=== PATIENT | male | born 1970 | race Caucasian/White ===

== ENCOUNTER 2016-09-17 10:13 | Observation (INO) | payer OTHER ==
[~2016-09-17] VITALS: Ht 177.8 cm; Wt 86.0 kg
[~2016-09-17 10:13] MED LIST: ADV250INH INH; ADVAIR; ALBU17IN INH; AMLO5TAB2 PO; CIPR500T19; FLAG500T; FOLI1TAB2 PO; HYDR-4274 PO; METO10TA2; NALT50TA4 PO; OMEP20CA3 PO; OXAZ10CA PO; PERCOCET PO; PRAV10TA PO; PREV30TA; PROV90AE; SERT25TA85 PO; TUMS500C PO; Thiamine Hcl PO; VICO5TAB; VITMTA PO
[2016-09-17] MEDS ORDERED: OXAZEPAM 15 MG CAP As Ordered ONE (12:43)
[2016-09-17] MEDS ORDERED: ASPIRIN 81 MG CHEW TABLET As Ordered ONE (12:43)
--- NOTE | 2016-09-17 13:00 | REP ---
PA and lateral chest: Comparison is 01/24/2015. The lung diego are clear. The cardiac size is normal The danilo, mediastinum, and bony thorax are unremarkable. Impression: Negative PA and lateral chest. There is no interval change. Signed by Tavon Machuca MD 09/17/2016 12:52 P
--- NOTE | 2016-09-17 13:05 | REP ---
CT of the brain without IV contrast: Comparison is 09/03/2015. There is no hemorrhage. There is no edema, mass effect or midline shift. The cortical stripe is unremarkable. The ventricles are normal size and midline. The study is otherwise unremarkable. Impression: Negative CT study of the brain. There is no hemorrhage, acute infarct or mass. No change from the comparison study. Signed by Tavon Machuca MD 09/17/2016 12:57 P
[2016-09-17 13:25] LABS: BASO # 0.1 K/mm3 (0.0-0.2); BASO % 0.7 % (0.0-1.0); EOS # 0.2 K/mm3 (0.0-0.50); EOS % 1.4 % (0.0-3.0); LARGE UNSTAINED CELL # 0.2 K/mm3 (0.0-0.4); LARGE UNSTAINED CELL % 1.5 % (0.0-4.0); LYMPH % 8.6 % (24.0-44.0); MEAN CORPUSCULAR HEMOGLOBIN 32.2 pg (27.0-33.0); MEAN CORPUSCULAR VOLUME 94.6 fl (80.0-96.0); MONO # 0.5 K/mm3 (0.0-0.8); MONO % 4.5 % (0.0-5.0); NEUTROPHILS # 10.1 K/mm3 (1.8-7.7); NEUTROPHILS % 83.4 % (36.0-66.0); PLATELET COUNT, AUTOMATED 407 k/mm3 (150-450); RED CELL DISTRIBUTION WIDTH 12.7 % (11.5-14.5); WHITE BLOOD COUNT 12.1 K/mm3 (4.0-10.0)
[2016-09-17 13:34] LABS: ANION GAP 9 MEQ/L (8-16); BLOOD UREA NITROGEN 6 MG/DL (7-18); CALCIUM LEVEL 9.8 MG/DL (8.5-10.1); CARBON DIOXIDE LEVEL 28 MEQ/L (21-32); CHLORIDE LEVEL 102 MEQ/L (98-107); CREATININE FOR GFR 0.67 MG/DL (0.70-1.30); GLOMERULAR FILTRATION RATE > 60.0 (>60); GLUCOSE, FASTING 118 MG/DL (70-105); MAGNESIUM LEVEL 1.7 MG/DL (1.8-2.4); PHOSPHORUS LEVEL 2.5 MG/DL (2.5-4.9); POTASSIUM SERUM 3.8 MEQ/L (3.5-5.1); SODIUM LEVEL 139 MEQ/L (136-145)
[2016-09-17] MEDS ORDERED: LORazepam 2 MG/ML VIAL (J2060) As Ordered ONE (13:36)
[2016-09-17] MEDS ORDERED: amLODIPine 5 MG TAB As Ordered ONE ×2 (14:26→21:16)
[2016-09-17] MEDS ORDERED: MAGNESIUM OXIDE 400 MG TAB (MAG-OX) As Ordered ONE (15:38)
[2016-09-17] MEDS ORDERED: ALBU17IN INH (15:53)
[2016-09-17] MEDS ORDERED: VITMTA PO (15:53)
[2016-09-17] MEDS ORDERED: AMLO5TAB2 PO (15:53)
[2016-09-17] MEDS ORDERED: SERT-138 PO (15:53)
[2016-09-17] MEDS ORDERED: BUSP1TAB PO (15:53)
[2016-09-17] MEDS: cloNIDine 0.1 MG TAB PO SCH ×2 (16:00→21:27)
[2016-09-17] MEDS ORDERED: ACETAMINOPHEN TAB 650MG DOSE (2X325MG) PO PRN (16:15)
[2016-09-17] MEDS ORDERED: ALBUTEROL 90 MCG/ACT 8GM HFA INHALER INH PRN (16:15)
--- NOTE | 2016-09-17 16:26 | HPEPDOC ---
General Date of Admission 09/17/2016 425PM Chief Complaint The patient is a 46-year-old male Presented to the ER with complaints of chest pain since this morning. History of Present Illness Patient is a 46 year old male with a PMHx of Asthma, HTN, GERD, Anxiety / Depression, Seizure History, DLP, Alcoholism who presented to the ER with complaints of chest pain for 1 day duration. He notes that he woke up this morning around 445AM with complaints of chest pain. He notes the pain occurred sub-sternal, 5-8/10, aching like, continuous for 4 hours, non-radiating, no alleviating or aggravating factors. He did not associated shortness of breath, nausea and vomiting (1 episode, bilious), some dizziness, but no loss of consciousness. He notes some sweatiness. He notes that he has ran out of oxazepam (Serax) for the last 2 weeks because he has not followed up with his primary care provider. He has been drinking alcohol since that point. This has happened in the past and he was admitted for the same reason. He notes his last drink of alcohol was yesterday, when he had consumed 10 beers. He notes tingling in his toes bilaterally. He denies muscle weakness or sensory loss. He denies abdominal pain, constipation, diarrhea or urinary symptoms. Home Medications Scheduled Amlodipine Besylate (Amlodipine Besylate) 5 Mg Tab 5 MG PO BID (Reported) Buspirone HCl (Buspirone HCl) 7.5 Mg Tab 7.5 MG PO DAILY (Reported) Multivitamins *[facility] STOCKED* (Thera M Plus *[facility] STOCK[facility]*) 1 Tab Tab 1 TAB PO DAILY (Reported) Omeprazole (Omeprazole) 20 Mg Cap 20 MG PO DAILY (Reported) Salmeterol/Fluticasone (Advair Diskus 250-50 Mcg/Dose) 14 Puff/Inhaler Aerp 1 PUFF INH BID (Reported) Sertraline HCl (Sertraline HCl) 100 Mg Tab 100 MG PO DAILY (Reported) Scheduled PRN Albuterol Sulfate (Ventolin Hfa) 200 Puff/8 Gm Aers 2 PUFF INH QID PRN PRN SHORTNESS OF BREATH (Reported) Allergies Coded Allergies: No Known Drug Allergy (Verified Allergy, Unknown, 11/17/12) Past Medical History Medical History Asthma, HTN, GERD, Anxiety / Depression, Seizure History, DLP, Alcoholism Surgical History Appendectomy Tonsillectomy Both knee repair Right ankle surgery Umbilical hernia repair Family History Family History - Mother with history of breast cancer - Father with history of [place] at age 60 Social History Social History - Smokes cigars occasionally, Drinks alcohol excessively, Smoke marijuana occasionally - Denies recent travel or sick contacts - Lives with daughter - 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; 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 Review of Symptoms Other systems Constitutional: Denies weight loss, change in appetite, or recent trauma Eyes: No visual changes or eye pain Ears, Nose, Throat: Denies nose bleeds, or difficulty swallowing Cardiovascular: Positive chest pain, sweating, No orthopnea Respiratory: No cough, or wheezing, Positive shortness of breath GI: Positive nausea and vomiting, No abdominal pain, diarrhea or constipation : Denies pain with urination or frequency Musculoskeletal: Denies joint pain or swelling, Tingling in his toes bilaterally Neuro / Psych: Denies muscle weakness or sensory loss Skin: No skin rashes noted All other review of systems negative; otherwise stated in history of present illness Vital Signs - Vitals: BP 149/101, HR 108, RR 16, Sat 97%RA, Temp 97.7F - General: Lying in bed, No acute distress, Speaking in full sentences, AAOx3 - HEENT: NC, AT, PERRLA, EOMI - CVS: Regular rhythm, Tachycardic, +S1S2, - Lungs: Fair air entry bilaterally, Clear to auscultation, No wheezing / rales / rhonchi - Abdomen: Soft, Non-distended, Non-tender, + Bowel sounds x 4 - Extremities: + PPx4, No lower extremity edema, No calf tenderness - Neuro: No focal motor or sensory deficit - Skin: No visible rashes Laboratory Data Labs 24H Laboratory Tests 2 09/17/16 13:02: Anion Gap 9, White Blood Count 12.1H, Red Blood Count 4.59, Hemoglobin 14.8, Hematocrit 43.4, Mean Corpuscular Volume 94.6, Mean Corpuscular Hemoglobin 32.2 , Mean Corpuscular Hemoglobin Concent 34.0, Red Cell Distribution Width 12.7, Platelet Count 407, Neutrophils (%) (Auto) 83.4H, Lymphocytes (%) (Auto) 8.6L, Monocytes (%) (Auto) 4.5, Eosinophils (%) (Auto) 1.4, Basophils (%) (Auto) 0.7, Neutrophils # (Auto) 10.1H, Lymphocytes # (Auto) 1.0L, Monocytes # (Auto) 0.5, Eosinophils # (Auto) 0.2, Basophils # (Auto) 0.1, Blood Urea Nitrogen 6L, Creatinine 0.67L, Sodium Level 139, Potassium Level 3.8, Chloride Level 102, Carbon Dioxide Level 28, Calcium Level 9.8, Phosphorus Level 2.5, Total Creatine Kinase 107, Creatine Kinase MB 1.6, Creatine Kinase MB Relative Index 1.49, Glomerular Filtration Rate > 60.0, Large Unclassified Cells # 0.2, Large Unclassified Cells % 1.5, Magnesium Level 1.7L, Troponin I < 0.02 CBC/BMP Laboratory Tests 09/17/16 13:02 Calcium Level 9.8, Phosphorus Level 2.5, Total Creatine Kinase 107, Red Blood Count 4.59, Mean Corpuscular Volume 94.6, Mean Corpuscular Hemoglobin 32.2, Mean Corpuscular Hemoglobin Concent 34.0, Red Cell Distribution Width 12.7, Neutrophils (%) (Auto) 83.4 H, Lymphocytes (%) (Auto) 8.6 L, Monocytes (%) (Auto ) 4.5, Eosinophils (%) (Auto) 1.4, Basophils (%) (Auto) 0.7, Neutrophils # (Auto ) 10.1 H, Lymphocytes # (Auto) 1.0 L, Monocytes # (Auto) 0.5, Eosinophils # ( Auto) 0.2, Basophils # (Auto) 0.1 Plan / VTE VTE Prophylaxis Ordered?: Yes Plan Plan Chest pain possibly cardiac etiology - Atypical presentation of chest pain - EKG reviewed no ischemic changes noted; similar to EKG from 12/2015 - Troponin first set negative - Will trend troponins for now - Will keep on telemetry - Will ultimately require outpatient follow up with Cardiology for stress test Atrial flutter likely 2/2 alcohol withdrawal - on telemetry strip in the ER patient was found to be in flutter for 10-15 seconds - EKG reveals sinus tachycardia - Will keep on telemetry for monitoring - Will check thyroid function - Will treat alcohol withdrawal Alcohol withdrawal 2/2 lack of oxazepam (serax) as outpatient and restarting alcohol use - Patient presented with hypertension, tachycardia, some tremulousness - Physical reveals tachycardia - Received Ativan in the ER - Will start serax and clonidine - Will start IV fluid hydration - Will start Multivitamins, thiamine and folate Accelerated hypertension likely 2/2 alcohol withdrawal - BP is elevated in the ER - Will c/w Amlodipine with holding parameters - Will start clonidine and control withdrawal symptoms Asthma - no evidence of exacerbation at this time - c/w advair and albuterol Anxiety / Depression - c/w serax for now - c/w sertraline and buspirone Seizure History - single episode 1 year ago - not on medications DLP - currently not on medications GERD - c/w omeprazole DVT prophylaxis - Will start Lovenox MAGNO ROSAS MD Sep 17, 2016 16:26
[2016-09-17 17:23] LABS: FREE T4 0.75 NG/DL (0.76-1.46)
[2016-09-17] MEDS ORDERED: OXAZEPAM 15 MG CAP PO SCH (18:00)
[2016-09-17] MEDS: ADVAIR DISKUS 250/50 INH PWD INH SCH (20:41)
[2016-09-17] MEDS ORDERED: NS 1,000 ML IV SCH (20:45)
[2016-09-17] MEDS ORDERED: cloNIDine 0.2 MG TAB As Ordered ONE (21:16)
[2016-09-17] MEDS ORDERED: busPIRone 5 MG TAB As Ordered ONE (21:24)
[2016-09-17] MEDS: amLODIPine 5 MG TAB PO SCH (21:27)
[2016-09-17] MEDS: busPIRone 5 MG TAB PO SCH (21:27)
[2016-09-18] MEDS: FOLIC ACID 1 MG TAB PO SCH ×2 (00:06→09:32)
[2016-09-18] MEDS: OMEPRAZOLE 20 MG CAP PO SCH ×2 (00:06→09:32)
[2016-09-18] MEDS: THIAMINE 100 MG TAB PO SCH ×2 (00:06→09:32)
[2016-09-18 00:15] VITALS: BP 140/93
[2016-09-18] MEDS ORDERED: OXAZEPAM 15 MG CAP As Ordered ONE ×3 (00:41→12:24)
[2016-09-18] MEDS: OXAZEPAM 15 MG CAP PO SCH ×3 (00:44→12:26)
[2016-09-18 04:00] VITALS: BP 139/94
[2016-09-18 06:48] LABS: BASO # 0.1 K/mm3 (0.0-0.2); EOS # 0.3 K/mm3 (0.0-0.50); LARGE UNSTAINED CELL # 0.1 K/mm3 (0.0-0.4); LARGE UNSTAINED CELL % 1.7 % (0.0-4.0); LYMPH # 1.3 K/mm3 (1.5-4.5); LYMPH % 18.6 % (24.0-44.0); MEAN CORPUSCULAR HEMOGLOBIN 32.6 pg (27.0-33.0); MEAN CORPUSCULAR HGB CONC 33.5 g/dl (32.0-36.5); MEAN CORPUSCULAR VOLUME 97.1 fl (80.0-96.0); MONO # 0.3 K/mm3 (0.0-0.8); MONO % 4.1 % (0.0-5.0); NEUTROPHILS # 5.1 K/mm3 (1.8-7.7); NEUTROPHILS % 70.6 % (36.0-66.0); PLATELET COUNT, AUTOMATED 308 k/mm3 (150-450); RED CELL DISTRIBUTION WIDTH 12.6 % (11.5-14.5); WHITE BLOOD COUNT 7.2 K/mm3 (4.0-10.0)
[2016-09-18] MEDS: ADVAIR DISKUS 250/50 INH PWD INH SCH (07:08)
[2016-09-18 08:00] VITALS: BP 156/100
[2016-09-18 08:26] VITALS: BP 150/93
[2016-09-18 08:53] LABS: ALBUMIN 3.6 GM/DL (3.2-5.2); ALBUMIN/GLOBULIN RATIO 1.09 (1.00-1.93); ALKALINE PHOSPHATASE 166 U/L (45-117); ALT/SGPT 80 U/L (12-78); ANION GAP 11 MEQ/L (8-16); AST/SGOT 68 U/L (15-37); BILIRUBIN,TOTAL 0.7 MG/DL (0.2-1.0); BLOOD UREA NITROGEN 7 MG/DL (7-18); CALCIUM LEVEL 9.2 MG/DL (8.5-10.1); CARBON DIOXIDE LEVEL 24 MEQ/L (21-32); CHLORIDE LEVEL 107 MEQ/L (98-107); CREATININE FOR GFR 0.74 MG/DL (0.70-1.30); GLOMERULAR FILTRATION RATE > 60.0 (>60); GLUCOSE, FASTING 106 MG/DL (70-105); MAGNESIUM LEVEL 2.1 MG/DL (1.8-2.4); POTASSIUM SERUM 3.8 MEQ/L (3.5-5.1); SODIUM LEVEL 142 MEQ/L (136-145); TOTAL PROTEIN 6.9 GM/DL (6.4-8.2)
[2016-09-18] MEDS ORDERED: SERTRALINE 100 MG TAB PO SCH (09:00)
[2016-09-18] MEDS ORDERED: ENOXAPARIN 40 MG/0.4 ML SYRINGE (J1650) SC SCH (09:00)
[2016-09-18] MEDS ORDERED: MULTIVITAMINS/MINERALS THERAP 1 TAB PO SCH (09:00)
[2016-09-18] MEDS ORDERED: busPIRone 5 MG TAB As Ordered ONE (09:27)
[2016-09-18] MEDS ORDERED: OMEPRAZOLE 20 MG CAP As Ordered ONE (09:29)
[2016-09-18] MEDS ORDERED: FOLIC ACID 1 MG TAB As Ordered ONE (09:29)
[2016-09-18] MEDS ORDERED: ENOXAPARIN 40 MG/0.4 ML SYRINGE (J1650) As Ordered ONE (09:29)
[2016-09-18] MEDS ORDERED: THIAMINE 100 MG TAB As Ordered ONE (09:29)
[2016-09-18] MEDS ORDERED: MULTIVITAMINS/MINERALS THERAP 1 TAB As Ordered ONE (09:29)
[2016-09-18] MEDS ORDERED: cloNIDine 0.1 MG TAB As Ordered ONE (09:29)
[2016-09-18] MEDS ORDERED: SERTRALINE 100 MG TAB As Ordered ONE (09:30)
[2016-09-18] MEDS ORDERED: amLODIPine 5 MG TAB As Ordered ONE (09:30)
[2016-09-18 09:32] VITALS: BP 150/93
[2016-09-18] MEDS: amLODIPine 5 MG TAB PO SCH (09:32)
[2016-09-18] MEDS: cloNIDine 0.1 MG TAB PO SCH (09:32)
[2016-09-18] MEDS: busPIRone 5 MG TAB PO SCH (09:33)
[2016-09-18] MEDS ORDERED: THIA100TA PO (11:24)
[2016-09-18] MEDS ORDERED: CLONI1TA PO (11:24)
[2016-09-18] MEDS ORDERED: FOLI1TAB2 PO (11:24)
[2016-09-18] MEDS ORDERED: BUSP1TAB PO (11:49)
[2016-09-18] MEDS ORDERED: ADV250INH INH (11:49)
[2016-09-18] MEDS ORDERED: AMLO5TAB2 PO (11:49)
[2016-09-18] MEDS ORDERED: SERT-138 PO (11:49)
[2016-09-18] MEDS ORDERED: OMEP20CA3 PO (11:49)
[2016-09-18] MEDS ORDERED: ALBU17IN INH (11:49)
[2016-09-18] MEDS ORDERED: OXAZ15CA PO (11:49)
[2016-09-18] MEDS ORDERED: VITMTA PO (11:49)
[2016-09-18 12:00] VITALS: BP 141/89
--- NOTE | 2016-09-18 12:41 | EDDOCDS ---
Nurse's Notes [facility] Name: Alejandro Pacheco Age: 46 yrs Sex: Male : 1970 Arrival Date: 09/17/2016 Time: 10:13 Bed Admit Hold Private MD: Diagnosis: Alcohol dependence with withdrawal, unspecified;Chest pain, unspecified Presentation: 09/17 10:18 Presenting complaint: Patient states: Nausea, diarrhea, "numbness in my toes', ck1 palpitations for a week Patient states "I drink a lot to mask it". Last drink yesterday, reports 10 beers. Adult Sepsis Screening: The patient does not have new or worsening altered mentation. Patient's respiratory rate is less than 22. Systolic blood pressure is greater than 100. Patient has a qSOFA score of 0- Negative Sepsis Screen. Suicide/Homicide risk assessment- the patient denies having any suicidal and/or homicidal ideations and does not present with any other emotional, behavioral or mental health complaints. Status: Patient is not a travel services professional or dependent. Transition of care: patient was not received from another setting of care. 10:18 Acuity: ADAN Level 3 ck1 10:18 Method Of Arrival: Walkin/Carried/Asstd ck1 10:25 Red Flag criteria, patient assessed and taken directly to a bed. ck1 Triage Assessment: 10:23 General: Appears distressed, Behavior is anxious. Pain: Location: back and chest Pain ck1 currently is 5 out of 10 on a pain scale. HIV screening NA for this visit Offered previously. Neurological: Level of Consciousness is awake, alert, Oriented to person, place, time. Respiratory: Respiratory effort is unlabored, Respiratory pattern is regular, symmetrical. Derm: Skin is flushed. Musculoskeletal: Circulation, motion, and sensation intact Range of motion intact in all extremities. Historical: - Allergies: NKDA; - Home Meds: 1. Advair Diskus 250-50 mcg/dose Inhl dsdv 1 puff 2 times per day (Last dose: 09/12/2016) 2. amlodipine 5 mg oral tab 1 tab once daily (Last dose: 09/17/2016 07:00) 3. Sertraline 100 mg 1 tab daily (Last dose: 09/17/2016 07:00) 4. Serax 15 mg oral cap 1 cap 3 times per day reports being out of this medication (Last dose: Unknown) 5. omeprazole 20 mg Oral cpDR 1 cap once daily (Last dose: 09/16/2016 07:00) 6. buspirone 7.5 mg oral tab 1 tab daily (Last dose: 09/15/2016) 7. albuterol sulfate 90 mcg/actuation Inhl HFAA 1 puff every 4 hours as needed (Last dose: 08/2016) 8. multivitamin Oral tab 1 tablet daily (Last dose: 09/17/2016 07:00) - PMHx: Seizures; Hypertension; Hypercholesterolemia; GERD; Asthma; Alcoholism; Depression; - PSHx: right ankle surgery; Appendectomy; bilateral knee surgery; has plate in head; Tonsillectomy; Hernia repair; - Social history: Smoking status: Cigars No barriers to communication noted, The patient speaks fluent Swazi, Speaks appropriately for age. - : The pt / caregiver states he / she is not on anticoagulants. Home medication list is obtained from the patient, Note Medications verified by external med history and verified by patient. - Exposure Risk Screening:: None identified. Screenin:44 Screening information is obtained from the patient. Fall risk: No risks identified. ja5 Assistance ADL's: requires no assistance with activities of daily living. Abuse/DV Screen: The patient / caregiver reports he/she is: not in a situation that causes fear, pain or injury. Nutritional screening: On no prescribed diet. Advance Directives: Currently, there is no health care proxy. There is no active DNR order. There is no living will. There is no Power of Patent Leather Sorter. home support is adequate. Assessment: 10:38 General: Appears uncomfortable, Behavior is anxious, cooperative. Pain: Location: right ja5 supraclavicular area, right clavicle, anterior aspect of right upper chest and right breast Pain currently is 7 out of 10 on a pain scale. back, Quality of pain is described as sharp. Neurological: Level of Consciousness is awake, alert, Oriented to person, place, time. Cardiovascular: Capillary refill < 3 seconds Heart tones S1 S2 present Rhythm is sinus tachycardia No ectopy. Chest pain is described as Pain is 7 out of 10 on a pain scale. radiates back began 4 hours prior to arrival. Respiratory: Airway is patent Respiratory effort is even, unlabored, Respiratory pattern is regular, symmetrical, Breath sounds are clear bilaterally. Derm: Skin is pink. 11:01 General: Patient states his last drink was yesterday at 6pm.. ja5 11:34 General: Appears in no apparent distress, Behavior is anxious, cooperative. Pain: mb9 Denies pain. Neurological: Level of Consciousness is awake, alert, Oriented to person, place, time, Pt noted to have tremors of the right arm and left arm pt reports a history of binge drinking. pt reports last drink was yesterday. pt reports the tremors are typical of when he stops drinking. . Respiratory: Airway is patent Respiratory effort is even, unlabored, Respiratory pattern is regular, symmetrical, Breath sounds are clear bilaterally. Derm: pt has multiple healing scratch herrera to bilateral lower extremities. 13:07 Reassessment: Patient states symptoms have not improved. General: Appears in no mb9 apparent distress, Behavior is anxious, cooperative. Cardiovascular: Rhythm is sinus tachycardia No ectopy. Respiratory: Airway is patent Respiratory effort is even, unlabored, Breath sounds are clear bilaterally. 14:37 Reassessment: Patient appears in no apparent distress at this time. Patient states mb9 symptoms have improved. Adult Sepsis Screening: The patient does not have new or worsening altered mentation. Patient's respiratory rate is less than 22. Systolic blood pressure is greater than 100. Patient has a qSOFA score of 0- Negative Sepsis Screen. Respiratory: Airway is patent Respiratory effort is even, unlabored. 15:32 Reassessment: Patient appears in no apparent distress at this time. Patient states mb9 symptoms have improved. General: Appears in no apparent distress, Behavior is appropriate for age, cooperative. Respiratory: Airway is patent Respiratory effort is even, unlabored. 16:56 Reassessment: Patient appears in no apparent distress at this time. Patient states mb9 symptoms have improved. Adult Sepsis Screening: The patient does not have new or worsening altered mentation. Patient's respiratory rate is less than 22. Systolic blood pressure is greater than 100. Patient has a qSOFA score of 0- Negative Sepsis Screen. General: Appears in no apparent distress, Behavior is appropriate for age, cooperative. Respiratory: Airway is patent Respiratory effort is even, unlabored. 18:19 Reassessment: Patient appears in no apparent distress at this time. Adult Sepsis mb9 Screening: The patient does not have new or worsening altered mentation. Patient's respiratory rate is less than 22. Systolic blood pressure is greater than 100. Patient has a qSOFA score of 0- Negative Sepsis Screen. General: Appears to be sleeping. Behavior is appropriate for age, cooperative. Respiratory: Airway is patent Respiratory effort is even, unlabored. 19:16 General: Verbal report given by Ronan Lora RN. Assumed care of patient at this time.. kas2 19:31 General: Appears in no apparent distress, comfortable, well nourished, well groomed, kas2 Behavior is appropriate for age, cooperative. Pain: Denies pain. Neurological: Level of Consciousness is awake, alert, Oriented to person, place, time. Cardiovascular: Capillary refill < 3 seconds Heart tones S1 S2 present Rhythm is sinus tachycardia No ectopy. Chest pain is denied. Respiratory: Airway is patent Respiratory effort is even, unlabored, Respiratory pattern is regular, symmetrical, Breath sounds are clear bilaterally. Derm: Skin is intact, Skin is dry, Skin is pink, warm & dry. Skin temperature is warm. Injury Description: No known injury. 20:00 General: Patient fed supper.. kas2 21:09 General: Patient laying in bed watching TV. Appears comfortable. No apparent distress. kas2 Call rodríguez within reach. Will continue to monitor.. 21:28 General: Floor meds given as per OCT.. kas2 22:22 General: Appears in no apparent distress, comfortable, Behavior is appropriate for age, kas2 cooperative. Pain: Denies pain. Neurological: Level of Consciousness is awake, alert, Oriented to person, place, time. Cardiovascular: Rhythm is sinus tachycardia No ectopy. Respiratory: Airway is patent Respiratory effort is even, unlabored, Respiratory pattern is regular, symmetrical. Derm: Skin is intact, Skin is dry, Skin is pink, warm & dry. Skin temperature is warm. 23:22 General: Patient laying in bed watching TV. No apparent distress noted. Appears kas2 comfortable. VSS. Airway patent and respiratory effort even and unlabored. Call rodríguez within reach. Will continue to monitor.. 09/18 00:07 General: Verbal report given to Augustina Alva RN. . kas2 Vital Signs: 09/17 10:17 BP 197 / 114 Sitting; Pulse 109; Resp 16; Temp 97.7(O); Pulse Ox 97% on R/A; Weight jrd 86.18 kg (R); Height 5 ft. 10 in. (177.80 cm); Pain 0/10; 10:34 BP 158 / 105 (auto/); jc4 10:36 BP 160 / 105 (auto/); jc4 10:36 Pulse 106 MON; Pulse Ox 98% ; jc4 10:37 Pulse 108 MON; Pulse Ox 98% ; jc4 10:51 BP 168 / 97 (auto/); mb9 10:52 Pulse 102 MON; Pulse Ox 97% ; mb9 11:06 BP 148 / 100 (auto/); mb9 11:07 Pulse 102 MON; Pulse Ox 97% ; mb9 11:21 BP 154 / 107 (auto/); mb9 11:22 Pulse 104 MON; Pulse Ox 97% ; mb9 11:36 BP 158 / 104 (auto/); mb9 11:37 Pulse 102 MON; Pulse Ox 97% ; mb9 11:51 BP 158 / 103 (auto/); mb9 11:52 Pulse 104 MON; Pulse Ox 97% ; mb9 12:06 BP 164 / 94 (auto/); mb9 12:07 Pulse 108 MON; Pulse Ox 98% ; mb9 12:21 BP 169 / 104 (auto/); mb9 12:22 Pulse 106 MON; Pulse Ox 97% ; mb9 12:36 BP 163 / 102 (auto/); mb9 12:37 Pulse 108 MON; Pulse Ox 97% ; mb9 13:02 BP 157 / 106 (auto/); mb9 13:02 Pulse 108 MON; Pulse Ox 97% ; mb9 13:06 BP 160 / 110 (auto/); mb9 13:07 Pulse 108 MON; Pulse Ox 97% ; mb9 13:21 BP 155 / 103 (auto/); mb9 13:22 Pulse 108 MON; Pulse Ox 97% ; mb9 13:36 BP 160 / 108 (auto/); mb9 13:37 Pulse 110 MON; Pulse Ox 97% ; mb9 13:51 BP 152 / 100 (auto/); mb9 13:52 Pulse 104 MON; Pulse Ox 94% ; mb9 14:08 BP 157 / 104 (auto/); mb9 14:10 Pulse 104 MON; Pulse Ox 97% ; mb9 15:25 BP 149 / 101 (auto/); mb9 15:26 Pulse 102 MON; Resp 17; Temp 98.3(O); Pulse Ox 98% ; mb9 15:49 BP 155 / 109 (auto/); mb9 15:50 Pulse 102 MON; Pulse Ox 99% ; mb9 15:55 BP 179 / 107 (auto/); mb9 15:56 Pulse 108 MON; Pulse Ox 100% ; mb9 16:25 BP 155 / 103 (auto/); mb9 16:26 Pulse 102 MON; Pulse Ox 100% ; mb9 16:55 BP 150 / 96 (auto/); mb9 16:56 Pulse 94 MON; Pulse Ox 96% ; mb9 18:11 BP 146 / 103 (auto/); mb9 18:12 Pulse 100 MON; Pulse Ox 97% ; mb9 18:13 BP 150 / 105 (auto/); mb9 18:14 Pulse 88 MON; Pulse Ox 97% ; mb9 18:33 BP 158 / 97 (auto/); mb9 18:34 Pulse 98 MON; Pulse Ox 97% ; mb9 18:58 BP 156 / 98 (auto/); kas2 18:58 Pulse 94 MON; Pulse Ox 97% ; kas2 18:58 Resp 18; Temp 98.0(O); kas2 20:41 BP 172 / 94 (auto/); kas2 20:41 Pulse 90 MON; Pulse Ox 97% ; kas2 20:46 BP 173 / 94 (auto/); kas2 20:46 Pulse 102 MON; Pulse Ox 98% ; kas2 21:18 BP 171 / 94 (auto/); kas2 21:18 Pulse 94 MON; kas2 23:35 BP 149 / 99 (auto/); kas2 23:35 Pulse 88 MON; Pulse Ox 95% ; kas2 10:17 Body Mass Index 27.26 (86.18 kg, 177.80 cm) jrd Vitals: 10:17 Log In Time: September 17, 2016 at 10:15. RN notified that patient meets Red Flag jrd criteria. 10:17 RN notified that patient meets Red Flag criteria. jrd ED Course: 10:16 Patient visited by Kris Zamudio PCA. jrd 10:16 Patient moved to Waiting jrd 10:19 Triage Initiated ck1 10:24 Mima Galicia,RN is Primary Nurse. ck1 10:24 Kesha Melendez, RN is Primary Nurse. ck1 10:24 Afia Roque,RN is Primary Nurse. ck1 10:24 Patient moved to 10 ck1 10:34 EKG done. (by ED staff). Reviewed by Uche Hernandez MD. rn1 11:05 Primary Nurse role handed off by Kesha Melendez, VIVEK jc4 11:34 Patient visited by Alex Negro RN. mb9 12:09 Reid Ken MD is Attending Physician. br1 12:22 Patient visited by Reid Ken MD. br1 12:30 COUNTS INCLUDE 234 BEDS AT THE [facility] Payment Agreement was scanned into [employer] and attached to record. mm15 12:36 Primary Nurse role handed off by Afia Roque RN mcp 12:36 Primary Nurse role handed off by Mima Galicia RN mcp 13:05 PHOSPHOROUS LEVEL Sent. mb9 13:05 MAGNESIUM LEVEL Sent. mb9 13:06 Basic Metabolic Profile Sent. mb9 13:06 CBC with Diff Sent. mb9 13:06 Cardiac Injury Profile Sent. mb9 13:06 Troponin Sent. mb9 13:07 Inserted saline lock: 18 gauge in right forearm and blood collected. The patient mb9 tolerated the procedure well. 13:08 Patient visited by Alex Negro RN. mb9 13:21 Chest, 2 View (pa\\E\\lat) Returned. EDMS 13:21 CT Head Without Contrast Returned. EDMS 14:11 Patient visited by Reid Ken MD. br1 14:29 Patient visited by Ranjana Pantoja. cmb 15:33 Patient visited by Alex Negro RN. mb9 15:38 Lulu Kevin is Hospitalizing Provider. br1 18:19 Patient visited by Alex Negro RN. mb9 18:58 Augustina Root RN is Primary Nurse. kas2 19:16 Patient visited by Augustina Root RN. kas2 19:34 Patient visited by Augustina Root RN. kas2 20:21 Patient visited by Augustina Root RN. kas2 20:22 Patient moved to Admit Hold sls1 21:11 Patient visited by Augustina Root RN. kas2 21:28 Patient visited by Augustina Root RN. kas2 22:23 Patient visited by Augustina Root RN. kas2 23:24 Patient visited by Augustina Root RN. kas2 23:36 Patient visited by Augustina Root RN. kas2 23:56 Patient moved to 18 [facility] 23:56 Patient moved to Admit Hold [facility]1 09/18 00:06 No procedures done that require assistance. kas2 00:09 Patient visited by Augustina Root RN. kas2 00:12 Patient visited by Augustina Root RN. [facility] 08:24 Primary Nurse role handed off by Augustina Root RN kr3 Administered Medications: 09/17 13:05 Drug: Oxazepam 30 mg [oxazepam 15 mg capsule (2 caps)] Route: PO; mb9 13:05 Drug: Aspirin 324 mg [aspirin 81 mg chewable tablet (4 tabs)] Route: PO; mb9 13:06 Drug: NS 0.9% 1000 ml [sodium chloride 0.9 % intravenous solution] Route: IV; Rate: 150 mb9 mL/hr; Site: right forearm; 13:42 Drug: LORazepam 1 mg [lorazepam 2 mg/mL injection solution (0.5 mL)] Route: IVP; Site: mb9 right forearm; 14:37 Drug: amLODIPine 5 mg [amlodipine 5 mg tablet (1 tabs)] Route: PO; mb9 15:55 Drug: Magnesium Oxide 400 mg [magnesium oxide 400 mg tablet (1 tabs)] Route: PO; mb9 Output: 18:38 Urine: 450.00ml (Gibbs); Total: 450.00ml. mb9 09/18 00:06 Urine: 1000.00ml (Voided); Total: 1450.00ml. kas2 Order Results: Lab Order: Basic Metabolic Profile; SPEC'M 09/17/16 13:02 Test: GLUCOSE, FASTING; Value: 118; Range: 70-105; Abnormal: Above high normal; Units: MG/DL; Status: F Test: BLOOD UREA NITROGEN; Value: 6; Range: 7-18; Abnormal: Below low normal; Units: MG/DL; Status: F Test: CREATININE FOR GFR; Value: 0.67; Range: 0.70-1.30; Abnormal: Below low normal; Units: MG/DL; Status: F Test: GLOMERULAR FILTRATION RATE; Value: > 60.0; Range: >60; Status: F Test: SODIUM LEVEL; Value: 139; Range: 136-145; Units: MEQ/L; Status: F Test: POTASSIUM SERUM; Value: 3.8; Range: 3.5-5.1; Units: MEQ/L; Status: F Test: CHLORIDE LEVEL; Value: 102; Range: 98-107; Units: MEQ/L; Status: F Test: CARBON DIOXIDE LEVEL; Value: 28; Range: 21-32; Units: MEQ/L; Status: F Test: ANION GAP; Value: 9; Range: 8-16; Units: MEQ/L; Status: F Test: CALCIUM LEVEL; Value: 9.8; Range: 8.5-10.1; Units: MG/DL; Status: F Test Note: ; Units are mL/min/1.73 m2 Chronic Kidney Disease Staging per NKF: Stage I & II GFR >=60 Normal to Mildly Decreased Stage III GFR 30-59 Moderately Decreased Stage IV GFR 15-29 Severely Decreased Stage V GFR <15 Very Little GFR Left ESRD GFR <15 on DISTRIBUTION OPERATIONS MANAGER Lab Order: CBC with Diff; SPEC'M 09/17/16 13:02 Test: WHITE BLOOD COUNT; Value: 12.1; Range: 4.0-10.0; Abnormal: Above high normal; Units: K/mm3; Status: F Test: RED BLOOD COUNT; Value: 4.59; Range: 4.30-6.10; Units: M/mm3; Status: F Test: HEMOGLOBIN; Value: 14.8; Range: 14.0-18.0; Units: g/dl; Status: F Test: HEMATOCRIT; Value: 43.4; Range: 42.0-52.0; Units: %; Status: F Test: MEAN CORPUSCULAR VOLUME; Value: 94.6; Range: 80.0-96.0; Units: fl; Status: F Test: MEAN CORPUSCULAR HEMOGLOBIN; Value: 32.2; Range: 27.0-33.0; Units: pg; Status: F Test: MEAN CORPUSCULAR HGB CONC; Value: 34.0; Range: 32.0-36.5; Units: g/dl; Status: F Test: RED CELL DISTRIBUTION WIDTH; Value: 12.7; Range: 11.5-14.5; Units: %; Status: F Test: PLATELET COUNT, AUTOMATED; Value: 407; Range: 150-450; Units: k/mm3; Status: F Test: NEUTROPHILS %; Value: 83.4; Range: 36.0-66.0; Abnormal: Above high normal; Units: %; Status: F Test: LYMPH %; Value: 8.6; Range: 24.0-44.0; Abnormal: Below low normal; Units: %; Status: F Test: MONO %; Value: 4.5; Range: 0.0-5.0; Units: %; Status: F Test: EOS %; Value: 1.4; Range: 0.0-3.0; Units: %; Status: F Test: BASO %; Value: 0.7; Range: 0.0-1.0; Units: %; Status: F Test: LARGE UNSTAINED CELL %; Value: 1.5; Range: 0.0-4.0; Units: %; Status: F Test: NEUTROPHILS #; Value: 10.1; Range: 1.8-7.7; Abnormal: Above high normal; Units: K/mm3; Status: F Test: LYMPH #; Value: 1.0; Range: 1.5-4.5; Abnormal: Below low normal; Units: K/mm3; Status: F Test: MONO #; Value: 0.5; Range: 0.0-0.8; Units: K/mm3; Status: F Test: EOS #; Value: 0.2; Range: 0.0-0.50; Units: K/mm3; Status: F Test: BASO #; Value: 0.1; Range: 0.0-0.2; Units: K/mm3; Status: F Test: LARGE UNSTAINED CELL #; Value: 0.2; Range: 0.0-0.4; Units: K/mm3; Status: F Lab Order: Cardiac Injury Profile; SPEC'M 09/17/16 13:02 Test: CPK CREATINE PHOSPHOKINASE; Value: 107; Range: 39-308; Units: U/L; Status: F Test: CK-MB VALUE MASS; Value: 1.6; Range: 0.0-3.6; Units: NG/ML; Status: F Test: MB/CK RELATIVE INDEX; Value: 1.49; Range: < OR =4; Status: F Test Note: ; DIAGNOSIS CRITERIA MMB ng/ml Relative Index (RI) NON-AMI < or = 5 N/A HICKS ZONE > 5 < or = 4 AMI > 5 > 4 Lab Order: Troponin; [facility] 09/17/16 13:02 Test: TROPONIN I; Value: < 0.02; Range: < 0.10; Units: NG/ML; Status: F Test Note: ; Troponin I Reference Interval for [employer]: 99th Percentile= 0.00-0.045 ng/ml Risk Stratification: <= 0.10 ng/ml Decreased Risk for Adverse Clinical Events. 0.10-1.50 ng/ml Increased Risk for Adverse Clinical Events. Evaluation of additional criterion and/or repeat testing in 2-6 hours is suggested to rule out myocardial damage. >= 1.50 ng/ml Indicative of Myocardial Injury. Lab Order: MAGNESIUM LEVEL; [facility]09/17/16 13:02 Test: MAGNESIUM LEVEL; Value: 1.7; Range: 1.8-2.4; Abnormal: Below low normal; Units: MG/DL; Status: F Lab Order: PHOSPHOROUS LEVEL; [facility] 09/17/16 13:02 Test: PHOSPHORUS LEVEL; Value: 2.5; Range: 2.5-4.9; Units: MG/DL; Status: F Lab Order: CARDIAC INJURY PROFILE; [facility] 09/17/16 16:19 Test: CPK CREATINE PHOSPHOKINASE; Value: 87; Range: 39-308; Units: U/L; Status: F Test: CK-MB VALUE MASS; Value: 1.0; Range: 0.0-3.6; Units: NG/ML; Status: F Test: MB/CK RELATIVE INDEX; Value: 1.14; Range: < OR =4; Status: F Test Note: ; DIAGNOSIS CRITERIA MMB ng/ml Relative Index (RI) NON-AMI < or = 5 N/A HICKS ZONE > 5 < or = 4 AMI > 5 > 4 Lab Order: TROPONIN; [facility] 09/17/16 16:19 Test: TROPONIN I; Value: < 0.02; Range: < 0.10; Units: NG/ML; Status: F Test Note: ; Troponin I Reference Interval for [employer]: 99th Percentile= 0.00-0.045 ng/ml Risk Stratification: <= 0.10 ng/ml Decreased Risk for Adverse Clinical Events. 0.10-1.50 ng/ml Increased Risk for Adverse Clinical Events. Evaluation of additional criterion and/or repeat testing in 2-6 hours is suggested to rule out myocardial damage. >= 1.50 ng/ml Indicative of Myocardial Injury. Lab Order: THYROID STIMULATING HORMONE; [facility] 09/17/16 16:19 Test: THYROID STIMULATING HORMONE; Value: 1.110; Range: 0.358-3.740; Units: uIU/ML; Status: F Lab Order: FREE T4; [facility] 09/17/16 16:19 Test: FREE T4; Value: 0.75; Range: 0.76-1.46; Abnormal: Below low normal; Units: NG/DL; Status: F Lab Order: TOTAL T3; [facility] 09/17/16 16:19 Test: TOTAL T3; Value: 102.9; Range: 60.0-181.0; Units: NG/DL; Status: F Lab Order: ETHYL ALCOHOL (ETHANOL); [facility] 09/17/16 16:19 Test: ETHYL ALCOHOL (ETHANOL); Value: < 0.003; Range: 0.000-0.010; Units: %; Status: F Lab Order: CARDIAC INJURY PROFILE; [facility] 09/18/16 00:36 Test: CPK CREATINE PHOSPHOKINASE; Value: 70; Range: 39-308; Units: U/L; Status: F Test: CK-MB VALUE MASS; Value: 1.0; Range: 0.0-3.6; Units: NG/ML; Status: F Test: MB/CK RELATIVE INDEX; Value: 1.42; Range: < OR =4; Status: F Test Note: ; DIAGNOSIS CRITERIA MMB ng/ml Relative Index (RI) NON-AMI < or = 5 N/A HICKS ZONE > 5 < or = 4 AMI > 5 > 4 Lab Order: CARDIAC INJURY PROFILE; [facility] 09/18/16 08:17 Test: CPK CREATINE PHOSPHOKINASE; Value: 66; Range: 39-308; Units: U/L; Status: F Test: CK-MB VALUE MASS; Value: 1.0; Range: 0.0-3.6; Units: NG/ML; Status: F Test: MB/CK RELATIVE INDEX; Value: 1.51; Range: < OR =4; Status: F Test Note: ; DIAGNOSIS CRITERIA MMB ng/ml Relative Index (RI) NON-AMI < or = 5 N/A HICKS ZONE > 5 < or = 4 AMI > 5 > 4 Lab Order: TROPONIN; [facility] 09/18/16 00:36 Test: TROPONIN I; Value: < 0.02; Range: < 0.10; Units: NG/ML; Status: F Test Note: ; Troponin I Reference Interval for [employer]: 99th Percentile= 0.00-0.045 ng/ml Risk Stratification: <= 0.10 ng/ml Decreased Risk for Adverse Clinical Events. 0.10-1.50 ng/ml Increased Risk for Adverse Clinical Events. Evaluation of additional criterion and/or repeat testing in 2-6 hours is suggested to rule out myocardial damage. >= 1.50 ng/ml Indicative of Myocardial Injury. Lab Order: TROPONIN; [facility] 09/18/16 08:17 Test: TROPONIN I; Value: < 0.02; Range: < 0.10; Units: NG/ML; Status: F Test Note: ; Troponin I Reference Interval for [employer]: 99th Percentile= 0.00-0.045 ng/ml Risk Stratification: <= 0.10 ng/ml Decreased Risk for Adverse Clinical Events. 0.10-1.50 ng/ml Increased Risk for Adverse Clinical Events. Evaluation of additional criterion and/or repeat testing in 2-6 hours is suggested to rule out myocardial damage. >= 1.50 ng/ml Indicative of Myocardial Injury. Lab Order: CBC WITH DIFFERENTIAL; [facility]09/18/16 06:37 Test: WHITE BLOOD COUNT; Value: 7.2; Range: 4.0-10.0; Units: K/mm3; Status: F Test: RED BLOOD COUNT; Value: 4.32; Range: 4.30-6.10; Units: M/mm3; Status: F Test: HEMOGLOBIN; Value: 14.1; Range: 14.0-18.0; Units: g/dl; Status: F Test: HEMATOCRIT; Value: 42.0; Range: 42.0-52.0; Units: %; Status: F Test: MEAN CORPUSCULAR VOLUME; Value: 97.1; Range: 80.0-96.0; Abnormal: Above high normal; Units: fl; Status: F Test: MEAN CORPUSCULAR HEMOGLOBIN; Value: 32.6; Range: 27.0-33.0; Units: pg; Status: F Test: MEAN CORPUSCULAR HGB CONC; Value: 33.5; Range: 32.0-36.5; Units: g/dl; Status: F Test: RED CELL DISTRIBUTION WIDTH; Value: 12.6; Range: 11.5-14.5; Units: %; Status: F Test: PLATELET COUNT, AUTOMATED; Value: 308; Range: 150-450; Units: k/mm3; Status: F Test: NEUTROPHILS %; Value: 70.6; Range: 36.0-66.0; Abnormal: Above high normal; Units: %; Status: F Test: LYMPH %; Value: 18.6; Range: 24.0-44.0; Abnormal: Below low normal; Units: %; Status: F Test: MONO %; Value: 4.1; Range: 0.0-5.0; Units: %; Status: F Test: EOS %; Value: 4.0; Range: 0.0-3.0; Abnormal: Above high normal; Units: %; Status: F Test: BASO %; Value: 1.0; Range: 0.0-1.0; Units: %; Status: F Test: LARGE UNSTAINED CELL %; Value: 1.7; Range: 0.0-4.0; Units: %; Status: F Test: NEUTROPHILS #; Value: 5.1; Range: 1.8-7.7; Units: K/mm3; Status: F Test: LYMPH #; Value: 1.3; Range: 1.5-4.5; Abnormal: Below low normal; Units: K/mm3; Status: F Test: MONO #; Value: 0.3; Range: 0.0-0.8; Units: K/mm3; Status: F Test: EOS #; Value: 0.3; Range: 0.0-0.50; Units: K/mm3; Status: F Test: BASO #; Value: 0.1; Range: 0.0-0.2; Units: K/mm3; Status: F Test: LARGE UNSTAINED CELL #; Value: 0.1; Range: 0.0-0.4; Units: K/mm3; Status: F Lab Order: COMPLETE COMPHRENSIVE METABOLI; SPEC'M 09/18/16 06:37 Test: GLUCOSE, FASTING; Value: 106; Range: 70-105; Abnormal: Above high normal; Units: MG/DL; Status: F Test: BLOOD UREA NITROGEN; Value: 7; Range: 7-18; Units: MG/DL; Status: F Test: CREATININE FOR GFR; Value: 0.74; Range: 0.70-1.30; Units: MG/DL; Status: F Test: GLOMERULAR FILTRATION RATE; Value: > 60.0; Range: >60; Status: F Test: SODIUM LEVEL; Value: 142; Range: 136-145; Units: MEQ/L; Status: F Test: POTASSIUM SERUM; Value: 3.8; Range: 3.5-5.1; Units: MEQ/L; Status: F Test: CHLORIDE LEVEL; Value: 107; Range: 98-107; Units: MEQ/L; Status: F Test: CARBON DIOXIDE LEVEL; Value: 24; Range: 21-32; Units: MEQ/L; Status: F Test: ANION GAP; Value: 11; Range: 8-16; Units: MEQ/L; Status: F Test: CALCIUM LEVEL; Value: 9.2; Range: 8.5-10.1; Units: MG/DL; Status: F Test: AST/SGOT; Value: 68; Range: 15-37; Abnormal: Above high normal; Units: U/L; Status: F Test: ALT/SGPT; Value: 80; Range: 12-78; Abnormal: Above high normal; Units: U/L; Status: F Test: ALKALINE PHOSPHATASE; Value: 166; Range: 45-117; Abnormal: Above high normal; Units: U/L; Status: F Test: BILIRUBIN,TOTAL; Value: 0.7; Range: 0.2-1.0; Units: MG/DL; Status: F Test: TOTAL PROTEIN; Value: 6.9; Range: 6.4-8.2; Units: GM/DL; Status: F Test: ALBUMIN; Value: 3.6; Range: 3.2-5.2; Units: GM/DL; Status: F Test: ALBUMIN/GLOBULIN RATIO; Value: 1.09; Range: 1.00-1.93; Status: F Test Note: ; Units are mL/min/1.73 m2 Chronic Kidney Disease Staging per NKF: Stage I & II GFR >=60 Normal to Mildly Decreased Stage III GFR 30-59 Moderately Decreased Stage IV GFR 15-29 Severely Decreased Stage V GFR <15 Very Little GFR Left ESRD GFR <15 on DISTRIBUTION OPERATIONS MANAGER Lab Order: MAGNESIUM LEVEL; RAY'Scout 09/18/16 06:37 Test: MAGNESIUM LEVEL; Value: 2.1; Range: 1.8-2.4; Units: MG/DL; Status: F Radiology Order: Chest, 2 View (pa\\E\\lat) Test: Chest, 2 View (pa\\E\\lat) REASON FOR EXAMINATION: Chest Pain; PA and lateral chest:; ; Comparison is 01/24/2015.; ; The lung diego are clear. The cardiac size is normal; ; The danilo, mediastinum, and bony thorax are unremarkable.; ; Impression:; ; Negative PA and lateral chest. There is no interval change.; ; ; Signed by; Tavon Machuca MD 09/17/2016 12:52 P; Radiology Order: CT Head Without Contrast Test: CT Head Without Contrast REASON FOR EXAMINATION: CVA >4.5hrs; CT of the brain without IV contrast:; ; Comparison is 09/03/2015.; ; There is no hemorrhage. There is no edema, mass effect or midline shift. The; cortical stripe is unremarkable. The ventricles are normal size and midline. The; study is otherwise unremarkable.; ; Impression:; ; Negative CT study of the brain. There is no hemorrhage, acute infarct or mass.; No change from the comparison study.; ; ; Signed by; Tavon Machuca MD 09/17/2016 12:57 P; Outcome: 09/17 15:38 Decision to Hospitalize by Provider. br1 09/18 12:40 Patient left the ED. deg Signatures: Dispatcher [employer] EDMS Bernadette Flores, Architectural Drafting Instructor Unit deg Elvira Osorio RN Jaz Pringle mcp, RN RN ck1 Jonelle MartinezRN RN kr3 Reid Ken MD MD br1 eKsha Melendez RN RN jc4 Lizet Zelaya RN RN sls1 Ranjana Pantoja cmb Elgin Sullivan mm15 Kris Zamudio, PARTS IDENTIFICATION TECHNICIAN PARTS IDENTIFICATION TECHNICIAN jrd Alex Negro,RN RN mb9 Juan R Campuzano rn1 Augustina Root,VIVEK RN carolyn2 Afia Roque RN RN ja5 Corrections: (The following items were deleted from the chart) 09/17 10:46 10:23 Home Meds: Advair Diskus 250-50 mcg/dose Inhl dsdv 1 puff 2 times per day; [facility] 10:23 Home Meds: amlodipine Oral twice a day; [facility] 10:23 Home Meds: Sertraline daily; [facility] 10:23 Home Meds: Serax Oral; reports being out of this medication; [facility] 10:23 Home Meds: omeprazole 20 mg Oral cpDR 1 cap once daily; [facility] 10:23 Home Meds: Buspirone Oral daily; [place] [id number] 18:20 17:00 General: This RN spoke with Dr Kevin in regards to pt's blood pressure and that mb9 pt has Imdur ordered. New order received to hold imdur and give pt 500 ml bolus of NS x1 now. . mb9 MTDD
--- NOTE | 2016-09-18 12:41 | EDDOCDS ---
Physician Documentation [facility] Name: Alejandro Pacheco Age: 46 yrs Sex: Male : 1970 Arrival Date: 09/17/2016 Time: 10:13 Bed Admit Hold Private MD: Disposition: 09/17/16 15:38 Hospitalization ordered by Lulu Kevin for Inpatient Admission. Preliminary diagnosis are Alcohol dependence with withdrawal, unspecified, Chest pain, unspecified. - Bed requested for Admit. - Status is Inpatient Admission. deg - Condition is Stable. - Problem is new. - Symptoms are unchanged. Historical: - Allergies: NKDA; - Home Meds: 1. Advair Diskus 250-50 mcg/dose Inhl dsdv 1 puff 2 times per day (Last dose: 09/12/2016) 2. amlodipine 5 mg oral tab 1 tab once daily (Last dose: 09/17/2016 07:00) 3. Sertraline 100 mg 1 tab daily (Last dose: 09/17/2016 07:00) 4. Serax 15 mg oral cap 1 cap 3 times per day reports being out of this medication (Last dose: Unknown) 5. omeprazole 20 mg Oral cpDR 1 cap once daily (Last dose: 09/16/2016 07:00) 6. buspirone 7.5 mg oral tab 1 tab daily (Last dose: 09/15/2016) 7. albuterol sulfate 90 mcg/actuation Inhl HFAA 1 puff every 4 hours as needed (Last dose: 08/2016) 8. multivitamin Oral tab 1 tablet daily (Last dose: 09/17/2016 07:00) - PMHx: Seizures; Hypertension; Hypercholesterolemia; GERD; Asthma; Alcoholism; Depression; - PSHx: right ankle surgery; Appendectomy; bilateral knee surgery; has plate in head; Tonsillectomy; Hernia repair; - Social history: Smoking status: Cigars No barriers to communication noted, The patient speaks fluent German, Speaks appropriately for age. - : The pt / caregiver states he / she is not on anticoagulants. Home medication list is obtained from the patient, Note Medications verified by external med history and verified by patient. - Exposure Risk Screening:: None identified. Vital Signs: 09/17 10:17 BP 197 / 114 Sitting; Pulse 109; Resp 16; Temp 97.7(O); Pulse Ox 97% on R/A; Weight jrd 86.18 kg / 189.99 lbs (R); Height 5 ft. 10 in. (177.80 cm); Pain 0/10; 10:34 BP 158 / 105 (auto/); jc4 10:36 BP 160 / 105 (auto/); jc4 10:36 Pulse 106 MON; Pulse Ox 98% ; jc4 10:37 Pulse 108 MON; Pulse Ox 98% ; jc4 10:51 BP 168 / 97 (auto/); mb9 10:52 Pulse 102 MON; Pulse Ox 97% ; mb9 11:06 BP 148 / 100 (auto/); mb9 11:07 Pulse 102 MON; Pulse Ox 97% ; mb9 11:21 BP 154 / 107 (auto/); mb9 11:22 Pulse 104 MON; Pulse Ox 97% ; mb9 11:36 BP 158 / 104 (auto/); mb9 11:37 Pulse 102 MON; Pulse Ox 97% ; mb9 11:51 BP 158 / 103 (auto/); mb9 11:52 Pulse 104 MON; Pulse Ox 97% ; mb9 12:06 BP 164 / 94 (auto/); mb9 12:07 Pulse 108 MON; Pulse Ox 98% ; mb9 12:21 BP 169 / 104 (auto/); mb9 12:22 Pulse 106 MON; Pulse Ox 97% ; mb9 12:36 BP 163 / 102 (auto/); mb9 12:37 Pulse 108 MON; Pulse Ox 97% ; mb9 13:02 BP 157 / 106 (auto/); mb9 13:02 Pulse 108 MON; Pulse Ox 97% ; mb9 13:06 BP 160 / 110 (auto/); mb9 13:07 Pulse 108 MON; Pulse Ox 97% ; mb9 13:21 BP 155 / 103 (auto/); mb9 13:22 Pulse 108 MON; Pulse Ox 97% ; mb9 13:36 BP 160 / 108 (auto/); mb9 13:37 Pulse 110 MON; Pulse Ox 97% ; mb9 13:51 BP 152 / 100 (auto/); mb9 13:52 Pulse 104 MON; Pulse Ox 94% ; mb9 14:08 BP 157 / 104 (auto/); mb9 14:10 Pulse 104 MON; Pulse Ox 97% ; mb9 15:25 BP 149 / 101 (auto/); mb9 15:26 Pulse 102 MON; Resp 17; Temp 98.3(O); Pulse Ox 98% ; mb9 15:49 BP 155 / 109 (auto/); mb9 15:50 Pulse 102 MON; Pulse Ox 99% ; mb9 15:55 BP 179 / 107 (auto/); mb9 15:56 Pulse 108 MON; Pulse Ox 100% ; mb9 16:25 BP 155 / 103 (auto/); mb9 16:26 Pulse 102 MON; Pulse Ox 100% ; mb9 16:55 BP 150 / 96 (auto/); mb9 16:56 Pulse 94 MON; Pulse Ox 96% ; mb9 18:11 BP 146 / 103 (auto/); mb9 18:12 Pulse 100 MON; Pulse Ox 97% ; mb9 18:13 BP 150 / 105 (auto/); mb9 18:14 Pulse 88 MON; Pulse Ox 97% ; mb9 18:33 BP 158 / 97 (auto/); mb9 18:34 Pulse 98 MON; Pulse Ox 97% ; mb9 18:58 BP 156 / 98 (auto/); kas2 18:58 Pulse 94 MON; Pulse Ox 97% ; kas2 18:58 Resp 18; Temp 98.0(O); kas2 20:41 BP 172 / 94 (auto/); kas2 20:41 Pulse 90 MON; Pulse Ox 97% ; kas2 20:46 BP 173 / 94 (auto/); kas2 20:46 Pulse 102 MON; Pulse Ox 98% ; kas2 21:18 BP 171 / 94 (auto/); kas2 21:18 Pulse 94 MON; kas2 23:35 BP 149 / 99 (auto/); kas2 23:35 Pulse 88 MON; Pulse Ox 95% ; kas2 10:17 Body Mass Index 27.26 (86.18 kg, 177.80 cm) jrd MDM: 10:26 ECG WITH READING ER PHYS+CARDIAG ordered. EDMS 12:22 Community Mental Health Social Worker/Pulse Ox/q 30 min VS ordered. br1 12:22 IV Saline Lock ordered. br1 12:22 Rhythm Strip to chart ordered. br1 12:22 Undress patient appropriately for examination ordered. br1 12:22 Recheck B/P ordered. br1 12:23 NS 0.9% 1000 ml IV at 150 mL/hr continuous ordered. br1 12:23 Oxazepam 30 mg PO once ordered. br1 12:23 Basic Metabolic Profile Ordered. EDMS 12:23 CBC with Diff Ordered. EDMS 12:23 Cardiac Injury Profile Ordered. EDMS 12:23 Troponin Ordered. EDMS 12:23 CT Head Without Contrast Ordered. EDMS 12:25 Chest, 2 View (pa\E\lat) Ordered. EDMS 12:25 Aspirin 324 mg PO once ordered. br1 12:28 MAGNESIUM LEVEL Ordered. EDMS 12:29 PHOSPHOROUS LEVEL Ordered. EDMS 12:30 Financial registration complete. mm15 12:30 [facility] Payment Agreement was scanned into [employer] and attached to record. mm15 13:24 Chest, 2 View (pa\E\lat) Reviewed. br1 13:24 CT Head Without Contrast Reviewed. br1 13:26 LORazepam 1 mg IVP once ordered. br1 14:07 Basic Metabolic Profile Reviewed. br1 14:07 CBC with Diff Reviewed. br1 14:07 MAGNESIUM LEVEL Reviewed. br1 14:07 Cardiac Injury Profile Reviewed. br1 14:07 Troponin Reviewed. br1 14:07 PHOSPHOROUS LEVEL Reviewed. br1 14:10 amLODIPine 5 mg PO once ordered. br1 15:28 Magnesium Oxide 400 mg PO once ordered. br1 15:30 BED REQUEST+ADM ordered. EDMS 16:10 Admission / Observation Status ordered. EDMS 16:10 2 GRAM SODIUM DIET ordered. EDMS 16:11 CARDIAC INJURY PROFILE Ordered. EDMS 16:11 TROPONIN Ordered. EDMS 16:11 THYROID STIMULATING HORMONE Ordered. EDMS 16:11 FREE T4 Ordered. EDMS 16:11 TOTAL T3 Ordered. EDMS 16:14 DRUG EVAL TOXICOLOGY ED ONLY Ordered. EDMS 16:28 ETHYL ALCOHOL (ETHANOL) Ordered. EDMS 19:33 CARDIAC INJURY PROFILE Ordered. EDMS 19:33 CARDIAC INJURY PROFILE Ordered. EDMS 19:33 TROPONIN Ordered. EDMS 19:33 TROPONIN Ordered. EDMS 19:33 CBC WITH DIFFERENTIAL Ordered. EDMS 19:33 COMPLETE COMPHRENSIVE METABOLI Ordered. EDMS 19:33 MAGNESIUM LEVEL Ordered. EDMS Administered Medications: 13:05 Drug: Oxazepam 30 mg [oxazepam 15 mg capsule (2 caps)] Route: PO; mb9 13:05 Drug: Aspirin 324 mg [aspirin 81 mg chewable tablet (4 tabs)] Route: PO; mb9 13:06 Drug: NS 0.9% 1000 ml [sodium chloride 0.9 % intravenous solution] Route: IV; Rate: 150 mb9 mL/hr; Site: right forearm; 13:42 Drug: LORazepam 1 mg [lorazepam 2 mg/mL injection solution (0.5 mL)] Route: IVP; Site: mb9 right forearm; 14:37 Drug: amLODIPine 5 mg [amlodipine 5 mg tablet (1 tabs)] Route: PO; mb9 15:55 Drug: Magnesium Oxide 400 mg [magnesium oxide 400 mg tablet (1 tabs)] Route: PO; mb9 Signatures: Dispatcher [employer] EDBernadette Robison, Retail Shift Supervisor Unit deg Jaz Weber RN RN ck1 Reid Ken MD MD br1 Kesha Melendez RN RN jc4 Elgin Sullivan mm15 Alex Negro RN mb9 The chart was reviewed and I authenticate all verbal orders and agree with the evaluation and treatment provided.Corrections: (The following items were deleted from the chart) 10:46 10:23 Home Meds: Advair Diskus 250-50 mcg/dose Inhl dsdv 1 puff 2 times per day; [place] [id number] 10:46 10:23 Home Meds: amlodipine Oral twice a day; [place] [id number] 10:46 10:23 Home Meds: Sertraline daily; [place] [id number] 10:46 10:23 Home Meds: Serax Oral; reports being out of this medication; [place] [id number] 10:46 10:23 Home Meds: omeprazole 20 mg Oral cpDR 1 cap once daily; [place] [id number] 10:46 10:23 Home Meds: Buspirone Oral daily; [place] [id number] 12:28 12:24 MAGNESIUM LEVEL+LAB ordered. EDMS EDMS 12:28 12:24 PHOSPHOROUS LEVEL+LAB ordered. EDMS EDMS 16:28 16:15 ETHYL ALCOHOL (ETHANOL) ordered. EDMS EDMS Attachments: 12:30 [facility] Payment Agreement mm15 MTDD
--- NOTE | 2016-09-18 21:38 | DSES ---
DATE OF ADMISSION: 09/17/2016 DATE OF DISCHARGE: 09/18/2016 PRIMARY CARE PROVIDER: Vicente Galdamez PA-C CONSULTANTS: None. PROCEDURES: None. COMPLICATIONS: None. ADMISSION/DISCHARGE DIAGNOSES: 1. Alcohol withdrawal. 2. History of chronic alcohol abuse. 3. Atrial flutter secondary to alcohol withdrawal. 4. Hypertension. 5. Asthma. 6. Anxiety/depression. 7. History of seizure. 8. Dyslipidemia. 9. Gastroesophageal reflux disease. HOSPITALIZATION COURSE: Patient is a 46-year-old male with a past medical history significant for alcohol abuse. Patient has been off alcohol and has switched to Serax for the past year, and patient is being followed with the primary care provider. Recently, due to the loss of transportation, patient ran out of his Serax, and in order to prevent the withdrawal symptoms, patient started binge drinking. Prior to admission, patient started feeling heart palpitations and dull chest discomfort, and there were some nonspecific symptoms, such as finger and digit numbness; therefore, patient came to [facility] on 09/17/2016 for evaluation. During the examination, patient was found to have a very brief episode of atrial flutter, which resolved spontaneously. EKG and troponin both obtained, which showed no significant abnormalities, and patient started back on Serax. Patient was observed for 24 hours. There was no recurrence of the symptoms. After a lengthy discussion with the patient, patient's appointment with the primary was secured, which will occur on 09/25/2016. A short course of Serax is prescribed to the patient, and transportation to the pharmacy and the visit to the primary care provider are also arranged through the help of a social sciences chair. On 09/18/2016, the patient is ready. During the whole time of hospitalization, patient's symptoms completely resolved without any recurrence while patient was on Serax. OBJECTIVE: Temperature is 98, pulse is 96, respirations 18, blood pressure is 156/100, pulse oximetry 98% on room air. LABORATORY DATA: WBC is 7.2, hemoglobin 14.1, hematocrit is 42, platelet count is 308. Sodium 142, potassium 3.8, chloride is 107, carbon dioxide 94, BUN 7, creatinine 0.74, GFR greater than 60, fasting glucose 106, calcium is 9.2, magnesium 2.1. Total bilirubin 0.7, AST 68, ALT is 80, alkaline phosphatase is 166. Total CK is 66. Troponin I is less than 0.02 times four sets. Total protein is 6.9, albumin 3.6. TSH is 1.11, free T4 is 0.75. Urine toxicology showed alcohol level was normal. CT of the head without contrast showed negative CT study. No hemorrhages, acute infarct, or mass. Chest x-ray showed negative PA and lateral chest x-ray. DISCHARGE MEDICATIONS: - clonidine 0.1 mg by mouth three times a day - folic acid 1 mg by mouth daily - Serax 50 mg by mouth twice a day - thiamine 100 mg by mouth daily - Ventolin two puffs inhalation four times a day as needed for shortness of breath - amlodipine 5 mg by mouth twice a day - buspirone 7.5 mg by mouth daily - multivitamin one tablet by mouth daily - omeprazole 20 mg by mouth daily - Advair Diskus one puff inhalation twice a day - sertraline 100 mg by mouth daily DISCHARGE INSTRUCTIONS: Discontinue line. Discharge home. Activity as tolerated. Diet as tolerated. Patient is instructed to abstain from any type of alcohol use. Serax is only given for the next 7 days. That will cover his use before his primary care provider visit, which is on 09/25/2016. Previously, due to lack of transportation, patient ran out of all his home medication. All the medications were reviewed and refilled and patient instructed to obtain the medication right after the discharge. Patient shall followup with Vicente Galdamez on 09/25/2016. DISCHARGE CONDITION: Stable. DISCHARGE TIME: Greater than 30 minutes.
--- NOTE | 2016-09-19 08:54 | ECGEPIP ---
Stationary ECG Study [facility] - ED Test Date: 2016-09-17 Pat Name: TERESA NUNEZ Department: Room: - Gender: M Supervisor Wood Room: rn : 1970 Requested By: Uche Holley Order Number: [id number] Reading MD: Michelle Hugo Measurements Intervals [place] Rate: 107 P: 70 TX: 123 QRS: 59 QRSD: 85 T: 45 QT: 333 QTc: 445 Interpretive Statements SINUS TACHYCARDIA ABNORMAL RHYTHM ECG SIMILAR 01/13/16 Electronically Signed On 09-19-2016 8:54:32 EST by Michelle Hugo
--- NOTE | 2016-09-20 13:41 | EDDOCDS ---
Nurse's Notes [facility] Name: Alejandro Pacheco Age: 46 yrs Sex: Male : 1970 Arrival Date: 09/17/2016 Time: 10:13 Bed Admit Hold Private MD: Diagnosis: Alcohol dependence with withdrawal, unspecified;Chest pain, unspecified Presentation: 09/17 10:18 Presenting complaint: Patient states: Nausea, diarrhea, "numbness in my toes', ck1 palpitations for a week Patient states "I drink a lot to mask it". Last drink yesterday, reports 10 beers. Adult Sepsis Screening: The patient does not have new or worsening altered mentation. Patient's respiratory rate is less than 22. Systolic blood pressure is greater than 100. Patient has a qSOFA score of 0- Negative Sepsis Screen. Suicide/Homicide risk assessment- the patient denies having any suicidal and/or homicidal ideations and does not present with any other emotional, behavioral or mental health complaints. Status: Patient is not a creative services director or dependent. Transition of care: patient was not received from another setting of care. 10:18 Acuity: ADAN Level 3 ck1 10:18 Method Of Arrival: Walkin/Carried/Asstd ck1 10:25 Red Flag criteria, patient assessed and taken directly to a bed. ck1 Triage Assessment: 10:23 General: Appears distressed, Behavior is anxious. Pain: Location: back and chest Pain ck1 currently is 5 out of 10 on a pain scale. HIV screening NA for this visit Offered previously. Neurological: Level of Consciousness is awake, alert, Oriented to person, place, time. Respiratory: Respiratory effort is unlabored, Respiratory pattern is regular, symmetrical. Derm: Skin is flushed. Musculoskeletal: Circulation, motion, and sensation intact Range of motion intact in all extremities. Historical: - Allergies: NKDA; - Home Meds: 1. Advair Diskus 250-50 mcg/dose Inhl dsdv 1 puff 2 times per day (Last dose: 09/12/2016) 2. amlodipine 5 mg oral tab 1 tab once daily (Last dose: 09/17/2016 07:00) 3. Sertraline 100 mg 1 tab daily (Last dose: 09/17/2016 07:00) 4. Serax 15 mg oral cap 1 cap 3 times per day reports being out of this medication (Last dose: Unknown) 5. omeprazole 20 mg Oral cpDR 1 cap once daily (Last dose: 09/16/2016 07:00) 6. buspirone 7.5 mg oral tab 1 tab daily (Last dose: 09/15/2016) 7. albuterol sulfate 90 mcg/actuation Inhl HFAA 1 puff every 4 hours as needed (Last dose: 08/2016) 8. multivitamin Oral tab 1 tablet daily (Last dose: 09/17/2016 07:00) - PMHx: Seizures; Hypertension; Hypercholesterolemia; GERD; Asthma; Alcoholism; Depression; - PSHx: right ankle surgery; Appendectomy; bilateral knee surgery; has plate in head; Tonsillectomy; Hernia repair; - Social history: Smoking status: Cigars No barriers to communication noted, The patient speaks fluent [place], Speaks appropriately for age. - : The pt / caregiver states he / she is not on anticoagulants. Home medication list is obtained from the patient, Note Medications verified by external med history and verified by patient. - Exposure Risk Screening:: None identified. Screenin:44 Screening information is obtained from the patient. Fall risk: No risks identified. ja5 Assistance ADL's: requires no assistance with activities of daily living. Abuse/DV Screen: The patient / caregiver reports he/she is: not in a situation that causes fear, pain or injury. Nutritional screening: On no prescribed diet. Advance Directives: Currently, there is no health care proxy. There is no active DNR order. There is no living will. There is no Power of Parquetry Layer. home support is adequate. Assessment: 10:38 General: Appears uncomfortable, Behavior is anxious, cooperative. Pain: Location: right ja5 supraclavicular area, right clavicle, anterior aspect of right upper chest and right breast Pain currently is 7 out of 10 on a pain scale. back, Quality of pain is described as sharp. Neurological: Level of Consciousness is awake, alert, Oriented to person, place, time. Cardiovascular: Capillary refill < 3 seconds Heart tones S1 S2 present Rhythm is sinus tachycardia No ectopy. Chest pain is described as Pain is 7 out of 10 on a pain scale. radiates back began 4 hours prior to arrival. Respiratory: Airway is patent Respiratory effort is even, unlabored, Respiratory pattern is regular, symmetrical, Breath sounds are clear bilaterally. Derm: Skin is pink. 11:01 General: Patient states his last drink was yesterday at 6pm.. ja5 11:34 General: Appears in no apparent distress, Behavior is anxious, cooperative. Pain: mb9 Denies pain. Neurological: Level of Consciousness is awake, alert, Oriented to person, place, time, Pt noted to have tremors of the right arm and left arm pt reports a history of binge drinking. pt reports last drink was yesterday. pt reports the tremors are typical of when he stops drinking. . Respiratory: Airway is patent Respiratory effort is even, unlabored, Respiratory pattern is regular, symmetrical, Breath sounds are clear bilaterally. Derm: pt has multiple healing scratch herrera to bilateral lower extremities. 13:07 Reassessment: Patient states symptoms have not improved. General: Appears in no mb9 apparent distress, Behavior is anxious, cooperative. Cardiovascular: Rhythm is sinus tachycardia No ectopy. Respiratory: Airway is patent Respiratory effort is even, unlabored, Breath sounds are clear bilaterally. 14:37 Reassessment: Patient appears in no apparent distress at this time. Patient states mb9 symptoms have improved. Adult Sepsis Screening: The patient does not have new or worsening altered mentation. Patient's respiratory rate is less than 22. Systolic blood pressure is greater than 100. Patient has a qSOFA score of 0- Negative Sepsis Screen. Respiratory: Airway is patent Respiratory effort is even, unlabored. 15:32 Reassessment: Patient appears in no apparent distress at this time. Patient states mb9 symptoms have improved. General: Appears in no apparent distress, Behavior is appropriate for age, cooperative. Respiratory: Airway is patent Respiratory effort is even, unlabored. 16:56 Reassessment: Patient appears in no apparent distress at this time. Patient states mb9 symptoms have improved. Adult Sepsis Screening: The patient does not have new or worsening altered mentation. Patient's respiratory rate is less than 22. Systolic blood pressure is greater than 100. Patient has a qSOFA score of 0- Negative Sepsis Screen. General: Appears in no apparent distress, Behavior is appropriate for age, cooperative. Respiratory: Airway is patent Respiratory effort is even, unlabored. 18:19 Reassessment: Patient appears in no apparent distress at this time. Adult Sepsis mb9 Screening: The patient does not have new or worsening altered mentation. Patient's respiratory rate is less than 22. Systolic blood pressure is greater than 100. Patient has a qSOFA score of 0- Negative Sepsis Screen. General: Appears to be sleeping. Behavior is appropriate for age, cooperative. Respiratory: Airway is patent Respiratory effort is even, unlabored. 19:16 General: Verbal report given by Ronan Lora RN. Assumed care of patient at this time.. kas2 19:31 General: Appears in no apparent distress, comfortable, well nourished, well groomed, kas2 Behavior is appropriate for age, cooperative. Pain: Denies pain. Neurological: Level of Consciousness is awake, alert, Oriented to person, place, time. Cardiovascular: Capillary refill < 3 seconds Heart tones S1 S2 present Rhythm is sinus tachycardia No ectopy. Chest pain is denied. Respiratory: Airway is patent Respiratory effort is even, unlabored, Respiratory pattern is regular, symmetrical, Breath sounds are clear bilaterally. Derm: Skin is intact, Skin is dry, Skin is pink, warm & dry. Skin temperature is warm. Injury Description: No known injury. 20:00 General: Patient fed supper.. kas2 21:09 General: Patient laying in bed watching TV. Appears comfortable. No apparent distress. kas2 Call rodríguez within reach. Will continue to monitor.. 21:28 General: Floor meds given as per OCT.. kas2 22:22 General: Appears in no apparent distress, comfortable, Behavior is appropriate for age, kas2 cooperative. Pain: Denies pain. Neurological: Level of Consciousness is awake, alert, Oriented to person, place, time. Cardiovascular: Rhythm is sinus tachycardia No ectopy. Respiratory: Airway is patent Respiratory effort is even, unlabored, Respiratory pattern is regular, symmetrical. Derm: Skin is intact, Skin is dry, Skin is pink, warm & dry. Skin temperature is warm. 23:22 General: Patient laying in bed watching TV. No apparent distress noted. Appears kas2 comfortable. VSS. Airway patent and respiratory effort even and unlabored. Call rodríguez within reach. Will continue to monitor.. 09/18 00:07 General: Verbal report given to Augustina Alva RN. . kas2 Vital Signs: 09/17 10:17 BP 197 / 114 Sitting; Pulse 109; Resp 16; Temp 97.7(O); Pulse Ox 97% on R/A; Weight jrd 86.18 kg (R); Height 5 ft. 10 in. (177.80 cm); Pain 0/10; 10:34 BP 158 / 105 (auto/); jc4 10:36 BP 160 / 105 (auto/); jc4 10:36 Pulse 106 MON; Pulse Ox 98% ; jc4 10:37 Pulse 108 MON; Pulse Ox 98% ; jc4 10:51 BP 168 / 97 (auto/); mb9 10:52 Pulse 102 MON; Pulse Ox 97% ; mb9 11:06 BP 148 / 100 (auto/); mb9 11:07 Pulse 102 MON; Pulse Ox 97% ; mb9 11:21 BP 154 / 107 (auto/); mb9 11:22 Pulse 104 MON; Pulse Ox 97% ; mb9 11:36 BP 158 / 104 (auto/); mb9 11:37 Pulse 102 MON; Pulse Ox 97% ; mb9 11:51 BP 158 / 103 (auto/); mb9 11:52 Pulse 104 MON; Pulse Ox 97% ; mb9 12:06 BP 164 / 94 (auto/); mb9 12:07 Pulse 108 MON; Pulse Ox 98% ; mb9 12:21 BP 169 / 104 (auto/); mb9 12:22 Pulse 106 MON; Pulse Ox 97% ; mb9 12:36 BP 163 / 102 (auto/); mb9 12:37 Pulse 108 MON; Pulse Ox 97% ; mb9 13:02 BP 157 / 106 (auto/); mb9 13:02 Pulse 108 MON; Pulse Ox 97% ; mb9 13:06 BP 160 / 110 (auto/); mb9 13:07 Pulse 108 MON; Pulse Ox 97% ; mb9 13:21 BP 155 / 103 (auto/); mb9 13:22 Pulse 108 MON; Pulse Ox 97% ; mb9 13:36 BP 160 / 108 (auto/); mb9 13:37 Pulse 110 MON; Pulse Ox 97% ; mb9 13:51 BP 152 / 100 (auto/); mb9 13:52 Pulse 104 MON; Pulse Ox 94% ; mb9 14:08 BP 157 / 104 (auto/); mb9 14:10 Pulse 104 MON; Pulse Ox 97% ; mb9 15:25 BP 149 / 101 (auto/); mb9 15:26 Pulse 102 MON; Resp 17; Temp 98.3(O); Pulse Ox 98% ; mb9 15:49 BP 155 / 109 (auto/); mb9 15:50 Pulse 102 MON; Pulse Ox 99% ; mb9 15:55 BP 179 / 107 (auto/); mb9 15:56 Pulse 108 MON; Pulse Ox 100% ; mb9 16:25 BP 155 / 103 (auto/); mb9 16:26 Pulse 102 MON; Pulse Ox 100% ; mb9 16:55 BP 150 / 96 (auto/); mb9 16:56 Pulse 94 MON; Pulse Ox 96% ; mb9 18:11 BP 146 / 103 (auto/); mb9 18:12 Pulse 100 MON; Pulse Ox 97% ; mb9 18:13 BP 150 / 105 (auto/); mb9 18:14 Pulse 88 MON; Pulse Ox 97% ; mb9 18:33 BP 158 / 97 (auto/); mb9 18:34 Pulse 98 MON; Pulse Ox 97% ; mb9 18:58 BP 156 / 98 (auto/); kas2 18:58 Pulse 94 MON; Pulse Ox 97% ; kas2 18:58 Resp 18; Temp 98.0(O); kas2 20:41 BP 172 / 94 (auto/); kas2 20:41 Pulse 90 MON; Pulse Ox 97% ; kas2 20:46 BP 173 / 94 (auto/); kas2 20:46 Pulse 102 MON; Pulse Ox 98% ; kas2 21:18 BP 171 / 94 (auto/); kas2 21:18 Pulse 94 MON; kas2 23:35 BP 149 / 99 (auto/); kas2 23:35 Pulse 88 MON; Pulse Ox 95% ; kas2 10:17 Body Mass Index 27.26 (86.18 kg, 177.80 cm) jrd Vitals: 10:17 Log In Time: September 17, 2016 at 10:15. RN notified that patient meets Red Flag jrd criteria. 10:17 RN notified that patient meets Red Flag criteria. jrd ED Course: 10:16 Patient visited by Kris Zamudio PCA. jrd 10:16 Patient moved to Waiting jrd 10:19 Triage Initiated ck1 10:24 Mima Galicia,RN is Primary Nurse. ck1 10:24 Kesha Melendez, RN is Primary Nurse. ck1 10:24 Afia Roque,RN is Primary Nurse. ck1 10:24 Patient moved to 10 ck1 10:34 EKG done. (by ED staff). Reviewed by Uche Hernandez MD. rn1 11:05 Primary Nurse role handed off by Kesha Melendez, VIVEK jc4 11:34 Patient visited by Alex Negro RN. mb9 12:09 Reid Ken MD is Attending Physician. br1 12:22 Patient visited by Reid Ken MD. br1 12:30 [facility] Payment Agreement was scanned into [facility] and attached to record. mm15 12:36 Primary Nurse role handed off by Afia Roque RN mcp 12:36 Primary Nurse role handed off by Mima Galicia RN mcp 13:05 PHOSPHOROUS LEVEL Sent. mb9 13:05 MAGNESIUM LEVEL Sent. mb9 13:06 Basic Metabolic Profile Sent. mb9 13:06 CBC with Diff Sent. mb9 13:06 Cardiac Injury Profile Sent. mb9 13:06 Troponin Sent. mb9 13:07 Inserted saline lock: 18 gauge in right forearm and blood collected. The patient mb9 tolerated the procedure well. 13:08 Patient visited by Alex Negro RN. mb9 13:21 Chest, 2 View (pa\\E\\lat) Returned. EDMS 13:21 CT Head Without Contrast Returned. EDMS 14:11 Patient visited by Reid Ken MD. br1 14:29 Patient visited by Ranjana Pantoja. cmb 15:33 Patient visited by Alex Negro RN. mb9 15:38 Lulu Kevin is Hospitalizing Provider. br1 18:19 Patient visited by Alex Negro RN. mb9 18:58 Augustina Root RN is Primary Nurse. kas2 19:16 Patient visited by Augustina Root RN. kas2 19:34 Patient visited by Augustina Root RN. kas2 20:21 Patient visited by Augustina Root RN. kas2 20:22 Patient moved to Admit Hold sls1 21:11 Patient visited by Augustina Root RN. kas2 21:28 Patient visited by Augustina Root RN. kas2 22:23 Patient visited by Augustina Root RN. kas2 23:24 Patient visited by Augustina Root RN. kas2 23:36 Patient visited by Augustina Root RN. kas2 23:56 Patient moved to 18 sls1 23:56 Patient moved to Admit Hold [facility]1 09/18 00:06 No procedures done that require assistance. kas2 00:09 Patient visited by Augustina Root RN. kas2 00:12 Patient visited by Augustina Root RN. [facility]2 08:24 Primary Nurse role handed off by Augustina Root RN kr3 02 09:16 EKG-ADULT Returned. EDMS 14:17 T-Sheet-- Draft Copy was scanned into [facility] and attached to record. gb 14:17 ECG/EKG was scanned into [facility] and attached to record. gb 14:18 Trend VS was scanned into [employer] and attached to record. gb Administered Medications: 09/17 13:05 Drug: Oxazepam 30 mg [oxazepam 15 mg capsule (2 caps)] Route: PO; mb9 13:05 Drug: Aspirin 324 mg [aspirin 81 mg chewable tablet (4 tabs)] Route: PO; mb9 13:06 Drug: NS 0.9% 1000 ml [sodium chloride 0.9 % intravenous solution] Route: IV; Rate: 150 mb9 mL/hr; Site: right forearm; 13:42 Drug: LORazepam 1 mg [lorazepam 2 mg/mL injection solution (0.5 mL)] Route: IVP; Site: mb9 right forearm; 14:37 Drug: amLODIPine 5 mg [amlodipine 5 mg tablet (1 tabs)] Route: PO; mb9 15:55 Drug: Magnesium Oxide 400 mg [magnesium oxide 400 mg tablet (1 tabs)] Route: PO; mb9 Attachments: 14:18 Trend VS gb Output: 09/17 18:38 Urine: 450.00ml (Gibbs); Total: 450.00ml. mb9 09/18 00:06 Urine: 1000.00ml (Voided); Total: 1450.00ml. kas2 Order Results: Lab Order: Basic Metabolic Profile; SPEC'M 09/17/16 13:02 Test: GLUCOSE, FASTING; Value: 118; Range: 70-105; Abnormal: Above high normal; Units: MG/DL; Status: F Test: BLOOD UREA NITROGEN; Value: 6; Range: 7-18; Abnormal: Below low normal; Units: MG/DL; Status: F Test: CREATININE FOR GFR; Value: 0.67; Range: 0.70-1.30; Abnormal: Below low normal; Units: MG/DL; Status: F Test: GLOMERULAR FILTRATION RATE; Value: > 60.0; Range: >60; Status: F Test: SODIUM LEVEL; Value: 139; Range: 136-145; Units: MEQ/L; Status: F Test: POTASSIUM SERUM; Value: 3.8; Range: 3.5-5.1; Units: MEQ/L; Status: F Test: CHLORIDE LEVEL; Value: 102; Range: 98-107; Units: MEQ/L; Status: F Test: CARBON DIOXIDE LEVEL; Value: 28; Range: 21-32; Units: MEQ/L; Status: F Test: ANION GAP; Value: 9; Range: 8-16; Units: MEQ/L; Status: F Test: CALCIUM LEVEL; Value: 9.8; Range: 8.5-10.1; Units: MG/DL; Status: F Test Note: ; Units are mL/min/1.73 m2 Chronic Kidney Disease Staging per NKF: Stage I & II GFR >=60 Normal to Mildly Decreased Stage III GFR 30-59 Moderately Decreased Stage IV GFR 15-29 Severely Decreased Stage V GFR <15 Very Little GFR Left ESRD GFR <[address] STENOGRAPHER Lab Order: CBC with Diff; SPEC'M 09/17/16 13:02 Test: WHITE BLOOD COUNT; Value: 12.1; Range: 4.0-10.0; Abnormal: Above high normal; Units: K/mm3; Status: F Test: RED BLOOD COUNT; Value: 4.59; Range: 4.30-6.10; Units: M/mm3; Status: F Test: HEMOGLOBIN; Value: 14.8; Range: 14.0-18.0; Units: g/dl; Status: F Test: HEMATOCRIT; Value: 43.4; Range: 42.0-52.0; Units: %; Status: F Test: MEAN CORPUSCULAR VOLUME; Value: 94.6; Range: 80.0-96.0; Units: fl; Status: F Test: MEAN CORPUSCULAR HEMOGLOBIN; Value: 32.2; Range: 27.0-33.0; Units: pg; Status: F Test: MEAN CORPUSCULAR HGB CONC; Value: 34.0; Range: 32.0-36.5; Units: g/dl; Status: F Test: RED CELL DISTRIBUTION WIDTH; Value: 12.7; Range: 11.5-14.5; Units: %; Status: F Test: PLATELET COUNT, AUTOMATED; Value: 407; Range: 150-450; Units: k/mm3; Status: F Test: NEUTROPHILS %; Value: 83.4; Range: 36.0-66.0; Abnormal: Above high normal; Units: %; Status: F Test: LYMPH %; Value: 8.6; Range: 24.0-44.0; Abnormal: Below low normal; Units: %; Status: F Test: MONO %; Value: 4.5; Range: 0.0-5.0; Units: %; Status: F Test: EOS %; Value: 1.4; Range: 0.0-3.0; Units: %; Status: F Test: BASO %; Value: 0.7; Range: 0.0-1.0; Units: %; Status: F Test: LARGE UNSTAINED CELL %; Value: 1.5; Range: 0.0-4.0; Units: %; Status: F Test: NEUTROPHILS #; Value: 10.1; Range: 1.8-7.7; Abnormal: Above high normal; Units: K/mm3; Status: F Test: LYMPH #; Value: 1.0; Range: 1.5-4.5; Abnormal: Below low normal; Units: K/mm3; Status: F Test: MONO #; Value: 0.5; Range: 0.0-0.8; Units: K/mm3; Status: F Test: EOS #; Value: 0.2; Range: 0.0-0.50; Units: K/mm3; Status: F Test: BASO #; Value: 0.1; Range: 0.0-0.2; Units: K/mm3; Status: F Test: LARGE UNSTAINED CELL #; Value: 0.2; Range: 0.0-0.4; Units: K/mm3; Status: F Lab Order: Cardiac Injury Profile; SPEC'M 09/17/16 13:02 Test: CPK CREATINE PHOSPHOKINASE; Value: 107; Range: 39-308; Units: U/L; Status: F Test: CK-MB VALUE MASS; Value: 1.6; Range: 0.0-3.6; Units: NG/ML; Status: F Test: MB/CK RELATIVE INDEX; Value: 1.49; Range: < OR =4; Status: F Test Note: ; DIAGNOSIS CRITERIA MMB ng/ml Relative Index (RI) NON-AMI < or = 5 N/A HICKS ZONE > 5 < or = 4 AMI > 5 > 4 Lab Order: Troponin; [facility] 09/17/16 13:02 Test: TROPONIN I; Value: < 0.02; Range: < 0.10; Units: NG/ML; Status: F Test Note: ; Troponin I Reference Interval for [employer]ise LOCI: 99th Percentile= 0.00-0.045 ng/ml Risk Stratification: <= 0.10 ng/ml Decreased Risk for Adverse Clinical Events. 0.10-1.50 ng/ml Increased Risk for Adverse Clinical Events. Evaluation of additional criterion and/or repeat testing in 2-6 hours is suggested to rule out myocardial damage. >= 1.50 ng/ml Indicative of Myocardial Injury. Lab Order: MAGNESIUM LEVEL; [facility] 09/17/16 13:02 Test: MAGNESIUM LEVEL; Value: 1.7; Range: 1.8-2.4; Abnormal: Below low normal; Units: MG/DL; Status: F Lab Order: PHOSPHOROUS LEVEL; [facility] 09/17/16 13:02 Test: PHOSPHORUS LEVEL; Value: 2.5; Range: 2.5-4.9; Units: MG/DL; Status: F Lab Order: CARDIAC INJURY PROFILE; [facility] 09/17/16 16:19 Test: CPK CREATINE PHOSPHOKINASE; Value: 87; Range: 39-308; Units: U/L; Status: F Test: CK-MB VALUE MASS; Value: 1.0; Range: 0.0-3.6; Units: NG/ML; Status: F Test: MB/CK RELATIVE INDEX; Value: 1.14; Range: < OR =4; Status: F Test Note: ; DIAGNOSIS CRITERIA MMB ng/ml Relative Index (RI) NON-AMI < or = 5 N/A HICKS ZONE > 5 < or = 4 AMI > 5 > 4 Lab Order: TROPONIN; [facility] 09/17/16 16:19 Test: TROPONIN I; Value: < 0.02; Range: < 0.10; Units: NG/ML; Status: F Test Note: ; Troponin I Reference Interval for [facility] LOCI: 99th Percentile= 0.00-0.045 ng/ml Risk Stratification: <= 0.10 ng/ml Decreased Risk for Adverse Clinical Events. 0.10-1.50 ng/ml Increased Risk for Adverse Clinical Events. Evaluation of additional criterion and/or repeat testing in 2-6 hours is suggested to rule out myocardial damage. >= 1.50 ng/ml Indicative of Myocardial Injury. Lab Order: THYROID STIMULATING HORMONE; [facility] 09/17/16 16:19 Test: THYROID STIMULATING HORMONE; Value: 1.110; Range: 0.358-3.740; Units: uIU/ML; Status: F Lab Order: FREE T4; [facility] 09/17/16 16:19 Test: FREE T4; Value: 0.75; Range: 0.76-1.46; Abnormal: Below low normal; Units: NG/DL; Status: F Lab Order: TOTAL T3; [facility] 09/17/16 16:19 Test: TOTAL T3; Value: 102.9; Range: 60.0-181.0; Units: NG/DL; Status: F Lab Order: ETHYL ALCOHOL (ETHANOL); [facility] 09/17/16 16:19 Test: ETHYL ALCOHOL (ETHANOL); Value: < 0.003; Range: 0.000-0.010; Units: %; Status: F Lab Order: CARDIAC INJURY PROFILE; [facility] 09/18/16 00:36 Test: CPK CREATINE PHOSPHOKINASE; Value: 70; Range: 39-308; Units: U/L; Status: F Test: CK-MB VALUE MASS; Value: 1.0; Range: 0.0-3.6; Units: NG/ML; Status: F Test: MB/CK RELATIVE INDEX; Value: 1.42; Range: < OR =4; Status: F Test Note: ; DIAGNOSIS CRITERIA MMB ng/ml Relative Index (RI) NON-AMI < or = 5 N/A HICKS ZONE > 5 < or = 4 AMI > 5 > 4 Lab Order: CARDIAC INJURY PROFILE; 09/18/16 08:17 Test: CPK CREATINE PHOSPHOKINASE; Value: 66; Range: 39-308; Units: U/L; Status: F Test: CK-MB VALUE MASS; Value: 1.0; Range: 0.0-3.6; Units: NG/ML; Status: F Test: MB/CK RELATIVE INDEX; Value: 1.51; Range: < OR =4; Status: F Test Note: ; DIAGNOSIS CRITERIA MMB ng/ml Relative Index (RI) NON-AMI < or = 5 N/A HICKS ZONE > 5 < or = 4 AMI > 5 > 4 Lab Order: TROPONIN; 09/18/16 00:36 Test: TROPONIN I; Value: < 0.02; Range: < 0.10; Units: NG/ML; Status: F Test Note: ; Troponin I Reference Interval for [employer]: 99th Percentile= 0.00-0.045 ng/ml Risk Stratification: <= 0.10 ng/ml Decreased Risk for Adverse Clinical Events. 0.10-1.50 ng/ml Increased Risk for Adverse Clinical Events. Evaluation of additional criterion and/or repeat testing in 2-6 hours is suggested to rule out myocardial damage. >= 1.50 ng/ml Indicative of Myocardial Injury. Lab Order: TROPONIN; 09/18/16 08:17 Test: TROPONIN I; Value: < 0.02; Range: < 0.10; Units: NG/ML; Status: F Test Note: ; Troponin I Reference Interval for [employer]: 99th Percentile= 0.00-0.045 ng/ml Risk Stratification: <= 0.10 ng/ml Decreased Risk for Adverse Clinical Events. 0.10-1.50 ng/ml Increased Risk for Adverse Clinical Events. Evaluation of additional criterion and/or repeat testing in 2-6 hours is suggested to rule out myocardial damage. >= 1.50 ng/ml Indicative of Myocardial Injury. Lab Order: CBC WITH DIFFERENTIAL; 09/18/16 06:37 Test: WHITE BLOOD COUNT; Value: 7.2; Range: 4.0-10.0; Units: K/mm3; Status: F Test: RED BLOOD COUNT; Value: 4.32; Range: 4.30-6.10; Units: M/mm3; Status: F Test: HEMOGLOBIN; Value: 14.1; Range: 14.0-18.0; Units: g/dl; Status: F Test: HEMATOCRIT; Value: 42.0; Range: 42.0-52.0; Units: %; Status: F Test: MEAN CORPUSCULAR VOLUME; Value: 97.1; Range: 80.0-96.0; Abnormal: Above high normal; Units: fl; Status: F Test: MEAN CORPUSCULAR HEMOGLOBIN; Value: 32.6; Range: 27.0-33.0; Units: pg; Status: F Test: MEAN CORPUSCULAR HGB CONC; Value: 33.5; Range: 32.0-36.5; Units: g/dl; Status: F Test: RED CELL DISTRIBUTION WIDTH; Value: 12.6; Range: 11.5-14.5; Units: %; Status: F Test: PLATELET COUNT, AUTOMATED; Value: 308; Range: 150-450; Units: k/mm3; Status: F Test: NEUTROPHILS %; Value: 70.6; Range: 36.0-66.0; Abnormal: Above high normal; Units: %; Status: F Test: LYMPH %; Value: 18.6; Range: 24.0-44.0; Abnormal: Below low normal; Units: %; Status: F Test: MONO %; Value: 4.1; Range: 0.0-5.0; Units: %; Status: F Test: EOS %; Value: 4.0; Range: 0.0-3.0; Abnormal: Above high normal; Units: %; Status: F Test: BASO %; Value: 1.0; Range: 0.0-1.0; Units: %; Status: F Test: LARGE UNSTAINED CELL %; Value: 1.7; Range: 0.0-4.0; Units: %; Status: F Test: NEUTROPHILS #; Value: 5.1; Range: 1.8-7.7; Units: K/mm3; Status: F Test: LYMPH #; Value: 1.3; Range: 1.5-4.5; Abnormal: Below low normal; Units: K/mm3; Status: F Test: MONO #; Value: 0.3; Range: 0.0-0.8; Units: K/mm3; Status: F Test: EOS #; Value: 0.3; Range: 0.0-0.50; Units: K/mm3; Status: F Test: BASO #; Value: 0.1; Range: 0.0-0.2; Units: K/mm3; Status: F Test: LARGE UNSTAINED CELL #; Value: 0.1; Range: 0.0-0.4; Units: K/mm3; Status: F Lab Order: COMPLETE COMPHRENSIVE METABOLI; SPEC'M 09/18/16 06:37 Test: GLUCOSE, FASTING; Value: 106; Range: 70-105; Abnormal: Above high normal; Units: MG/DL; Status: F Test: BLOOD UREA NITROGEN; Value: 7; Range: 7-18; Units: MG/DL; Status: F Test: CREATININE FOR GFR; Value: 0.74; Range: 0.70-1.30; Units: MG/DL; Status: F Test: GLOMERULAR FILTRATION RATE; Value: > 60.0; Range: >60; Status: F Test: SODIUM LEVEL; Value: 142; Range: 136-145; Units: MEQ/L; Status: F Test: POTASSIUM SERUM; Value: 3.8; Range: 3.5-5.1; Units: MEQ/L; Status: F Test: CHLORIDE LEVEL; Value: 107; Range: 98-107; Units: MEQ/L; Status: F Test: CARBON DIOXIDE LEVEL; Value: 24; Range: 21-32; Units: MEQ/L; Status: F Test: ANION GAP; Value: 11; Range: 8-16; Units: MEQ/L; Status: F Test: CALCIUM LEVEL; Value: 9.2; Range: 8.5-10.1; Units: MG/DL; Status: F Test: AST/SGOT; Value: 68; Range: 15-37; Abnormal: Above high normal; Units: U/L; Status: F Test: ALT/SGPT; Value: 80; Range: 12-78; Abnormal: Above high normal; Units: U/L; Status: F Test: ALKALINE PHOSPHATASE; Value: 166; Range: 45-117; Abnormal: Above high normal; Units: U/L; Status: F Test: BILIRUBIN,TOTAL; Value: 0.7; Range: 0.2-1.0; Units: MG/DL; Status: F Test: TOTAL PROTEIN; Value: 6.9; Range: 6.4-8.2; Units: GM/DL; Status: F Test: ALBUMIN; Value: 3.6; Range: 3.2-5.2; Units: GM/DL; Status: F Test: ALBUMIN/GLOBULIN RATIO; Value: 1.09; Range: 1.00-1.93; Status: F Test Note: ; Units are mL/min/1.73 m2 Chronic Kidney Disease Staging per NKF: Stage I & II GFR >=60 Normal to Mildly Decreased Stage III GFR 30-59 Moderately Decreased Stage IV GFR 15-29 Severely Decreased Stage V GFR <15 Very Little GFR Left ESRD GFR <[address] STENOGRAPHER Lab Order: MAGNESIUM LEVEL; SPEC'M 09/18/16 06:37 Test: MAGNESIUM LEVEL; Value: 2.1; Range: 1.8-2.4; Units: MG/DL; Status: F Radiology Order: EKG-ADULT Test: EKG-ADULT REASON FOR EXAMINATION: dizziness; Stationary ECG Study; [facility] - ED; ; Test Date: 2016-09-17; Pat Name: ALEJANDRO PACHECO Department:; Room: -; Gender: 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 The cardiac size is normal; ; The danilo, mediastinum, and bony thorax are unremarkable.; ; Impression:; ; Negative PA and lateral chest. There is no interval change.; ; ; Signed by; Tavon Machuca MD 09/17/2016 12:52 P; Radiology Order: CT Head Without Contrast Test: CT Head Without Contrast REASON FOR EXAMINATION: CVA >4.5hrs; CT of the brain without IV contrast:; ; Comparison is 09/03/2015.; ; There is no hemorrhage. There is no edema, mass effect or midline shift. The; cortical stripe is unremarkable. The ventricles are normal size and midline. The; study is otherwise unremarkable.; ; Impression:; ; Negative CT study of the brain. There is no hemorrhage, acute infarct or mass.; No change from the comparison study.; ; ; Signed by; Tavon Machuca MD 09/17/2016 12:57 P; Outcome: 09/17 15:38 Decision to Hospitalize by Provider. br1 09/18 12:40 Patient left the ED. deg Signatures: Dispatcher [employer] EDMS Bernadette Flores, Acute Specialist Unit deg Elvira Osorio RN RN mcp Barnhardt, Gloria, Reg Reg Jza WeberRN RN ck1 Jonelle MartinezRN RN kr3 Reid Ken MD MD br1 Kesha Melendez RN RN jc4 Lizet Zelaya RN RN sls1 Ranjana Pantoja cmElgin Ellington mm15 Kris Zamudio, MODE RADIO BOARD OPERATOR Alex Kellogg,RN RN mb9 Juan R Campuzano rn1 Augustina Root,RN RN carolyn2 Afia Roque,RN RN ja5 Corrections: (The following items were deleted from the chart) 09/17 10:46 10:23 Home Meds: Advair Diskus 250-50 mcg/dose Inhl dsdv 1 puff 2 times per day; 10:46 10:23 Home Meds: amlodipine Oral twice a day; 10:46 10:23 Home Meds: Sertraline daily; 10:46 10:23 Home Meds: Serax Oral; reports being out of this medication; 10:46 10:23 Home Meds: omeprazole 20 mg Oral cpDR 1 cap once daily; 10:46 10:23 Home Meds: Buspirone Oral daily; 18:20 17:00 General: This RN spoke with Dr Kevin in regards to pt's blood pressure and that mb9 pt has Imdur ordered. New order received to hold imdur and give pt 500 ml bolus of NS x1 now. . mb9 Chart Complete MTDD
--- NOTE | 2016-09-20 13:41 | EDDOCDS ---
Physician Documentation [facility] Name: Alejandro Pacheco Age: 46 yrs Sex: Male : 1970 Arrival Date: 09/17/2016 Time: 10:13 Bed Admit Hold Private MD: Disposition: 09/17/16 15:38 Hospitalization ordered by Lulu Kevin for Inpatient Admission. Preliminary diagnosis are Alcohol dependence with withdrawal, unspecified, Chest pain, unspecified. - Bed requested for Admit. - Status is Inpatient Admission. deg - Condition is Stable. - Problem is new. - Symptoms are unchanged. Historical: - Allergies: NKDA; - Home Meds: 1. Advair Diskus 250-50 mcg/dose Inhl dsdv 1 puff 2 times per day (Last dose: 09/12/2016) 2. amlodipine 5 mg oral tab 1 tab once daily (Last dose: 09/17/2016 07:00) 3. Sertraline 100 mg 1 tab daily (Last dose: 09/17/2016 07:00) 4. Serax 15 mg oral cap 1 cap 3 times per day reports being out of this medication (Last dose: Unknown) 5. omeprazole 20 mg Oral cpDR 1 cap once daily (Last dose: 09/16/2016 07:00) 6. buspirone 7.5 mg oral tab 1 tab daily (Last dose: 09/15/2016) 7. albuterol sulfate 90 mcg/actuation Inhl HFAA 1 puff every 4 hours as needed (Last dose: 08/2016) 8. multivitamin Oral tab 1 tablet daily (Last dose: 09/17/2016 07:00) - PMHx: Seizures; Hypertension; Hypercholesterolemia; GERD; Asthma; Alcoholism; Depression; - PSHx: right ankle surgery; Appendectomy; bilateral knee surgery; has plate in head; Tonsillectomy; Hernia repair; - Social history: Smoking status: Cigars No barriers to communication noted, The patient speaks fluent Ukrainian, Speaks appropriately for age. - : The pt / caregiver states he / she is not on anticoagulants. Home medication list is obtained from the patient, Note Medications verified by external med history and verified by patient. - Exposure Risk Screening:: None identified. Vital Signs: 09/17 10:17 BP 197 / 114 Sitting; Pulse 109; Resp 16; Temp 97.7(O); Pulse Ox 97% on R/A; Weight jrd 86.18 kg / 189.99 lbs (R); Height 5 ft. 10 in. (177.80 cm); Pain 0/10; 10:34 BP 158 / 105 (auto/); jc4 10:36 BP 160 / 105 (auto/); jc4 10:36 Pulse 106 MON; Pulse Ox 98% ; jc4 10:37 Pulse 108 MON; Pulse Ox 98% ; jc4 10:51 BP 168 / 97 (auto/); mb9 10:52 Pulse 102 MON; Pulse Ox 97% ; mb9 11:06 BP 148 / 100 (auto/); mb9 11:07 Pulse 102 MON; Pulse Ox 97% ; mb9 11:21 BP 154 / 107 (auto/); mb9 11:22 Pulse 104 MON; Pulse Ox 97% ; mb9 11:36 BP 158 / 104 (auto/); mb9 11:37 Pulse 102 MON; Pulse Ox 97% ; mb9 11:51 BP 158 / 103 (auto/); mb9 11:52 Pulse 104 MON; Pulse Ox 97% ; mb9 12:06 BP 164 / 94 (auto/); mb9 12:07 Pulse 108 MON; Pulse Ox 98% ; mb9 12:21 BP 169 / 104 (auto/); mb9 12:22 Pulse 106 MON; Pulse Ox 97% ; mb9 12:36 BP 163 / 102 (auto/); mb9 12:37 Pulse 108 MON; Pulse Ox 97% ; mb9 13:02 BP 157 / 106 (auto/); mb9 13:02 Pulse 108 MON; Pulse Ox 97% ; mb9 13:06 BP 160 / 110 (auto/); mb9 13:07 Pulse 108 MON; Pulse Ox 97% ; mb9 13:21 BP 155 / 103 (auto/); mb9 13:22 Pulse 108 MON; Pulse Ox 97% ; mb9 13:36 BP 160 / 108 (auto/); mb9 13:37 Pulse 110 MON; Pulse Ox 97% ; mb9 13:51 BP 152 / 100 (auto/); mb9 13:52 Pulse 104 MON; Pulse Ox 94% ; mb9 14:08 BP 157 / 104 (auto/); mb9 14:10 Pulse 104 MON; Pulse Ox 97% ; mb9 15:25 BP 149 / 101 (auto/); mb9 15:26 Pulse 102 MON; Resp 17; Temp 98.3(O); Pulse Ox 98% ; mb9 15:49 BP 155 / 109 (auto/); mb9 15:50 Pulse 102 MON; Pulse Ox 99% ; mb9 15:55 BP 179 / 107 (auto/); mb9 15:56 Pulse 108 MON; Pulse Ox 100% ; mb9 16:25 BP 155 / 103 (auto/); mb9 16:26 Pulse 102 MON; Pulse Ox 100% ; mb9 16:55 BP 150 / 96 (auto/); mb9 16:56 Pulse 94 MON; Pulse Ox 96% ; mb9 18:11 BP 146 / 103 (auto/); mb9 18:12 Pulse 100 MON; Pulse Ox 97% ; mb9 18:13 BP 150 / 105 (auto/); mb9 18:14 Pulse 88 MON; Pulse Ox 97% ; mb9 18:33 BP 158 / 97 (auto/); mb9 18:34 Pulse 98 MON; Pulse Ox 97% ; mb9 18:58 BP 156 / 98 (auto/); kas2 18:58 Pulse 94 MON; Pulse Ox 97% ; kas2 18:58 Resp 18; Temp 98.0(O); kas2 20:41 BP 172 / 94 (auto/); kas2 20:41 Pulse 90 MON; Pulse Ox 97% ; kas2 20:46 BP 173 / 94 (auto/); kas2 20:46 Pulse 102 MON; Pulse Ox 98% ; kas2 21:18 BP 171 / 94 (auto/); kas2 21:18 Pulse 94 MON; kas2 23:35 BP 149 / 99 (auto/); kas2 23:35 Pulse 88 MON; Pulse Ox 95% ; kas2 10:17 Body Mass Index 27.26 (86.18 kg, 177.80 cm) jrd MDM: 10:26 ECG WITH READING ER PHYS+CARDIAG ordered. EDMS 12:22 Maintenance Custodian/Pulse Ox/q 30 min VS ordered. br1 12:22 IV Saline Lock ordered. br1 12:22 Rhythm Strip to chart ordered. br1 12:22 Undress patient appropriately for examination ordered. br1 12:22 Recheck B/P ordered. br1 12:23 NS 0.9% 1000 ml IV at 150 mL/hr continuous ordered. br1 12:23 Oxazepam 30 mg PO once ordered. br1 12:23 Basic Metabolic Profile Ordered. EDMS 12:23 CBC with Diff Ordered. EDMS 12:23 Cardiac Injury Profile Ordered. EDMS 12:23 Troponin Ordered. EDMS 12:23 CT Head Without Contrast Ordered. EDMS 12:25 Chest, 2 View (pa\E\lat) Ordered. EDMS 12:25 Aspirin 324 mg PO once ordered. br1 12:28 MAGNESIUM LEVEL Ordered. EDMS 12:29 PHOSPHOROUS LEVEL Ordered. EDMS 12:30 Financial registration complete. mm15 12:30 [facility] Payment Agreement was scanned into iPour[employer] and attached to record. mm15 13:24 Chest, 2 View (pa\E\lat) Reviewed. br1 13:24 CT Head Without Contrast Reviewed. br1 13:26 LORazepam 1 mg IVP once ordered. br1 14:07 Basic Metabolic Profile Reviewed. br1 14:07 CBC with Diff Reviewed. br1 14:07 MAGNESIUM LEVEL Reviewed. br1 14:07 Cardiac Injury Profile Reviewed. br1 14:07 Troponin Reviewed. br1 14:07 PHOSPHOROUS LEVEL Reviewed. br1 14:10 amLODIPine 5 mg PO once ordered. br1 15:28 Magnesium Oxide 400 mg PO once ordered. br1 15:30 BED REQUEST+ADM ordered. EDMS 16:10 Admission / Observation Status ordered. EDMS 16:10 2 GRAM SODIUM DIET ordered. EDMS 16:11 CARDIAC INJURY PROFILE Ordered. EDMS 16:11 TROPONIN Ordered. EDMS 16:11 THYROID STIMULATING HORMONE Ordered. EDMS 16:11 FREE T4 Ordered. EDMS 16:11 TOTAL T3 Ordered. EDMS 16:14 DRUG EVAL TOXICOLOGY ED ONLY Ordered. EDMS 16:28 ETHYL ALCOHOL (ETHANOL) Ordered. EDMS 19:33 CARDIAC INJURY PROFILE Ordered. EDMS 19:33 CARDIAC INJURY PROFILE Ordered. EDMS 19:33 TROPONIN Ordered. EDMS 19:33 TROPONIN Ordered. EDMS 19:33 CBC WITH DIFFERENTIAL Ordered. EDMS 19:33 COMPLETE COMPHRENSIVE METABOLI Ordered. EDMS 19:33 MAGNESIUM LEVEL Ordered. EDMS 09/18 19:31 CBC WITH DIFFERENTIAL Ordered. EDMS 19:31 COMPLETE COMPHRENSIVE METABOLI Ordered. EDMS 19:31 MAGNESIUM LEVEL Ordered. EDMS 09/19 14:17 T-Sheet-- Draft Copy was scanned into [employer]Pour[employer] and attached to record. gb 14:17 ECG/EKG was scanned into [employer] and attached to record. gb 14:18 Trend VS was scanned into [employer] and attached to record. gb Administered Medications: 09/17 13:05 Drug: Oxazepam 30 mg [oxazepam 15 mg capsule (2 caps)] Route: PO; mb9 13:05 Drug: Aspirin 324 mg [aspirin 81 mg chewable tablet (4 tabs)] Route: PO; mb9 13:06 Drug: NS 0.9% 1000 ml [sodium chloride 0.9 % intravenous solution] Route: IV; Rate: 150 mb9 mL/hr; Site: right forearm; 13:42 Drug: LORazepam 1 mg [lorazepam 2 mg/mL injection solution (0.5 mL)] Route: IVP; Site: mb9 right forearm; 14:37 Drug: amLODIPine 5 mg [amlodipine 5 mg tablet (1 tabs)] Route: PO; mb9 15:55 Drug: Magnesium Oxide 400 mg [magnesium oxide 400 mg tablet (1 tabs)] Route: PO; mb9 Signatures: Dispatcher [employer] EDMS Bernadette Flores, Vendor Management Associate Unit deg Elisa Elaine, Reg Reg gb Jaz WeberRN RN ck1 Reid Ken MD MD br1 Kesha Melendez RN RN jc4 Elgin Sullivan mm15 Alex Negro RN mb9 The chart was reviewed and I authenticate all verbal orders and agree with the evaluation and treatment provided.Corrections: (The following items were deleted from the chart) 10:46 10:23 Home Meds: Advair Diskus 250-50 mcg/dose Inhl dsdv 1 puff 2 times per day; 10:46 10:23 Home Meds: amlodipine Oral twice a day; 10:46 10:23 Home Meds: Sertraline daily; 10:46 10:23 Home Meds: Serax Oral; reports being out of this medication; 10:46 10:23 Home Meds: omeprazole 20 mg Oral cpDR 1 cap once daily; 10:46 10:23 Home Meds: Buspirone Oral daily; jc 12:28 12:24 MAGNESIUM LEVEL+LAB ordered. EDMS EDMS 12: 12:24 PHOSPHOROUS LEVEL+LAB ordered. EDMS EDMS 16: 16:15 ETHYL ALCOHOL (ETHANOL) ordered. EDMS EDMS Attachments: 12:30 [facility] Payment Agreement mm15 09/19 14:17 T-Sheet-- Draft Copy gb 14:17 ECG/EKG gb Chart Complete MTDD
== END 2016-09-18 12:40 | disposition home or self-care (01) ==
LOC: M ED 10:13 → M ED INP 16:03
PROVIDERS: ADMIT Internal Medicine; ATTEND Internal Medicine
DX: F10.230 Alcohol dependence with withdrawal, uncomplicated (principal); I48.92 Unspecified atrial flutter; R07.9 Chest pain, unspecified; I10 Essential (primary) hypertension; J45.909 Unspecified asthma, uncomplicated; F32.9 Major depressive disorder, single episode, unspecified; F41.9 Anxiety disorder, unspecified; E78.5 Hyperlipidemia, unspecified; K21.9 Gastro-esophageal reflux disease without esophagitis; Z79.899 Other long term (current) drug therapy; Z72.0 Tobacco use

== ENCOUNTER 2016-10-15 11:33 | Inpatient (IN) | payer OTHER ==
[~2016-10-15] VITALS: Ht 177.8 cm; Wt 84.8 kg
[~2016-10-15 11:33] MED LIST changes: +BUSP1TAB PO; +CLONI1TA PO; +OXAZ15CA PO; +SERT-138 PO; +SERT25TA PO; -SERT25TA85 PO; +THIA100TA PO
[2016-10-15 12:29] LABS: BASO % 0.6 % (0.0-1.0); EOS # 0.2 K/mm3 (0.0-0.50); EOS % 3.3 % (0.0-3.0); LARGE UNSTAINED CELL # 0.1 K/mm3 (0.0-0.4); LYMPH # 0.8 K/mm3 (1.5-4.5); LYMPH % 16.9 % (24.0-44.0); MEAN CORPUSCULAR HEMOGLOBIN 32.2 pg (27.0-33.0); MEAN CORPUSCULAR HGB CONC 33.3 g/dl (32.0-36.5); MEAN CORPUSCULAR VOLUME 96.9 fl (80.0-96.0); MONO # 0.3 K/mm3 (0.0-0.8); MONO % 6.4 % (0.0-5.0); NEUTROPHILS # 3.2 K/mm3 (1.8-7.7); NEUTROPHILS % 71.7 % (36.0-66.0); PLATELET COUNT, AUTOMATED 136 k/mm3 (150-450); RED CELL DISTRIBUTION WIDTH 13.5 % (11.5-14.5); WHITE BLOOD COUNT 4.5 K/mm3 (4.0-10.0)
--- NOTE | 2016-10-15 12:40 | REP ---
CT Head without contrast HISTORY: Altered mental status COMPARISON: 09/17/2016 There is no intraparenchymal hemorrhage, acute infarct, mass or midline shift. The ventricular system and cortical sulci as well as subarachnoid space in the posterior fossa are dilated consistent with minimal volume loss. There is no extra cerebral collection. There is no fracture. The visualized sinuses are clear. IMPRESSION: Minimal volume loss. Signed by Dario Comer MD 10/15/2016 12:31 P
[2016-10-15] MEDS ORDERED: NS 1,000 ML IV ONE (12:45)
[2016-10-15] MEDS ORDERED: OXAZEPAM 15 MG CAP PO ONE (12:45)
[2016-10-15 12:56] LABS: ALBUMIN 3.7 GM/DL (3.2-5.2); ALBUMIN/GLOBULIN RATIO 1.19 (1.00-1.93); ALKALINE PHOSPHATASE 244 U/L (45-117); ALT/SGPT 130 U/L (12-78); ANION GAP 21 MEQ/L (8-16); AST/SGOT 264 U/L (15-37); BILIRUBIN,DIRECT 0.6 MG/DL (0.0-0.2); BILIRUBIN,TOTAL 1.2 MG/DL (0.2-1.0); BLOOD UREA NITROGEN 5 MG/DL (7-18); CARBON DIOXIDE LEVEL 15 MEQ/L (21-32); CHLORIDE LEVEL 101 MEQ/L (98-107); CREATININE FOR GFR 1.01 MG/DL (0.70-1.30); GLOMERULAR FILTRATION RATE > 60.0 (>60); GLUCOSE, FASTING 164 MG/DL (70-105); POTASSIUM SERUM 3.6 MEQ/L (3.5-5.1); SODIUM LEVEL 137 MEQ/L (136-145); TOTAL PROTEIN 6.8 GM/DL (6.4-8.2)
[2016-10-15 14:38] LABS: VENOUS BASE EXCESS 0.1 (-2.0-2.0); VENOUS PARTIAL PRESSURE CO2 36.6 mmHg (38.0-50.0); VENOUS PARTIAL PRESSURE O2 36.5 mmHg (30.0-50.0); VENOUS TOTAL CO2 25.1 MEQ/L (24.0-28.0)
[2016-10-15 14:50] LABS: CONTROL LINE INT CTR LINE PRESENT; METHADONE URINE NEGATIVE (NEGATIVE); TRICYCLIC ANTIDEPRESS URINE NEGATIVE (NEGATIVE)
--- NOTE | 2016-10-15 16:46 | REP ---
RIGHT UPPER QUADRANT ULTRASOUND: Real-time sonographic evaluation of the right upper quadrant is performed. The gallbladder demonstrates no evidence of intraluminal sludge or calculi, wall thickening or pericholecystic fluid. There is no intrahepatic or extrahepatic biliary dilatation. The common bile duct measuring 5 mm in diameter. The liver demonstrates diffuse increased echotexture with enlargement compatible with diffuse fibrofatty infiltration and hepatomegaly. Length of the liver is 22 cm. Pancreas could not be visualized due to overlying bowel gas. Right kidney demonstrates no hydronephrosis or nephrolithiasis with normal size at 11.8 cm in length. A tiny amount of perihepatic fluid is seen. IMPRESSION: No gallstones or biliary dilatation. Hepatomegaly with diffuse fibrofatty infiltration of the liver. Tiny amount of perihepatic fluid. Signed by Tavon Lombardi MD 10/15/2016 05:25 P
[2016-10-15] MEDS ORDERED: LORazepam 2 MG/ML VIAL (J2060) IV STA (17:09)
--- NOTE | 2016-10-15 18:07 | ECGEPIP ---
Stationary ECG Study 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
[2016-10-15] MEDS ORDERED: ONDANSETRON 4MG/2ML VIAL (J2405) IV PRN (19:15)
[2016-10-15] MEDS ORDERED: ALBU17IN INH (19:20)
[2016-10-15] MEDS ORDERED: FOLI1TAB2 PO (19:20)
[2016-10-15] MEDS ORDERED: OXAZ15CA PO (19:20)
[2016-10-15] MEDS ORDERED: AMLO5TAB2 PO (19:20)
[2016-10-15] MEDS ORDERED: VITMTA PO (19:20)
[2016-10-15] MEDS ORDERED: THIA100TA PO (19:20)
[2016-10-15] MEDS ORDERED: ADV250INH INH (19:20)
[2016-10-15] MEDS ORDERED: BUSP1TAB PO (19:20)
[2016-10-15] MEDS ORDERED: OMEP20CA3 PO (19:20)
[2016-10-15] MEDS: NS 1,000 ML IV SCH (19:26)
[2016-10-15] MEDS ORDERED: NS 1,000 ML in APPROPRIATE DILUENT 1 EA IV ONE (19:30)
[2016-10-15] MEDS ORDERED: cloNIDine 0.1 MG TAB PO PRN (19:30)
[2016-10-15] MEDS ORDERED: ALBUTEROL 90 MCG/ACT 8GM HFA INHALER INH PRN (19:30)
[2016-10-15] MEDS ORDERED: NICOTINE 7 MG/24 HR TRANSDERMAL TD PRN (19:45)
[2016-10-15] MEDS ORDERED: LACTULOSE 20 GM/30 ML SYRUP UD PO ONE (19:45)
[2016-10-15] MEDS: LORazepam 2 MG/ML VIAL (J2060) IV PRN (20:12)
--- NOTE | 2016-10-15 20:12 | HPE ---
DATE OF ADMISSION: 10/15/2016 This is a patient of Vicente Galdamez. CHIEF COMPLAINT: "I had a seizure." SUMMARY OF PRESENTATION: This is a 46-year-old with a history of alcohol withdrawal seizure who has not had anything to drink, apparently, in a couple days and was walking to [facility] and in the doorway went down and started seizing. An ambulance was called. He had generalized shaking that was noted as quite severe. He has had one previous episode of alcohol withdrawal seizure around a year ago. Since that time he has had no further seizure episodes until today. 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 Last year he was drinking around 10 beers a day and a good amount of vodka along with that. Took a break of Thursday and Thursday. Started to have symptoms of withdrawal. Began drinking again and then stopped again this time. He has had withdrawal symptoms many times. He usually becomes shaky. He has been in detoxification before. He has never been to rehabilitation. PAST MEDICAL HISTORY: Notable for: 1. Asthma. 2. Gastroesophageal reflux disease (GERD). 3. History of diverticulitis. 4. Erectile dysfunction. 5. Hypertension. 6. Hyperlipidemia. 7. Anxiety. 8. Alcohol abuse. SURGICAL HISTORY: Notable for: 1. Tonsillectomy. 2. Appendectomy. 3. Laser surgery to the eye on the right. 4. Arthroscopic surgery on left knee. 5. Umbilical hernia repair in 2011. FAMILY HISTORY: Notable for father who at age 60 with an myocardial infarction ([place]). Mother with macular degeneration and breast cancer. SOCIAL HISTORY: He smokes cigars when he has access to them. Does not use any cigarettes. Occasionally uses marijuana. Uses no intravenous (IV) drugs. MEDICATIONS AT HOME: Notable for having not been obtained in total, but apparently he has been taking Serax at home, even as recently as the last few days, and also uses albuterol for his asthma. ALLERGIES: No known drug allergies. REVIEW OF SYSTEMS: Somewhat limited. He has no complaints of pain anywhere in his body. No headache. No neck pain or stiffness. No visual changes. No runny nose. No sore throat. No cough. Has been in his normal state of health. No fever. No chills. No abdominal pain. No change in bowel or bladder habits. No focal weakness. Otherwise it is unremarkable. PHYSICAL EXAMINATION: Temperature upon arrival is 98.2. Most recent pulse is 144 with a blood pressure of 168/108, respiratory rate of 14 on arrival, pulse oximetry 96. He is awake and appropriately interactive, alert and oriented times three. Somewhat anxious, somewhat tremulous. Head is normocephalic. Sinuses are nontender. There is no tenderness over his scalp. No tenderness in his cervical spine. There is evidence of an ecchymosis on the left front portion of his tongue, where he apparently bit his tongue during the seizure. Mucous membranes are moist. Neck is supple. Breathing is symmetrical. Inspiratory to expiratory (I-to-E) ratio is 1:3. No wheezes, rales, or rhonchi. Heart is in a regular rate and rhythm, tachycardic. Normal S1, S2. Radial pulses are 2+ bilaterally. Capillary refill is less than 2 seconds. Abdomen soft, doughy, nontender. He is moving all four extremities. There is some excoriations on this right angel and some bruising of his right ankle, which is nontender to palpation. There are labs available for me to review, which include a white count of 4.5, hemoglobin 12, and platelets of 136. BUN 5, creatinine 1.01, calcium 8. Total bilirubin 1.2, direct bilirubin 0.6, AST 264, ALT 130, alkaline phosphatase 244. Ammonia level is 74. TSH is 2.43. Blood gas 7.43, pCO2 of 36, pO2 of 36, bicarbonate 24. Toxicology screen was notable for an alcohol level of 0.5 with positive benzodiazepine screen. EKG shows sinus tachycardia. ASSESSMENT: This is a 46-year-old with alcohol withdrawal seizure. Will require a 2-midnight hospital stay for further treatment. PLAN: 1. Neurologic. Patient had an alcohol withdrawal seizure. Will be started on Serax and Ativan as needed, thiamine, and folate. He did have a head CT, which showed minimal volume loss. It appears as though he has never had an MRI or MRA. There was an electroencephalogram (EEG) done in August 2015, which showed excessive beta activity with no seizure activity noted. Will defer to Dr. Espinoza as to what further workup may be clinically indicated at this point. I have elected not to order any further testing. 2. Patient has hypertension. This is most likely a side effect of withdrawal. May benefit from blood pressure management during his stay. 3. Patient will have a nicotine patch available to him at a low dose should he have cravings for a cigar. 4. Patient has history of asthma. Will make his Advair available to him. 5. Patient has a history of anxiety and may have been taking Zoloft. Await confirmation of that. 6. Deep vein thrombosis (DVT) prophylaxis has been ordered.
[2016-10-15 21:00] VITALS: BP 165/98
[2016-10-15] MEDS: ADVAIR DISKUS 250/50 INH PWD INH SCH (21:00)
[2016-10-15] MEDS: busPIRone 5 MG TAB PO SCH (22:16)
[2016-10-15] MEDS: OXAZEPAM 10 MG CAP PO SCH (22:17)
[2016-10-15] MEDS: amLODIPine 5 MG TAB PO SCH (22:17)
[2016-10-16] VITALS (9 sets, daily range): BP systolic 116–169; BP diastolic 66–110
[2016-10-16] MEDS: OXAZEPAM 10 MG CAP PO SCH ×3 (05:17→21:07)
[2016-10-16 05:30] LABS: BASO % 0.6 % (0.0-1.0); EOS # 0.1 K/mm3 (0.0-0.50); EOS % 1.9 % (0.0-3.0); LARGE UNSTAINED CELL # 0.1 K/mm3 (0.0-0.4); LARGE UNSTAINED CELL % 2.2 % (0.0-4.0); LYMPH # 0.9 K/mm3 (1.5-4.5); LYMPH % 19.9 % (24.0-44.0); MEAN CORPUSCULAR HEMOGLOBIN 31.6 pg (27.0-33.0); MEAN CORPUSCULAR VOLUME 95.7 fl (80.0-96.0); MONO # 0.4 K/mm3 (0.0-0.8); MONO % 7.6 % (0.0-5.0); NEUTROPHILS # 3.1 K/mm3 (1.8-7.7); NEUTROPHILS % 67.8 % (36.0-66.0); PLATELET COUNT, AUTOMATED 107 k/mm3 (150-450); WHITE BLOOD COUNT 4.6 K/mm3 (4.0-10.0)
[2016-10-16 05:46] LABS: ANION GAP 9 MEQ/L (8-16); BLOOD UREA NITROGEN 5 MG/DL (7-18); CALCIUM LEVEL 8.8 MG/DL (8.5-10.1); CARBON DIOXIDE LEVEL 29 MEQ/L (21-32); CHLORIDE LEVEL 102 MEQ/L (98-107); CREATININE FOR GFR 0.81 MG/DL (0.70-1.30); GLOMERULAR FILTRATION RATE > 60.0 (>60); GLUCOSE, FASTING 112 MG/DL (70-105); MAGNESIUM LEVEL 1.8 MG/DL (1.8-2.4); POTASSIUM SERUM 3.5 MEQ/L (3.5-5.1); SODIUM LEVEL 140 MEQ/L (136-145)
[2016-10-16] MEDS: ADVAIR DISKUS 250/50 INH PWD INH SCH ×2 (07:10→21:34)
[2016-10-16] MEDS: ENOXAPARIN 40 MG/0.4 ML SYRINGE (J1650) SC SCH (08:37)
[2016-10-16] MEDS: busPIRone 5 MG TAB PO SCH ×2 (08:37→21:07)
[2016-10-16] MEDS: MULTIVITAMINS/MINERALS THERAP 1 TAB PO SCH (08:38)
[2016-10-16] MEDS: OMEPRAZOLE 20 MG CAP PO SCH (08:38)
[2016-10-16] MEDS: amLODIPine 5 MG TAB PO SCH ×2 (08:38→21:07)
[2016-10-16] MEDS: FOLIC ACID 1 MG TAB PO SCH (08:38)
[2016-10-16] MEDS: THIAMINE 100 MG TAB PO SCH (08:38)
[2016-10-16] MEDS: OXAZEPAM 10 MG CAP PO PRN (08:46)
[2016-10-16] MEDS: NS 1,000 ML IV SCH (10:39)
[2016-10-16] MEDS: LORazepam 2 MG/ML VIAL (J2060) IV PRN ×2 (11:36→19:36)
--- NOTE | 2016-10-16 14:36 | IPNPDOC ---
Text Note Date of Service The patient was seen on 10/16/16. NOTE Subjective: Patient is a 46-year-old male with history of alcohol abuse admitted for seizures. Patient states that he had 2 seizures yesterday. Patient admits to a history of drinking. Patient admits to me that he began to taper his alcohol last Thursday, did not drink any alcohol last Thursday, and had 2 drinks on Thursday. Patient reports today that he is feeling a little bit better. He is not so anxious with medications. He is admitting to some tremors. He is also having some sweats, diarrhea after lactulose yesterday. Objective: Vital signs: Temperature 96.6, pulse 105, respiratory rate 18, blood pressure 140/76, pulse ox 97% on room air Gen.: Patient awake, alert and oriented, verbal and able to answer questions appropriately. Patient does not appear to be in any acute distress Heart: Tachycardic with regular rhythm, normal S1-S2. No murmurs, rubs, clicks or gallops Lungs: Clear to auscultation bilaterally. No wheezes, rales or rhonchi Abdomen: Active bowel sounds, soft, nontender, no masses to palpation Extremities: No swelling in either lower extremity Neurological: Bilateral upper extremity tremor without asterixis Laboratory data: CBC: White blood cells 4.6, hemoglobin and hematocrit 0.8/38.8, platelets 107 Chemistry: Sodium 140, potassium 3.5, chloride 102, carbon oxide 29, BUN 5, creatinine 0.81, glucose 112, calcium 8.8, magnesium 1.8 Assessment: Patient is a 46-year-old male admitted for seizure secondary to alcohol withdrawal. Patient free from seizure activity since admission. Plan: #1: Alcohol withdrawal: Continue folic acid 1 mg by mouth daily, thiamine 100 mg by mouth daily, multivitamin 1 tablet by mouth daily lorazepam 1 mg IV every 4 hours when necessary for severe tremor or agitation, Serax 20 mg by mouth every 8 hours, Serax 10 mg by mouth every 4 hours when necessary for tremor or anxiety. Patient's story slightly inconsistent in regards to when patient stopped drinking, how much patient has been drinking. Patient will require close observation. #2: Hypertension: Likely secondary to alcohol withdrawal: Continue amlodipine 5 mg by mouth twice a day, clonidine 0.1 mg by mouth every 6 hours when necessary for systolic blood pressure greater than 140 #3: Asthma: Continue albuterol sulfate puffer 2 puffs 4 times a day when necessary for shortness of breath, Advair 250/50 one puff twice a day #4: GERD: Continue omeprazole 20 mg by mouth daily #5: Intermittent tobacco use: Continue nicotine patch 7 mg transdermal daily as needed #6: Anxiety: Continue BuSpar 7.5 mg by mouth twice a day #7: DVT prophylaxis: Continue Lovenox 40 mg subcutaneously daily she'll be switched to mechanical prophylaxis if platelets drop below 100 My preceptor for this patient encounter was physically present in the building during the encounter and was fully available. As needed, all aspects of the patient interview, examination, medical decision making process, and medical care plan development were reviewed and approved by the preceptor. Preceptor is aware and concurs with the plan as stated in the body of this note and will attest to such by his/her cosignature VALERIE,Harriet, I+O VS, Harriet, I+O Laboratory Tests 10/16/16 05:03 Calcium Level 8.8, Red Blood Count 4.05 L, Mean Corpuscular Volume 95.7, Mean Corpuscular Hemoglobin 31.6, Mean Corpuscular Hemoglobin Concent 33.0, Red Cell Distribution Width 13.0, Neutrophils (%) (Auto) 67.8 H, Lymphocytes (%) (Auto) 19.9 L, Monocytes (%) (Auto) 7.6 H, Eosinophils (%) (Auto) 1.9, Basophils (%) ( Auto) 0.6, Neutrophils # (Auto) 3.1, Lymphocytes # (Auto) 0.9 L, Monocytes # ( Auto) 0.4, Eosinophils # (Auto) 0.1, Basophils # (Auto) 0.0 Vital Signs Date Time Temp Pulse Resp B/P Pulse Ox O2 Delivery O2 Flow Rate FiO2 10/16/16 12:00 96.6 105 18 140/76 97 Room Air I&O- Last 24 Hours up to 6 AM 10/16/16 06:00 Intake Total 1840 ml Output Total 200 ml Balance 1640 ml CHENTE CUH DO Oct 16, 2016 14:36
[2016-10-17] VITALS (11 sets, daily range): BP systolic 134–181; BP diastolic 82–98
[2016-10-17] MEDS: LORazepam 2 MG/ML VIAL (J2060) IV PRN ×3 (01:04→19:40)
[2016-10-17] MEDS: OXAZEPAM 10 MG CAP PO SCH ×3 (05:25→21:29)
[2016-10-17 05:36] LABS: BASO % 0.8 % (0.0-1.0); EOS # 0.2 K/mm3 (0.0-0.50); LARGE UNSTAINED CELL # 0.1 K/mm3 (0.0-0.4); LARGE UNSTAINED CELL % 2.9 % (0.0-4.0); LYMPH # 0.9 K/mm3 (1.5-4.5); LYMPH % 19.2 % (24.0-44.0); MEAN CORPUSCULAR HEMOGLOBIN 32.3 pg (27.0-33.0); MEAN CORPUSCULAR HGB CONC 33.5 g/dl (32.0-36.5); MEAN CORPUSCULAR VOLUME 96.3 fl (80.0-96.0); MONO # 0.3 K/mm3 (0.0-0.8); MONO % 6.4 % (0.0-5.0); NEUTROPHILS % 66.8 % (36.0-66.0); PLATELET COUNT, AUTOMATED 107 k/mm3 (150-450); RED CELL DISTRIBUTION WIDTH 13.2 % (11.5-14.5); WHITE BLOOD COUNT 4.5 K/mm3 (4.0-10.0)
[2016-10-17 05:45] LABS: ANION GAP 8 MEQ/L (8-16); BLOOD UREA NITROGEN 3 MG/DL (7-18); CALCIUM LEVEL 9.5 MG/DL (8.5-10.1); CARBON DIOXIDE LEVEL 26 MEQ/L (21-32); CHLORIDE LEVEL 103 MEQ/L (98-107); CREATININE FOR GFR 0.75 MG/DL (0.70-1.30); GLOMERULAR FILTRATION RATE > 60.0 (>60); GLUCOSE, FASTING 133 MG/DL (70-105); MAGNESIUM LEVEL 1.5 MG/DL (1.8-2.4); POTASSIUM SERUM 3.5 MEQ/L (3.5-5.1); SODIUM LEVEL 137 MEQ/L (136-145)
[2016-10-17] MEDS: ADVAIR DISKUS 250/50 INH PWD INH SCH ×2 (07:36→20:13)
[2016-10-17] MEDS: FOLIC ACID 1 MG TAB PO SCH (09:12)
[2016-10-17] MEDS: METOPROLOL TART 12.5 MG PER 1/2 TAB PO SCH ×2 (09:13→20:20)
[2016-10-17] MEDS: MULTIVITAMINS/MINERALS THERAP 1 TAB PO SCH (09:13)
[2016-10-17] MEDS: busPIRone 5 MG TAB PO SCH ×2 (09:13→20:21)
[2016-10-17] MEDS: THIAMINE 100 MG TAB PO SCH (09:13)
[2016-10-17] MEDS: OMEPRAZOLE 20 MG CAP PO SCH (09:13)
[2016-10-17] MEDS: ENOXAPARIN 40 MG/0.4 ML SYRINGE (J1650) SC SCH (09:14)
[2016-10-17] MEDS: amLODIPine 5 MG TAB PO SCH ×2 (09:14→20:21)
[2016-10-17] MEDS: OXAZEPAM 10 MG CAP PO PRN (09:22)
[2016-10-17] MEDS ORDERED: MAG SULF 1GM/100ML (MAG RUN) 1 GM in APPROPRIATE DILUENT 1 EA IV ONE (17:00)
[2016-10-17] MEDS: LACTULOSE 20 GM/30 ML SYRUP UD PO SCH ×2 (17:14→20:20)
--- NOTE | 2016-10-17 18:27 | IPN ---
DATE: 10/17/2016 SUBJECTIVE: Patient seen and examined in the room today. Patient stated his last drink was last Thursday, which is 10/11/2016. Patient had two beers that day; however, on 10/09/2016 patient finished half bottle of vodka along with 10 beers. No recurrence of seizures since admission. Patient stated he would like to change his medical provider to someone in [place], because he recently lost access to a car and is unable to visit the primary care provider in [facility]; however, after assistance with medical staff, patient does have Medicaid coverage, which he can request a ride for his doctor appointments. Due to missing multiple primary care physician (PCP) appointments, patient admitted he has not been taking bupropion for more than a month, which may have contributed to his drinking habit. OBJECTIVE: VITAL SIGNS: Temperature is 97.3, pulse is 114, respirations 18, blood pressure is 142/86, pulse oximetry 99% in room air. GENERAL: No sign of acute distress, alert and oriented times three. HEENT: Normocephalic, atraumatic. Extraocular motor grossly intact. CARDIOVASCULAR: Positive S1, S2, regular rate. LUNGS: Clear to auscultation bilaterally. ABDOMEN: Soft, nontender, nondistended. Bowel sounds present. No rebound. No guarding. EXTREMITIES: No edema. No cyanosis. LABORATORY DATA: WBC is 4.5, hemoglobin 14, hematocrit is 41.7, platelet count is 107. Sodium 137, potassium 3.5, chloride 103, carbon dioxide 26, BUN 3, creatinine 0.75, GFR is greater than 60, fasting glucose 133, calcium is 9.5, magnesium is 1.5. Ammonia level is 97. ASSESSMENT AND PLAN: 1. Alcohol withdrawal seizures. Patient will continue on cardiac telemetry. Today is day 3 of admission. 2. Elevated ammonia level. Patient will continue to receive lactulose. 3. Hypomagnesemia. Patient will have a potassium run. 4. Hypertension. Most likely still related to alcohol withdrawal. Patient will start on metoprolol because of concurrent tachycardia. 5. History of asthma. No wheezes at this moment. 6. History of anxiety. Patient is on bupropion. 7. Deep vein thrombosis (DVT). Lovenox.
[2016-10-18] MEDS: OXAZEPAM 10 MG CAP PO PRN (03:08)
[2016-10-18] MEDS: OXAZEPAM 10 MG CAP PO SCH ×3 (04:07→20:41)
[2016-10-18 05:20] VITALS: BP 133/70
[2016-10-18 06:21] LABS: BASO % 0.8 % (0.0-1.0); EOS # 0.2 K/mm3 (0.0-0.50); EOS % 3.9 % (0.0-3.0); LARGE UNSTAINED CELL # 0.2 K/mm3 (0.0-0.4); LARGE UNSTAINED CELL % 2.4 % (0.0-4.0); LYMPH # 0.8 K/mm3 (1.5-4.5); LYMPH % 13.4 % (24.0-44.0); MEAN CORPUSCULAR HEMOGLOBIN 32.8 pg (27.0-33.0); MEAN CORPUSCULAR HGB CONC 33.6 g/dl (32.0-36.5); MEAN CORPUSCULAR VOLUME 97.6 fl (80.0-96.0); MONO # 0.3 K/mm3 (0.0-0.8); MONO % 5.1 % (0.0-5.0); NEUTROPHILS # 4.6 K/mm3 (1.8-7.7); NEUTROPHILS % 74.5 % (36.0-66.0); PLATELET COUNT, AUTOMATED 150 k/mm3 (150-450); RED CELL DISTRIBUTION WIDTH 13.4 % (11.5-14.5); WHITE BLOOD COUNT 6.2 K/mm3 (4.0-10.0)
[2016-10-18 06:48] LABS: ANION GAP 10 MEQ/L (8-16); BLOOD UREA NITROGEN 7 MG/DL (7-18); CALCIUM LEVEL 9.4 MG/DL (8.5-10.1); CARBON DIOXIDE LEVEL 28 MEQ/L (21-32); CHLORIDE LEVEL 103 MEQ/L (98-107); CREATININE FOR GFR 0.77 MG/DL (0.70-1.30); GLOMERULAR FILTRATION RATE > 60.0 (>60); GLUCOSE, FASTING 131 MG/DL (70-105); MAGNESIUM LEVEL 1.8 MG/DL (1.8-2.4); POTASSIUM SERUM 3.2 MEQ/L (3.5-5.1); SODIUM LEVEL 141 MEQ/L (136-145)
[2016-10-18] MEDS: ADVAIR DISKUS 250/50 INH PWD INH SCH ×2 (07:58→20:16)
[2016-10-18 07:59] LABS: ALBUMIN 3.9 GM/DL (3.2-5.2); ALBUMIN/GLOBULIN RATIO 1.15 (1.00-1.93); ALKALINE PHOSPHATASE 253 U/L (45-117); ALT/SGPT 166 U/L (12-78); AST/SGOT 196 U/L (15-37); BILIRUBIN,DIRECT 0.9 MG/DL (0.0-0.2); BILIRUBIN,TOTAL 1.6 MG/DL (0.2-1.0); TOTAL PROTEIN 7.3 GM/DL (6.4-8.2)
[2016-10-18] MEDS: OMEPRAZOLE 20 MG CAP PO SCH (08:34)
[2016-10-18] MEDS: busPIRone 5 MG TAB PO SCH (08:34)
[2016-10-18] MEDS: METOPROLOL TART 12.5 MG PER 1/2 TAB PO SCH (08:34)
[2016-10-18] MEDS: ENOXAPARIN 40 MG/0.4 ML SYRINGE (J1650) SC SCH (08:34)
[2016-10-18] MEDS: FOLIC ACID 1 MG TAB PO SCH (08:34)
[2016-10-18] MEDS: amLODIPine 5 MG TAB PO SCH ×2 (08:35→20:40)
[2016-10-18] MEDS: THIAMINE 100 MG TAB PO SCH (08:35)
[2016-10-18] MEDS: MULTIVITAMINS/MINERALS THERAP 1 TAB PO SCH (08:35)
[2016-10-18] MEDS: LORazepam 2 MG/ML VIAL (J2060) IV PRN ×2 (08:40→18:14)
[2016-10-18 08:50] LABS: INR 1.02
[2016-10-18 09:00] VITALS: BP 133/70
[2016-10-18] MEDS ORDERED: POTASSIUM CHLORIDE 10 MEQ SR TABLET PO ONE (09:00)
[2016-10-18] MEDS ORDERED: METOPROLOL TART 12.5 MG PER 1/2 TAB PO ONE (10:30)
[2016-10-18] MEDS: LACTULOSE 20 GM/30 ML SYRUP UD PO SCH ×3 (11:09→23:57)
--- NOTE | 2016-10-18 12:05 | IPNPDOC ---
Text Note Date of Service The patient was seen on 10/18/16. NOTE Subjective: Patient is a 46-year-old male admitted for seizures likely secondary to alcohol withdrawal. Patient says that he is feeling great, doing well with Serax. He says that he wishes to stay on Serax as an out-patient, he says he has used it to abstain from drinking alcohol. He is having some diarrhea secondary to lactulose, having tremors when his Serax wears off. He denies any fevers, chills , sweats, chest pain/pressure, shortness of breath, difficulty breathing, abdominal pain, nausea, vomiting. Objective: Vital signs: Temperature 97.9, pulse 116, respiratory rate 17, blood pressure 133/70, pulse ox 96% on room air Gen.: Patient awake, alert and oriented, verbal and able to answer questions appropriately. Patient does not appear to be in any acute distress Heart: Tachycardic, regular rhythm. No murmurs, rubs, clicks or gallops Lungs: Clear to auscultation bilaterally. No wheezes, rales or rhonchi Abdomen: Active bowel sounds, soft, nontender, no masses to palpation Extremities: No swelling in either lower extremity Neurological: Negative for tremor Laboratory data: CBC: White blood cells 6.2, hemoglobin and hematocrit 13.9/41.3, platelets 150 Chemistry: Sodium 141, potassium 3.2, chloride 103, current DEXA 28, BUN 7, creatinine 0.77, glucose 131, calcium 9.4, magnesium 1.8 Liver profile: AST 196, a LT 166, alkaline phosphatase 253, total protein 7.3, albumin 3.9, total bilirubin 1.6 Ammonia 90 PT 13.5, INR 1.02 Assessment: Patient is a 46-year-old male admitted for seizures secondary to alcohol withdrawal. Patient has been seizure-free since admission Plan: #1: Alcohol withdrawal: Patient will continue on scheduled Serax 20 mg by mouth every 8 hours, order for when necessary Serax has been discontinued as patient has been seizure-free. Continue folic acid 1 mg by mouth daily, multivitamin 1 tablet by mouth daily, thiamine 100 mg by mouth daily #2: Elevated ammonia: Order for lactulose increased to 30 mg by mouth to 6 hours #3: Hypokalemia: Order placed for one-time 40 meqs KCl. Continue to monitor daily electrolytes #4: Hypertension: Likely secondary to alcohol withdrawal: Lopressor increased to 25 mg by mouth twice a day. Continue clonidine 0.1 mg by mouth every 6 hours when necessary, amlodipine 5 mg by mouth twice a day #5: Asthma: Stable, continue albuterol sulfate inhaler 2 puffs 4 times a day when necessary, Advair 250/50 one puff twice a day #6: GERD: Stable, continue omeprazole 20 mg by mouth daily #7: Intermittent tobacco use: Stable, continue nicotine patch 7 mg 1 patch transdermal daily when necessary #8: Anxiety: Continue Ativan 1 mg IV every 4 hours when necessary #9: DVT prophylaxis: Continue Lovenox 40 mg subcutaneously daily My preceptor for this patient encounter was physically present in the building during the encounter and was fully available. As needed, all aspects of the patient interview, examination, medical decision making process, and medical care plan development were reviewed and approved by the preceptor. Preceptor is aware and concurs with the plan as stated in the body of this note and will attest to such by his/her cosignature Harriet PADILLA, I+O VSHarriet, I+O Laboratory Tests 10/18/16 06:07 Red Blood Count 4.23 L, Mean Corpuscular Volume 97.6 H, Mean Corpuscular Hemoglobin 32.8, Mean Corpuscular Hemoglobin Concent 33.6, Red Cell Distribution Width 13.4, Neutrophils (%) (Auto) 74.5 H, Lymphocytes (%) (Auto) 13.4 L, Monocytes (%) (Auto) 5.1 H, Eosinophils (%) (Auto) 3.9 H, Basophils (%) (Auto) 0.8, Neutrophils # (Auto) 4.6, Lymphocytes # (Auto) 0.8 L, Monocytes # ( Auto) 0.3, Eosinophils # (Auto) 0.2, Basophils # (Auto) 0.0 Vital Signs Date Time Temp Pulse Resp B/P Pulse Ox O2 Delivery O2 Flow Rate FiO2 10/18/16 11:09 116 133/70 10/18/16 09:00 Room Air 10/18/16 05:20 97.9 17 96 I&O- Last 24 Hours up to 6 AM 10/18/16 06:00 Intake Total 1900 ml Output Total 1650 ml Balance 250 ml CHENTE CHU DO Oct 18, 2016 12:05
[2016-10-18 14:00] VITALS: BP 128/82
[2016-10-18 20:30] VITALS: BP 156/52
[2016-10-18] MEDS: METOPROLOL TART 25 MG TABLET PO SCH (20:40)
[2016-10-18 21:10] VITALS: BP 156/52
[2016-10-19] MEDS: LORazepam 2 MG/ML VIAL (J2060) IV PRN ×4 (02:30→20:26)
[2016-10-19 05:30] VITALS: BP 133/78
[2016-10-19] MEDS: OXAZEPAM 10 MG CAP PO SCH ×3 (05:44→21:24)
[2016-10-19] MEDS: LACTULOSE 20 GM/30 ML SYRUP UD PO SCH ×4 (05:45→23:07)
[2016-10-19 06:01] LABS: BASO % 0.7 % (0.0-1.0); EOS # 0.4 K/mm3 (0.0-0.50); EOS % 6.6 % (0.0-3.0); LARGE UNSTAINED CELL # 0.3 K/mm3 (0.0-0.4); LARGE UNSTAINED CELL % 4.5 % (0.0-4.0); LYMPH # 1.1 K/mm3 (1.5-4.5); LYMPH % 16.7 % (24.0-44.0); MEAN CORPUSCULAR HEMOGLOBIN 32.5 pg (27.0-33.0); MEAN CORPUSCULAR VOLUME 98.5 fl (80.0-96.0); MONO # 0.4 K/mm3 (0.0-0.8); MONO % 6.8 % (0.0-5.0); NEUTROPHILS # 4.2 K/mm3 (1.8-7.7); NEUTROPHILS % 64.8 % (36.0-66.0); PLATELET COUNT, AUTOMATED 184 k/mm3 (150-450); RED CELL DISTRIBUTION WIDTH 13.4 % (11.5-14.5); WHITE BLOOD COUNT 6.4 K/mm3 (4.0-10.0)
[2016-10-19 06:24] LABS: ANION GAP 10 MEQ/L (8-16); BLOOD UREA NITROGEN 6 MG/DL (7-18); CALCIUM LEVEL 9.5 MG/DL (8.5-10.1); CARBON DIOXIDE LEVEL 28 MEQ/L (21-32); CHLORIDE LEVEL 102 MEQ/L (98-107); CREATININE FOR GFR 0.68 MG/DL (0.70-1.30); GLOMERULAR FILTRATION RATE > 60.0 (>60); GLUCOSE, FASTING 131 MG/DL (70-105); MAGNESIUM LEVEL 1.6 MG/DL (1.8-2.4); POTASSIUM SERUM 3.3 MEQ/L (3.5-5.1); SODIUM LEVEL 140 MEQ/L (136-145)
[2016-10-19] MEDS: ADVAIR DISKUS 250/50 INH PWD INH SCH ×2 (08:06→19:26)
[2016-10-19 09:00] VITALS: BP 133/78
[2016-10-19] MEDS: ENOXAPARIN 40 MG/0.4 ML SYRINGE (J1650) SC SCH (09:21)
[2016-10-19] MEDS: OMEPRAZOLE 20 MG CAP PO SCH (09:22)
[2016-10-19] MEDS: MULTIVITAMINS/MINERALS THERAP 1 TAB PO SCH (09:22)
[2016-10-19] MEDS: THIAMINE 100 MG TAB PO SCH (09:22)
[2016-10-19] MEDS: FOLIC ACID 1 MG TAB PO SCH (09:22)
[2016-10-19] MEDS: amLODIPine 5 MG TAB PO SCH ×2 (09:22→20:27)
[2016-10-19] MEDS: METOPROLOL TART 25 MG TABLET PO SCH ×2 (09:22→20:27)
[2016-10-19] MEDS ORDERED: POTASSIUM CHLORIDE 10 MEQ SR TABLET PO ONE (10:45)
[2016-10-19 14:00] VITALS: BP 140/74
--- NOTE | 2016-10-19 14:37 | IPN ---
DATE: 10/19/2016 SUBJECTIVE: Patient is seen and examined in the room today. Patient still has increased anxiety. Patient only had a few hours sleep yesterday due to the screaming from next door, however he feels he has an elevated mood. Denies any significant tremors. Denies any recurrent of seizures. Patient is concerned about his liver, however his family members including his , daughter, family members and friends, keep requesting him to come back and take care of family issues, that is also creating significant stress for him. Otherwise, no overnight events reported. OBJECTIVE: VITAL SIGNS: Temperature 97.3, pulse 96, respiration rate 17, blood pressure 133/78, pulse oximetry 98% in room air. GENERAL: Anxious, no sign of acute distress, alert and oriented times three. HEENT: Normocephalic, atraumatic. Extraocular motors grossly intact. CARDIOVASCULAR: Tachycardic, positive S1 S2, regular rate. LUNGS: Clear to auscultation bilaterally. ABDOMEN: Soft, nontender, nondistended. Bowel sounds present. No rebound, no guarding. EXTREMITIES: No swelling, no edema. LABORATORY DATA: WBC 6.4, hemoglobin 13.6, hematocrit 41.1, platelet count 184. Sodium 140, potassium 3.3, chloride 102, carbon dioxide 28, BUN 6, creatinine 0.68, GFR greater than 60, fasting glucose 131, calcium 9.5, magnesium 1.6, ammonia level is 56. ASSESSMENT AND PLAN: 1. Alcohol withdrawal seizures. Patient is started on Serax 20 mg by mouth every 8 hours. Patient also has Ativan intravenous (IV) as needed. No recurrence of seizures since admission. Patient is continued on folic acid, multivitamin, and thiamine. However, patient has continued to use as needed Ativan as a scheduled medication. 2. Elevated ammonia level secondary to liver impairment. Patient has continued to take lactulose 30 mg every 6 hours and now patient's ammonia level dropped down from 90 to 56. 3. Hypertension, secondary to alcohol withdrawal and baseline hypertension. Patient's Lopressor is increased to 25 mg by mouth twice a day. Continue clonidine 0.1 mg by mouth every 6 hours as needed and patient is on amlodipine 5 mg by mouth twice a day. 4. Asthma, stable. Continue breathing treatment as needed, on Advair. 5. Gastroesophageal reflux disease (GERD), on omeprazole. 6. Intermittent tobacco abuse, on nicotine patch. 7. Anxiety. Patient's bupropion is on hold due to current liver insufficiency. Patient is on Serax and Ativan. Patient is also taking metoprolol. 8. Deep venous thrombosis (DVT) prophylaxis, on Lovenox.
[2016-10-19 20:30] VITALS: BP 152/88
[2016-10-19 22:00] VITALS: BP 152/88
[2016-10-20] MEDS: LACTULOSE 20 GM/30 ML SYRUP UD PO SCH ×2 (05:11→11:43)
[2016-10-20] MEDS: OXAZEPAM 10 MG CAP PO SCH (05:12)
[2016-10-20 06:00] VITALS: BP 147/91
[2016-10-20 06:01] LABS: BASO % 0.8 % (0.0-1.0); EOS # 0.4 K/mm3 (0.0-0.50); EOS % 5.5 % (0.0-3.0); LARGE UNSTAINED CELL # 0.3 K/mm3 (0.0-0.4); LARGE UNSTAINED CELL % 4.1 % (0.0-4.0); LYMPH # 1.3 K/mm3 (1.5-4.5); LYMPH % 19.7 % (24.0-44.0); MEAN CORPUSCULAR HEMOGLOBIN 32.6 pg (27.0-33.0); MEAN CORPUSCULAR HGB CONC 32.9 g/dl (32.0-36.5); MEAN CORPUSCULAR VOLUME 99.2 fl (80.0-96.0); MONO # 0.6 K/mm3 (0.0-0.8); MONO % 8.7 % (0.0-5.0); NEUTROPHILS # 3.9 K/mm3 (1.8-7.7); NEUTROPHILS % 61.2 % (36.0-66.0); PLATELET COUNT, AUTOMATED 203 k/mm3 (150-450); RED CELL DISTRIBUTION WIDTH 13.2 % (11.5-14.5); WHITE BLOOD COUNT 6.4 K/mm3 (4.0-10.0)
[2016-10-20 06:20] LABS: ANION GAP 9 MEQ/L (8-16); BLOOD UREA NITROGEN 8 MG/DL (7-18); CALCIUM LEVEL 8.9 MG/DL (8.5-10.1); CARBON DIOXIDE LEVEL 27 MEQ/L (21-32); CHLORIDE LEVEL 104 MEQ/L (98-107); CREATININE FOR GFR 0.71 MG/DL (0.70-1.30); GLOMERULAR FILTRATION RATE > 60.0 (>60); GLUCOSE, FASTING 129 MG/DL (70-105); MAGNESIUM LEVEL 1.7 MG/DL (1.8-2.4); POTASSIUM SERUM 3.8 MEQ/L (3.5-5.1); SODIUM LEVEL 140 MEQ/L (136-145)
[2016-10-20] MEDS: LORazepam 2 MG/ML VIAL (J2060) IV PRN ×2 (06:27→11:38)
[2016-10-20 07:46] LABS: ALBUMIN 3.6 GM/DL (3.2-5.2); ALKALINE PHOSPHATASE 216 U/L (45-117); ALT/SGPT 161 U/L (12-78); AST/SGOT 159 U/L (15-37); BILIRUBIN,DIRECT 0.4 MG/DL (0.0-0.2); BILIRUBIN,TOTAL 0.8 MG/DL (0.2-1.0); TOTAL PROTEIN 7.6 GM/DL (6.4-8.2)
[2016-10-20 08:00] VITALS: BP 132/98
[2016-10-20] MEDS: MULTIVITAMINS/MINERALS THERAP 1 TAB PO SCH (08:16)
[2016-10-20] MEDS: FOLIC ACID 1 MG TAB PO SCH (08:16)
[2016-10-20] MEDS: THIAMINE 100 MG TAB PO SCH (08:16)
[2016-10-20] MEDS: OMEPRAZOLE 20 MG CAP PO SCH (08:16)
[2016-10-20 08:17] VITALS: BP 132/98
[2016-10-20] MEDS: METOPROLOL TART 25 MG TABLET PO SCH (08:17)
[2016-10-20] MEDS: amLODIPine 5 MG TAB PO SCH (08:17)
[2016-10-20] MEDS: ENOXAPARIN 40 MG/0.4 ML SYRINGE (J1650) SC SCH ×2 (08:17→08:20)
[2016-10-20] MEDS: ADVAIR DISKUS 250/50 INH PWD INH SCH (08:25)
[2016-10-20] MEDS ORDERED: OXAZ10CA PO (11:15)
[2016-10-20] MEDS ORDERED: LACT20EL PO (11:15)
[2016-10-20] MEDS ORDERED: METO25TAB PO (16:40)
--- NOTE | 2016-10-20 17:06 | DSES ---
DATE OF ADMISSION: 10/15/2016 DATE OF DISCHARGE: 10/20/2016 PRIMARY CARE PROVIDER: Originally was BRITTANY Landin in [facility] and patient was assigned to new primary care provider, Elinor La NP. CONSULTANTS: None. PROCEDURES: None. COMPLICATIONS: None. ADMISSION/DISCHARGE DIAGNOSES: 1. Delirium tremens seizure from alcohol withdrawal. 2. Chronic alcohol abuse. 3. Liver impairment. 4. Elevated ammonia level. 5. Hypertension. 6. Asthma. 7. Gastroesophageal reflux disease. 8. Alcohol abuse. 9. Anxiety. HOSPITAL COURSE: The patient is a 46-year-old male who has a significant history of chronic alcohol abuse. He drank half a bottle of vodka with 10 beers on 10/10/2016, and on 10/12/2016, patient also had multiple beer consumption. Later on 10/15/2016, patient started having uncontrollable seizure while patient was walking to the gas station. Patient presented to [facility] for further evaluation. While patient was in the ambulance and in the emergency room, patient had a total of five seizures. Patient initially was admitted to the progressive care unit (PCU) for cardiac monitoring. Patient was started on Serax oral and IV Ativan as needed. Patient regained consciousness within 24 hours and patient was able to advance the diet slowly. Shortly after admission, patient also was found to have an elevated ammonia level and patient was started on lactulose. After a few days of cardiac monitoring, patient did not have any acute events and patient was transferred to the medical/surgical floor. Patient continued to have an elevated ammonia level and the frequency of the lactulose had to be adjusted. Patient also experienced tachycardia with increased anxiety with hypertension and metoprolol was started. Due to patient's difficulty following routinely with his original primary care provider, neonatal social worker have been assisting with transferring the patient's care among the providers. On 10/20/2016, patient is determined medically stable for discharge and it has been one week after patient's last drink. Patient's liver impairment from alcohol abuse and the severe possible hazardous results from the alcohol use has been explained to the patient and patient understands that he should not use any type of alcoholic beverages when patient is discharged. Patient is discharged home with appointment with a new primary care provider on 10/21/2016. OBJECTIVE: VITAL SIGNS: Temperature is 97.2, pulse is 103, respiratory rate 18, blood pressure is 147/91, pulse oximetry is 99% on room air. LABORATORY DATA: WBC is 6.4, hemoglobin 13.5, hematocrit 41.2, platelet count is 203. Sodium is 140, potassium 3.8, chloride is 104, carbon dioxide 27, BUN 8, creatinine 0.71, GFR greater than 60, fasting glucose 129, calcium is 8.9, magnesium is 1.7, total bilirubin is 0.8, direct bilirubin is 0.4, AST is 159, ALT is 161, alkaline phosphatase 216, ammonia level is 64, total CK is 115, total protein is 7.6, albumin level 3.6. Microbiology: None. IMAGING STUDIES: CT of the head without contrast shows minimal volume lass. Gallbladder ultrasound shows no gallstone or biliary dilatation. Hepatomegaly with diffuse fibrofatty infiltrate of the liver. There is a tiny amount of perihepatic fluid. DISCHARGE MEDICATIONS: - lactulose 30 mL by mouth every eight hours for three days and adjusted by the primary care provider - Serax 20 mg by mouth every eight hours for a three-day supply - Ventolin two puff inhalation four times a day as needed for shortness of breath - amlodipine 5 mg by mouth twice a day - folic acid 1 mg by mouth daily - metoprolol tartrate 25 mg by mouth twice a day - multivitamin one tablet by mouth daily - omeprazole 20 mg by mouth daily - Advair Diskus one puff inhalation twice a day as needed - thiamine 100 mg by mouth daily DISCHARGE INSTRUCTIONS: Discharge home. Activity as tolerated. The patient should not consume any type of alcoholic beverages. The patient should continue taking lactulose 30 mL by mouth three times a day and have ammonia level rechecked before the primary care provider (PCP) visit. The patient's Serax dose should be adjusted by the PCP. DISCHARGE TIME: Greater than 30 minutes. DISCHARGE CONDITION: Stable.
== END 2016-10-20 12:16 | disposition home or self-care (01) | DRG 775 ==
LOC: EDBD 11:33 → M ED 12:24 → M ED INP 19:09 → M PCU 21:01 → M MSPAV 10-17 21:09
PROVIDERS: ADMIT Internal Medicine; ATTEND Internal Medicine
DX: F10.231 Alcohol dependence with withdrawal delirium (principal); R56.9 Unspecified convulsions; E72.20 Disorder of urea cycle metabolism, unspecified; E83.42 Hypomagnesemia; J45.909 Unspecified asthma, uncomplicated; K21.9 Gastro-esophageal reflux disease without esophagitis; I10 Essential (primary) hypertension; E78.5 Hyperlipidemia, unspecified; F41.9 Anxiety disorder, unspecified; N52.9 Male erectile dysfunction, unspecified; Z72.0 Tobacco use

== ENCOUNTER → 2016-11-17 | Outpatient (CLI) | payer OTHER ==
[~2016-11-17] MED LIST changes: +LACT20EL PO; +METO25TAB PO
== END ==
LOC: M OUTALCOH 09:14
PROVIDERS: ATTEND Psychiatry & Neurology Psychiatry
DX: F10.20 Alcohol dependence, uncomplicated (principal)

== ENCOUNTER 2017-01-22 11:14 | Inpatient (IN) | payer OTHER ==
[~2017-01-22] VITALS: Ht 177.8 cm; Wt 90.9 kg
[2017-01-22] MEDS ORDERED: OXAZEPAM 10 MG CAP PO ONE (12:45)
[2017-01-22] MEDS ORDERED: MULTIVITAMIN -ADULT INJECTION 10 ML, THIAMINE INJection 100 MG, FOLIC ACID 1 MG in NS 1... IV ONE (12:45)
[2017-01-22] MEDS ORDERED: LORazepam 2 MG/ML VIAL (J2060) IV STA ×2 (13:18→15:31)
[2017-01-22 13:32] LABS: BASO # 0.1 K/mm3 (0.0-0.2); EOS # 0.1 K/mm3 (0.0-0.50); EOS % 1.3 % (0.0-3.0); LARGE UNSTAINED CELL # 0.1 K/mm3 (0.0-0.4); LARGE UNSTAINED CELL % 1.8 % (0.0-4.0); LYMPH # 2.1 K/mm3 (1.5-4.5); MEAN CORPUSCULAR HEMOGLOBIN 30.2 pg (27.0-33.0); MEAN CORPUSCULAR HGB CONC 34.1 g/dl (32.0-36.5); MEAN CORPUSCULAR VOLUME 88.6 fl (80.0-96.0); MONO # 0.4 K/mm3 (0.0-0.8); MONO % 5.4 % (0.0-5.0); NEUTROPHILS # 4.9 K/mm3 (1.8-7.7); NEUTROPHILS % 64.4 % (36.0-66.0); PLATELET COUNT, AUTOMATED 303 k/mm3 (150-450); RED CELL DISTRIBUTION WIDTH 14.1 % (11.5-14.5); WHITE BLOOD COUNT 7.6 K/mm3 (4.0-10.0)
[2017-01-22 13:58] LABS: ALKALINE PHOSPHATASE 111 U/L (45-117); ALT/SGPT 48 U/L (12-78); ANION GAP 10 MEQ/L (8-16); AST/SGOT 55 U/L (15-37); BILIRUBIN,TOTAL 0.6 MG/DL (0.2-1.0); BLOOD UREA NITROGEN 10 MG/DL (7-18); CALCIUM LEVEL 8.7 MG/DL (8.5-10.1); CARBON DIOXIDE LEVEL 26 MEQ/L (21-32); CHLORIDE LEVEL 102 MEQ/L (98-107); CREATININE FOR GFR 0.89 MG/DL (0.70-1.30); GLOMERULAR FILTRATION RATE > 60.0 (>60); GLUCOSE, FASTING 105 MG/DL (70-105); POTASSIUM SERUM 4.2 MEQ/L (3.5-5.1); SODIUM LEVEL 138 MEQ/L (136-145)
[2017-01-22 13:59] LABS: ALBUMIN 3.9 GM/DL (3.2-5.2); ALBUMIN/GLOBULIN RATIO 0.95 (1.00-1.93); BILIRUBIN,DIRECT 0.2 MG/DL (0.0-0.2)
[2017-01-22 14:39] LABS: METHADONE URINE NEGATIVE (NEGATIVE)
[2017-01-22] MEDS ORDERED: PATIENT COMMENT (16:10)
[2017-01-22] MEDS ORDERED: ADVAIR DISKUS 250/50 INH PWD INH PRN (16:15)
[2017-01-22] MEDS ORDERED: ALBUTEROL 90 MCG/ACT 8GM HFA INHALER INH PRN (16:15)
[2017-01-22] MEDS: THIAMINE 100 MG TAB PO SCH (18:16)
[2017-01-22] MEDS: OXAZEPAM 10 MG CAP PO PRN (18:16)
[2017-01-22] MEDS: FOLIC ACID 1 MG TAB PO SCH (18:16)
--- NOTE | 2017-01-22 18:22 | HPEPDOC ---
General Date of Admission Jan 22, 2017 at 16:15 Primary Care Physician: Cammie Lyon R.N., A.N.P. Attending Physician: CARI MAYR MD Chief Complaint The patient is a 46-year-old male admitted with a reason for visit of Etoh Dependence. History of Present Illness Patient is a 46-year-old male with past medical history of anxiety, alcohol abuse, hypertension, asthma, GERD presents to the ER with symptoms of alcohol withdrawal. Patient is a chronic alcoholic and recently has been admitted several times for withdrawal and delirium tremens. Last admission patient had a delirium tremens seizure. Patient reports after her last discharge on 2016 he had quit drinking for a few weeks. The patient got in an argument with his mother and he started drinking. Patient was also recently started seeing the alcohol withdrawal program at [facility]. Patient reports last having been drank at 4 AM today. When asked how much he drank last night patient admitted to drinking half a bottle rum, 6 beers and a pint of vodka. Today patient states he feels very anxious and does not want to be here. He said he showed up today because he knows he will don't withdrawal again. Last couple times he is withdrawn he's had been admitted. Patient said he usually waits the second day after quit drinking but today he came before that happened. Patient admits to not feeling quite right. Denies headache, chest pain, shortness of breath. Patient does feel a little shaky on exam exam. Says he usually gets worse as I said before previously had seizures. Has not had a seizure today. Patient does have a history of alcohol abuse. Previously had been taking lactulose to his hyperammonemia. However this was stopped because patient could not handle the diarrhea. Patient was prescribed Xifaxan to lower ammonia but patient did not start taking medication due to its high cost. Patient also admitted to having marijuana frequently. Last time was a week ago. Patient says he smokes "a lot". Patient is a former smoker and quit smoking when he was approximately 7 years old. Patient smoked from [age] years old and smoked 1-2 packs a day. Does admit to smoking cigars every once in a while. Approximately once a month. Patient also admits to using LSD and mushrooms back in college. Has not used for some time. Patient denies using any illicit drugs. Home Medications Scheduled Amlodipine Besylate (Amlodipine Besylate) 5 Mg Tab, 5 MG PO BID, (Reported) Omeprazole (Omeprazole) 20 Mg Cap, 20 MG PO DAILY, (Reported) Scheduled PRN Albuterol Sulfate (Ventolin Hfa) 200 Puff/8 Gm Aers, 2 PUFF INH QID PRN for SHORTNESS OF BREATH, (Reported) Salmeterol/Fluticasone (Advair Diskus 250-50 Mcg/Dose) 14 Puff/Inhaler Aerp, 1 PUFF INH BID PRN for SHORTNESS OF BREATH, (Reported) PATIENT STATES HE ONLY USES PRN Miscellaneous Medications [Patient Comment] , (Reported) PATIENT STATES HE WAS ON OTHER MEDS... FOLIC ACID, MULTIVITAMIN, AND THIAMINE HE STATES HE HASN'T TAKEN IN ABOUT A MONTH OR 2 (OUT OF REFILLS BECAUSE HE MISSED HIS APPOINTMENT), CHOLESTEROL MED THAT HE HASN'T TAKEN IN MONTHS, AND SERTRALINE THAT HE TOOK HIMSELF OFF ABOUT 3 MONTHS AGO. Allergies Coded Allergies: No Known Drug Allergy (Verified Allergy, Unknown, 10/15/16) Past Medical History Medical History 1. Alcohol abuse 2. History of Delirium Tremens Seizures 3. Asthma 4. GERD 5. Hypertension 6. Anxiety 7. History of diverticulitis 8. Hyperlipidemia 9. Erectile Dysfunction Surgical History 1. Tonsillectomy 2. Appendectomy 3. Laser surgery to the eye on the right 4. Arthroscopic surgery on the left knee 5. Umbilical hernia repair 2011 Family History Father: age 60 yo [place] Mother: Macular degeneration, Breast Cancer Paternal Grandfather: [place] (70s) 2 brothers; healthy 2 daughters: healthy Social History * Smoker: former Smoker, quit greater than 1 year (27 yo, smoked 14-25, 1-2 ppd ) Alcohol: heavy Drugs: denies Recent Travel/Sick Contacts: Denies: Recent travel, Recent sick contacts Psychosocial History: Anxiety Review of Symptoms Constitutional: Denies: Chills, Fever Eyes: Reports: Other (Admits to feeling off when asked about vision. Denies double vision, blurry vision. ), Denies: Pain, Conjunctivae inflammation ENT: Denies: Head Aches, Ear Pain Skin: Denies: Rash, Lesions Pulmonary: Reports: Cough (productive, white phlegm), Denies: Dyspnea Cardiovascular: Denies: Chest Pain, Palpitations Gastrointestinal: Reports: Diarrhea (Chronic, years. liquid. Worsened with lactulose.), Denies: Nausea, Vomiting, Abdominal Pain Genitourinary: Denies: Dysuria, Frequency, Incontinence Hematologic: Denies: Bruising, Bleeding Excessively Musculoskeletal: Denies: Neck Pain, Back Pain Neurological: Reports: Numbness (admits to chronic numb toes. ), Denies: Weakness Psych: Reports: Anxiety (Patient feels anxious. Does not want to be in the hospital. ) Physical Examination General Exam: Positive: Alert, Cooperative, No Acute Distress Eye Exam: Positive: PERRLA, Conjunctiva & lids normal, EOMI, Negative: Sclera icteric ENT Exam: Positive: Atraumatic, Mucous membr. moist/pink, Pharynx Normal, Tongue Midline, Nares Patent Neck Exam: Positive: Supple, Negative: JVD, thyromegaly Chest Exam: Positive: Clear to auscultation, Normal air movement, Negative: Rales, Rhonchi, Wheezing Heart Exam: Positive: Tachycardic, Normal S1, Normal S2, Negative: Gallops, Murmurs, Rubs Abdomen Exam: Positive: Normal bowel sounds, Soft, Negative: Tenderness, Hepatospenomegaly Extremity Exam: Positive: Normal pulses, Other (tremulousness and mild tremors upper extremities bilaterally. No asterixis. ), Negative: Clubbing, Cyanosis, Edema Skin Exam: Positive: Nl turgor and temperature, Negative: Rash, Breakdown Neuro Exam: Positive: Normal Speech, Strength at 5/5 X4 ext, Cranial Nerves 3- 12 NL Psych Exam: Positive: Mental status NL, Anxiety, Oriented x 3 Vital Signs Vital Signs Date Time Temp Pulse Resp B/P (MAP) Pulse Ox O2 Delivery O2 Flow Rate FiO2 01/22/17 15:08 01/22/17 13:43 122 18 97 Room Air 01/22/17 11:15 97.4 Height (in): 70 Weight (kg): 91.172 BMI (kg): 28.8 Laboratory Data Labs 24H Laboratory Tests 2 01/22/17 12:35: White Blood Count 7.6, Red Blood Count 5.12, Hemoglobin 15.5, Hematocrit 45.3, Mean Corpuscular Volume 88.6, Mean Corpuscular Hemoglobin 30.2, Mean Corpuscular Hemoglobin Concent 34.1, Red Cell Distribution Width 14.1, Platelet Count 303, Neutrophils (%) (Auto) 64.4, Lymphocytes (%) (Auto) 26.0, Monocytes ( %) (Auto) 5.4H, Eosinophils (%) (Auto) 1.3, Basophils (%) (Auto) 1.0, Neutrophils # (Auto) 4.9, Lymphocytes # (Auto) 2.1, Monocytes # (Auto) 0.4, Eosinophils # (Auto) 0.1, Basophils # (Auto) 0.1, Large Unclassified Cells % 1.8 , Large Unclassified Cells # 0.1, Anion Gap 10, Glomerular Filtration Rate > 60.0, Calcium Level 8.7, Aspartate Amino Transf (AST/SGOT) 55H, Alanine Aminotransferase (ALT/SGPT) 48, Alkaline Phosphatase 111, Total Bilirubin 0.6, Direct Bilirubin 0.2, Total Creatine Kinase 130, Total Protein 8.0, Albumin 3.9 , Albumin/Globulin Ratio 0.95L, Thyroid Stimulating Hormone (TSH) 0.839, Salicylates Level 3.0L, Acetaminophen Level < 2.0L, Ethyl Alcohol Level 0.459H 01/22/17 13:27: Urine Amphetamines Screen NEGATIVE, Urine Benzodiazepines Screen POSITIVEH, Urine Opiates Screen NEGATIVE, Urine Methadone Screen NEGATIVE, Urine Barbiturates Screen NEGATIVE, Urine Phencyclidine Screen NEGATIVE, Urine Cocaine Metabolite Screen NEGATIVE, Urine Cannabinoids Screen NEGATIVE CBC/BMP Laboratory Tests 01/22/17 12:35 Red Blood Count 5.12, Mean Corpuscular Volume 88.6, Mean Corpuscular Hemoglobin 30.2, Mean Corpuscular Hemoglobin Concent 34.1, Red Cell Distribution Width 14.1 , Neutrophils (%) (Auto) 64.4, Lymphocytes (%) (Auto) 26.0, Monocytes (%) (Auto ) 5.4 H, Eosinophils (%) (Auto) 1.3, Basophils (%) (Auto) 1.0, Neutrophils # ( Auto) 4.9, Lymphocytes # (Auto) 2.1, Monocytes # (Auto) 0.4, Eosinophils # (Auto ) 0.1, Basophils # (Auto) 0.1 Problems (1) EtOH dependence Status: Acute Problem Text: Patient has tremulousness and mild tremors secondary to alcohol withdraw. He is also tachycardic on exam, HR in 120s. Patient has not had a drink since 4 AM 01/22/17. He reports daily consumption, 20 beers/ day. Last night admits to drinking 1/2 bottle rum, 6 beers and 1 pint of vodka. Last withdraw patient was admitted for Delirium Tremens seizures. Starting patient on Serax scheduled 20 mg q8h and 10 mg q4hp. Also starting patient on Ativan 1 mg q4hp for breakthrough anxiety. Also starting patient on 1 mg folic acid and 100 mg thiamine PO daily. Patient used to take lactulose but this has been discontinued. Was prescribed Xifaxan but not taking due to cost. Patient's LFTs and bilirubin were within normal limits. Checking patient's ammonia and PT/INR. Patient's ammonia is 48. Recheck in the morning. May consider lactulose at that time. (2) Asthma Problem Text: Patient is not on oxygen at home. Continuing patient on home medications albuterol inhaler and Advair. Monitor as needed. (3) HTN (hypertension) Problem Text: Continue home medications of Amlodipine 5 mg PO BID. Monitor patient's blood pressure. Patient may have been on metorpolol 25 mg BID with food, unclear at moment if taking it. Holding for now. Reassess as needed. (4) GERD (gastroesophageal reflux disease) Problem Text: Continue home dose Prilosec 20 mg PO daily. Monitor as needed. Plan / VTE VTE Prophylaxis Ordered?: Yes (compression stockings and sequentials. May start Lovenox pending INR and PT. ) GME ATTESTATION GME ATTESTATION My preceptor for this patient encounter was Dr. Mary and he was physically present in the building during the encounter and was fully available. As needed , all aspects of the patient interview, examination, medical decision making process, and medical care plan development were reviewed and approved by the preceptor. Preceptor is aware and concurs with the plan as stated in the body of this note and will attest to such by his/her co-signature. FRANCK BULLARD DO Jan 22, 2017 18:08
[2017-01-22 18:54] LABS: INR 1.09
[2017-01-22] MEDS: LORazepam 1 MG TAB PO PRN (20:11)
[2017-01-22 20:19] VITALS: BP 128/74
[2017-01-22] MEDS: OXAZEPAM 10 MG CAP PO SCH (21:01)
[2017-01-22] MEDS: amLODIPine 5 MG TAB PO SCH (21:02)
[2017-01-23] VITALS (7 sets, daily range): BP systolic 133–169; BP diastolic 76–108
[2017-01-23] MEDS: LORazepam 1 MG TAB PO PRN ×4 (00:16→18:40)
[2017-01-23] MEDS: OXAZEPAM 10 MG CAP PO PRN ×4 (01:10→17:11)
[2017-01-23] MEDS: OXAZEPAM 10 MG CAP PO SCH ×3 (05:16→21:48)
[2017-01-23 07:38] LABS: BASO % 0.5 % (0.0-1.0); EOS # 0.1 K/mm3 (0.0-0.50); EOS % 1.5 % (0.0-3.0); LARGE UNSTAINED CELL # 0.1 K/mm3 (0.0-0.4); LARGE UNSTAINED CELL % 1.6 % (0.0-4.0); LYMPH # 1.9 K/mm3 (1.5-4.5); LYMPH % 23.2 % (24.0-44.0); MEAN CORPUSCULAR HEMOGLOBIN 29.9 pg (27.0-33.0); MEAN CORPUSCULAR HGB CONC 33.5 g/dl (32.0-36.5); MEAN CORPUSCULAR VOLUME 89.2 fl (80.0-96.0); MONO # 0.5 K/mm3 (0.0-0.8); MONO % 6.6 % (0.0-5.0); NEUTROPHILS # 5.4 K/mm3 (1.8-7.7); NEUTROPHILS % 66.7 % (36.0-66.0); PLATELET COUNT, AUTOMATED 221 k/mm3 (150-450); RED CELL DISTRIBUTION WIDTH 13.7 % (11.5-14.5); WHITE BLOOD COUNT 8.1 K/mm3 (4.0-10.0)
[2017-01-23 07:53] LABS: ANION GAP 8 MEQ/L (8-16); BLOOD UREA NITROGEN 9 MG/DL (7-18); CALCIUM LEVEL 8.9 MG/DL (8.5-10.1); CARBON DIOXIDE LEVEL 28 MEQ/L (21-32); CHLORIDE LEVEL 100 MEQ/L (98-107); CREATININE FOR GFR 0.78 MG/DL (0.70-1.30); GLOMERULAR FILTRATION RATE > 60.0 (>60); GLUCOSE, FASTING 98 MG/DL (70-105); MAGNESIUM LEVEL 1.8 MG/DL (1.8-2.4); POTASSIUM SERUM 4.3 MEQ/L (3.5-5.1); SODIUM LEVEL 136 MEQ/L (136-145)
[2017-01-23] MEDS: THIAMINE 100 MG TAB PO SCH (07:54)
[2017-01-23] MEDS: FOLIC ACID 1 MG TAB PO SCH (07:54)
[2017-01-23] MEDS: amLODIPine 5 MG TAB PO SCH ×2 (07:55→20:27)
[2017-01-23] MEDS: OMEPRAZOLE 20 MG CAP PO SCH (07:56)
[2017-01-23] MEDS: ADVAIR DISKUS 250/50 INH PWD INH SCH ×2 (10:48→20:53)
--- NOTE | 2017-01-23 11:53 | ECGEPIP ---
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
--- NOTE | 2017-01-23 14:46 | IPNPDOC ---
Subjective Date Seen The patient was seen on 01/23/17. Subjective Chief Complaint/HPI The patient is a 46-year-old male admitted with a reason for visit of Etoh Dependence. Events since last encounter Feeling a little better, some tremor, would like inpt treatment at [facility]- has been there before, no pain Constitutional: Denies: Chills, Fever Pulmonary: Denies: Dyspnea, Cough Cardiovascular: Denies: Chest Pain, Palpitations Gastrointestinal: Denies: Nausea, Vomiting, Abdominal Pain Objective Physical Examination General Exam: Positive: Alert, Cooperative, No Acute Distress Eye Exam: Negative: Sclera icteric ENT Exam: Positive: Mucous membr. moist/pink Chest Exam: Positive: Clear to auscultation, Negative: Rales, Rhonchi, Wheezing Heart Exam: Positive: Tachycardic, Normal S1, Normal S2 Abdomen Exam: Positive: Normal bowel sounds, Soft, Negative: Tenderness Extremity Exam: Positive: Normal pulses, Negative: Edema Neuro Exam: Positive: Other (fine tremor) Psych Exam: Positive: Mental status NL, Anxiety, Oriented x 3 Assessment /Plan Problems (1) EtOH dependence Status: Acute Problem Text: He reports daily consumption, 20 beers/ day. Last night admits to drinking 1/2 bottle rum, 6 beers and 1 pint of vodka. Last withdraw patient was admitted for Delirium Tremens seizures. Symptoms seem appropriately managed. I discussed with case management/dc planning about arranging therapy at [facility] (2) Asthma Problem Text: Patient is not on oxygen at home. Continuing patient on home medications albuterol inhaler and Advair. (3) HTN (hypertension) Problem Text: Continue home medications of Amlodipine 5 mg PO BID. Monitor patient's blood pressure. Patient may have been on metoprolol 25 mg BID with food, unclear at moment if taking it. Holding for now. (4) GERD (gastroesophageal reflux disease) Problem Text: Continue home dose Prilosec 20 mg PO daily. Monitor as needed. Plan/VTE VTE Prophylaxis Ordered?: Yes (compression stockings and sequentials. May start Lovenox pending INR and PT. ) VS, I&O, 24H, Fishbone Vital Signs/I&O Vital Signs Date Time Temp Pulse Resp B/P (MAP) Pulse Ox O2 Delivery O2 Flow Rate FiO2 01/23/17 12:00 99.1 90 18 135/89 (104) 97 Room Air I&O- Last 24 Hours up to 6 AM 01/23/17 06:00 Intake Total 960 ml Output Total 425 ml Balance 535 ml Laboratory Data 24H LABS Laboratory Tests 2 01/22/17 17:35: Magnesium Level 2.0, Ammonia 48H 01/22/17 18:29: Prothrombin Time 14.2, Prothromb Time International Ratio 1.09, Activated Partial Thromboplast Time 31.5 01/23/17 06:59: Magnesium Level 1.8, Ammonia 47H, White Blood Count 8.1, Red Blood Count 4.75, Hemoglobin 14.2, Hematocrit 42.3, Mean Corpuscular Volume 89.2, Mean Corpuscular Hemoglobin 29.9, Mean Corpuscular Hemoglobin Concent 33.5, Red Cell Distribution Width 13.7, Platelet Count 221, Neutrophils (%) (Auto) 66.7H, Lymphocytes (%) (Auto) 23.2L, Monocytes (%) (Auto) 6.6H, Eosinophils (%) (Auto) 1.5, Basophils (%) (Auto) 0.5, Neutrophils # (Auto) 5.4, Lymphocytes # (Auto) 1.9, Monocytes # (Auto) 0.5, Eosinophils # (Auto) 0.1, Basophils # (Auto) 0.0, Large Unclassified Cells % 1.6, Large Unclassified Cells # 0.1, Anion Gap 8, Glomerular Filtration Rate > 60.0, Blood Urea Nitrogen 9, Creatinine 0.78, Sodium Level 136, Potassium Level 4.3, Chloride Level 100, Carbon Dioxide Level 28, Calcium Level 8.9 CBC/BMP Laboratory Tests 01/23/17 06:59 Red Blood Count 4.75, Mean Corpuscular Volume 89.2, Mean Corpuscular Hemoglobin 29.9, Mean Corpuscular Hemoglobin Concent 33.5, Red Cell Distribution Width 13.7 , Neutrophils (%) (Auto) 66.7 H, Lymphocytes (%) (Auto) 23.2 L, Monocytes (%) ( Auto) 6.6 H, Eosinophils (%) (Auto) 1.5, Basophils (%) (Auto) 0.5, Neutrophils # (Auto) 5.4, Lymphocytes # (Auto) 1.9, Monocytes # (Auto) 0.5, Eosinophils # ( Auto) 0.1, Basophils # (Auto) 0.0, Calcium Level 8.9 JULITA MONTANEZ MD Jan 23, 2017 14:46
[2017-01-23] MEDS ORDERED: SLF 3 ML SYR IV PRN (16:30)
[2017-01-23] MEDS: SLF 3 ML SYR IV SCH (21:48)
[2017-01-23] MEDS ORDERED: IBUPROFEN 600 MG TAB PO PRN (22:30)
[2017-01-24] MEDS: LORazepam 1 MG TAB PO PRN ×3 (00:29→17:43)
[2017-01-24 05:00] VITALS: BP 158/95
[2017-01-24] MEDS: OXAZEPAM 10 MG CAP PO SCH ×3 (05:15→21:53)
[2017-01-24] MEDS: SLF 3 ML SYR IV SCH ×3 (05:15→21:54)
[2017-01-24 06:37] LABS: BASO % 0.8 % (0.0-1.0); EOS # 0.3 K/mm3 (0.0-0.50); EOS % 4.8 % (0.0-3.0); LARGE UNSTAINED CELL # 0.1 K/mm3 (0.0-0.4); LARGE UNSTAINED CELL % 1.6 % (0.0-4.0); LYMPH # 1.5 K/mm3 (1.5-4.5); LYMPH % 24.2 % (24.0-44.0); MEAN CORPUSCULAR HEMOGLOBIN 29.6 pg (27.0-33.0); MEAN CORPUSCULAR HGB CONC 33.1 g/dl (32.0-36.5); MEAN CORPUSCULAR VOLUME 89.6 fl (80.0-96.0); MONO # 0.3 K/mm3 (0.0-0.8); MONO % 5.2 % (0.0-5.0); NEUTROPHILS # 3.6 K/mm3 (1.8-7.7); NEUTROPHILS % 63.3 % (36.0-66.0); PLATELET COUNT, AUTOMATED 167 k/mm3 (150-450); RED CELL DISTRIBUTION WIDTH 14.1 % (11.5-14.5); WHITE BLOOD COUNT 5.6 K/mm3 (4.0-10.0)
[2017-01-24 06:57] LABS: ANION GAP 8 MEQ/L (8-16); BLOOD UREA NITROGEN 8 MG/DL (7-18); CALCIUM LEVEL 9.4 MG/DL (8.5-10.1); CARBON DIOXIDE LEVEL 27 MEQ/L (21-32); CHLORIDE LEVEL 100 MEQ/L (98-107); CREATININE FOR GFR 0.86 MG/DL (0.70-1.30); GLOMERULAR FILTRATION RATE > 60.0 (>60); GLUCOSE, FASTING 116 MG/DL (70-105); MAGNESIUM LEVEL 1.8 MG/DL (1.8-2.4); POTASSIUM SERUM 3.9 MEQ/L (3.5-5.1); SODIUM LEVEL 135 MEQ/L (136-145)
[2017-01-24 07:40] VITALS: BP 168/98
[2017-01-24] MEDS: FOLIC ACID 1 MG TAB PO SCH (08:05)
[2017-01-24] MEDS: THIAMINE 100 MG TAB PO SCH (08:05)
[2017-01-24] MEDS: OMEPRAZOLE 20 MG CAP PO SCH (08:05)
[2017-01-24] MEDS: amLODIPine 5 MG TAB PO SCH ×2 (08:06→21:54)
[2017-01-24] MEDS: OXAZEPAM 10 MG CAP PO PRN ×2 (11:52→19:52)
--- NOTE | 2017-01-24 13:26 | IPNPDOC ---
Subjective Date Seen The patient was seen on 01/24/17. Subjective Chief Complaint/HPI The patient is a 46-year-old male admitted with a reason for visit of Etoh Dependence. 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 moist/pink Neck Exam: Positive: Supple, thyromegaly Chest Exam: Positive: Clear to auscultation, Normal air movement, Negative: Rales, Rhonchi, Wheezing Heart Exam: Positive: Rate Normal, Normal S1, Normal S2 Abdomen Exam: Positive: Normal bowel sounds, Soft, Negative: Tenderness, Hepatospenomegaly Extremity Exam: Positive: Cyanosis, Normal pulses, Other (minimal tremor) Psych Exam: Positive: Anxiety, Oriented x 3 Assessment /Plan Problems (1) EtOH dependence Status: Acute Problem Text: He reports daily consumption, 20 beers/ day. Last night admits to drinking 1/2 bottle rum, 6 beers and 1 pint of vodka. Last withdraw patient was admitted for Delirium Tremens seizures. Symptoms seem appropriately managed. I discussed with case management/dc planning about arranging therapy at [facility] Patient expressing wish to be dc'd home instead of to [facility] (2) Asthma Problem Text: Patient is not on oxygen at home. Continuing patient on home medications albuterol inhaler and Advair. (3) HTN (hypertension) Problem Text: Continue home medications of Amlodipine 5 mg PO BID. Monitor patient's blood pressure. Patient may have been on metoprolol 25 mg BID with food, restarting it today as bp elevated, he may also benefit from clonidine if it continues elevated (4) GERD (gastroesophageal reflux disease) Problem Text: Continue home dose Prilosec 20 mg PO daily. Monitor as needed. Plan/VTE VTE Prophylaxis Ordered?: Yes (compression stockings and sequentials. May start Lovenox pending INR and PT. ) VS, I&O, 24H, Fishbone Vital Signs/I&O Vital Signs Date Time Temp Pulse Resp B/P (MAP) Pulse Ox O2 Delivery O2 Flow Rate FiO2 01/24/17 08:06 95 168/98 01/24/17 07:40 97.7 18 99 Room Air I&O- Last 24 Hours up to 6 AM 01/24/17 06:00 Intake Total 1160 ml Output Total 1400 ml Balance -240 ml Laboratory Data 24H LABS Laboratory Tests 2 01/24/17 06:23: White Blood Count 5.6, Red Blood Count 4.90, Hemoglobin 14.5, Hematocrit 43.9, Mean Corpuscular Volume 89.6, Mean Corpuscular Hemoglobin 29.6, Mean Corpuscular Hemoglobin Concent 33.1, Red Cell Distribution Width 14.1, Platelet Count 167, Neutrophils (%) (Auto) 63.3, Lymphocytes (%) (Auto) 24.2, Monocytes ( %) (Auto) 5.2H, Eosinophils (%) (Auto) 4.8H, Basophils (%) (Auto) 0.8, Neutrophils # (Auto) 3.6, Lymphocytes # (Auto) 1.5, Monocytes # (Auto) 0.3, Eosinophils # (Auto) 0.3, Basophils # (Auto) 0.0, Large Unclassified Cells % 1.6 , Large Unclassified Cells # 0.1, Anion Gap 8, Glomerular Filtration Rate > 60.0 , Blood Urea Nitrogen 8, Creatinine 0.86, Sodium Level 135L, Potassium Level 3.9 , Chloride Level 100, Carbon Dioxide Level 27, Calcium Level 9.4, Magnesium Level 1.8 CBC/BMP Laboratory Tests 01/24/17 06:23 Red Blood Count 4.90, Mean Corpuscular Volume 89.6, Mean Corpuscular Hemoglobin 29.6, Mean Corpuscular Hemoglobin Concent 33.1, Red Cell Distribution Width 14.1 , Neutrophils (%) (Auto) 63.3, Lymphocytes (%) (Auto) 24.2, Monocytes (%) (Auto ) 5.2 H, Eosinophils (%) (Auto) 4.8 H, Basophils (%) (Auto) 0.8, Neutrophils # ( Auto) 3.6, Lymphocytes # (Auto) 1.5, Monocytes # (Auto) 0.3, Eosinophils # (Auto ) 0.3, Basophils # (Auto) 0.0, Calcium Level 9.4 JULITA MONTANEZ MD Jan 24, 2017 13:26
[2017-01-24] MEDS: ADVAIR DISKUS 250/50 INH PWD INH SCH ×2 (13:37→20:30)
[2017-01-24 14:00] VITALS: BP 164/98
[2017-01-24] MEDS: METOPROLOL TART 25 MG TABLET PO SCH ×2 (14:33→21:54)
[2017-01-24 21:54] VITALS: BP 147/98
[2017-01-24 22:00] VITALS: BP 147/98
[2017-01-25] MEDS: LORazepam 1 MG TAB PO PRN (00:09)
[2017-01-25] MEDS: SLF 3 ML SYR IV SCH (05:03)
[2017-01-25] MEDS: OXAZEPAM 10 MG CAP PO SCH (05:03)
[2017-01-25 06:00] VITALS: BP 159/95
[2017-01-25] MEDS: ADVAIR DISKUS 250/50 INH PWD INH SCH (06:05)
[2017-01-25 06:46] LABS: BASO % 0.5 % (0.0-1.0); EOS # 0.4 K/mm3 (0.0-0.50); EOS % 4.9 % (0.0-3.0); LARGE UNSTAINED CELL # 0.1 K/mm3 (0.0-0.4); LARGE UNSTAINED CELL % 1.6 % (0.0-4.0); LYMPH # 1.8 K/mm3 (1.5-4.5); LYMPH % 19.9 % (24.0-44.0); MEAN CORPUSCULAR HEMOGLOBIN 30.6 pg (27.0-33.0); MEAN CORPUSCULAR HGB CONC 34.2 g/dl (32.0-36.5); MEAN CORPUSCULAR VOLUME 89.3 fl (80.0-96.0); MONO # 0.4 K/mm3 (0.0-0.8); NEUTROPHILS # 5.8 K/mm3 (1.8-7.7); NEUTROPHILS % 68.2 % (36.0-66.0); PLATELET COUNT, AUTOMATED 182 k/mm3 (150-450); RED CELL DISTRIBUTION WIDTH 14.1 % (11.5-14.5); WHITE BLOOD COUNT 8.5 K/mm3 (4.0-10.0)
[2017-01-25 07:09] LABS: ANION GAP 11 MEQ/L (8-16); BLOOD UREA NITROGEN 10 MG/DL (7-18); CALCIUM LEVEL 9.5 MG/DL (8.5-10.1); CARBON DIOXIDE LEVEL 26 MEQ/L (21-32); CHLORIDE LEVEL 100 MEQ/L (98-107); CREATININE FOR GFR 0.82 MG/DL (0.70-1.30); GLOMERULAR FILTRATION RATE > 60.0 (>60); GLUCOSE, FASTING 110 MG/DL (70-105); MAGNESIUM LEVEL 1.6 MG/DL (1.8-2.4); POTASSIUM SERUM 3.8 MEQ/L (3.5-5.1); SODIUM LEVEL 137 MEQ/L (136-145)
[2017-01-25] MEDS ORDERED: OXAZ10CA PO (07:39)
--- NOTE | 2017-01-25 14:50 | DSES ---
DATE OF ADMISSION: 01/22/2017 DATE OF DISCHARGE: 01/25/2017 Left against medical advice 01/25/2017. SPECIALISTS INVOLVED IN CARE: None. COMPLICATIONS OF STAY: None. PROCEDURES PERFORMED DURING STAY: None. DISCHARGE DIAGNOSES: 1. Alcohol withdrawal. 2. Alcohol dependence. 3. Asthma. 4. Hypertension. 5. Gastroesophageal reflux disease. SUMMARY OF HOSPITALIZATION: This is a 46-year-old who presented with recent increase in his drinking. He wanted to quit drinking. He presented feeling anxious. He had previously had an alcoholic withdrawal seizure. He was admitted to the hospitalist group. He was started on Serax and Ativan. His symptoms improved markedly. He was seen by [facility] ([facility]). Unfortunately, he came in on a Thursday and plans for referral hopefully for inpatient services at [facility] were put off until Thursday. Over the course of the weekend, the patient became less committed to the inpatient rehabilitation plan and today has elected to leave against medical advice. I believe the patient's risk of relapse is reasonably high. I think that if he stays in the hospital we would be able to avoid seizures and will give him a chance at being transferred directly to inpatient rehabilitation. The patient has come up with a list of things that he wants to do at home and at this point hopes to pursue outpatient rehabilitation services. Information about community services are given to him and he plans to follow up with his primary care provider Cammie Lyon this week as is previously scheduled. On day of discharge, temperature is 97.5, pulse 94, respiratory rate 18, blood pressure 159/95, 100% on room air. He is awake, appropriately interactive, moving around his room, tolerating a diet. No complaints of pain, chest pain or shortness of breath. Breathing is symmetrical and rested. Heart is a regular rate and rhythm. He has very minimal tremor. White cell count 8.5, hemoglobin 13.8, and platelets 182. BUN 10, creatinine 0.82. Ammonia level 36. DISCHARGE INSTRUCTIONS: Follow up with Cammie Lyon, call her for followup instructions or see her this week as previously scheduled. Diet and activity as tolerated. He is to avoid alcohol. Information is given for rehabilitation services. Given a prescription for ten tablets of oxazepam with a rapid taper, albuterol two puffs inhaled four times daily, Norvasc 5 mg by mouth twice daily, omeprazole 20 mg by mouth daily, folic acid, multivitamin and thiamine, Advair 250/50 inhaled twice daily.
== END 2017-01-25 07:55 | disposition left against medical advice (07) | DRG 770 ==
LOC: M ED 12:16 → M ED INP 16:15 → M PCU 01-23 16:02 → M MS5PR 01-24 09:15
PROVIDERS: ADMIT Internal Medicine; ATTEND Internal Medicine
DX: F10.239 Alcohol dependence with withdrawal, unspecified (principal); I10 Essential (primary) hypertension; J45.909 Unspecified asthma, uncomplicated; K21.9 Gastro-esophageal reflux disease without esophagitis; F41.9 Anxiety disorder, unspecified; E78.5 Hyperlipidemia, unspecified; Z87.891 Personal history of nicotine dependence

== ENCOUNTER 2017-02-08 22:31 | Emergency (ER) | payer OTHER ==
[~2017-02-08] VITALS: Ht 177.8 cm; Wt 88.6 kg
[~2017-02-08 22:31] MED LIST changes: -FOLI1TAB2 PO; +FOLI1TAB4 PO; -HYDR-4274 PO; +HYDR50TA70 PO; +METO25TA4 PO; -METO25TAB PO; -OXAZ10CA PO; +OXAZ10CA3 PO; -OXAZ15CA PO; +OXAZ15CA4 PO; +PATIENT COMMENT; -PRAV10TA PO; +PRAV10TA4 PO
[2017-02-09] MEDS ORDERED: OXAZEPAM 15 MG CAP PO ONE ×2 (01:45→08:00)
[2017-02-09 11:25] VITALS: BP 132/75
== END 2017-02-09 11:37 | disposition home or self-care (01) ==
LOC: M ED 23:28
DX: F10.129 Alcohol abuse with intoxication, unspecified (principal); Z79.899 Other long term (current) drug therapy; Z87.891 Personal history of nicotine dependence

== ENCOUNTER 2017-02-14 12:36 | Emergency (ER) | payer OTHER ==
[~2017-02-14] VITALS: Ht 177.8 cm; Wt 8.9 kg
[2017-02-14] MEDS ORDERED: LORazepam 2 MG/ML VIAL (J2060) IV STA (13:10)
[2017-02-14] MEDS ORDERED: NS 1,000 ML IV SCH (13:10)
[2017-02-14 13:28] VITALS: BP 156/76
[2017-02-14 13:30] LABS: BASO # 0.1 K/mm3 (0.0-0.2); BASO % 0.9 % (0.0-1.0); EOS # 0.1 K/mm3 (0.0-0.50); LARGE UNSTAINED CELL # 0.1 K/mm3 (0.0-0.4); LARGE UNSTAINED CELL % 0.9 % (0.0-4.0); LYMPH # 0.8 K/mm3 (1.5-4.5); LYMPH % 11.9 % (24.0-44.0); MEAN CORPUSCULAR HEMOGLOBIN 29.6 pg (27.0-33.0); MEAN CORPUSCULAR HGB CONC 33.6 g/dl (32.0-36.5); MEAN CORPUSCULAR VOLUME 87.9 fl (80.0-96.0); MONO # 0.4 K/mm3 (0.0-0.8); MONO % 5.8 % (0.0-5.0); NEUTROPHILS % 79.5 % (36.0-66.0); PLATELET COUNT, AUTOMATED 127 k/mm3 (150-450); WHITE BLOOD COUNT 6.3 K/mm3 (4.0-10.0)
[2017-02-14 13:57] LABS: ALBUMIN 4.5 GM/DL (3.2-5.2); ALBUMIN/GLOBULIN RATIO 1.36 (1.00-1.93); ALKALINE PHOSPHATASE 176 U/L (45-117); ALT/SGPT 212 U/L (12-78); ANION GAP 18 MEQ/L (8-16); AST/SGOT 243 U/L (15-37); BILIRUBIN,TOTAL 2.1 MG/DL (0.2-1.0); BLOOD UREA NITROGEN 17 MG/DL (7-18); CALCIUM LEVEL 9.3 MG/DL (8.5-10.1); CARBON DIOXIDE LEVEL 22 MEQ/L (21-32); CHLORIDE LEVEL 91 MEQ/L (98-107); CREATININE FOR GFR 1.03 MG/DL (0.70-1.30); GLOMERULAR FILTRATION RATE > 60.0 (>60); GLUCOSE, FASTING 142 MG/DL (70-105); SODIUM LEVEL 131 MEQ/L (136-145); TOTAL PROTEIN 7.8 GM/DL (6.4-8.2)
[2017-02-14 14:27] LABS: VENOUS BASE EXCESS -2.9 (-2.0-2.0); VENOUS PARTIAL PRESSURE CO2 32.6 mmHg (38.0-50.0); VENOUS PARTIAL PRESSURE O2 64.9 mmHg (30.0-50.0); VENOUS STANDARD HCO3 21.9 MEQ/L; VENOUS TOTAL CO2 21.6 MEQ/L (24.0-28.0)
[2017-02-14] MEDS ORDERED: OXAZEPAM 15 MG CAP PO ONE ×2 (14:30→17:30)
[2017-02-14] MEDS ORDERED: NS 1,000 ML IV ONE (15:00)
[2017-02-14 15:09] LABS: METHADONE URINE NEGATIVE (NEGATIVE)
[2017-02-14] MEDS ORDERED: OXAZ30CA2 PO (16:44)
--- NOTE | 2017-02-14 18:13 | ECGEPIP ---
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
[2017-02-15] MEDS ORDERED: ADV250INH INH (07:15)
[2017-02-15] MEDS ORDERED: ZOFR4TAB3 PO (08:55)
[2017-02-15] MEDS ORDERED: OXAZ30CA2 PO ×2 (08:55→10:12)
== END 2017-02-14 17:41 | disposition home or self-care (01) ==
LOC: EDBD 12:36 → M ED 14:07
DX: F10.10 Alcohol abuse, uncomplicated (principal); I10 Essential (primary) hypertension; J45.909 Unspecified asthma, uncomplicated; K21.9 Gastro-esophageal reflux disease without esophagitis; Z79.899 Other long term (current) drug therapy; Z87.891 Personal history of nicotine dependence

== ENCOUNTER 2017-02-15 07:02 | Emergency (ER) | payer OTHER ==
[~2017-02-15 07:02] MED LIST changes: +OXAZ30CA2 PO
[2017-02-15 07:11] VITALS: BP 144/96
[2017-02-15] MEDS ORDERED: ADV250INH INH (07:15)
[2017-02-15 08:31] LABS: ANION GAP 11 MEQ/L (8-16); BLOOD UREA NITROGEN 11 MG/DL (7-18); CALCIUM LEVEL 9.8 MG/DL (8.5-10.1); CARBON DIOXIDE LEVEL 27 MEQ/L (21-32); CHLORIDE LEVEL 98 MEQ/L (98-107); GLOMERULAR FILTRATION RATE > 60.0 (>60); GLUCOSE, FASTING 139 MG/DL (70-105); POTASSIUM SERUM 3.9 MEQ/L (3.5-5.1); SODIUM LEVEL 136 MEQ/L (136-145)
[2017-02-15 08:32] LABS: BASO # 0.1 K/mm3 (0.0-0.2); BASO % 2.2 % (0.0-1.0); EOS % 1.2 % (0.0-3.0); LARGE UNSTAINED CELL # 0.1 K/mm3 (0.0-0.4); LARGE UNSTAINED CELL % 1.2 % (0.0-4.0); LYMPH # 0.9 K/mm3 (1.5-4.5); LYMPH % 21.2 % (24.0-44.0); MEAN CORPUSCULAR HEMOGLOBIN 30.4 pg (27.0-33.0); MEAN CORPUSCULAR HGB CONC 34.1 g/dl (32.0-36.5); MEAN CORPUSCULAR VOLUME 89.3 fl (80.0-96.0); MONO # 0.3 K/mm3 (0.0-0.8); MONO % 6.9 % (0.0-5.0); NEUTROPHILS # 2.7 K/mm3 (1.8-7.7); NEUTROPHILS % 67.3 % (36.0-66.0); RED CELL DISTRIBUTION WIDTH 14.7 % (11.5-14.5)
[2017-02-15 08:43] LABS: PLATELET COUNT, AUTOMATED 78 k/mm3 (150-450)
[2017-02-15] MEDS ORDERED: OXAZ30CA2 PO ×2 (08:55→10:12)
[2017-02-15] MEDS ORDERED: ZOFR4TAB3 PO (08:55)
== END 2017-02-15 09:07 | disposition home or self-care (01) ==
LOC: M ED 07:02
DX: F10.230 Alcohol dependence with withdrawal, uncomplicated (principal); D69.6 Thrombocytopenia, unspecified; J45.909 Unspecified asthma, uncomplicated; F33.9 Major depressive disorder, recurrent, unspecified; K76.9 Liver disease, unspecified; Z87.19 Personal history of other diseases of the digestive system; Z79.899 Other long term (current) drug therapy

== ENCOUNTER 2017-02-25 18:08 | Inpatient (IN) | payer OTHER ==
[~2017-02-25] VITALS: Ht 177.8 cm; Wt 85.6 kg
[~2017-02-25 18:08] MED LIST changes: +ZOFR4TAB3 PO
[2017-02-25] MEDS ORDERED: NS 1,000 ML IV ONE ×2 (20:15→23:45)
[2017-02-25] MEDS ORDERED: ONDANSETRON 4MG/2ML VIAL (J2405) IV ONE (20:15)
[2017-02-25 21:39] LABS: BASO # 0.1 K/mm3 (0.0-0.2); BASO % 1.3 % (0.0-1.0); EOS % 0.3 % (0.0-3.0); LARGE UNSTAINED CELL # 0.1 K/mm3 (0.0-0.4); LARGE UNSTAINED CELL % 2.3 % (0.0-4.0); LYMPH # 1.5 K/mm3 (1.5-4.5); MEAN CORPUSCULAR HGB CONC 33.1 g/dl (32.0-36.5); MEAN CORPUSCULAR VOLUME 90.5 fl (80.0-96.0); MONO # 0.4 K/mm3 (0.0-0.8); NEUTROPHILS # 4.1 K/mm3 (1.8-7.7); NEUTROPHILS % 65.1 % (36.0-66.0); PLATELET COUNT, AUTOMATED 337 k/mm3 (150-450); RED CELL DISTRIBUTION WIDTH 15.5 % (11.5-14.5); WHITE BLOOD COUNT 6.4 K/mm3 (4.0-10.0)
[2017-02-25 21:46] LABS: INR 1.04
[2017-02-25 21:48] LABS: ALKALINE PHOSPHATASE 209 U/L (45-117); ALT/SGPT 170 U/L (12-78); ANION GAP 11 MEQ/L (8-16); AST/SGOT 190 U/L (15-37); BILIRUBIN,DIRECT 0.3 MG/DL (0.0-0.2); BILIRUBIN,TOTAL 0.7 MG/DL (0.2-1.0); BLOOD UREA NITROGEN 10 MG/DL (7-18); CALCIUM LEVEL 8.7 MG/DL (8.5-10.1); CARBON DIOXIDE LEVEL 25 MEQ/L (21-32); CHLORIDE LEVEL 104 MEQ/L (98-107); CREATININE FOR GFR 0.84 MG/DL (0.70-1.30); GLOMERULAR FILTRATION RATE > 60.0 (>60); GLUCOSE, FASTING 94 MG/DL (70-105); POTASSIUM SERUM 3.8 MEQ/L (3.5-5.1); SODIUM LEVEL 140 MEQ/L (136-145)
[2017-02-25] MEDS ORDERED: ISOVUE-370 76% 100ML VIAL (Q9967) As Ordered ONE (22:04)
[2017-02-25] MEDS ORDERED: fentaNYL 100 MCG/2 ML INJECTION (J3010) IV ONE (22:45)
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
--- NOTE | 2017-02-25 23:10 | REPUSA ---
CT of the abdomen and pelvis with contrast Clinical statement: Trauma. Technique: Multiple axial CT images were obtained from the base of the lungs through the floor of the pelvis utilizing 5 mm axial slices after administration of nonionic intravenous contrast. Coronal an d sagittal reconstructions were also obtained. No comparison is available. Findings: Chest: There is a moderate sized left lower lobe infiltrate and pleural effusion. Abdomen: The spleen, pancreas, kidneys, gallbladder, and adrenal glands are unremarkable. Diffuse low attenuation of the liver is appreciated. The aorta is within normal limits. There is no evidence of abdominal lymphadenopathy or ascites. Pelvis: The bowel is unremarkable, with no obstructive or inflammatory changes. The urinary bladder i s within normal limits. The other pelvic structures appear grossly intact. There is no evidence of pe lvic lymphadenopathy or ascites. Bones: There are acute nondisplaced fractures of the posterior left 8th and 9th ribs, and lateral non displaced fracture of the left 7th rib. Impression: 1. No acute intra-abdominal abnormality. 2. Acute nondisplaced fractures of the left 7th, 8th, and 9th ribs. Associated moderate sized left lo wer lobe pleural effusion and atelectasis is noted as well.
--- NOTE | 2017-02-25 23:20 | REPUSA ---
CT angiogram of the chest Clinical statement: Trauma. Technique: Multiple axial CT images were obtained from the thoracic inlet through the upper abdomen a fter a bolus administration of nonionic intravenous contrast. Coronal and sagittal reconstructions we re also obtained. No comparison is available. Findings: The central pulmonary arteries are well-opacified with contrast, with no intraluminal filli ng defects to suggest embolism. The thoracic aorta is unremarkable. Thyroid gland is within normal li mits. There is no thoracic lymphadenopathy. There is a moderate left lower lobe pleural effusion, wit h adjacent compressive atelectasis. There is a calcified granuloma in the right middle lobe. Limited imaging of the upper abdomen is unremarkable. There is an anterior compression fracture of T7, with a pproximately 50% loss of vertebral body height. There are acute nondisplaced fractures of the lateral 7th rib, as well as the posterior aspect of the left 4th, 5th, 6th, 7th, 8th and 9th ribs. Impression: 1. Acute nondisplaced fractures of the left 4th, 5th, 6th, 7th, 8th and 9th ribs as described. 2. Anterior compression fracture of T7. This age of this fracture is indeterminate, but appears to be chronic. If there is further clinical concern, MRI could be considered. 3. Moderate left lower lobe pleural effusion and atelectasis, likely posttraumatic in nature.
[2017-02-25] MEDS ORDERED: THIAMINE HCL 200 MG/2 ML VIAL (J3411) IV ONE (23:45)
[2017-02-25] MEDS ORDERED: MORPHINE 4 MG/ML 1ML SYRINGE IV ONE (23:45)
[2017-02-26] VITALS (14 sets, daily range): BP systolic 131–160; BP diastolic 68–105; O2SAT 94–98
[2017-02-26] MEDS ORDERED: OXAZ30CA2 PO (00:03)
[2017-02-26] MEDS ORDERED: AMLO5TAB2 PO (00:04)
[2017-02-26] MEDS ORDERED: ACETAMINOPHEN TAB 650MG DOSE (2X325MG) PO PRN (00:45)
[2017-02-26] MEDS ORDERED: MULTIVITAMIN -ADULT INJECTION 10 ML, THIAMINE INJection 100 MG, FOLIC ACID 1 MG in NS 1... IV ONE (01:00)
[2017-02-26] MEDS: MORPHINE 2 MG/ML 1ML SYRINGE IV PRN ×7 (01:30→18:29)
[2017-02-26] MEDS: PANTOPRAZOLE 40MG INJ (PROTONIX) (C9113) IV SCH ×3 (02:13→21:29)
[2017-02-26] MEDS: PERCOCET 5MG/325MG TAB PO PRN ×5 (02:14→21:37)
[2017-02-26] MEDS: OXAZEPAM 15 MG CAP PO SCH ×5 (02:15→23:37)
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
[2017-02-26 06:41] LABS: INR 1.07
[2017-02-26 06:57] LABS: MEAN CORPUSCULAR HGB CONC 32.9 g/dl (32.0-36.5); MEAN CORPUSCULAR VOLUME 91.3 fl (80.0-96.0); RED CELL DISTRIBUTION WIDTH 15.5 % (11.5-14.5); WHITE BLOOD COUNT 4.8 K/mm3 (4.0-10.0)
[2017-02-26 07:00] LABS: ALT/SGPT 130 U/L (12-78); ANION GAP 7 MEQ/L (8-16); AST/SGOT 117 U/L (15-37); BLOOD UREA NITROGEN 7 MG/DL (7-18); CALCIUM LEVEL 7.5 MG/DL (8.5-10.1); CARBON DIOXIDE LEVEL 28 MEQ/L (21-32); CHLORIDE LEVEL 106 MEQ/L (98-107); CREATININE FOR GFR 0.63 MG/DL (0.70-1.30); GLOMERULAR FILTRATION RATE > 60.0 (>60); GLUCOSE, FASTING 88 MG/DL (70-105); POTASSIUM SERUM 3.8 MEQ/L (3.5-5.1); SODIUM LEVEL 141 MEQ/L (136-145)
[2017-02-26 07:01] LABS: ALBUMIN 3.2 GM/DL (3.2-5.2); ALBUMIN/GLOBULIN RATIO 0.86 (1.00-1.93); ALKALINE PHOSPHATASE 174 U/L (45-117); BILIRUBIN,DIRECT 0.2 MG/DL (0.0-0.2); BILIRUBIN,TOTAL 0.6 MG/DL (0.2-1.0); MAGNESIUM LEVEL 1.8 MG/DL (1.8-2.4); TOTAL PROTEIN 6.9 GM/DL (6.4-8.2)
[2017-02-26] MEDS: MULTIVITAMINS/MINERALS THERAP 1 TAB PO SCH (08:25)
[2017-02-26] MEDS: THIAMINE 100 MG TAB PO SCH (08:25)
[2017-02-26] MEDS: SUCRALFATE 1 GM TAB PO SCH ×3 (08:25→16:33)
[2017-02-26] MEDS: FOLIC ACID 1 MG TAB PO SCH (08:26)
[2017-02-26] MEDS: amLODIPine 5 MG TAB PO SCH ×2 (08:27→21:48)
[2017-02-26] MEDS: SENOKOT S TAB PO SCH ×2 (08:27→21:29)
[2017-02-26] MEDS ORDERED: OMEPRAZOLE 20 MG CAP PO SCH (09:00)
--- NOTE | 2017-02-26 09:32 | REP ---
Chest x-ray: Two views. History: Rib fracture. Comparison chest x-ray September 17, 2016. Findings: There is new blunting of the left pleural angles indicating left pleural effusion. Heart is not enlarged. There are fractures involving the left lateral rib cage. No pneumothorax is seen. Pulmonary vasculature is not increased. No definite infiltrate. Impression: Left sided rib fractures and left pleural effusion noted. Signed by Chinmay Jennings MD 02/26/2017 09:35 A
[2017-02-26] MEDS: OXAZEPAM 10 MG CAP PO PRN ×2 (10:06→14:50)
[2017-02-26] MEDS ORDERED: LEVALBUTEROL 1.25 MG/0.5 ML CONCENTRATE NEB NEB PRN (10:45)
[2017-02-26] MEDS ORDERED: BISACODYL 10 MG SUPP PR PRN (10:45)
[2017-02-26] MEDS ORDERED: SLF 3 ML SYR IV PRN (11:15)
[2017-02-26] MEDS: HEPARIN SOD (PORCINE) 5000 UNITS/ML VIAL SC SCH ×2 (11:16→21:30)
[2017-02-26] MEDS: DOCUSATE SODIUM 100 MG CAP PO SCH ×2 (11:16→21:29)
[2017-02-26] MEDS: KETOROLAC 30 MG/ML VIAL (J1885) IV SCH ×3 (11:17→23:36)
[2017-02-26] MEDS: MOM 30ML SUSPENSION UDC PO SCH (11:19)
[2017-02-26 11:54] LABS: ABG BASE EXCESS -0.4 (-2.0-2.0); ABG HCO3 24.3 MEQ/L (22.0-26.0); ABG PARTIAL PRESSURE CO2 39.8 mmHg (35.0-45.0); ABG PARTIAL PRESSURE O2 68.5 mmHg (75.0-100.0); ABG STANDARD HCO3 24.1 MEQ/L (22.0-26.0); ABG TOTAL CO2 25.5 MEQ/L (22.0-29.0); ABG pH (ARTERIAL) 7.403 UNITS (7.350-7.450)
[2017-02-26] MEDS: SLF 3 ML SYR IV SCH ×2 (12:52→21:54)
[2017-02-26] MEDS: LEVALBUTEROL 1.25 MG/0.5 ML CONCENTRATE NEB NEB SCH ×2 (14:30→20:38)
[2017-02-26] MEDS: ONDANSETRON 4MG/2ML VIAL (J2405) IV PRN ×2 (15:00→21:33)
[2017-02-26] MEDS ORDERED: LORazepam 2 MG/ML VIAL (J2060) IV ONE (15:30)
[2017-02-26] MEDS: LORazepam 2 MG/ML VIAL (J2060) IV PRN ×2 (17:44→21:38)
--- NOTE | 2017-02-26 19:33 | ECGEPIP ---
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
[2017-02-26] MEDS: LACTULOSE 20 GM/30 ML SYRUP UD PO SCH (21:53)
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
[2017-02-27] VITALS (14 sets, daily range): BP systolic 135–169; BP diastolic 88–100; O2SAT 97–99
[2017-02-27] MEDS: LORazepam 2 MG/ML VIAL (J2060) IV PRN ×3 (00:30→21:17)
[2017-02-27] MEDS: LEVALBUTEROL 1.25 MG/0.5 ML CONCENTRATE NEB NEB SCH ×4 (01:05→20:39)
[2017-02-27] MEDS: MORPHINE 2 MG/ML 1ML SYRINGE IV PRN (02:24)
[2017-02-27] MEDS: OXAZEPAM 15 MG CAP PO SCH ×4 (06:03→23:21)
[2017-02-27] MEDS: LACTULOSE 20 GM/30 ML SYRUP UD PO SCH ×3 (06:03→21:18)
[2017-02-27] MEDS: KETOROLAC 30 MG/ML VIAL (J1885) IV SCH ×4 (06:03→22:05)
[2017-02-27] MEDS: SLF 3 ML SYR IV SCH ×3 (06:43→21:19)
[2017-02-27] MEDS: ONDANSETRON 4MG/2ML VIAL (J2405) IV PRN (06:46)
[2017-02-27 07:44] LABS: EOS # 0.1 K/mm3 (0.0-0.50); EOS % 2.8 % (0.0-3.0); LARGE UNSTAINED CELL # 0.1 K/mm3 (0.0-0.4); LARGE UNSTAINED CELL % 1.5 % (0.0-4.0); LYMPH # 0.5 K/mm3 (1.5-4.5); LYMPH % 12.6 % (24.0-44.0); MEAN CORPUSCULAR HEMOGLOBIN 29.7 pg (27.0-33.0); MEAN CORPUSCULAR HGB CONC 32.9 g/dl (32.0-36.5); MEAN CORPUSCULAR VOLUME 90.3 fl (80.0-96.0); MONO # 0.2 K/mm3 (0.0-0.8); NEUTROPHILS # 2.6 K/mm3 (1.8-7.7); NEUTROPHILS % 76.1 % (36.0-66.0); PLATELET COUNT, AUTOMATED 183 k/mm3 (150-450); RED CELL DISTRIBUTION WIDTH 15.3 % (11.5-14.5); WHITE BLOOD COUNT 3.5 K/mm3 (4.0-10.0)
[2017-02-27 08:11] LABS: ALBUMIN 3.6 GM/DL (3.2-5.2); ALBUMIN/GLOBULIN RATIO 1.13 (1.00-1.93); ALKALINE PHOSPHATASE 204 U/L (45-117); ALT/SGPT 117 U/L (12-78); ANION GAP 9 MEQ/L (8-16); AST/SGOT 89 U/L (15-37); BILIRUBIN,DIRECT 0.5 MG/DL (0.0-0.2); BILIRUBIN,TOTAL 1.3 MG/DL (0.2-1.0); BLOOD UREA NITROGEN 6 MG/DL (7-18); CALCIUM LEVEL 8.7 MG/DL (8.5-10.1); CARBON DIOXIDE LEVEL 28 MEQ/L (21-32); CHLORIDE LEVEL 94 MEQ/L (98-107); CREATININE FOR GFR 0.61 MG/DL (0.70-1.30); GLOMERULAR FILTRATION RATE > 60.0 (>60); GLUCOSE, FASTING 123 MG/DL (70-105); MAGNESIUM LEVEL 1.9 MG/DL (1.8-2.4); POTASSIUM SERUM 3.3 MEQ/L (3.5-5.1); SODIUM LEVEL 131 MEQ/L (136-145); TOTAL PROTEIN 6.8 GM/DL (6.4-8.2)
[2017-02-27] MEDS: FOLIC ACID 1 MG TAB PO SCH (08:49)
[2017-02-27] MEDS: DOCUSATE SODIUM 100 MG CAP PO SCH ×2 (08:49→21:00)
[2017-02-27] MEDS: PERCOCET 5MG/325MG TAB PO PRN ×2 (08:49→19:35)
[2017-02-27] MEDS: SUCRALFATE 1 GM TAB PO SCH ×3 (08:49→17:19)
[2017-02-27] MEDS: MULTIVITAMINS/MINERALS THERAP 1 TAB PO SCH (08:49)
[2017-02-27] MEDS: THIAMINE 100 MG TAB PO SCH (08:50)
[2017-02-27] MEDS: PANTOPRAZOLE 40MG INJ (PROTONIX) (C9113) IV SCH (08:50)
[2017-02-27] MEDS: amLODIPine 5 MG TAB PO SCH ×2 (08:50→21:19)
[2017-02-27] MEDS: HEPARIN SOD (PORCINE) 5000 UNITS/ML VIAL SC SCH ×2 (08:50→21:17)
[2017-02-27] MEDS: SENOKOT S TAB PO SCH ×2 (08:50→21:00)
[2017-02-27] MEDS: MOM 30ML SUSPENSION UDC PO SCH ×2 (08:51→10:50)
[2017-02-27] MEDS: rifAXIMin 550 MG TAB (XIFAXAN) PO SCH ×2 (09:00→21:19)
[2017-02-27] MEDS ORDERED: MOM 30ML SUSPENSION UDC PO PRN (11:00)
[2017-02-27] MEDS ORDERED: POTASSIUM CHLORIDE 10 MEQ SR TABLET PO ONE (11:00)
--- NOTE | 2017-02-27 11:04 | REP ---
CHEST, TWO VIEWS: HISTORY: Hemothorax. COMPARISON: 02/26/2017. Increased density is present in the left lower lobe consistent with atelectasis or infiltrate. Small bilateral pleural effusions are present, larger on the left than on the right. The heart is normal in size. The pulmonary vasculature is normal in appearance. Degenerative change is present in the thoracis spine. There are fractures of several left ribs. IMPRESSION: 1. Left lower lobe atelectasis or infiltrate. 2. Small bilateral pleural effusions, unchanged on the left and new on the right. Signed by Dario Comer MD 02/27/2017 11:06 A
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
[2017-02-27] MEDS: NORCO, ANEXSIA 5/325MG TABLET (HYDROcodone/ACETAMINOPHEN) PO PRN ×2 (12:30→23:27)
[2017-02-27] MEDS ORDERED: LORazepam 2 MG TAB PO PRN (23:00)
[2017-02-28] VITALS (19 sets, daily range): BP systolic 140–165; BP diastolic 85–111; O2SAT 85–97
[2017-02-28] MEDS: PERCOCET 5MG/325MG TAB PO PRN ×3 (01:06→17:45)
[2017-02-28 03:41] LABS: OSMOLALITY URINE 92 MOSM/KG (500-800)
[2017-02-28 04:56] LABS: BASO % 0.9 % (0.0-1.0); EOS # 0.2 K/mm3 (0.0-0.50); EOS % 4.5 % (0.0-3.0); LARGE UNSTAINED CELL # 0.1 K/mm3 (0.0-0.4); LARGE UNSTAINED CELL % 1.6 % (0.0-4.0); LYMPH # 0.8 K/mm3 (1.5-4.5); MEAN CORPUSCULAR HEMOGLOBIN 30.4 pg (27.0-33.0); MEAN CORPUSCULAR HGB CONC 33.3 g/dl (32.0-36.5); MEAN CORPUSCULAR VOLUME 91.2 fl (80.0-96.0); MONO # 0.2 K/mm3 (0.0-0.8); MONO % 5.7 % (0.0-5.0); NEUTROPHILS # 2.4 K/mm3 (1.8-7.7); NEUTROPHILS % 67.3 % (36.0-66.0); PLATELET COUNT, AUTOMATED 188 k/mm3 (150-450); RED CELL DISTRIBUTION WIDTH 15.6 % (11.5-14.5); WHITE BLOOD COUNT 3.6 K/mm3 (4.0-10.0)
[2017-02-28] MEDS: KETOROLAC 30 MG/ML VIAL (J1885) IV SCH ×4 (05:06→22:20)
[2017-02-28] MEDS: LACTULOSE 20 GM/30 ML SYRUP UD PO SCH ×3 (05:06→22:20)
[2017-02-28] MEDS: OXAZEPAM 15 MG CAP PO SCH ×4 (05:07→23:46)
[2017-02-28] MEDS: SLF 3 ML SYR IV SCH ×3 (05:07→22:20)
[2017-02-28 05:08] LABS: ALBUMIN 3.4 GM/DL (3.2-5.2); ALBUMIN/GLOBULIN RATIO 0.92 (1.00-1.93); ALKALINE PHOSPHATASE 273 U/L (45-117); ALT/SGPT 191 U/L (12-78); ANION GAP 7 MEQ/L (8-16); AST/SGOT 288 U/L (15-37); BILIRUBIN,DIRECT 0.4 MG/DL (0.0-0.2); BILIRUBIN,TOTAL 1.1 MG/DL (0.2-1.0); BLOOD UREA NITROGEN 7 MG/DL (7-18); CALCIUM LEVEL 9.2 MG/DL (8.5-10.1); CARBON DIOXIDE LEVEL 29 MEQ/L (21-32); CHLORIDE LEVEL 98 MEQ/L (98-107); CREATININE FOR GFR 0.68 MG/DL (0.70-1.30); GLOMERULAR FILTRATION RATE > 60.0 (>60); GLUCOSE, FASTING 106 MG/DL (70-105); MAGNESIUM LEVEL 2.2 MG/DL (1.8-2.4); POTASSIUM SERUM 3.6 MEQ/L (3.5-5.1); SODIUM LEVEL 134 MEQ/L (136-145); TOTAL PROTEIN 7.1 GM/DL (6.4-8.2)
[2017-02-28] MEDS: MORPHINE 2 MG/ML 1ML SYRINGE IV PRN ×5 (05:51→23:50)
--- NOTE | 2017-02-28 07:00 | IPN ---
DATE: 02/27/2017 Mr. Pacheco is a lot less jittery today. He had been complaining of more rib pain. None the less it seems between the morphine, Toradol, and Percocet, it satisfactorily under control. I am loathe to place him on morphine LENS COATER secondary to his alcohol withdrawal. His vital signs show a maximum temperature of 98.7 with a heart rate that ranges between 99 and 83 in a sinus rhythm, respiratory rate of 18 to 16 without use of accessory muscles who is 97-95% saturated on room air. His blood pressure is ranging between 142/88 to 150/93. His intake and output the past 24-hours has been recorded as 4360 in and 3135 out for positivity of 1185 mL. He weighs 90.4 kg today compared to 88.8 kg yesterday. He has had clear liquids as by mouth intake PHYSICAL EXAMINATION: He has some decreased breath sounds in the left hemithorax. He is tender in the posterior lateral portion of the left hemithorax to palpation. Percussion sounds full to the diaphragm through his obesity. CARDIAC EXAMINATION: Without murmurs, clicks, gallops, or rubs. I cannot feel his point of maximum impulse (PMI). S1, S2 are normal. ABDOMEN: Soft, nontender expect the left upper quadrant which is referable to this rib fractures. He has left costovertebral angle (CVA) tenderness referable to the rib fractures. There is no hepatomegaly. Bowel sounds are positive. He is passing flatus and had one small diarrhea stool. EXTREMITIES: Show no pretibial edema. No calf tenderness. No differential swelling of the upper extremities. SKIN: Warm, dry and perfuse without cyanosis or mottling including that of the nail beds and knees. NECK: Supple. There is no jugular venous distention. No subcutaneous emphysema. Trachea is midline. MOUTH: Mucous membranes are pink and moist. Lips and commissures without lesions. There is no thrush. EYES: Pupils equal, round and reactive to light. Extraocular movements intact. Sclerae nonicteric. NEUROLOGIC: Cranial nerves II through XII intact. Gross motor and gross sensation intact. Gait, of course, is not tested. PSYCHIATRIC: Shows him to be awake, alert, and oriented times three and conversational. . Her white count today is 3.5 with a hemoglobin and hematocrit of 13.4 and 40.6. Platelet count is 183 and differential shows 76% neutrophils, 12% lymphocytes, 6% monocytes. There are no immature forms and no toxic granulations. Electrolytes today show a sodium of 131 with a potassium of 3.3 with a BUN and creatinine of 6 and 0.61. Total bilirubin is up to 1.3 however his AST and ALT are improving at 89 and 117 respectively. Albumin is 3.6 with calcium of 8.7. His ammonia level is 88 up from 54 yesterday. His chest x-rays today shows the lung fully expanded to the chest wall. The left diaphragm is obscured and it looks though as he has at least a compression and not consolidative process on the left lower hemithorax on the lateral film on the lateral view. I do not see a meniscus consistent with a pleural effusion or hemothorax. IMPRESSION: 1. Alcoholism. 2. Alcohol withdrawal with delirium tremens improving. 3. Multiple rib fractures. 4. Flail segment. 5. Hemothorax. 6. Lung compression. 7. Possible lung contusion. PLAN AND DISCUSSION: As noted above I think that his pain medication regimen is satisfactory and sufficient. We need to mobilize him and get him up out of bed. It was also noted yesterday his major problem is neither his rib fractures or his hemothorax or lung compression but rather his alcoholism. Prior to leaving the hospital he needs to be connected and set up with alcoholic counseling services. I do note that his ammonia level is increased at 88. While his CT scan did not show anatomic evidence of cirrhosis, this may be the tip of the iceberg with regards to him developing alcoholic cirrhosis. Cirrhosis is not so bad that he does not form clotting factors with a PT/INR of 14.1 and 1.07.
[2017-02-28] MEDS: LEVALBUTEROL 1.25 MG/0.5 ML CONCENTRATE NEB NEB SCH ×3 (07:18→20:00)
[2017-02-28] MEDS: MULTIVITAMINS/MINERALS THERAP 1 TAB PO SCH (08:15)
[2017-02-28] MEDS: SUCRALFATE 1 GM TAB PO SCH ×3 (08:15→17:39)
[2017-02-28] MEDS: THIAMINE 100 MG TAB PO SCH (08:15)
[2017-02-28] MEDS: FOLIC ACID 1 MG TAB PO SCH (08:15)
[2017-02-28] MEDS: rifAXIMin 550 MG TAB (XIFAXAN) PO SCH ×2 (08:15→20:26)
[2017-02-28] MEDS: amLODIPine 5 MG TAB PO SCH ×2 (08:16→20:26)
[2017-02-28] MEDS: HEPARIN SOD (PORCINE) 5000 UNITS/ML VIAL SC SCH ×2 (08:18→20:25)
[2017-02-28] MEDS: SENOKOT S TAB PO SCH ×2 (08:20→20:27)
[2017-02-28] MEDS: DOCUSATE SODIUM 100 MG CAP PO SCH ×2 (08:20→20:27)
--- NOTE | 2017-02-28 08:36 | REP ---
PA and lateral chest: Comparison 02/27/2017. There are bilateral pleural effusions, unchanged. There is no pneumothorax. Cardiac size is normal. The danilo, mediastinum, and bony thorax are unchanged. There is grade 1 compression deformity of a mid thoracic vertebral body, likely T6, unchanged from 09/17/2016. Impression: No significant interval change. Signed by Tavon Machuca MD 02/28/2017 08:27 A
--- NOTE | 2017-02-28 09:47 | REP ---
CT CHEST WITHOUT CONTRAST: HISTORY: Hemothorax. COMPARISON: 02/25/2017 Increased density is present in the left lower lobe consistent with atelectasis or infiltrate that is increased compared to the previous study. A 4 mm parenchymal nodule is present in the right middle lobe. A left pleural effusion or hemothorax is present that is slightly increased compared to the previous study. There is no mediastinal mass. There is an acute compression fracture of the T7 vertebral body with minimal height loss. There are fractures of the left 4th through 9th ribs. There is no pneumothorax. IMPRESSION: 1. Left lower lobe atelectasis or infiltrate, increased compared to the previous study. 2. Left pleural effusion or hemothorax, slightly increased in size compared to the previous study. 3. 4 mm right middle lobe parenchymal nodule. 4. Acute T7 compression fracture with minimal height loss. 5. Acute fractures of the left 4th through 9th ribs. Signed by Dario Comer MD 02/28/2017 09:57 A
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
--- NOTE | 2017-02-28 14:27 | IPN ---
DATE: 02/28/2017 Mr. Pacheco is not unexpectedly complaining of lateral posterior chest wall pain secondary to rib fractures. He seems less tremulous today, but is still going through alcoholic withdrawal. He is taking oral and having flatus and bowel movements. His vital signs show a maximum temperature (Tmax) of 98.4 with a heart rate that ranges between 76-91 in a sinus rhythm, respiratory rate of 18-20 without use of accessory muscles, and he is 93% saturated on room air and his blood pressure is ranging between 140/102 to 150/96. His intake and output for the past 24 hours has been recorded as 1080 in and 600 out for positivity of 480 mL. He weighs 92.6 kg today compared to 90.4 kg yesterday. On physical examination, his right lung shows normal vesicular sound and left lung shows some coarse rales in the left lower base. Percussion note is full to the diaphragm, however. Cardiac exam is without murmurs, clicks, gallops, or rubs. I cannot feel his point of maximum impulse (PMI). S1, S2 are normal. Abdomen is soft, nontender. Bowel sounds are positive. There is no hepatomegaly. No costovertebral angle (CVA) tenderness. He is tender in the left upper quadrant secondary to his rib fractures and has left CVA tenderness secondary to the rib fractures. Extremities sow no pretibial edema. No calf tenderness. No differential swelling of the upper extremities. His skin is warm, dry and perfuse without cyanosis or mottling including that of the nail beds and knees. Neck is supple. There is no jugular venous distention. No subcutaneous emphysema. Trachea is midline. Mouth shows the mucous membranes to be pink and moist. Lips and commissures without lesions. There is no thrush. Eyes show his pupils to be equal, round and reactive to light. Extraocular movements intact. Sclerae nonicteric. Neuro shows II-XII intact along with gross motor and gross sensation intact. Gait is not tested. Psychiatric shows him to be awake and alert, oriented times three with appropriate mood and affect and conversational. His white count today is 3.6 with hemoglobin and hematocrit of 12.9 and 38.6. Platelet count is 188, and differential shows 67% neutrophils, 20% lymphocytes, 5% monocytes. There are no immature forms. No toxic granulations. His chemistries today show a sodium of 134, improved from 131 yesterday. BUN and creatinine are 7 and 0.9. respectively. The remainder of his electrolytes normal. Calcium is 9.2 with a magnesium of 2.2 and albumin of 3.4. ALT are elevated today to 88 and 190, respectively. His ammonia level today is elevated to 91. His chest x-ray today shows the lung fully expanded to the chest wall. He looks t have more of a opacity in the left lower hemithorax. This opacity looks like a meniscus on the PA view. The lateral view also shows a meniscus. IMPRESSION: 1. Alcohol dependence. 2. Delirium tremens. 3. Multiple rib fractures. 4. Hemothorax possibly worse. 5. Flail chest with flail segment. 6. Lung compression. 7. Possible lung contusion. PLAN AND DISCUSSION: I will obtain a CT scan of his chest today. If the CT shows that his hemothorax is markedly increased I will have no choice but to place a chest tube. I think that his liver functions are going up and as his ammonia level, I do think that he has cirrhotic problems. ROXIE
[2017-02-28] MEDS: ONDANSETRON 4MG/2ML VIAL (J2405) IV PRN (17:45)
[2017-02-28] MEDS ORDERED: METOCLOPRAMIDE INJ 10MG/2ML VIAL (J2765) IV ONE (20:00)
[2017-03-01] VITALS (16 sets, daily range): BP systolic 143–180; BP diastolic 93–112; O2SAT 92–96
[2017-03-01] MEDS: PERCOCET 5MG/325MG TAB PO PRN ×4 (00:49→17:32)
[2017-03-01] MEDS: LEVALBUTEROL 1.25 MG/0.5 ML CONCENTRATE NEB NEB SCH ×4 (01:31→20:27)
[2017-03-01] MEDS: OXAZEPAM 10 MG CAP PO PRN ×2 (02:46→19:23)
[2017-03-01] MEDS: KETOROLAC 30 MG/ML VIAL (J1885) IV SCH ×4 (04:23→23:09)
[2017-03-01] MEDS: MORPHINE 2 MG/ML 1ML SYRINGE IV PRN ×4 (04:24→21:21)
[2017-03-01 05:34] LABS: BASO % 1.1 % (0.0-1.0); EOS # 0.2 K/mm3 (0.0-0.50); EOS % 5.6 % (0.0-3.0); LARGE UNSTAINED CELL # 0.1 K/mm3 (0.0-0.4); LARGE UNSTAINED CELL % 2.6 % (0.0-4.0); LYMPH # 0.8 K/mm3 (1.5-4.5); LYMPH % 18.6 % (24.0-44.0); MEAN CORPUSCULAR HEMOGLOBIN 30.5 pg (27.0-33.0); MEAN CORPUSCULAR VOLUME 92.5 fl (80.0-96.0); MONO # 0.2 K/mm3 (0.0-0.8); MONO % 4.6 % (0.0-5.0); NEUTROPHILS # 2.7 K/mm3 (1.8-7.7); NEUTROPHILS % 67.4 % (36.0-66.0); PLATELET COUNT, AUTOMATED 176 k/mm3 (150-450); RED CELL DISTRIBUTION WIDTH 15.9 % (11.5-14.5)
[2017-03-01] MEDS: OXAZEPAM 15 MG CAP PO SCH ×2 (05:42→21:22)
[2017-03-01] MEDS: LACTULOSE 20 GM/30 ML SYRUP UD PO SCH ×3 (05:42→21:21)
[2017-03-01] MEDS: SLF 3 ML SYR IV SCH ×3 (05:45→21:21)
[2017-03-01 05:51] LABS: ALBUMIN 3.7 GM/DL (3.2-5.2); ALBUMIN/GLOBULIN RATIO 1.03 (1.00-1.93); ALKALINE PHOSPHATASE 301 U/L (45-117); ALT/SGPT 304 U/L (12-78); ANION GAP 7 MEQ/L (8-16); AST/SGOT 328 U/L (15-37); BILIRUBIN,DIRECT 0.6 MG/DL (0.0-0.2); BILIRUBIN,TOTAL 1.4 MG/DL (0.2-1.0); BLOOD UREA NITROGEN 6 MG/DL (7-18); CARBON DIOXIDE LEVEL 27 MEQ/L (21-32); CHLORIDE LEVEL 99 MEQ/L (98-107); CREATININE FOR GFR 0.72 MG/DL (0.70-1.30); GLOMERULAR FILTRATION RATE > 60.0 (>60); GLUCOSE, FASTING 100 MG/DL (70-105); POTASSIUM SERUM 3.6 MEQ/L (3.5-5.1); SODIUM LEVEL 133 MEQ/L (136-145); TOTAL PROTEIN 7.3 GM/DL (6.4-8.2)
[2017-03-01] MEDS: THIAMINE 100 MG TAB PO SCH (07:34)
[2017-03-01] MEDS: FOLIC ACID 1 MG TAB PO SCH (07:34)
[2017-03-01] MEDS: SUCRALFATE 1 GM TAB PO SCH ×3 (07:34→17:19)
[2017-03-01] MEDS: MULTIVITAMINS/MINERALS THERAP 1 TAB PO SCH (07:34)
[2017-03-01] MEDS: rifAXIMin 550 MG TAB (XIFAXAN) PO SCH ×2 (07:34→20:04)
[2017-03-01] MEDS: SENOKOT S TAB PO SCH ×2 (07:35→20:03)
[2017-03-01] MEDS: NORCO, ANEXSIA 5/325MG TABLET (HYDROcodone/ACETAMINOPHEN) PO PRN ×2 (07:35→12:40)
[2017-03-01] MEDS: HEPARIN SOD (PORCINE) 5000 UNITS/ML VIAL SC SCH ×2 (07:35→20:04)
[2017-03-01] MEDS: DOCUSATE SODIUM 100 MG CAP PO SCH ×2 (07:36→20:03)
[2017-03-01] MEDS: amLODIPine 5 MG TAB PO SCH ×2 (07:38→20:03)
--- NOTE | 2017-03-01 09:37 | REP ---
CHEST, TWO VIEWS: HISTORY: Hemothorax. COMPARISON: 02/28/2017 Small bilateral pleural effusions are present. Increased density is present in the left lower lobe consistent with atelectasis or infiltrate. The heart is normal in size. The pulmonary vasculature is normal in appearance. There are several left rib fractures. There is a fracture of the T7 vertebral body with minimal height loss. IMPRESSION: 1. Left lower lobe atelectasis or infiltrate, unchanged compared to the previous study. 2. Small bilateral pleural effusions, unchanged compared to the previous study. Signed by Dario Comer MD 03/01/2017 09:38 A
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
[2017-03-01] MEDS: **hydrALAZINE HCL** 25 MG TAB PO SCH (23:10)
[2017-03-02] VITALS (19 sets, daily range): BP systolic 126–192; BP diastolic 60–104; O2SAT 92–97
[2017-03-02] MEDS: PERCOCET 5MG/325MG TAB PO PRN ×4 (00:59→22:00)
[2017-03-02] MEDS: LEVALBUTEROL 1.25 MG/0.5 ML CONCENTRATE NEB NEB SCH ×4 (01:57→20:41)
[2017-03-02] MEDS: MORPHINE 2 MG/ML 1ML SYRINGE IV PRN ×3 (04:16→19:56)
[2017-03-02] MEDS: OXAZEPAM 10 MG CAP PO PRN ×3 (04:34→16:34)
[2017-03-02] MEDS: LACTULOSE 20 GM/30 ML SYRUP UD PO SCH ×3 (05:05→21:59)
[2017-03-02] MEDS: KETOROLAC 30 MG/ML VIAL (J1885) IV SCH ×4 (05:05→23:32)
[2017-03-02] MEDS: **hydrALAZINE HCL** 25 MG TAB PO SCH ×4 (05:05→23:32)
[2017-03-02] MEDS: SLF 3 ML SYR IV SCH ×3 (05:10→22:02)
[2017-03-02 05:55] LABS: BASO # 0.1 K/mm3 (0.0-0.2); BASO % 1.3 % (0.0-1.0); EOS # 0.3 K/mm3 (0.0-0.50); EOS % 5.3 % (0.0-3.0); LARGE UNSTAINED CELL # 0.3 K/mm3 (0.0-0.4); LARGE UNSTAINED CELL % 4.3 % (0.0-4.0); LYMPH # 1.1 K/mm3 (1.5-4.5); LYMPH % 18.6 % (24.0-44.0); MEAN CORPUSCULAR HGB CONC 33.1 g/dl (32.0-36.5); MEAN CORPUSCULAR VOLUME 93.8 fl (80.0-96.0); MONO # 0.3 K/mm3 (0.0-0.8); MONO % 5.3 % (0.0-5.0); NEUTROPHILS % 65.3 % (36.0-66.0); PLATELET COUNT, AUTOMATED 200 k/mm3 (150-450); RED CELL DISTRIBUTION WIDTH 15.8 % (11.5-14.5); WHITE BLOOD COUNT 6.1 K/mm3 (4.0-10.0)
[2017-03-02 06:09] LABS: ALBUMIN 4.1 GM/DL (3.2-5.2); ALBUMIN/GLOBULIN RATIO 0.91 (1.00-1.93); ALKALINE PHOSPHATASE 319 U/L (45-117); ALT/SGPT 311 U/L (12-78); ANION GAP 11 MEQ/L (8-16); AST/SGOT 239 U/L (15-37); BILIRUBIN,DIRECT 0.5 MG/DL (0.0-0.2); BILIRUBIN,TOTAL 1.3 MG/DL (0.2-1.0); BLOOD UREA NITROGEN 9 MG/DL (7-18); CALCIUM LEVEL 9.9 MG/DL (8.5-10.1); CARBON DIOXIDE LEVEL 26 MEQ/L (21-32); CHLORIDE LEVEL 96 MEQ/L (98-107); CREATININE FOR GFR 0.85 MG/DL (0.70-1.30); GLOMERULAR FILTRATION RATE > 60.0 (>60); GLUCOSE, FASTING 95 MG/DL (70-105); MAGNESIUM LEVEL 2.1 MG/DL (1.8-2.4); POTASSIUM SERUM 4.2 MEQ/L (3.5-5.1); SODIUM LEVEL 133 MEQ/L (136-145); TOTAL PROTEIN 8.6 GM/DL (6.4-8.2)
[2017-03-02] MEDS: SUCRALFATE 1 GM TAB PO SCH ×3 (07:45→17:32)
--- NOTE | 2017-03-02 08:52 | REP ---
Chest x-ray: Two views. History: Hemothorax. Comparison chest x-ray March 01, 2017. Findings: There are left posterolateral rib fractures again noted. There is blunting of the left lateral pleural angle consistent with a small amount of hydrothorax or hemothorax. This is essentially unchanged from yesterday's chest x-ray. No pneumothorax is visible. The right lung remains clear. The heart is not enlarged. There is wedging of one of the mid-thoracic vertebrae unchanged on the lateral radiograph. Impression: Stable chest x-ray findings. Signed by Chinmay Jennings MD 03/02/2017 04:21 P
[2017-03-02] MEDS: FOLIC ACID 1 MG TAB PO SCH (09:14)
[2017-03-02] MEDS: rifAXIMin 550 MG TAB (XIFAXAN) PO SCH ×2 (09:14→22:01)
[2017-03-02] MEDS: HEPARIN SOD (PORCINE) 5000 UNITS/ML VIAL SC SCH ×2 (09:14→22:02)
[2017-03-02] MEDS: MULTIVITAMINS/MINERALS THERAP 1 TAB PO SCH (09:15)
[2017-03-02] MEDS: THIAMINE 100 MG TAB PO SCH (09:15)
[2017-03-02] MEDS: DOCUSATE SODIUM 100 MG CAP PO SCH ×2 (09:15→21:00)
[2017-03-02] MEDS: amLODIPine 5 MG TAB PO SCH ×2 (09:15→22:01)
[2017-03-02] MEDS: SENOKOT S TAB PO SCH ×2 (09:15→22:01)
[2017-03-02] MEDS: OXAZEPAM 15 MG CAP PO SCH ×2 (09:16→21:59)
[2017-03-02] MEDS: NORCO, ANEXSIA 5/325MG TABLET (HYDROcodone/ACETAMINOPHEN) PO PRN ×2 (11:23→19:06)
--- NOTE | 2017-03-02 12:43 | IPN ---
DATE: 03/02/2017 Mr. Pacheco says pain is slowly getting better each day. He has been up and around ambulating. He is not tremulous today. His vital signs show a T-max of 98.0 with a heart rate that ranges between 70 and 106 in a sinus rhythm, respiratory rate of 18-22 without the use of accessory muscles and he is 97% saturated on room air. Blood pressure is ranging between 140/92 to 171/101. His intake and output for the past 24 hours has been recorded as 1560 in and 0 out. Obviously that is incorrect. He is recorded as having two voids. Weight today is 86.8 kg compared to 97.1 kg yesterday. PHYSICAL EXAMINATION: His lungs show normal vesicular sounds on either side. Percussion note is dull at the left base. He is tender to percussion at the left base along with having CVA tenderness preferable to his rib fractures. Right lung shows normal vesicular sounds. Cardiac exam is without murmurs, clicks, gallops or rubs. I cannot feel his PMI. S1 and S2 are normal. Abdomen is soft, nontender, bowel sounds are positive. There is no hepatomegaly. No CVA tenderness. Extremities show no pretibial edema. No calf tenderness. No differential swelling of the upper extremities. Skin is warm, dry and perfused without cyanosis or mottling including that of the nail beds and knees. Neck is supple. There is no jugular venous distention. No subcutaneous emphysema. Trachea is midline. Mouth shows his mucous membranes to be pink and moist. Lips and commissures are without lesions. No thrush. Eyes show his pupils to be equal and reactive. Extraocular motor intact. Sclera anicteric. Neuro shows II through XII intact with gross motor and gross sensation intact. Gait is not tested. Psychiatric shows him to be awake and alert, oriented times three with appropriate mood and affect and conversational. His white count today is 6.1 with hemoglobin and hematocrit of 15.3 and 46.1 respectively. This is a marked change from yesterday. I cannot explain his input and output as his input and output are not accurately recorded. His platelet count is 200 and stable and differential shows 65% neutrophils, 18% lymphocytes, 5% monocytes. There are no immature forms. No toxic granulations. His electrolytes show a sodium of 133 with potassium 4.2. BUN and creatinine are 9 and 0.85 with a glucose of 95 and a calcium 9.9. Magnesium 2.1. Albumin is 4.1. All of this looks like hemoconcentration except for the sodium. His chest x-ray today shows the pleural effusion both in the lateral and PA films. Otherwise his lung is fully expanded to the chest wall. I see no other infiltrates. IMPRESSION: 1. Alcohol dependence. 2. Delirium tremens resolving. 3. Multiple rib fractures left side. 4. Hemothorax. 5. Flail chest with flail segment. 6. Lung compression. 7. Possible lung contusion. PLAN AND DISCUSSION: Today I will have him go down to x-ray for a pigtail catheter placement to drain the hemothorax. His left lower lobe is compressed as noted on his chest CT over the weekend. Hopefully we will be able to drain the hemothorax without doing a TPA pleurolysis.
[2017-03-02] MEDS ORDERED: LIDOCAINE 1% MDV 20ML VIAL As Ordered ONE (13:02)
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
[2017-03-02 14:44] LABS: LDH, BODY FLUID 297 U/L (NOT ESTABLISHED); TOTAL PROTEIN, BODY FLUID 5.7 G/DL (NOT ESTABLISHED)
--- NOTE | 2017-03-02 14:50 | REP ---
CHEST X-RAY: Two views. HISTORY: Status post ultrasound-guided tube thoracostomy for hemothorax. Comparison study is from earlier this date. FINDINGS: The percutaneous pigtail catheter is seen in the left posterior pleural space. The pleural angle is sharp. Catheter is in good position. There is no visible pneumothorax. Signed by Chinmay Jennings MD 03/02/2017 04:24 P
[2017-03-02 14:52] LABS: RBC PLEURAL FLUID 292 (<10mm3 cells/uL); TNC PLEURAL FLUID 5207 cells/uL (0-20)
[2017-03-02 14:53] LABS: BF DIFF IF INDICATED? YES (NO)
[2017-03-02 15:00] LABS: CC BF DIFF EXAM CYTOCENTRIFUGE
--- NOTE | 2017-03-02 16:01 | REP ---
ULTRASOUND GUIDED LEFT THORACENTESIS WITH CATHETER PLACEMENT: The procedure was performed under the direct supervision of Dr. Jennings. The risks and benefits of the procedure were explained to the patient and informed consent was obtained. The left pleural effusion was localized using ultrasound guidance. The skin was prepped and draped in a sterile fashion. 1% lidocaine was used as a local anesthetic. Using ultrasound guidance a 10-English skater APDL catheter was inserted using trocar technique. 100 mL of low viscosity red colored fluid was withdrawn. The catheter was affixed to the skin and a sterile dressing was applied. The catheter was connected to a Pleur-evac. The patient tolerated the procedure well and there were no immediate complications. Reviewed by DANIELA Dover 03/02/2017 04:40 PEdited and Signed by Chinmay Jennings MD 03/03/2017 04:00 P
[2017-03-03] VITALS (11 sets, daily range): BP systolic 130–163; BP diastolic 80–99; O2SAT 96–97
[2017-03-03] MEDS: MORPHINE 2 MG/ML 1ML SYRINGE IV PRN ×5 (01:58→21:40)
[2017-03-03] MEDS: LEVALBUTEROL 1.25 MG/0.5 ML CONCENTRATE NEB NEB SCH ×4 (02:00→20:20)
[2017-03-03] MEDS: PERCOCET 5MG/325MG TAB PO PRN ×4 (04:11→23:36)
[2017-03-03 05:19] LABS: BASO % 0.7 % (0.0-1.0); EOS # 0.4 K/mm3 (0.0-0.50); EOS % 4.8 % (0.0-3.0); LARGE UNSTAINED CELL # 0.2 K/mm3 (0.0-0.4); LARGE UNSTAINED CELL % 2.6 % (0.0-4.0); LYMPH # 1.4 K/mm3 (1.5-4.5); LYMPH % 15.1 % (24.0-44.0); MEAN CORPUSCULAR HEMOGLOBIN 30.7 pg (27.0-33.0); MEAN CORPUSCULAR HGB CONC 33.7 g/dl (32.0-36.5); MEAN CORPUSCULAR VOLUME 91.1 fl (80.0-96.0); MONO # 0.5 K/mm3 (0.0-0.8); MONO % 6.6 % (0.0-5.0); NEUTROPHILS # 5.7 K/mm3 (1.8-7.7); NEUTROPHILS % 70.3 % (36.0-66.0); PLATELET COUNT, AUTOMATED 191 k/mm3 (150-450); WHITE BLOOD COUNT 8.1 K/mm3 (4.0-10.0)
[2017-03-03] MEDS: LACTULOSE 20 GM/30 ML SYRUP UD PO SCH ×3 (05:27→21:38)
[2017-03-03] MEDS: KETOROLAC 30 MG/ML VIAL (J1885) IV SCH (05:27)
[2017-03-03] MEDS: **hydrALAZINE HCL** 25 MG TAB PO SCH ×4 (05:27→23:36)
[2017-03-03] MEDS: SLF 3 ML SYR IV SCH ×3 (05:28→21:40)
[2017-03-03 05:44] LABS: ALBUMIN/GLOBULIN RATIO 1.03 (1.00-1.93); ALKALINE PHOSPHATASE 269 U/L (45-117); ALT/SGPT 236 U/L (12-78); ANION GAP 10 MEQ/L (8-16); AST/SGOT 143 U/L (15-37); BILIRUBIN,DIRECT 0.4 MG/DL (0.0-0.2); BILIRUBIN,TOTAL 1.1 MG/DL (0.2-1.0); BLOOD UREA NITROGEN 16 MG/DL (7-18); CALCIUM LEVEL 9.7 MG/DL (8.5-10.1); CARBON DIOXIDE LEVEL 24 MEQ/L (21-32); CHLORIDE LEVEL 96 MEQ/L (98-107); CREATININE FOR GFR 0.82 MG/DL (0.70-1.30); GLOMERULAR FILTRATION RATE > 60.0 (>60); GLUCOSE, FASTING 105 MG/DL (70-105); MAGNESIUM LEVEL 1.8 MG/DL (1.8-2.4); POTASSIUM SERUM 3.7 MEQ/L (3.5-5.1); SODIUM LEVEL 130 MEQ/L (136-145); TOTAL PROTEIN 7.9 GM/DL (6.4-8.2)
[2017-03-03] MEDS: SUCRALFATE 1 GM TAB PO SCH ×3 (07:41→18:27)
--- NOTE | 2017-03-03 08:39 | REP ---
PA and lateral chest: Comparisons are 03/[address] of 02/28/2017. There is a pigtail pleural drainage catheter posteriorly on the left, unchanged from 03/02/2017. There is no pneumothorax. There is a small left pleural effusion effacing the left costophrenic angle, also unchanged. Remainder of the left lung is clear. Right lung is clear. Cardiac size is normal. The danilo, mediastinum, bony thorax unremarkable except for rib fractures on the left involving the 5th through 8th ribs. Signed by Tavon Machuca MD 03/03/2017 08:31 A
[2017-03-03] MEDS: amLODIPine 5 MG TAB PO SCH ×2 (09:24→20:36)
[2017-03-03] MEDS: SENOKOT S TAB PO SCH ×3 (09:24→20:28)
[2017-03-03] MEDS: DOCUSATE SODIUM 100 MG CAP PO SCH ×3 (09:24→20:28)
[2017-03-03] MEDS: THIAMINE 100 MG TAB PO SCH (09:24)
[2017-03-03] MEDS: OXAZEPAM 15 MG CAP PO SCH (09:24)
[2017-03-03] MEDS: rifAXIMin 550 MG TAB (XIFAXAN) PO SCH ×2 (09:24→20:36)
[2017-03-03] MEDS: MULTIVITAMINS/MINERALS THERAP 1 TAB PO SCH (09:24)
[2017-03-03] MEDS: FOLIC ACID 1 MG TAB PO SCH (09:25)
[2017-03-03] MEDS: HEPARIN SOD (PORCINE) 5000 UNITS/ML VIAL SC SCH ×2 (09:27→20:36)
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
--- NOTE | 2017-03-03 11:53 | IPN ---
DATE: 03/03/2017 Mr. Pacheco underwent a pigtail catheter placement yesterday. Initially 100 mL of fluid was withdrawn. It ws bloody fluid. Overnight, he has put out another 257 mL and in the last 12 hours has put out 10 mL. There is no air leak. His vital signs show a T-max of 97.7 with a heart rate that ranges between 93 and 87 in sinus rhythm. Respiratory rate of 18-22 without the use of accessory muscles, who is 99% saturated on room air and his blood pressure is ranging between 161/92 to 138/100. His intake and output over the past 24 hours is recorded as 1800 in 1207 out for positive of 593 mL. He put out 257 mL from the chest tube and his weight today is 87.5 kilograms compared to 86.8 kilograms yesterday. On physical examination, he has equal breath sounds on either side. Percussion note is full to the diaphragm. Cardiac exam is without murmurs, clicks, gallops or rubs. I cannot feel his point of maximum impulse (PMI). S1 and S2 are normal. Abdomen is soft and nontender. Bowel sounds are positive. There is no hepatomegaly. No CVA tenderness. He does have tenderness in the left upper quadrant to palpation referable to his rib fractures Extremities show no pretibial edema with no calf tenderness. No differential swelling of the upper extremities. Skin is warm, dry and perfused without cyanosis or mottling including that of the nail beds and knees. Neck is supple. There is no jugular venous distention. No subcutaneous emphysema. Trachea is midline. Mouth shows his mucous membranes to be pink and moist. Lips and commissures are without lesions. There is no thrush. Eyes show his pupils to be equal and reactive. Extraocular movements intact. Sclerae nonicteric. Neurologic shows II-XII intact along with gross motor and gross sensation intact. Gait is not tested. Psychiatric showed him to be awake, alert and oriented times three with appropriate and affect and conversational. His white count today is 8.1 with a hemoglobin and hematocrit of 13.8 and 40.9 down from 15.3 and 46.1 yesterday. This is probably secondary to hemodilution. Platelet count is 191 and stable and differential shows 70% neutrophils and 15% lymphocytes, 6% monocytes. There are no immature forms or toxic granulations. His electrolytes show a sodium of 130 with a potassium of 3.7 today. BUN and creatinine are 16 and 0.82 respectively. Total bilirubin is down to 1.1 and his AST and ALT are improving to 143 and 236 respectively. Ammonia level is still at 67. He remains on lactulose. Albumin is 4.0. His pleural fluid has been reported back with a pH of 7.4 with 5200 nucleated cells, 89% of which are lymphocytes, 10% neutrophils. Glucose is 121 with a total protein of 5.7 and LDH of 297 with a corresponding LDH of 283. This makes it hemorrhagic and exudative consistent with blood. IMPRESSION: 1. Alcohol dependence. 2. Delirium tremens resolving. 3. Multiple rib fractures, left side. 4. Hemothorax, resolved with a pigtail catheter. 5. Flail chest with flail segment. 6. Lung compression. 7. Possible lung contusion. PLAN AND DISCUSSION: It should be noted that his chest x-ray today shows his lung fully expanded to the chest wall and the pleural effusion that was evident on the lateral chest x-ray yesterday is now gone. I will keep his pigtail catheter in another 24 hours and then remove it. After removing the pigtail, I would have no objection to him being discharged in the morning. We will increase his Percocet to every 4 hours as needed pain.
[2017-03-03] MEDS: OMEPRAZOLE 20 MG CAP PO SCH (14:07)
[2017-03-03] MEDS: OXAZEPAM 10 MG CAP PO PRN (15:27)
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
[2017-03-03] MEDS: NORCO, ANEXSIA 5/325MG TABLET (HYDROcodone/ACETAMINOPHEN) PO PRN (19:43)
[2017-03-04] MEDS: LEVALBUTEROL 1.25 MG/0.5 ML CONCENTRATE NEB NEB SCH ×2 (02:00→08:29)
[2017-03-04] MEDS: MORPHINE 2 MG/ML 1ML SYRINGE IV PRN ×3 (02:49→12:40)
[2017-03-04] MEDS: OXAZEPAM 10 MG CAP PO PRN (02:49)
[2017-03-04] MEDS: LACTULOSE 20 GM/30 ML SYRUP UD PO SCH (05:21)
[2017-03-04] MEDS: **hydrALAZINE HCL** 25 MG TAB PO SCH ×2 (05:21→12:00)
[2017-03-04] MEDS: SLF 3 ML SYR IV SCH (05:21)
[2017-03-04] MEDS: PERCOCET 5MG/325MG TAB PO PRN ×3 (05:25→14:40)
[2017-03-04 05:41] VITALS: BP 138/87
[2017-03-04 05:52] LABS: EOS # 0.3 K/mm3 (0.0-0.50); EOS % 5.1 % (0.0-3.0); LARGE UNSTAINED CELL # 0.2 K/mm3 (0.0-0.4); LARGE UNSTAINED CELL % 3.1 % (0.0-4.0); LYMPH % 17.8 % (24.0-44.0); MEAN CORPUSCULAR HEMOGLOBIN 31.2 pg (27.0-33.0); MEAN CORPUSCULAR HGB CONC 33.6 g/dl (32.0-36.5); MEAN CORPUSCULAR VOLUME 92.8 fl (80.0-96.0); MONO # 0.5 K/mm3 (0.0-0.8); MONO % 8.9 % (0.0-5.0); NEUTROPHILS # 3.4 K/mm3 (1.8-7.7); NEUTROPHILS % 64.1 % (36.0-66.0); PLATELET COUNT, AUTOMATED 172 k/mm3 (150-450); RED CELL DISTRIBUTION WIDTH 15.8 % (11.5-14.5); WHITE BLOOD COUNT 5.3 K/mm3 (4.0-10.0)
[2017-03-04 05:59] LABS: ANION GAP 6 MEQ/L (8-16); BLOOD UREA NITROGEN 11 MG/DL (7-18); CALCIUM LEVEL 9.5 MG/DL (8.5-10.1); CARBON DIOXIDE LEVEL 22 MEQ/L (21-32); CHLORIDE LEVEL 106 MEQ/L (98-107); CREATININE FOR GFR 0.65 MG/DL (0.70-1.30); GLOMERULAR FILTRATION RATE > 60.0 (>60); GLUCOSE, FASTING 116 MG/DL (70-105); MAGNESIUM LEVEL 2.1 MG/DL (1.8-2.4); POTASSIUM SERUM 3.9 MEQ/L (3.5-5.1); SODIUM LEVEL 134 MEQ/L (136-145)
[2017-03-04 07:40] VITALS: BP 142/83
[2017-03-04] MEDS: HEPARIN SOD (PORCINE) 5000 UNITS/ML VIAL SC SCH (08:14)
[2017-03-04] MEDS: FOLIC ACID 1 MG TAB PO SCH (08:14)
[2017-03-04] MEDS: MULTIVITAMINS/MINERALS THERAP 1 TAB PO SCH (08:15)
[2017-03-04] MEDS: OMEPRAZOLE 20 MG CAP PO SCH (08:15)
[2017-03-04] MEDS: THIAMINE 100 MG TAB PO SCH (08:15)
[2017-03-04] MEDS: rifAXIMin 550 MG TAB (XIFAXAN) PO SCH (08:15)
[2017-03-04] MEDS: SUCRALFATE 1 GM TAB PO SCH ×2 (08:15→12:40)
--- NOTE | 2017-03-04 08:15 | REP ---
Chest x-ray: Two views. History: Hemothorax. Comparison chest x-ray March 03, 2017. Findings: Left pigtail pleural drainage catheter persists in position unchanged. There is slight blunting and pleural thickening at the left lateral pleural angle unchanged. There is no evidence of pneumothorax. Right lung remains clear. Cardiomediastinal silhouette is unremarkable. Multiple left rib fractures again seen. Impression: Pigtail catheter in the left pleural space posteriorly and inferiorly. Signed by Chinmay Jennings MD 03/04/2017 10:45 A
[2017-03-04] MEDS: amLODIPine 5 MG TAB PO SCH (08:16)
[2017-03-04] MEDS: DOCUSATE SODIUM 100 MG CAP PO SCH (08:16)
[2017-03-04] MEDS: SENOKOT S TAB PO SCH (08:16)
[2017-03-04] MEDS: NORCO, ANEXSIA 5/325MG TABLET (HYDROcodone/ACETAMINOPHEN) PO PRN (08:43)
[2017-03-04] MEDS ORDERED: OXAZEPAM 15 MG CAP PO SCH (09:00)
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
[2017-03-04] MEDS ORDERED: OXYC1TAB23 PO (11:53)
[2017-03-04] MEDS ORDERED: LACT10SO29 PO (11:55)
[2017-03-04] MEDS ORDERED: XIFA550T PO (11:55)
[2017-03-04 12:00] VITALS: BP 142/80
--- NOTE | 2017-03-04 12:25 | IPN ---
DATE: 03/04/2017 Mr. Pacheco has put out minimally from his chest catheter. His chest x-ray shows resolution of his hemothorax and pleural effusion. His pain is still present, but is getting less each day. His vital signs show a T-max of 98.8 with a heart rate that ranges between 73 and 102 in a sinus rhythm, a respiratory rate that is constant at 20, who is 99% to 98% saturated on room air and whose blood pressure is ranging between 142/83 to 163/90. His intake and output over the past 24 hours has been recorded as 400 in and 853 out for a negativity of 453 mL. He has put out 28 mL from the chest catheter and there is no air leak. Weight today is 85.6 kilograms compared to 87.5 kilograms yesterday. On physical examination, his lungs show normal vesicular sounds on either side. Percussion note is full to the diaphragm. He has tender left lateral chest wall pain. Cardiac exam is without murmurs, clicks, gallops or rubs. I cannot feel his point of maximum impulse (PMI). S1 and S2 are normal. Abdomen is soft and nontender. Bowel sounds are positive. There is no hepatomegaly. No costovertebral angle (CVA) tenderness. Extremities show no pretibial edema and no calf tenderness. No differential swelling of the upper extremities. Skin is warm, dry and perfused without cyanosis or mottling including that of the nail beds and knees. Neck is supple. There is no jugular venous distention. No subcutaneous emphysema. Trachea is midline. Mouth shows his mucous membranes to be pink and moist. Lips and commissures are without lesions. There is no thrush. Eyes show his pupils to be equal and reactive. Extraocular movements intact. Sclerae nonicteric. Neurologic shows II-XII intact along with gross motor and gross sensation intact. Gait is not tested. Psychiatric shows him to be awake, alert and oriented times three with appropriate mood and affect and conversational. His white count today is 5.3 with hemoglobin and hematocrit of 13.7 and 40.7 respectively and a platelet count of 172. Differential shows 64% neutrophils, 17% lymphocytes and 8% monocytes. There are no immature forms and no toxic granulations. Sodium today is 134 - improved from 130 yesterday. Remainder of his electrolytes are normal with a BUN and creatinine of 11 and 0.65, glucose 116, and calcium of 9.5 with a magnesium of 2.1. Ammonia level today is 55, which is now starting to decrease. Pathology cell block does not show any malignancy. IMPRESSION: 1. Alcohol dependence. 2. Delirium tremens, resolving. 3. Multiple rib fractures, left side. 4. Hemothorax, resolved with a pigtail catheter. 5. Flail chest with flail segment. 6. Lung compression. 7. Possible lung contusion. PLAN AND DISCUSSION: I will remove his chest tube catheter today. From my perspective from thoracic surgery, he can be discharged after I remove the catheter today. His ultimate discharge will be left up to his medical physicians. I have no objection to him being discharged on Percocet as needed for pain. I have indicated to the patient that he does have rib fractures and they are going to hurt and we cannot take the entire pain away. I suspect the pain is exaggerated by his alcohol dependency and withdrawal. I will have him come back to see me in post hospitalization followup in 3 weeks with a chest x-ray after I return from vacation.
== END 2017-03-04 14:45 | disposition home or self-care (01) | DRG 135 ==
LOC: M ED 18:08 → EDBD 18:08 → M ED INP 02-26 00:38 → M PCU 02-26 01:34
PROVIDERS: ADMIT Hospitalist; ATTEND Internal Medicine
PROC: 0W9B3ZZ Drainage of Left Pleural Cavity, Percutaneous Approach (ICD-10-PCS; principal; 2017-03-02)
DX: S27.1XXA Traumatic hemothorax, initial encounter (principal); S22.5XXA Flail chest, initial encounter for closed fracture; F10.221 Alcohol dependence with intoxication delirium; S22.068A Other fracture of T7-T8 thoracic vertebra, initial encounter for closed fracture; S22.42XA Multiple fractures of ribs, left side, initial encounter for closed fracture; E87.1 Hypo-osmolality and hyponatremia; J90 Pleural effusion, not elsewhere classified; K70.10 Alcoholic hepatitis without ascites; I10 Essential (primary) hypertension; F41.9 Anxiety disorder, unspecified; K21.9 Gastro-esophageal reflux disease without esophagitis; R91.1 Solitary pulmonary nodule; Z87.891 Personal history of nicotine dependence; J45.909 Unspecified asthma, uncomplicated; E78.5 Hyperlipidemia, unspecified; W18.30XA Fall on same level, unspecified, initial encounter; Y92.009 Unspecified place in unspecified non-institutional (private) residence as the place of occurrence of the external cause

== ENCOUNTER → 2017-03-24 | Outpatient (CLI) | payer OTHER ==
[~2017-03-24] MED LIST changes: +ACAM0.05 PO; +IBUPOTC PO; +LACT10SO29 PO; +LORA1TAB12 PO; +OXYC1TAB23 PO; +XIFA550T PO
[2017-03-24 09:37] LABS: MEAN CORPUSCULAR HEMOGLOBIN 30.8 pg (27.0-33.0); MEAN CORPUSCULAR HGB CONC 33.5 g/dl (32.0-36.5); RED CELL DISTRIBUTION WIDTH 15.5 % (11.5-14.5); WHITE BLOOD COUNT 7.8 K/mm3 (4.0-10.0)
--- NOTE | 2017-03-24 09:45 | REP ---
CHEST, TWO VIEWS: HISTORY: Fatigue. COMPARISON: 03/04/2017 The lungs are clear. There is blunting of the left costophrenic angle due to pleural thickening. The heart is normal in size. The pulmonary vasculature is normal in appearance. There is an old compression fracture of a midthoracic vertebral body. There are old left rib fractures. IMPRESSION: No acute disease. Signed by Dario Comer MD 03/24/2017 09:52 A
[2017-03-24 09:49] LABS: ALBUMIN 3.8 GM/DL (3.2-5.2); ALBUMIN/GLOBULIN RATIO 1.19 (1.00-1.93); ALKALINE PHOSPHATASE 138 U/L (45-117); ALT/SGPT 67 U/L (12-78); ANION GAP 12 MEQ/L (8-16); AST/SGOT 27 U/L (15-37); BILIRUBIN,TOTAL 0.4 MG/DL (0.2-1.0); BLOOD UREA NITROGEN 5 MG/DL (7-18); CALCIUM LEVEL 9.1 MG/DL (8.5-10.1); CARBON DIOXIDE LEVEL 24 MEQ/L (21-32); CHLORIDE LEVEL 104 MEQ/L (98-107); CHOLESTEROL LEVEL 268 MG/DL (<200); CREATININE FOR GFR 0.71 MG/DL (0.70-1.30); GLOMERULAR FILTRATION RATE > 60.0 (>60); GLUCOSE, FASTING 105 MG/DL (70-105); POTASSIUM SERUM 3.9 MEQ/L (3.5-5.1); SODIUM LEVEL 140 MEQ/L (136-145); TRIGLYCERIDES LEVEL 171 MG/DL (<150)
--- NOTE | 2017-03-25 22:21 | ECGEPIP ---
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
== END ==
LOC: M LAB 08:34
PROVIDERS: ATTEND Family Medicine
DX: J18.9 Pneumonia, unspecified organism (principal); R53.83 Other fatigue

== ENCOUNTER 2017-04-11 20:30 | Emergency (ER) | payer OTHER ==
[~2017-04-11] VITALS: Ht 177.8 cm; Wt 87.7 kg
[2017-04-11 20:30] VITALS: BP 131/91
[~2017-04-11 20:30] MED LIST changes: -ACAM0.05 PO; -IBUPOTC PO; -LORA1TAB12 PO
[2017-04-11] MEDS ORDERED: ADV250INH INH (20:38)
[2017-04-11] MEDS ORDERED: ACAM0.05 PO (20:38)
[2017-04-11] MEDS ORDERED: LORA1TAB12 PO (20:38)
== END 2017-04-12 01:08 | disposition left against medical advice (07) ==
LOC: M ED 20:30
DX: F10.220 Alcohol dependence with intoxication, uncomplicated (principal); K74.60 Unspecified cirrhosis of liver; K21.9 Gastro-esophageal reflux disease without esophagitis; Z79.899 Other long term (current) drug therapy

== ENCOUNTER 2017-04-21 09:50 | Inpatient (IN) | payer OTHER ==
[~2017-04-21] VITALS: Ht 177.8 cm; Wt 87.7 kg
[2017-04-21] MEDS: ADVAIR HFA 115/21MCG INHALER INH SCH ×2 (09:00→21:18)
[~2017-04-21 09:50] MED LIST changes: +ACAM0.05 PO; +LORA1TAB12 PO
[2017-04-21] MEDS ORDERED: NS 1,000 ML IV ONE ×2 (10:00→12:15)
[2017-04-21] MEDS ORDERED: LORazepam 2 MG/ML VIAL (J2060) IV STA ×2 (10:00→11:43)
[2017-04-21 10:52] LABS: BASO # 0.1 K/mm3 (0.0-0.2); BASO % 0.4 % (0.0-1.0); EOS # 0.1 K/mm3 (0.0-0.50); EOS % 0.8 % (0.0-3.0); LARGE UNSTAINED CELL # 0.1 K/mm3 (0.0-0.4); LARGE UNSTAINED CELL % 0.4 % (0.0-4.0); LYMPH # 0.4 K/mm3 (1.5-4.5); LYMPH % 2.5 % (24.0-44.0); MEAN CORPUSCULAR HEMOGLOBIN 30.2 pg (27.0-33.0); MEAN CORPUSCULAR HGB CONC 33.9 g/dl (32.0-36.5); MEAN CORPUSCULAR VOLUME 89.3 fl (80.0-96.0); MONO # 0.7 K/mm3 (0.0-0.8); MONO % 4.9 % (0.0-5.0); NEUTROPHILS # 13.8 K/mm3 (1.8-7.7); PLATELET COUNT, AUTOMATED 254 k/mm3 (150-450); RED CELL DISTRIBUTION WIDTH 15.1 % (11.5-14.5); WHITE BLOOD COUNT 15.2 K/mm3 (4.0-10.0)
--- NOTE | 2017-04-21 10:53 | REP ---
CT Head without contrast HISTORY: Altered mental status COMPARISON: 02/25/2017 There is no intraparenchymal hemorrhage, acute infarct, mass or midline shift. The ventricular system and cortical sulci as well as subarachnoid space in the posterior fossa are dilated consistent with mild volume loss. There is no extra cerebral collection. There is no fracture. The visualized sinuses are clear. IMPRESSION: Mild volume loss. Signed by Dario Comer MD 04/21/2017 10:44 A
[2017-04-21 10:59] LABS: METHADONE URINE NEGATIVE (NEGATIVE)
--- NOTE | 2017-04-21 11:00 | REP ---
Clinical: Altered mental status . Comparison: 03/24/2017 . Findings: The mediastinum and cardiac silhouette are stable and within normal limits for portable technique. The lung diego chronic changes at the left base without acute consolidation, effusion, or pneumothorax. Skeletal structures are intact. Impression: No acute cardiopulmonary process appreciated. Signed by Ho Stallings MD 04/21/2017 10:52 A
[2017-04-21 11:04] LABS: ALBUMIN/GLOBULIN RATIO 1.11 (1.00-1.93); ALKALINE PHOSPHATASE 181 U/L (45-117); ALT/SGPT 115 U/L (12-78); ANION GAP 18 MEQ/L (8-16); AST/SGOT 116 U/L (15-37); BILIRUBIN,DIRECT 0.3 MG/DL (0.0-0.2); BILIRUBIN,TOTAL 0.8 MG/DL (0.2-1.0); BLOOD UREA NITROGEN 6 MG/DL (7-18); CALCIUM LEVEL 9.3 MG/DL (8.5-10.1); CARBON DIOXIDE LEVEL 18 MEQ/L (21-32); CHLORIDE LEVEL 101 MEQ/L (98-107); CREATININE FOR GFR 1.47 MG/DL (0.70-1.30); GLOMERULAR FILTRATION RATE 55.4 (>60); GLUCOSE, FASTING 216 MG/DL (70-105); POTASSIUM SERUM 4.2 MEQ/L (3.5-5.1); SODIUM LEVEL 137 MEQ/L (136-145); TOTAL PROTEIN 7.6 GM/DL (6.4-8.2)
[2017-04-21] MEDS ORDERED: OXAZEPAM 15 MG CAP PO ONE (11:45)
[2017-04-21] MEDS: OXAZEPAM 10 MG CAP PO SCH ×2 (12:00→16:25)
[2017-04-21] MEDS ORDERED: LORazepam 2 MG/ML VIAL (J2060) IV PRN (13:00)
[2017-04-21] MEDS ORDERED: ONDANSETRON 4MG/2ML VIAL (J2405) IV PRN (13:00)
[2017-04-21] MEDS ORDERED: XIFA550T PO (13:06)
[2017-04-21] MEDS ORDERED: ALBU17IN INH (13:06)
[2017-04-21] MEDS ORDERED: IBUPOTC PO (13:06)
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
[2017-04-21 16:00] VITALS: BP 138/93
[2017-04-21] MEDS: LACTULOSE 20 GM/30 ML SYRUP UD PO SCH ×2 (16:25→20:31)
[2017-04-21] MEDS: THIAMINE 100 MG TAB PO SCH (16:25)
[2017-04-21] MEDS: NS 1,000 ML IV SCH (16:25)
[2017-04-21] MEDS: rifAXIMin 550 MG TAB (XIFAXAN) PO SCH ×2 (16:25→20:30)
[2017-04-21] MEDS: OMEPRAZOLE 20 MG CAP PO SCH ×2 (16:26→20:30)
[2017-04-21] MEDS: FOLIC ACID 1 MG TAB PO SCH (16:26)
[2017-04-21] MEDS: MULTIVITAMINS/MINERALS THERAP 1 TAB PO SCH (16:26)
[2017-04-21] MEDS ORDERED: ACETAMINOPHEN 325 MG TAB PO ONE (17:30)
[2017-04-21 20:10] VITALS: BP 148/82
[2017-04-21] MEDS ORDERED: LORazepam 2 MG TAB PO PRN (21:15)
--- NOTE | 2017-04-21 21:15 | ECGEPIP ---
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
[2017-04-22] VITALS (9 sets, daily range): BP systolic 121–154; BP diastolic 68–99
[2017-04-22] MEDS: OXAZEPAM 10 MG CAP PO SCH ×5 (00:23→23:49)
[2017-04-22] MEDS: NS 1,000 ML IV SCH (00:23)
[2017-04-22] MEDS: LACTULOSE 20 GM/30 ML SYRUP UD PO SCH ×3 (05:13→21:15)
[2017-04-22 05:46] LABS: MEAN CORPUSCULAR HEMOGLOBIN 30.7 pg (27.0-33.0); MEAN CORPUSCULAR HGB CONC 33.8 g/dl (32.0-36.5); MEAN CORPUSCULAR VOLUME 90.8 fl (80.0-96.0); RED CELL DISTRIBUTION WIDTH 15.2 % (11.5-14.5); WHITE BLOOD COUNT 6.2 K/mm3 (4.0-10.0)
[2017-04-22 05:56] LABS: MAGNESIUM LEVEL 2.4 MG/DL (1.8-2.4)
[2017-04-22 06:05] LABS: ALBUMIN 3.6 GM/DL (3.2-5.2); ALBUMIN/GLOBULIN RATIO 1.09 (1.00-1.93); ALKALINE PHOSPHATASE 166 U/L (45-117); ALT/SGPT 84 U/L (12-78); ANION GAP 7 MEQ/L (8-16); AST/SGOT 64 U/L (15-37); BILIRUBIN,TOTAL 0.8 MG/DL (0.2-1.0); BLOOD UREA NITROGEN 8 MG/DL (7-18); CALCIUM LEVEL 8.9 MG/DL (8.5-10.1); CARBON DIOXIDE LEVEL 28 MEQ/L (21-32); CHLORIDE LEVEL 104 MEQ/L (98-107); CREATININE FOR GFR 0.86 MG/DL (0.70-1.30); GLOMERULAR FILTRATION RATE > 60.0 (>60); GLUCOSE, FASTING 122 MG/DL (70-105); POTASSIUM SERUM 3.8 MEQ/L (3.5-5.1); SODIUM LEVEL 139 MEQ/L (136-145); T UPTAKE 34 % (33-40); THYROXINE (T4) 5.7 UG/DL (4.5-12.0); TOTAL PROTEIN 6.9 GM/DL (6.4-8.2)
[2017-04-22] MEDS: ADVAIR HFA 115/21MCG INHALER INH SCH ×2 (07:19→21:00)
[2017-04-22] MEDS: ENOXAPARIN 40 MG/0.4 ML SYRINGE (J1650) SC SCH (09:00)
[2017-04-22] MEDS: MULTIVITAMINS/MINERALS THERAP 1 TAB PO SCH (09:16)
[2017-04-22] MEDS: FOLIC ACID 1 MG TAB PO SCH (09:16)
[2017-04-22] MEDS: THIAMINE 100 MG TAB PO SCH (09:16)
[2017-04-22] MEDS: rifAXIMin 550 MG TAB (XIFAXAN) PO SCH (09:16)
[2017-04-22] MEDS: OMEPRAZOLE 20 MG CAP PO SCH ×2 (09:16→21:14)
[2017-04-22] MEDS ORDERED: SLF 3 ML SYR IV PRN (12:45)
--- NOTE | 2017-04-22 13:04 | IPNPDOC ---
Subjective Date Seen The patient was seen on 04/22/17. Subjective Chief Complaint/HPI The patient is a 46-year-old male admitted with a reason for visit of Alcohol Withdrawal Seizure. Events since last encounter feels better today , shaking much less than yesterday , complains of soreness of tongue and difficulty in eating as he had bit his tongue . no fever or chills , no chest pain or sob , no nausea or vomiting or diarrhea, no abdominal pain . Objective Physical Examination General Exam: Positive: Alert, Cooperative, No Acute Distress Eye Exam: Positive: EOMI ENT Exam: Positive: Mucous membr. moist/pink Neck Exam: Negative: JVD Chest Exam: Positive: Clear to auscultation, Normal air movement Heart Exam: Positive: Tachycardic, Normal S1, Normal S2 Telemetry: Positive: No significant arrhythmia Abdomen Exam: Positive: Normal bowel sounds, Soft, Negative: Tenderness Extremity Exam: Negative: Clubbing, Cyanosis, Edema, Normal pulses, Tenderness , Swelling, Other Skin Exam: Positive: Nl turgor and temperature, Negative: Rash, Breakdown Assessment /Plan Problems (1) Alcohol withdrawal seizure Status: Acute Problem Text: will continue with ativan prn . (2) Alcoholic hepatitis Status: Acute Problem Text: did not meet criteria for prednisone will continue to monitor lfts. (3) FLACO (acute kidney injury) Status: Acute Response to Treatment: Improving (4) Acute drug withdrawal syndrome Status: Acute Problem Text: will continue with serax and ativan. (5) HTN (hypertension) Status: Chronic (6) Asthma Status: Chronic Problem Text: continue home meds. (7) GERD (gastroesophageal reflux disease) Status: Chronic (8) Schatzki's ring Status: Chronic (9) Hyperammonemia Status: Acute Problem Text: due to alcohol abuse , no signs of hepatic encephalopathy will dc rifaximin Plan/VTE VTE Prophylaxis Ordered?: Yes VS, I&O, 24H, Fishbone Vital Signs/I&O Vital Signs Date Time Temp Pulse Resp B/P (MAP) Pulse Ox O2 Delivery O2 Flow Rate FiO2 04/22/17 12:00 98.9 97 18 149/99 (116) 97 Room Air I&O- Last 24 Hours up to 6 AM 04/22/17 05:59 Intake Total 3120 ml Output Total 1500 ml Balance 1620 ml Laboratory Data 24H LABS Laboratory Tests 2 04/21/17 13:08: Prothrombin Time 13.3, Prothromb Time International Ratio 1.00, Activated Partial Thromboplast Time 25.8L, Magnesium Level 3.0H, Total Creatine Kinase 284 04/22/17 05:12: Magnesium Level 2.4, Total Creatine Kinase 260, Anion Gap 7L, Glomerular Filtration Rate > 60.0, Blood Urea Nitrogen 8, Creatinine 0.86, Sodium Level 139 , Potassium Level 3.8, Chloride Level 104, Carbon Dioxide Level 28, Calcium Level 8.9, Aspartate Amino Transf (AST/SGOT) 64H, Alanine Aminotransferase (ALT/ SGPT) 84H, Alkaline Phosphatase 166H, Total Bilirubin 0.8, Total Protein 6.9, Albumin 3.6, Ammonia 44H, Albumin/Globulin Ratio 1.09, Thyroid Stimulating Hormone (TSH) 2.980, Free Thyroxine Index 1.9, Thyroxine (T4) 5.7, Triiodothyronine (T3) Uptake 34 CBC/BMP Laboratory Tests 04/22/17 05:12 Red Blood Count 4.17 L, Mean Corpuscular Volume 90.8, Mean Corpuscular Hemoglobin 30.7, Mean Corpuscular Hemoglobin Concent 33.8, Red Cell Distribution Width 15.2 H, Calcium Level 8.9, Aspartate Amino Transf (AST/SGOT) 64 H, Alanine Aminotransferase (ALT/SGPT) 84 H, Alkaline Phosphatase 166 H, Total Bilirubin 0.8, Total Protein 6.9, Albumin 3.6 KAMILAH EDEN MD Apr 22, 2017 13:04
[2017-04-22] MEDS: SLF 3 ML SYR IV SCH ×2 (13:28→21:15)
[2017-04-22] MEDS: NYSTATIN 500,000 U/5 ML SUSP UDC PO SCH (22:14)
[2017-04-23] MEDS: LACTULOSE 20 GM/30 ML SYRUP UD PO SCH (05:07)
[2017-04-23] MEDS: SLF 3 ML SYR IV SCH (05:07)
[2017-04-23] MEDS: OXAZEPAM 10 MG CAP PO SCH (05:07)
[2017-04-23 05:12] VITALS: BP 152/98
[2017-04-23 05:53] LABS: MEAN CORPUSCULAR HEMOGLOBIN 31.4 pg (27.0-33.0); MEAN CORPUSCULAR HGB CONC 33.6 g/dl (32.0-36.5); MEAN CORPUSCULAR VOLUME 93.5 fl (80.0-96.0); RED CELL DISTRIBUTION WIDTH 15.2 % (11.5-14.5); WHITE BLOOD COUNT 8.7 K/mm3 (4.0-10.0)
[2017-04-23 06:23] LABS: ALBUMIN 4.1 GM/DL (3.2-5.2); ALBUMIN/GLOBULIN RATIO 0.95 (1.00-1.93); ALKALINE PHOSPHATASE 187 U/L (45-117); ALT/SGPT 106 U/L (12-78); ANION GAP 10 MEQ/L (8-16); AST/SGOT 86 U/L (15-37); BILIRUBIN,TOTAL 0.8 MG/DL (0.2-1.0); BLOOD UREA NITROGEN 9 MG/DL (7-18); CALCIUM LEVEL 9.7 MG/DL (8.5-10.1); CARBON DIOXIDE LEVEL 28 MEQ/L (21-32); CHLORIDE LEVEL 102 MEQ/L (98-107); CREATININE FOR GFR 0.79 MG/DL (0.70-1.30); GLOMERULAR FILTRATION RATE > 60.0 (>60); GLUCOSE, FASTING 110 MG/DL (70-105); MAGNESIUM LEVEL 2.1 MG/DL (1.8-2.4); POTASSIUM SERUM 4.8 MEQ/L (3.5-5.1); SODIUM LEVEL 140 MEQ/L (136-145)
[2017-04-23 06:41] LABS: TOTAL PROTEIN 8.4 GM/DL (6.4-8.2)
[2017-04-23] MEDS: ADVAIR HFA 115/21MCG INHALER INH SCH (07:32)
[2017-04-23 08:00] VITALS: BP 149/98
[2017-04-23] MEDS: ENOXAPARIN 40 MG/0.4 ML SYRINGE (J1650) SC SCH (09:00)
[2017-04-23] MEDS ORDERED: OXAZ10CA3 PO (09:22)
[2017-04-23] MEDS ORDERED: FOLI1TAB4 PO (09:22)
[2017-04-23] MEDS ORDERED: THIA100TA PO (09:22)
[2017-04-23] MEDS: NYSTATIN 500,000 U/5 ML SUSP UDC PO SCH (09:42)
[2017-04-23] MEDS: THIAMINE 100 MG TAB PO SCH (09:42)
[2017-04-23] MEDS: MULTIVITAMINS/MINERALS THERAP 1 TAB PO SCH (09:42)
[2017-04-23] MEDS: OMEPRAZOLE 20 MG CAP PO SCH (09:42)
[2017-04-23] MEDS: FOLIC ACID 1 MG TAB PO SCH (09:42)
--- NOTE | 2017-04-23 14:23 | DSES ---
DATE OF ADMISSION: 04/21/2017 DATE OF DISCHARGE: 04/23/2017 PRIMARY CARE PROVIDER: Dr. Tangela Muñoz. Cammie Lyon NP DISCHARGE DIAGNOSES: Alcohol withdrawal seizure. Alcoholic hepatitis. Acute kidney injury. Hypertension. Asthma. Gastroesophageal reflux disease (GERD). Chronic Schatzki's ring. Hyperammonemia due to alcohol abuse. Alcohol withdrawal. Recent history of left-sided hemothorax due to left-sided rib fractures requiring pigtail catheter in February 2017. DISCHARGE MEDICATIONS: - Serax 20 mg as directed in tapering course. - thiamine 100 mg daily - folic acid 1 mg daily - acamprosate one tablet by mouth three times a day - albuterol two puffs inhalation four times a day as needed shortness of breath. - amlodipine 5 mg by mouth twice a day - ibuprofen 100 mg by mouth as needed pain - lorazepam 1 mg by mouth three times a day - omeprazole 20 mg by mouth twice a day as needed heartburn - rifaximine 50 mg by mouth twice a day - Advair discus 250/50 one puff inhalation twice a day HOSPITAL COURSE: This is a 46-year-old male who is an alcoholic who presented to the hospital as he sustained a seizure at home but he had bitten his tongue and he was having blood coming through his mouth and his nose. On the day prior to his seizure, he did not have much alcohol. Normally, he is a very heavy drinker. Then he went to sleep and he woke up feeling funny and the next thing he knows, he is on the floor with blood coming from his mouth. He crawled to his phone and called 911 and was brought to the emergency room where he was found that he had bitten his tongue. He has had previous seizures related to alcohol withdrawal and this was also thought to be due to alcohol withdrawal. The patient was having mild withdrawal symptoms. He was started on Serax with good control of symptoms. He was also noted to have elevated LFTs thought to be due to alcoholic hepatitis but he did not meet the criteria for prednisone. His ammonia was also noted to be elevated high but he did not have any signs of encephalopathy. He was monitored on telemetry for more than 24 hours. He did not have any further seizures and his withdrawal symptoms have started improving. At present, his vitals are stable. He does not have any complaints and is close to his baseline functional status. He is going to be discharged home. PHYSICAL EXAMINATION: VITAL SIGNS: Temperature 98.2, pulse 76, blood pressure 140/98, pulse ox 100% in room air. GENERAL: Patient awake, alert oriented times three laying down in bed in no acute distress. HEENT: Normocephalic, atraumatic. Moist mucous membranes, anicteric eyes. CHEST: Clear to auscultation. CARDIOVASCULAR: S1, S2, regular. Mildly tachycardic. No rub, murmur, or gallop. ABDOMEN: Obese, soft, nontender. Bowel sounds present. EXTREMITIES: No edema. LABORATORY DATA: WBC 8.7, hemoglobin 14.9, platelets 214. Sodium 140, potassium 4.8, chloride 102, bicarbonate 28, BUN 9, creatinine 0.79, glucose 110, calcium 9.7, magnesium 2.1, AST 86, VSI686, alkaline phosphatase 187, ammonia 50, total protein 8.4, albumin 4.1, INR 1. Alcohol level was 0.004. Hepatitis panel has been ordered. DISPOSITION: The patient is discharged to home in stable condition. DISCHARGE INSTRUCTIONS: The patient to followup with primary care provider in one week. Regular diet. Activities as tolerated. The patient is instructed to abstain from alcohol. edited: 04/24/2017 1419 cheryl FAUSTIN
== END 2017-04-23 11:04 | disposition home or self-care (01) | DRG 816 ==
LOC: M ED 09:50 → EDBD 09:50 → M ED INP 12:46 → M PCU 16:14
PROVIDERS: ADMIT Internal Medicine; ATTEND Internal Medicine Nephrology
DX: T51.0X2A Toxic effect of ethanol, intentional self-harm, initial encounter (principal); N17.9 Acute kidney failure, unspecified; E72.20 Disorder of urea cycle metabolism, unspecified; K70.10 Alcoholic hepatitis without ascites; K22.2 Esophageal obstruction; F10.239 Alcohol dependence with withdrawal, unspecified; I10 Essential (primary) hypertension; K21.9 Gastro-esophageal reflux disease without esophagitis; J45.909 Unspecified asthma, uncomplicated; Z79.899 Other long term (current) drug therapy; Z87.891 Personal history of nicotine dependence

== ENCOUNTER 2017-05-13 17:05 | Emergency (ER) | payer OTHER ==
[~2017-05-13] VITALS: Ht 177.8 cm; Wt 88.8 kg
[~2017-05-13 17:05] MED LIST changes: +IBUPOTC PO
[2017-05-13 17:06] VITALS: BP 158/101
[2017-05-13 17:55] VITALS: BP 158/101
[2017-05-13] MEDS ORDERED: cloNIDine 0.1 MG TAB PO ONE (18:00)
== END 2017-05-13 20:25 | disposition left against medical advice (07) ==
LOC: M ED 17:05
DX: F10.220 Alcohol dependence with intoxication, uncomplicated (principal); J45.909 Unspecified asthma, uncomplicated; F19.20 Other psychoactive substance dependence, uncomplicated; Z79.899 Other long term (current) drug therapy; F17.210 Nicotine dependence, cigarettes, uncomplicated

== ENCOUNTER 2017-07-27 21:30 | Emergency (ER) | payer OTHER ==
[~2017-07-27] VITALS: Ht 190.5 cm; Wt 79.5 kg
[2017-07-27] MEDS ORDERED: NS 1,000 ML IV ONE (22:15)
[2017-07-27] MEDS ORDERED: NS 1,000 ML IV SCH (22:45)
[2017-07-27 22:51] LABS: MEAN CORPUSCULAR HEMOGLOBIN 30.3 pg (27.0-33.0); MEAN CORPUSCULAR VOLUME 86.5 fl (80.0-96.0); PLATELET COUNT, AUTOMATED 148 10^3/uL (150-450); RED CELL DISTRIBUTION WIDTH 15.2 % (11.5-14.5)
[2017-07-27 23:09] LABS: ANION GAP 14 MEQ/L (8-16); BLOOD UREA NITROGEN 7 MG/DL (7-18); CALCIUM LEVEL 9.1 MG/DL (8.5-10.1); CARBON DIOXIDE LEVEL 23 MEQ/L (21-32); CHLORIDE LEVEL 105 MEQ/L (98-107); CREATININE FOR GFR 0.75 MG/DL (0.70-1.30); GLOMERULAR FILTRATION RATE > 60.0 (>60); GLUCOSE, FASTING 131 MG/DL (70-105); POTASSIUM SERUM 4.1 MEQ/L (3.5-5.1); SODIUM LEVEL 142 MEQ/L (136-145)
[2017-07-28] MEDS ORDERED: OXAZEPAM 15 MG CAP PO ONE (08:15)
[2017-07-28 10:02] VITALS: BP 117/66
== END 2017-07-28 10:04 | disposition home or self-care (01) ==
LOC: M ED 21:30 → EDBD 21:30 → M ED 07-28 10:04
DX: F10.120 Alcohol abuse with intoxication, uncomplicated (principal); Y90.2 Blood alcohol level of 40-59 mg/100 ml; I10 Essential (primary) hypertension; J45.909 Unspecified asthma, uncomplicated; K75.9 Inflammatory liver disease, unspecified; Z79.899 Other long term (current) drug therapy; Z91.018 Allergy to other foods; F17.210 Nicotine dependence, cigarettes, uncomplicated; F19.20 Other psychoactive substance dependence, uncomplicated

== ENCOUNTER 2017-07-29 15:34 | Inpatient (IN) | payer OTHER ==
[~2017-07-29] VITALS: Ht 177.8 cm; Wt 91.4 kg
[2017-07-29] MEDS ORDERED: OXAZEPAM 15 MG CAP PO ONE (18:00)
[2017-07-30] MEDS ORDERED: OXAZEPAM 15 MG CAP PO ONE ×2 (00:15→04:45)
[2017-07-30] MEDS ORDERED: LORazepam 2 MG/ML VIAL (J2060) IM STA (04:32)
[2017-07-30] MEDS ORDERED: LORazepam 2 MG/ML VIAL (J2060) IV STA ×4 (04:45→09:19)
[2017-07-30] MEDS ORDERED: NS 1,000 ML IV ONE (04:45)
[2017-07-30 05:09] LABS: BASO # 0.1 10^3/uL (0.0-0.2); BASO % 1.3 % (0.0-1.0); EOS # 0.1 10^3/uL (0.0-0.50); EOS % 1.3 % (0.0-3.0); IMMATURE GRANULOCYTE % 0.6 % (0-0); LYMPH # 2.8 10^3/uL (1.5-4.5); LYMPH % 52.2 % (24.0-44.0); MEAN CORPUSCULAR HEMOGLOBIN 30.7 pg (27.0-33.0); MEAN CORPUSCULAR VOLUME 90.4 fl (80.0-96.0); MONO # 0.6 10^3/uL (0.0-0.8); MONO % 10.6 % (0.0-5.0); NEUTROPHILS # 1.8 10^3/uL (1.8-7.7); PLATELET COUNT, AUTOMATED 141 10^3/uL (150-450); RED CELL DISTRIBUTION WIDTH 15.9 % (11.5-14.5); WHITE BLOOD COUNT 5.3 10^3/uL (4.0-10.0)
[2017-07-30 05:29] LABS: ALBUMIN 4.2 GM/DL (3.2-5.2); ALBUMIN/GLOBULIN RATIO 1.11 (1.00-1.93); ALKALINE PHOSPHATASE 171 U/L (45-117); ALT/SGPT 198 U/L (12-78); ANION GAP 10 MEQ/L (8-16); AST/SGOT 254 U/L (7-37); BILIRUBIN,DIRECT 0.4 MG/DL (0.0-0.2); BILIRUBIN,TOTAL 0.9 MG/DL (0.2-1.0); BLOOD UREA NITROGEN 5 MG/DL (7-18); CALCIUM LEVEL 8.5 MG/DL (8.5-10.1); CARBON DIOXIDE LEVEL 29 MEQ/L (21-32); CHLORIDE LEVEL 102 MEQ/L (98-107); CREATININE FOR GFR 0.86 MG/DL (0.70-1.30); GLOMERULAR FILTRATION RATE > 60.0 (>60); GLUCOSE, FASTING 104 MG/DL (70-105); POTASSIUM SERUM 3.9 MEQ/L (3.5-5.1); SODIUM LEVEL 141 MEQ/L (136-145)
[2017-07-30] MEDS ORDERED: OMEP20CA3 PO (06:27)
[2017-07-30] MEDS ORDERED: FLUO20CA8 PO (06:27)
[2017-07-30] MEDS ORDERED: LORA1TAB12 PO (06:27)
[2017-07-30] MEDS ORDERED: VIVI380I IM (06:27)
[2017-07-30] MEDS ORDERED: RISP2TAB32 PO (06:27)
[2017-07-30] MEDS ORDERED: MIRT15TA3 PO (06:27)
[2017-07-30] MEDS ORDERED: PATIENT COMMENT (06:29)
[2017-07-30] MEDS: LORazepam 2 MG/ML VIAL (J2060) IV PRN ×6 (07:41→23:01)
[2017-07-30] MEDS: NS 1,000 ML IV SCH ×2 (07:43→19:15)
[2017-07-30 07:58] LABS: INR 1.01
--- NOTE | 2017-07-30 08:14 | HPE ---
DATE OF ADMISSION: 07/29/2017 PRIMARY CARE PROVIDER: ADITYA Muñoz ATTENDING PHYSICIAN: Juan Jenkins MD CHIEF COMPLAINT: Alcohol abuse and withdrawal. HISTORY OF PRESENT ILLNESS: The patient is a 46-year-old white male with a history of ongoing alcohol abuse who presented to the emergency room (ER) for withdrawal symptoms. History is provided by himself, but he is a poor historian. Also on review of the chart, he has a history of multiple admissions in the past for similar problems. He continues to drink alcohol and the last drink was yesterday prior to coming to the hospital. After he came to the ER, he was given IV fluids as well as multiple benzodiazepines. The ER tried to discharge home, however since he is not medically, the medicine service was called for admission. REVIEW OF SYSTEMS: Denies fever. No chills. No headache. No chest pain. No coughing. No abdominal pain. He states he had multiple diarrhea after he came to the ER. No seizure activity. No tingling, numbness, or weakness in the arms or lower extremities, but general weakness. All other systems were reviewed but were negative. PAST MEDICAL HISTORY: 1. Alcohol abuse. 2. Alcohol withdrawal seizures. 3. Hypertension. 4. Acid reflux. 5. Alcoholic hepatitis. PAST SURGICAL HISTORY: 1. Tonsillectomy. 2. Appendectomy. 3. Hernia repair. 4. Left knee surgery. FAMILY HISTORY: His father from a heart attack. ALLERGIES: No known drug allergies. MEDICATIONS: - amlodipine 5 mg by mouth daily - Ativan as needed - omeprazole 20 mg by mouth daily - rifaximine 550 mg twice a day But not sure if he is taking is medication or now. SOCIAL HISTORY: He has remote tobacco use. Quit many years ago. Continues heavy alcohol abuse. Occasionally smokes marijuana but no heavy drug abuse and he lives by himself. He is a F[employer]. PHYSICAL EXAMINATION: VITAL SIGNS: Temperature 98.2, heart rate is 104, respiratory rate 16, blood pressure 180/90 and oxygen saturation 98% on room air. GENERAL: He is awake, alert, oriented times three. He is not in acute distress. HEENT: Atraumatic. Pupils equal, round, and reactive to light. No jaundice. Ocular muscles intact and ears, nose and throat normal. Mouth mucosa a little bit dry. NECK: No jugular venous distention (JVD). No bruits. LUNGS: Clear. No wheezing, no crackles. HEART: S1 and S2, regular but mild tachycardia. No murmur. ABDOMEN: Soft, bowel sounds positive, nontender. EXTREMITIES: No edema in the bilateral lower extremities. SKIN: No rash. PSYCHOLOGICAL: No acute psychosis. NEUROLOGIC: Nonfocal. DIAGNOSTIC LABORATORY STUDIES: CBC and differential, WBC 5.3, hemoglobin and hematocrit 14/41, platelets 141, sodium 141, potassium 3.9, chloride 102, bicarb 29, BUN 5, creatinine 0.8, glucose 104. Liver function tests showed a normal bilirubin, increase in AST at 254, ALT 198. IMPRESSION: 1. Alcohol abuse and withdrawal. 2. Hypertension. 3. History of acid reflux. 4. Alcoholic hepatitis. 5. History of alcoholic seizures. PLAN: Patient will be admitted for observation. Even with multiple benzos in the ER, he still has mild withdrawal symptoms. Will continue IV fluids and benzos as needed. Will get social work consult regarding alcohol abuse and will get a physical therapy evaluation to assess his safety for discharging home. Will put him on seizure precautions.
[2017-07-30] MEDS: OXAZEPAM 15 MG CAP PO SCH ×3 (08:15→20:45)
[2017-07-30] MEDS: PANTOPRAZOLE 40MG TAB (PROTONIX) PO SCH (08:20)
[2017-07-30] MEDS: THIAMINE 100 MG TAB PO SCH (08:21)
--- NOTE | 2017-07-30 09:28 | REP ---
Portable chest, 09:00 a.m., single frontal view, the patient upright: Comparison is 04/21/2017. The lung diego are clear. The cardiac size is normal. The danilo, mediastinum, and bony thorax are unremarkable. Impression: Negative portable chest. There is no interval change. Signed by Tavon Machuca MD 07/30/2017 09:19 A
[2017-07-30 10:24] LABS: MAGNESIUM LEVEL 1.3 MG/DL (1.8-2.4)
[2017-07-30] MEDS ORDERED: MULTIVITAMIN -ADULT INJECTION 10 ML, THIAMINE INJection 100 MG, FOLIC ACID 1 MG in NS 1... IV ONE (12:00)
[2017-07-30] MEDS ORDERED: MAGNESIUM SULFATE 1 GM/100 ML D5W BAG (10MG/ML) (J3475) As Ordered ONE (12:13)
[2017-07-30] MEDS: MAG SULF 1GM/100ML (MAG RUN) 1 GM in APPROPRIATE DILUENT 1 EA IV SCH ×2 (12:20→13:45)
[2017-07-30 13:00] VITALS: BP 149/93
[2017-07-30] MEDS: ONDANSETRON 4MG/2ML VIAL (J2405) IV PRN (15:31)
[2017-07-30 16:20] VITALS: BP 159/95
[2017-07-30 20:00] VITALS: BP 152/82
[2017-07-30 23:59] VITALS: BP 156/84
[2017-07-31] VITALS (7 sets, daily range): BP systolic 138–180; BP diastolic 68–113
[2017-07-31] MEDS: LORazepam 2 MG/ML VIAL (J2060) IV PRN ×6 (00:57→22:33)
[2017-07-31] MEDS ORDERED: IBUPROFEN 400 MG TAB PO ONE (03:15)
[2017-07-31] MEDS: NS 1,000 ML IV SCH ×2 (05:10→12:19)
[2017-07-31] MEDS: THIAMINE 100 MG TAB PO SCH (09:27)
[2017-07-31] MEDS: MULTIVITAMINS/MINERALS THERAP 1 TAB PO SCH (09:27)
[2017-07-31] MEDS: PANTOPRAZOLE 40MG TAB (PROTONIX) PO SCH (09:27)
[2017-07-31] MEDS: FOLIC ACID 1 MG TAB PO SCH (09:27)
[2017-07-31] MEDS: OXAZEPAM 15 MG CAP PO SCH ×3 (09:28→20:31)
[2017-07-31 10:43] LABS: MEAN CORPUSCULAR HEMOGLOBIN 30.6 pg (27.0-33.0); MEAN CORPUSCULAR HGB CONC 33.3 g/dl (32.0-36.5); MEAN CORPUSCULAR VOLUME 91.7 fl (80.0-96.0); RED CELL DISTRIBUTION WIDTH 15.5 % (11.5-14.5); WHITE BLOOD COUNT 3.2 10^3/uL (4.0-10.0)
[2017-07-31 10:45] LABS: PLATELET COUNT, AUTOMATED 98 10^3/uL (150-450)
[2017-07-31 10:47] LABS: PLATELET F 7.8
[2017-07-31 11:04] LABS: ALBUMIN 3.6 GM/DL (3.2-5.2); ALKALINE PHOSPHATASE 167 U/L (45-117); ALT/SGPT 177 U/L (12-78); ANION GAP 7 MEQ/L (8-16); AST/SGOT 229 U/L (7-37); BILIRUBIN,TOTAL 1.1 MG/DL (0.2-1.0); BLOOD UREA NITROGEN 3 MG/DL (7-18); CALCIUM LEVEL 8.8 MG/DL (8.5-10.1); CARBON DIOXIDE LEVEL 27 MEQ/L (21-32); CHLORIDE LEVEL 105 MEQ/L (98-107); CREATININE FOR GFR 0.75 MG/DL (0.70-1.30); GLOMERULAR FILTRATION RATE > 60.0 (>60); GLUCOSE, FASTING 108 MG/DL (70-105); POTASSIUM SERUM 3.9 MEQ/L (3.5-5.1); SODIUM LEVEL 139 MEQ/L (136-145); TOTAL PROTEIN 6.6 GM/DL (6.4-8.2)
--- NOTE | 2017-07-31 14:45 | IPNPDOC ---
Text Note Date of Service The patient was seen on 07/31/17. NOTE Subjective: Patient states he feels much improved since history. No chest pain, shortness of breath or palpitations. Objective: Vitals: (see below) General: No acute distress, laying comfortably in bed. HEENT: Moist mucous membranes. Neck: No JVD or lymphadenopathy Cardiac: RRR, No murmurs Pulm: Clear to auscultation b/l. No wheezing, rhonchi Abd: NT/ND + BS Ext: No edema or cyanosis. Alert and oriented 3. Tremulous. Labs (see below) Images: Assessment/Plan 1. Alcohol withdrawal- patient was initially tachycardic and tremulous. Currently feels much improved. We'll start tapering down benzodiazepines. His Ativan when necessary was discontinued as he was bradycardic after receiving that. His bradycardia is much improved. He was started on a banana bag as well. Now on multivitamin, folate, thiamine. Patient is scheduled to go to a rehabilitation center tomorrow. History of alcohol withdrawal seizures/DTs. 2. History of hypertension- controlled continue home meds. 3. History of GERD continue PPI 4. History of alcoholic hepatitis, Maddrey's discriminant factor 5.7 5. Elevated transaminitis likely secondary to alcohol intoxication DVT prophy: Enoxaparin Dispo: Plan to discharge in the next 24 hours to the rehabilitation facility for alcohol detox VS,Harriet, I+O VS, Harriet, I+O Laboratory Tests 07/31/17 10:15 Red Blood Count 3.86 L, Mean Corpuscular Volume 91.7, Mean Corpuscular Hemoglobin 30.6, Mean Corpuscular Hemoglobin Concent 33.3, Red Cell Distribution Width 15.5 H, Calcium Level 8.8, Aspartate Amino Transf (AST/SGOT) 229 H, Alanine Aminotransferase (ALT/SGPT) 177 H, Alkaline Phosphatase 167 H, Total Bilirubin 1.1 H, Total Protein 6.6, Albumin 3.6 Vital Signs Date Time Temp Pulse Resp B/P (MAP) Pulse Ox O2 Delivery O2 Flow Rate FiO2 07/31/17 12:00 98.6 88 20 165/113 (130) 96 Room Air I&O- Last 24 Hours up to 6 AM 08/01/17 06:00 Intake Total 840 ml Output Total 1600 ml Balance -760 ml PINKY DUNN MD Jul 31, 2017 14:45
[2017-07-31] MEDS ORDERED: SLF 3 ML SYR IV PRN (15:15)
[2017-07-31] MEDS ORDERED: TUBERCULIN PPD 5 UNITS/0.1 ML ID ONE (20:00)
[2017-07-31] MEDS: SLF 3 ML SYR IV SCH (20:32)
[2017-07-31] MEDS: amLODIPine 5 MG TAB PO SCH (22:32)
[2017-08-01 04:00] VITALS: BP 156/110
[2017-08-01 04:08] LABS: MEAN CORPUSCULAR HEMOGLOBIN 30.8 pg (27.0-33.0); MEAN CORPUSCULAR HGB CONC 33.6 g/dl (32.0-36.5); MEAN CORPUSCULAR VOLUME 91.7 fl (80.0-96.0); PLATELET COUNT, AUTOMATED 113 10^3/uL (150-450); RED CELL DISTRIBUTION WIDTH 15.6 % (11.5-14.5); WHITE BLOOD COUNT 5.7 10^3/uL (4.0-10.0)
[2017-08-01 04:28] LABS: ALBUMIN 3.8 GM/DL (3.2-5.2); ALBUMIN/GLOBULIN RATIO 0.88 (1.00-1.93); ALKALINE PHOSPHATASE 197 U/L (45-117); ALT/SGPT 207 U/L (12-78); ANION GAP 8 MEQ/L (8-16); AST/SGOT 210 U/L (7-37); BLOOD UREA NITROGEN 9 MG/DL (7-18); CARBON DIOXIDE LEVEL 27 MEQ/L (21-32); CHLORIDE LEVEL 102 MEQ/L (98-107); CREATININE FOR GFR 0.79 MG/DL (0.70-1.30); GLOMERULAR FILTRATION RATE > 60.0 (>60); GLUCOSE, FASTING 121 MG/DL (70-105); POTASSIUM SERUM 4.2 MEQ/L (3.5-5.1); SODIUM LEVEL 137 MEQ/L (136-145); TOTAL PROTEIN 8.1 GM/DL (6.4-8.2)
[2017-08-01] MEDS: LORazepam 2 MG/ML VIAL (J2060) IV PRN ×7 (05:46→22:57)
[2017-08-01] MEDS: SLF 3 ML SYR IV SCH ×3 (05:47→21:04)
[2017-08-01] MEDS: THIAMINE 100 MG TAB PO SCH (08:08)
[2017-08-01] MEDS: PANTOPRAZOLE 40MG TAB (PROTONIX) PO SCH (08:09)
[2017-08-01] MEDS: MULTIVITAMINS/MINERALS THERAP 1 TAB PO SCH (08:09)
[2017-08-01] MEDS: amLODIPine 5 MG TAB PO SCH ×2 (08:09→21:04)
[2017-08-01] MEDS: OXAZEPAM 15 MG CAP PO SCH ×3 (08:09→21:00)
[2017-08-01] MEDS: FOLIC ACID 1 MG TAB PO SCH (08:09)
[2017-08-01 08:29] VITALS: BP 150/106
[2017-08-01] MEDS ORDERED: amLODIPine 5 MG TAB PO SCH (09:00)
[2017-08-01] MEDS: ACETAMINOPHEN TAB 650MG DOSE (2X325MG) PO PRN (10:42)
--- NOTE | 2017-08-01 11:11 | IPNPDOC ---
Text Note Date of Service The patient was seen on 08/01/17. NOTE Subjective: Patient states he feels well. No chest pain,shortness of breath or palpitations. Objective: Vitals: (see below) General: No acute distress, laying comfortably in bed. HEENT: Moist mucous membranes. Neck: No JVD or lymphadenopathy Cardiac: RRR, No murmurs Pulm: Clear to auscultation b/l. No wheezing, rhonchi Abd: NT/ND + BS Ext: No edema or cyanosis. Alert and oriented 3. Labs (see below) Images: Assessment/Plan 1. Alcohol withdrawal- patient was initially tachycardic and tremulous. Currently feels much improved. We'll start tapering down benzodiazepines. His Ativan when necessary was discontinued as he was bradycardic after receiving that. His bradycardia is much improved. He was started on a banana bag as well. Now on multivitamin, folate, thiamine. History of alcohol withdrawal seizures/ DTs. Rehab facility requesting PPD/Psych consult. Spoke with Dr. Gannon yesterday , and will arrange for consultation. 2. History of hypertension- uncontrolled. on amlodipine. Lisinopril added 3. History of GERD continue PPI 4. History of alcoholic hepatitis, Maddrey's discriminant factor 5.7 5. Elevated transaminitis likely secondary to alcohol intoxication DVT prophy: Enoxaparin Dispo: Plan to discharge to the rehabilitation facility for alcohol detox when bed available. VS,Fishbone, I+O VS, Fishbone, I+O Laboratory Tests 08/01/17 03:55 Red Blood Count 4.22 L, Mean Corpuscular Volume 91.7, Mean Corpuscular Hemoglobin 30.8, Mean Corpuscular Hemoglobin Concent 33.6, Red Cell Distribution Width 15.6 H, Calcium Level 10.0, Aspartate Amino Transf (AST/SGOT ) 210 H, Alanine Aminotransferase (ALT/SGPT) 207 H, Alkaline Phosphatase 197 H, Total Bilirubin 1.0, Total Protein 8.1 #, Albumin 3.8 Vital Signs Date Time Temp Pulse Resp B/P (MAP) Pulse Ox O2 Delivery O2 Flow Rate FiO2 08/01/17 08:29 98.3 112 19 150/106 (121) 98 Room Air I&O- Last 24 Hours up to 6 AM 08/02/17 06:00 Intake Total 480 ml Output Total 0 ml Balance 480 ml PINKY DUNN MD Aug 01, 2017 11:11
[2017-08-01] MEDS ORDERED: LISINOPRIL 10 MG TAB PO ONE (11:15)
--- NOTE | 2017-08-01 11:34 | MHCRPDOC ---
[facility] Consultation Consultation DATE OF CONSULTATION: 08/01/17 CONSULTATION REQUESTED BY: Primary team REASON FOR CONSULTATION: depression RELEVANT HISTORY: 46 yo CM, PMH of HTN, alcoholic hepatitis, reflux, PPH of ETOH use disorder, several prior hospitalizations for ETOH detox and withdrawal , no prior SA, presented for ETOH withdrawal. Treated in PCU, psych was consulted to evaluate patient's mood in light of him being discharged to rehab. The patient endorses anxiety and poor sleep, 5 hours per night. States that he is only a little depressed. Denies SI intent and plan, hopelessness, did not endorse other specific depressive symptoms, denies AVH and manic symptoms. Describes how he has been abusing ETOH which gets him into the hospital. States that he will be discharged to a place that is farther than what he is used to, but he is OK with that. Patient looking forward to discharge. Patient has seen psychiatrists off and on in the past. Has taken xanax, ativan, trazodone (made him nauseas), and other psychiatric medications in the past that he forgot. PAST MEDICAL HISTORY: HTN, reflux, alcoholic hepatitis PAST SURGICAL HISTORY: Tonsillectomy, Appendectomy, Hernia repair, Left knee surgery. FAMILY HISTORY: did not assess PERSONAL AND SOCIAL HISTORY: The patient was born and raised in [place], single, SUBSTANCE ABUSE HISTORY: Heavy ETOH use, occasional MJ, denies other drugs MENTAL STATUS EXAMINATION: +mild tremor bilateral UE, sitting on bed Behavior: cooperative, related Speech: normal RRVT Thought processes including: mostly linear but at times tangential and circumstantial Thought content: appropriate to conversation Judgment: fair Insight: fair Mood: anxious Affect: anxious, reactive DIAGNOSIS: 1. ETOH use disorder 2. unspecified mood disorder Assessment: Patient treated for ETOH withdrawal. He is not significantly depressed to the point of needing acute intervention. Mostly can focus on alleviating anxiety and improving sleep. Patient is safe for discharge to rehab. PLAN: 1. ETOH withdrawal protocol (Ativan PRN) as per primary team. 2. Primary team can consider begining gabapentin 300 mg BID to help with anxiety and sleep (order not placed, just a suggestion). Can raise to 300 mg qam / 600 mg qhs tomorrow or at later date if patient tolerates well, at the discretion of the primary team. 3. Recommend for SSRI to be started outpatient, as effects take 4 weeks to manifest 4. Patient is safe from psych standpoint for discharge to rehab Feel free to call Psych if any further questions Vital Signs Vital Signs Date Time Temp Pulse Resp B/P (MAP) Pulse Ox O2 Delivery O2 Flow Rate FiO2 08/01/17 08:29 98.3 112 19 150/106 (121) 98 Room Air Laboratory Data 24H Labs Laboratory Tests 2 08/01/17 03:55: Nucleated Red Blood Cells % (auto) 0.0, Anion Gap 8, Glomerular Filtration Rate > 60.0, Blood Urea Nitrogen 9#, Creatinine 0.79, Sodium Level 137, Potassium Level 4.2, Chloride Level 102, Carbon Dioxide Level 27, Calcium Level 10.0, Aspartate Amino Transf (AST/SGOT) 210H, Alanine Aminotransferase (ALT/SGPT) 207H , Alkaline Phosphatase 197H, Total Bilirubin 1.0, Total Protein 8.1#, Albumin 3.8, Magnesium Level 2.0, Albumin/Globulin Ratio 0.88L Home Medications Current Medications Current Medications Acetaminophen (Tylenol Tab) 650 mg Q6HP PRN PO HEADACHE Last administered on 10:42; Start 08/01/17 at 10:00; Stop 08/31/17 at 09:59 Amlodipine Besylate (Norvasc) 5 mg BID PO Last administered on 08/01/17 08:09 ; Start 07/31/17 at 21:00; Stop 08/30/17 at 20:59 Amlodipine Besylate (Norvasc) 5 mg DAILY PO ; Start 08/01/17 at 09:00; Stop at 09:00; Status DC Folic Acid (Folic Acid) 1 mg DAILY PO Last administered on 08/01/17 08:09; Start 07/31/17 at 09:00; Stop 08/30/17 at 08:59 Home Med (Med Rec Complete!) ASDIRECTED XX ; Start 07/30/17 at 06:30; Stop at 06:32; Status DC Lorazepam (Ativan) 2 mg Q2H PRN IV AGITATION Last administered on 08/01/17 10 :43; Start 07/30/17 at 06:30; Stop 08/06/17 at 06:29 Lorazepam (Ativan) 2 mg STAT STAT IM ; Start 07/30/17 at 04:32; Stop at 04:49; Status DC Lorazepam (Ativan) 2 mg STAT STAT IV Last administered on 07/30/17 04:45; Start 07/30/17 at 04:45; Stop 07/30/17 at 04:47; Status DC Lorazepam (Ativan) 2 mg STAT STAT IV Last administered on 07/30/17 05:06; Start 07/30/17 at 05:06; Stop 07/30/17 at 05:07; Status DC Lorazepam (Ativan) 2 mg STAT STAT IV Last administered on 07/30/17 09:00; Start 07/30/17 at 08:58; Stop 07/30/17 at 08:59; Status DC Lorazepam (Ativan) 2 mg STAT STAT IV Last administered on 07/30/17 09:28; Start 07/30/17 at 09:19; Stop 07/30/17 at 09:22; Status DC Magnesium Sulfate/ Dextrose 1 gm/IV Miscellaneous Supplies 100 ml @ 100 mls/hr Q1H IV Last administered on 07/30/17 13:45; Start 07/30/17 at 13:00; Stop 07/30/17 at 14:59; Status DC Multivitamins (Theragram-M) 1 tab DAILY PO Last administered on 08/01/17 08: 09; Start 07/31/17 at 09:00; Stop 08/30/17 at 08:59 Non-Formulary Medication ( See Comment Field Below ) SEE COMMENTS SECTION ONCE XX ; Start 08/02/17 at 20:00; Stop 08/03/17 at 19:59 Ondansetron HCl (ZOFRAN INJection) 4 mg Q6HP PRN IV NAUSEA OR VOMITING Last administered on 07/30/17 15:31; Start 07/30/17 at 06:30; Stop 08/29/17 at 06: 29 Oxazepam (Serax) 30 mg TID PO Last administered on 08/01/17 08:09; Start at 09:00; Stop 08/06/17 at 08:59 Pantoprazole Sodium (Protonix) 40 mg DAILY PO Last administered on 08/01/17 08:09; Start 07/30/17 at 09:00; Stop 08/29/17 at 08:59 Sodium Chloride 1,000 ml @ 100 mls/hr Q10H IV Last administered on 07/31/17 05:10; Start 07/30/17 at 06:19; Stop 07/31/17 at 14:42; Status DC Sodium Chloride (Saline Lock Flush) 2 ml ASDIRECTED PRN IV SEE LABEL COMMENTS Last administered on 08/01/17 07:46; Start 07/31/17 at 15:15; Stop 08/30/17 at 15:14 Sodium Chloride (Saline Lock Flush) 2 ml SLF IV Last administered on 10:43; Start 07/31/17 at 22:00; Stop 08/30/17 at 21:59 Thiamine HCl (Thiamine HCl) 100 mg DAILY PO Last administered on 08/01/17 08: 08; Start 07/30/17 at 09:00; Stop 08/29/17 at 08:59 Scheduled Amlodipine Besylate (Amlodipine Besylate) 5 Mg Tab, 5 MG PO BID, (Reported) Fluoxetine Hcl (Fluoxetine) 20 Mg Cap, 20 MG PO DAILY, (Reported) Naltrexone (Vivitrol) 380 Mg Inj, 380 MG IM ASDIRECTED, (Reported) SUPPOSED TO USE IT EVERY MONTH, GOT INJECTION IN JUNE SOMETIME AFTER THE Omeprazole (Omeprazole) 20 Mg Cap, 20 MG PO BID, (Reported) Risperidone (Risperdal) 2 Mg Tab, 2 MG PO DAILY, (Reported) Scheduled PRN Albuterol Sulfate (Ventolin Hfa) 200 Puff/8 Gm Aers, 2 PUFF INH QID PRN for SHORTNESS OF BREATH, (Reported) Lorazepam (Lorazepam) 1 Mg Tab, 1 MG PO TID PRN for ANXIETY, (Reported) Mirtazapine (Mirtazapine) 15 Mg Tab, 15 MG PO QHS PRN for SLEEP, (Reported) Salmeterol/Fluticasone (Advair Diskus 250-50 Mcg/Dose) 14 Puff/Inhaler Aerp, 1 PUFF INH BID PRN for SHORTNESS OF BREATH, (Reported) Miscellaneous Medications [Patient Comment] , (Reported) PATIENT IS NOT COMPLIANT WITH MEDICATION. VERIFIED WITH [facility] ALREADY. Allergies Coded Allergies: Apple (Unverified Allergy, Severe, anaphylaxis (green apple), 07/30/17) Kiwi (Unverified Allergy, Severe, anaphylaxis, 07/30/17) No Known Drug Allergy (Verified Allergy, Unknown, 04/21/17) DINA PEÑA MD Aug 01, 2017 11:33
[2017-08-01 14:15] VITALS: BP 142/104
--- NOTE | 2017-08-01 20:53 | ECGEPIP ---
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 Electronically Signed On 08-01-2017 20:53:20 EST by Lester Callahan
--- NOTE | 2017-08-01 21:02 | ECGEPIP ---
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 Decreased heart rate compared with 07/30/2017. Electronically Signed On 08-01-2017 21:02:01 EST by Lester Callahan
[2017-08-01 22:00] VITALS: BP 137/84
[2017-08-02] MEDS: LORazepam 2 MG/ML VIAL (J2060) IV PRN ×8 (01:47→22:01)
[2017-08-02] MEDS: SLF 3 ML SYR IV SCH ×3 (05:21→20:54)
[2017-08-02 06:00] VITALS: BP 134/88
[2017-08-02 06:13] LABS: MEAN CORPUSCULAR HGB CONC 32.8 g/dl (32.0-36.5); MEAN CORPUSCULAR VOLUME 94.7 fl (80.0-96.0); PLATELET COUNT, AUTOMATED 170 10^3/uL (150-450); RED CELL DISTRIBUTION WIDTH 16.1 % (11.5-14.5); WHITE BLOOD COUNT 8.6 10^3/uL (4.0-10.0)
[2017-08-02 06:36] LABS: ALBUMIN 4.1 GM/DL (3.2-5.2); ALBUMIN/GLOBULIN RATIO 0.91 (1.00-1.93); ALKALINE PHOSPHATASE 181 U/L (45-117); ALT/SGPT 223 U/L (12-78); ANION GAP 8 MEQ/L (8-16); AST/SGOT 183 U/L (7-37); BILIRUBIN,TOTAL 1.1 MG/DL (0.2-1.0); BLOOD UREA NITROGEN 9 MG/DL (7-18); CALCIUM LEVEL 9.6 MG/DL (8.5-10.1); CARBON DIOXIDE LEVEL 29 MEQ/L (21-32); CHLORIDE LEVEL 101 MEQ/L (98-107); CREATININE FOR GFR 0.93 MG/DL (0.70-1.30); GLOMERULAR FILTRATION RATE > 60.0 (>60); GLUCOSE, FASTING 97 MG/DL (70-105); POTASSIUM SERUM 3.9 MEQ/L (3.5-5.1); SODIUM LEVEL 138 MEQ/L (136-145); TOTAL PROTEIN 8.6 GM/DL (6.4-8.2)
[2017-08-02] MEDS: amLODIPine 5 MG TAB PO SCH ×2 (08:10→20:54)
[2017-08-02] MEDS: MULTIVITAMINS/MINERALS THERAP 1 TAB PO SCH (08:10)
[2017-08-02] MEDS: OXAZEPAM 15 MG CAP PO SCH ×3 (08:10→20:54)
[2017-08-02] MEDS: PANTOPRAZOLE 40MG TAB (PROTONIX) PO SCH (08:11)
[2017-08-02] MEDS: FOLIC ACID 1 MG TAB PO SCH (08:11)
[2017-08-02] MEDS: LISINOPRIL 10 MG TAB PO SCH (08:11)
[2017-08-02] MEDS: THIAMINE 100 MG TAB PO SCH (08:11)
--- NOTE | 2017-08-02 11:38 | IPNPDOC ---
Text Note Date of Service The patient was seen on 08/02/17. NOTE Subjective: Patient states he feels well. No acute changes overnight. Less tremulous Objective: Vitals: (see below) General: No acute distress, laying comfortably in bed. HEENT: Moist mucous membranes. Neck: No JVD or lymphadenopathy Cardiac: RRR, No murmurs Pulm: Clear to auscultation b/l. No wheezing, rhonchi Abd: NT/ND + BS Ext: No edema or cyanosis. Alert and oriented 3. Labs (see below) Images: Assessment/Plan 1. Alcohol withdrawal- patient was initially tachycardic and tremulous. Currently feels much improved. We'll start tapering down benzodiazepines. His Ativan when necessary was discontinued as he was bradycardic after receiving that. His bradycardia is much improved. He was started on a banana bag as well. Now on multivitamin, folate, thiamine. History of alcohol withdrawal seizures/ DTs. Rehab facility requesting PPD/Psych consult. Eval by psych. 2. History of hypertension- uncontrolled. on amlodipine. Lisinopril added 3. History of GERD continue PPI 4. History of alcoholic hepatitis, Maddrey's discriminant factor 5.7 5. Elevated transaminitis likely secondary to alcohol intoxication DVT prophy: Enoxaparin Dispo: Plan to discharge to the rehabilitation facility for alcohol detox when bed available. VS,Fishbone, I+O VS, Fishbone, I+O Laboratory Tests 08/02/17 05:47 Red Blood Count 4.51, Mean Corpuscular Volume 94.7, Mean Corpuscular Hemoglobin 31.0, Mean Corpuscular Hemoglobin Concent 32.8, Red Cell Distribution Width 16.1 H, Calcium Level 9.6, Aspartate Amino Transf (AST/SGOT) 183 H, Alanine Aminotransferase (ALT/SGPT) 223 H, Alkaline Phosphatase 181 H, Total Bilirubin 1.1 H, Total Protein 8.6 H, Albumin 4.1 Vital Signs Date Time Temp Pulse Resp B/P (MAP) Pulse Ox O2 Delivery O2 Flow Rate FiO2 08/02/17 08:11 156/90 08/02/17 08:10 103 08/02/17 06:00 98.4 18 99 Room Air I&O- Last 24 Hours up to 6 AM 08/03/17 06:00 Intake Total 540 ml Output Total 675 ml Balance -135 ml PINKY DUNN MD Aug 02, 2017 11:38
[2017-08-02 14:00] VITALS: BP 124/80
[2017-08-02] MEDS: ACETAMINOPHEN TAB 650MG DOSE (2X325MG) PO PRN (15:15)
[2017-08-02] MEDS: ONDANSETRON 4MG/2ML VIAL (J2405) IV PRN (19:52)
[2017-08-02 20:00] VITALS: BP 135/88
[2017-08-02] MEDS ORDERED: PPD DOCUMENTATION ENTRY MISC XX SCH (20:00)
[2017-08-02 22:00] VITALS: BP 135/88
[2017-08-03] VITALS (7 sets, daily range): BP systolic 123–136; BP diastolic 76–89
[2017-08-03] MEDS: LORazepam 2 MG/ML VIAL (J2060) IV PRN ×8 (00:42→22:36)
[2017-08-03] MEDS: ONDANSETRON 4MG/2ML VIAL (J2405) IV PRN (02:51)
[2017-08-03] MEDS: SLF 3 ML SYR IV SCH ×3 (05:30→20:28)
[2017-08-03 05:54] LABS: MEAN CORPUSCULAR HEMOGLOBIN 31.3 pg (27.0-33.0); MEAN CORPUSCULAR HGB CONC 32.8 g/dl (32.0-36.5); MEAN CORPUSCULAR VOLUME 95.3 fl (80.0-96.0); PLATELET COUNT, AUTOMATED 159 10^3/uL (150-450); RED CELL DISTRIBUTION WIDTH 16.2 % (11.5-14.5); WHITE BLOOD COUNT 5.9 10^3/uL (4.0-10.0)
[2017-08-03 06:12] LABS: ALBUMIN 3.5 GM/DL (3.2-5.2); ALBUMIN/GLOBULIN RATIO 0.85 (1.00-1.93); ALKALINE PHOSPHATASE 157 U/L (45-117); ALT/SGPT 192 U/L (12-78); ANION GAP 10 MEQ/L (8-16); AST/SGOT 143 U/L (7-37); BILIRUBIN,TOTAL 0.7 MG/DL (0.2-1.0); BLOOD UREA NITROGEN 10 MG/DL (7-18); CALCIUM LEVEL 8.9 MG/DL (8.5-10.1); CARBON DIOXIDE LEVEL 24 MEQ/L (21-32); CHLORIDE LEVEL 104 MEQ/L (98-107); CREATININE FOR GFR 0.91 MG/DL (0.70-1.30); GLOMERULAR FILTRATION RATE > 60.0 (>60); GLUCOSE, FASTING 116 MG/DL (70-105); MAGNESIUM LEVEL 2.1 MG/DL (1.8-2.4); POTASSIUM SERUM 4.2 MEQ/L (3.5-5.1); SODIUM LEVEL 138 MEQ/L (136-145); TOTAL PROTEIN 7.6 GM/DL (6.4-8.2)
[2017-08-03] MEDS: FOLIC ACID 1 MG TAB PO SCH (09:00)
[2017-08-03] MEDS: THIAMINE 100 MG TAB PO SCH (09:00)
[2017-08-03] MEDS: amLODIPine 5 MG TAB PO SCH ×2 (09:00→20:28)
[2017-08-03] MEDS: MULTIVITAMINS/MINERALS THERAP 1 TAB PO SCH (09:01)
[2017-08-03] MEDS: PANTOPRAZOLE 40MG TAB (PROTONIX) PO SCH (09:01)
[2017-08-03] MEDS: LISINOPRIL 10 MG TAB PO SCH (09:01)
[2017-08-03] MEDS: OXAZEPAM 15 MG CAP PO SCH ×3 (09:01→20:25)
--- NOTE | 2017-08-03 14:01 | IPNPDOC ---
Text Note Date of Service The patient was seen on 08/03/17. NOTE Subjective:Pt feels tremulous and anxious. No acute changes overnight. Objective: Vitals: (see below) General: No acute distress, laying comfortably in bed. HEENT: Moist mucous membranes. Neck: No JVD or lymphadenopathy Cardiac: RRR, No murmurs Pulm: Clear to auscultation b/l. No wheezing, rhonchi Abd: NT/ND + BS Ext: No edema or cyanosis. Alert and oriented 3. Labs (see below) Images: Assessment/Plan 1. Alcohol withdrawal- patient was initially tachycardic and tremulous, improved , however still persistent. Cont Serax. His Ativan when necessary was discontinued as he was bradycardic after receiving that. His bradycardia is much improved. He was started on a banana bag as well. Now on multivitamin, folate, thiamine. History of alcohol withdrawal seizures/DTs. Rehab facility requesting PPD/Psych consult. Eval by psych completed. 2. History of hypertension- uncontrolled. on amlodipine. Lisinopril added 3. History of GERD continue PPI 4. History of alcoholic hepatitis, Maddrey's discriminant factor 5.7 5. Elevated transaminitis likely secondary to alcohol intoxication DVT prophy: Enoxaparin Dispo: Plan to discharge to the rehabilitation facility for alcohol detox when bed available. VS,Fishbone, I+O VS, Fishbone, I+O Laboratory Tests 08/03/17 05:25 Red Blood Count 4.06 L, Mean Corpuscular Volume 95.3, Mean Corpuscular Hemoglobin 31.3, Mean Corpuscular Hemoglobin Concent 32.8, Red Cell Distribution Width 16.2 H, Calcium Level 8.9, Aspartate Amino Transf (AST/SGOT) 143 H, Alanine Aminotransferase (ALT/SGPT) 192 H, Alkaline Phosphatase 157 H, Total Bilirubin 0.7, Total Protein 7.6, Albumin 3.5 Vital Signs Date Time Temp Pulse Resp B/P (MAP) Pulse Ox O2 Delivery O2 Flow Rate FiO2 08/03/17 09:01 123/80 08/03/17 09:00 108 08/03/17 06:00 97.5 17 100 Room Air PINKY DUNN MD Aug 03, 2017 14:01
[2017-08-04] VITALS (7 sets, daily range): BP systolic 112–153; BP diastolic 76–98
[2017-08-04] MEDS: LORazepam 2 MG/ML VIAL (J2060) IV PRN ×5 (00:36→22:17)
[2017-08-04] MEDS: SLF 3 ML SYR IV SCH ×3 (06:00→22:18)
[2017-08-04 06:44] LABS: MEAN CORPUSCULAR HEMOGLOBIN 31.1 pg (27.0-33.0); MEAN CORPUSCULAR HGB CONC 32.5 g/dl (32.0-36.5); MEAN CORPUSCULAR VOLUME 95.8 fl (80.0-96.0); PLATELET COUNT, AUTOMATED 189 10^3/uL (150-450); RED CELL DISTRIBUTION WIDTH 16.2 % (11.5-14.5); WHITE BLOOD COUNT 6.2 10^3/uL (4.0-10.0)
[2017-08-04 06:57] LABS: ALBUMIN 3.6 GM/DL (3.2-5.2); ALKALINE PHOSPHATASE 170 U/L (45-117); ALT/SGPT 193 U/L (12-78); ANION GAP 7 MEQ/L (8-16); AST/SGOT 129 U/L (7-37); BILIRUBIN,TOTAL 0.7 MG/DL (0.2-1.0); BLOOD UREA NITROGEN 10 MG/DL (7-18); CALCIUM LEVEL 9.2 MG/DL (8.5-10.1); CARBON DIOXIDE LEVEL 27 MEQ/L (21-32); CHLORIDE LEVEL 106 MEQ/L (98-107); CREATININE FOR GFR 0.85 MG/DL (0.70-1.30); GLOMERULAR FILTRATION RATE > 60.0 (>60); GLUCOSE, FASTING 99 MG/DL (70-105); MAGNESIUM LEVEL 2.1 MG/DL (1.8-2.4); POTASSIUM SERUM 4.2 MEQ/L (3.5-5.1); SODIUM LEVEL 140 MEQ/L (136-145); TOTAL PROTEIN 7.2 GM/DL (6.4-8.2)
[2017-08-04] MEDS: LISINOPRIL 10 MG TAB PO SCH (09:13)
[2017-08-04] MEDS: OXAZEPAM 15 MG CAP PO SCH ×3 (09:13→21:37)
[2017-08-04] MEDS: MULTIVITAMINS/MINERALS THERAP 1 TAB PO SCH (09:14)
[2017-08-04] MEDS: FOLIC ACID 1 MG TAB PO SCH (09:14)
[2017-08-04] MEDS: THIAMINE 100 MG TAB PO SCH (09:14)
[2017-08-04] MEDS: amLODIPine 5 MG TAB PO SCH ×2 (09:14→21:36)
[2017-08-04] MEDS: PANTOPRAZOLE 40MG TAB (PROTONIX) PO SCH (09:14)
[2017-08-04] MEDS ORDERED: OXAZEPAM 15 MG CAP PO SCH (13:00)
--- NOTE | 2017-08-04 14:52 | IPNPDOC ---
Text Note Date of Service The patient was seen on 08/04/17. NOTE Subjective: Patient is a 46 year old male with a PMHx of HTN, Alcohol Abuse, Hx of Withdrawal seizures, Alcoholic hepatitis and GERD who presented to the ER with withdrawal symptoms. He has had several admissions for alcohol withdrawal. He was admitted under hospitalist service for alcohol withdrawal. Patient was seen and examined at the bedside. He reports that he still feels anxious. He denies nausea, vomiting or abdominal pain. Objective: Vitals (See below) General: Lying in bed, no acute distress, comfortable, AAOx3 HEENT: NC, AT CVS: Tachycardic, Regular, +S1S2 Lungs: Fair air entry b/l, -w/r/r Abdomen: Soft, ND, NT Extremities: - Edema, - Calf tenderness Assessment and plan: Alcohol withdrawal - Presented to ER with symptoms of withdrawal - Physical with tachycardia; - Currently on Serax 30 TID - Will switch to Librium protocol; will reduced frequency of Ativan - Planning for placement at rehab center when medically cleared - Psychiatry consulted; appreciate their input Alcohol abuse - c/w Thiamine, Folate and Multivitamin HTN - BP better controlled - c/w Amlodipine and Lisinopril Elevated AST / ALT - likely 2/2 alcohol - Has remained stable - DF 5.7 GERD - c/w Protonix DVT prophylaxis - c/w Lovenox VS,Fishbone, I+O VS, Fishbone, I+O Laboratory Tests 08/04/17 06:22 Red Blood Count 4.05 L, Mean Corpuscular Volume 95.8, Mean Corpuscular Hemoglobin 31.1, Mean Corpuscular Hemoglobin Concent 32.5, Red Cell Distribution Width 16.2 H, Calcium Level 9.2, Aspartate Amino Transf (AST/SGOT) 129 H, Alanine Aminotransferase (ALT/SGPT) 193 H, Alkaline Phosphatase 170 H, Total Bilirubin 0.7, Total Protein 7.2, Albumin 3.6 Vital Signs Date Time Temp Pulse Resp B/P (MAP) Pulse Ox O2 Delivery O2 Flow Rate FiO2 08/04/17 09:14 116 148/85 08/04/17 06:00 96.6 17 100 Room Air MAGNO ROSAS MD Aug 04, 2017 14:52
[2017-08-04] MEDS: chlordiazePOXIDE 25 MG CAP PO SCH ×2 (16:06→21:37)
[2017-08-05] MEDS: chlordiazePOXIDE 25 MG CAP PO SCH ×6 (00:42→23:04)
[2017-08-05] MEDS: SLF 3 ML SYR IV SCH ×3 (05:18→21:32)
[2017-08-05 06:00] VITALS: BP 148/94
[2017-08-05 06:41] LABS: MEAN CORPUSCULAR HEMOGLOBIN 31.2 pg (27.0-33.0); MEAN CORPUSCULAR HGB CONC 32.8 g/dl (32.0-36.5); MEAN CORPUSCULAR VOLUME 95.2 fl (80.0-96.0); PLATELET COUNT, AUTOMATED 260 10^3/uL (150-450); WHITE BLOOD COUNT 6.6 10^3/uL (4.0-10.0)
[2017-08-05] MEDS: LORazepam 2 MG/ML VIAL (J2060) IV PRN ×3 (06:42→23:05)
[2017-08-05 06:50] LABS: ALBUMIN 3.9 GM/DL (3.2-5.2); ALBUMIN/GLOBULIN RATIO 0.98 (1.00-1.93); ALKALINE PHOSPHATASE 171 U/L (45-117); ALT/SGPT 199 U/L (12-78); ANION GAP 6 MEQ/L (8-16); AST/SGOT 106 U/L (7-37); BILIRUBIN,TOTAL 0.7 MG/DL (0.2-1.0); BLOOD UREA NITROGEN 8 MG/DL (7-18); CALCIUM LEVEL 9.4 MG/DL (8.5-10.1); CARBON DIOXIDE LEVEL 29 MEQ/L (21-32); CHLORIDE LEVEL 105 MEQ/L (98-107); CREATININE FOR GFR 0.78 MG/DL (0.70-1.30); GLOMERULAR FILTRATION RATE > 60.0 (>60); GLUCOSE, FASTING 92 MG/DL (70-105); MAGNESIUM LEVEL 2.3 MG/DL (1.8-2.4); SODIUM LEVEL 140 MEQ/L (136-145); TOTAL PROTEIN 7.9 GM/DL (6.4-8.2)
[2017-08-05] MEDS: amLODIPine 5 MG TAB PO SCH ×2 (08:57→21:32)
[2017-08-05] MEDS: THIAMINE 100 MG TAB PO SCH (08:57)
[2017-08-05] MEDS: FOLIC ACID 1 MG TAB PO SCH (08:57)
[2017-08-05] MEDS: PANTOPRAZOLE 40MG TAB (PROTONIX) PO SCH (08:57)
[2017-08-05] MEDS: LISINOPRIL 10 MG TAB PO SCH (08:58)
[2017-08-05] MEDS: OXAZEPAM 15 MG CAP PO SCH (08:58)
[2017-08-05] MEDS: MULTIVITAMINS/MINERALS THERAP 1 TAB PO SCH (08:58)
[2017-08-05] MEDS ORDERED: traZODone 50 MG TAB PO PRN (10:15)
--- NOTE | 2017-08-05 13:15 | IPNPDOC ---
Text Note Date of Service The patient was seen on 08/05/17. NOTE Subjective: Patient is a 46 year old male with a PMHx of HTN, Alcohol Abuse, Hx of Withdrawal seizures, Alcoholic hepatitis and GERD who presented to the ER with withdrawal symptoms. He has had several admissions for alcohol withdrawal. He was admitted under hospitalist service for alcohol withdrawal. Patient was seen and examined while walking through the hallways. Patient has expressed that he was concerned that he had his dose of Ativan reduced without being advised. I have advised him today that we will continue to reduce the amount of Ativan he receives daily. He appears to be tolerating this. He notes that he hasn't had much sleep. I have again advised him to reduce the amount of caffeine he consumes in a day. Objective: Vitals (See below) General: Lying in bed, no acute distress, comfortable, AAOx3 HEENT: NC, AT CVS: RRR, +S1S2 Lungs: Fair air entry b/l, -w/r/r Abdomen: Soft, ND, NT Extremities: - Edema, - Calf tenderness Assessment and plan: Alcohol withdrawal - Presented to ER with symptoms of withdrawal, clinically is doing well - Physical does not reveal any tachycardia this morning - c/w Librium protocol with a tapering schedule; s/p Serax 30 TID - Will again reduce the frequency of Ativan - Advised patient to avoid excessive caffeine intake daily - Planning for placement at rehab center when medically cleared - Psychiatry consulted; appreciate their input Insomnia - likely 2/2 excessive caffeine intake - Will start Trazodone QHS prn Alcohol abuse - c/w Thiamine, Folate and Multivitamin HTN - BP better controlled - c/w Amlodipine and Lisinopril Elevated AST / ALT - likely 2/2 alcohol - Has remained stable - DF 5.7 GERD - c/w Protonix DVT prophylaxis - c/w Lovenox VS,Fishbone, I+O VS, Fishbone, I+O Laboratory Tests 08/05/17 06:19 Red Blood Count 4.36, Mean Corpuscular Volume 95.2, Mean Corpuscular Hemoglobin 31.2, Mean Corpuscular Hemoglobin Concent 32.8, Red Cell Distribution Width 16.0 H, Calcium Level 9.4, Aspartate Amino Transf (AST/SGOT) 106 H, Alanine Aminotransferase (ALT/SGPT) 199 H, Alkaline Phosphatase 171 H, Total Bilirubin 0.7, Total Protein 7.9, Albumin 3.9 Vital Signs Date Time Temp Pulse Resp B/P (MAP) Pulse Ox O2 Delivery O2 Flow Rate FiO2 08/05/17 12:35 Room Air 08/05/17 08:58 142/88 08/05/17 08:57 64 08/05/17 06:00 97.5 17 98 I&O- Last 24 Hours up to 6 AM 08/05/17 06:00 Intake Total 3000 ml Output Total 1820 ml Balance 1180 ml MAGNO ROSAS MD Aug 05, 2017 13:15
[2017-08-05 14:00] VITALS: BP 148/81
[2017-08-05 17:01] VITALS: BP 144/82
[2017-08-05 21:00] VITALS: BP 136/72
[2017-08-05 22:00] VITALS: BP 135/82
[2017-08-06] MEDS: SLF 3 ML SYR IV SCH ×3 (05:41→21:21)
[2017-08-06] MEDS: chlordiazePOXIDE 25 MG CAP PO SCH ×5 (05:41→22:58)
[2017-08-06 06:00] VITALS: BP 155/88
[2017-08-06 07:45] LABS: MEAN CORPUSCULAR HEMOGLOBIN 31.5 pg (27.0-33.0); MEAN CORPUSCULAR VOLUME 95.6 fl (80.0-96.0); PLATELET COUNT, AUTOMATED 284 10^3/uL (150-450); RED CELL DISTRIBUTION WIDTH 15.9 % (11.5-14.5); WHITE BLOOD COUNT 6.8 10^3/uL (4.0-10.0)
[2017-08-06 08:18] LABS: ALBUMIN 3.6 GM/DL (3.2-5.2); ALBUMIN/GLOBULIN RATIO 0.95 (1.00-1.93); ALKALINE PHOSPHATASE 179 U/L (45-117); ALT/SGPT 155 U/L (12-78); ANION GAP 10 MEQ/L (8-16); AST/SGOT 63 U/L (7-37); BILIRUBIN,TOTAL 0.4 MG/DL (0.2-1.0); BLOOD UREA NITROGEN 11 MG/DL (7-18); CALCIUM LEVEL 8.9 MG/DL (8.5-10.1); CARBON DIOXIDE LEVEL 24 MEQ/L (21-32); CHLORIDE LEVEL 107 MEQ/L (98-107); CREATININE FOR GFR 0.82 MG/DL (0.70-1.30); GLOMERULAR FILTRATION RATE > 60.0 (>60); GLUCOSE, FASTING 112 MG/DL (70-105); MAGNESIUM LEVEL 1.9 MG/DL (1.8-2.4); POTASSIUM SERUM 3.9 MEQ/L (3.5-5.1); SODIUM LEVEL 141 MEQ/L (136-145); TOTAL PROTEIN 7.4 GM/DL (6.4-8.2)
[2017-08-06] MEDS: PANTOPRAZOLE 40MG TAB (PROTONIX) PO SCH (08:22)
[2017-08-06] MEDS: MULTIVITAMINS/MINERALS THERAP 1 TAB PO SCH (08:22)
[2017-08-06] MEDS: LISINOPRIL 10 MG TAB PO SCH (08:23)
[2017-08-06] MEDS: THIAMINE 100 MG TAB PO SCH (08:23)
[2017-08-06] MEDS: FOLIC ACID 1 MG TAB PO SCH (08:23)
[2017-08-06] MEDS: amLODIPine 5 MG TAB PO SCH ×2 (08:25→20:20)
[2017-08-06 09:00] VITALS: BP 142/90
--- NOTE | 2017-08-06 11:51 | IPNPDOC ---
Text Note Date of Service The patient was seen on 08/06/17. NOTE Subjective: Patient is a 46 year old male with a PMHx of HTN, Alcohol Abuse, Hx of Withdrawal seizures, Alcoholic hepatitis and GERD who presented to the ER with withdrawal symptoms. He has had several admissions for alcohol withdrawal. He was admitted under hospitalist service for alcohol withdrawal. Patient was seen and examined at the bedside. He is seen sitting on a couch. He denies any problems currently. He has reported that he wants to leave by tomorrow. We will denies any chest pain or palpitations. He notes that the tremulousness has improved. He notes his HR is the lowest it's been in years. Objective: Vitals (See below) General: Lying in bed, no acute distress, comfortable, AAOx3 HEENT: NC, AT CVS: Mildly tachycardic, Regular rhythm, +S1S2 Lungs: Fair air entry b/l, -w/r/r Abdomen: Soft, ND, NT Extremities: - Edema, - Calf tenderness Assessment and plan: Alcohol withdrawal - Physical reveals mild tachycardia - Patient has reported that he has been using less caffeine per day - c/w Librium protocol with a tapering schedule; s/p Serax 30 TID; s/p Ativan - He will continue to follow up with psychiatry as an outpatient for rehabilitation - Psychiatry consulted; appreciate their input Insomnia - likely 2/2 excessive caffeine intake - c/w Trazodone QHS prn Alcohol abuse - c/w Thiamine, Folate and Multivitamin HTN - BP better controlled - c/w Amlodipine and Lisinopril Elevated AST / ALT - likely 2/2 alcohol - Has been trending down over last 48 hours - DF 5.7 GERD - c/w Protonix DVT prophylaxis - c/w Lovenox VS,Fishbone, I+O VS, Fishbone, I+O Laboratory Tests 08/06/17 07:23 Red Blood Count 3.84 L, Mean Corpuscular Volume 95.6, Mean Corpuscular Hemoglobin 31.5, Mean Corpuscular Hemoglobin Concent 33.0, Red Cell Distribution Width 15.9 H, Calcium Level 8.9, Aspartate Amino Transf (AST/SGOT) 63 H, Alanine Aminotransferase (ALT/SGPT) 155 H, Alkaline Phosphatase 179 H, Total Bilirubin 0.4, Total Protein 7.4, Albumin 3.6 Vital Signs Date Time Temp Pulse Resp B/P (MAP) Pulse Ox O2 Delivery O2 Flow Rate FiO2 08/06/17 10:58 Room Air 08/06/17 09:00 100 142/90 08/06/17 06:00 97.4 21 98 I&O- Last 24 Hours up to 6 AM 08/06/17 06:00 Intake Total 4620 ml Output Total 3000 ml Balance 1620 ml MAGNO ROSAS MD Aug 06, 2017 11:51
[2017-08-06 14:00] VITALS: BP 124/73
[2017-08-06 21:00] VITALS: BP 141/83
[2017-08-06 22:00] VITALS: BP 141/83
[2017-08-07] MEDS: chlordiazePOXIDE 25 MG CAP PO SCH ×3 (04:46→12:38)
[2017-08-07 05:58] LABS: MEAN CORPUSCULAR HEMOGLOBIN 31.1 pg (27.0-33.0); MEAN CORPUSCULAR HGB CONC 32.9 g/dl (32.0-36.5); MEAN CORPUSCULAR VOLUME 94.6 fl (80.0-96.0); PLATELET COUNT, AUTOMATED 326 10^3/uL (150-450); RED CELL DISTRIBUTION WIDTH 15.4 % (11.5-14.5); WHITE BLOOD COUNT 6.1 10^3/uL (4.0-10.0)
[2017-08-07 06:00] VITALS: BP 131/81
[2017-08-07 06:20] LABS: ALBUMIN 3.5 GM/DL (3.2-5.2); ALBUMIN/GLOBULIN RATIO 0.97 (1.00-1.93); ALKALINE PHOSPHATASE 148 U/L (45-117); ALT/SGPT 121 U/L (12-78); ANION GAP 9 MEQ/L (8-16); AST/SGOT 38 U/L (7-37); BILIRUBIN,TOTAL 0.4 MG/DL (0.2-1.0); BLOOD UREA NITROGEN 8 MG/DL (7-18); CALCIUM LEVEL 8.9 MG/DL (8.5-10.1); CARBON DIOXIDE LEVEL 24 MEQ/L (21-32); CHLORIDE LEVEL 109 MEQ/L (98-107); CREATININE FOR GFR 0.81 MG/DL (0.70-1.30); GLOMERULAR FILTRATION RATE > 60.0 (>60); GLUCOSE, FASTING 149 MG/DL (70-105); POTASSIUM SERUM 3.6 MEQ/L (3.5-5.1); SODIUM LEVEL 142 MEQ/L (136-145); TOTAL PROTEIN 7.1 GM/DL (6.4-8.2)
[2017-08-07] MEDS ORDERED: VITMTA PO ×2 (07:48→15:45)
[2017-08-07] MEDS ORDERED: FOLI1TAB4 PO ×2 (07:48→15:45)
[2017-08-07] MEDS ORDERED: THIA100TA PO ×2 (07:48→15:45)
[2017-08-07] MEDS ORDERED: LISI10TA4 PO ×2 (07:48→15:45)
[2017-08-07] MEDS: FOLIC ACID 1 MG TAB PO SCH (07:58)
[2017-08-07] MEDS: THIAMINE 100 MG TAB PO SCH (07:58)
[2017-08-07] MEDS: MULTIVITAMINS/MINERALS THERAP 1 TAB PO SCH (07:58)
[2017-08-07] MEDS: amLODIPine 5 MG TAB PO SCH (07:58)
[2017-08-07 07:59] VITALS: BP 128/79
[2017-08-07] MEDS: PANTOPRAZOLE 40MG TAB (PROTONIX) PO SCH (07:59)
[2017-08-07] MEDS: LISINOPRIL 10 MG TAB PO SCH (07:59)
[2017-08-07 10:03] VITALS: BP 128/79
[2017-08-07] MEDS ORDERED: CHLO25CA PO ×2 (10:21→15:45)
[2017-08-07] MEDS ORDERED: FLUO20CA8 PO ×2 (12:52→15:45)
[2017-08-07] MEDS ORDERED: ADV250INH INH ×2 (12:52→15:45)
[2017-08-07] MEDS ORDERED: OMEP20CA3 PO ×2 (12:52→15:45)
[2017-08-07] MEDS ORDERED: VENTAER INH ×2 (12:52→15:45)
[2017-08-07] MEDS ORDERED: AMLO5TAB2 PO ×2 (12:52→15:45)
--- NOTE | 2017-08-07 16:09 | DSES ---
DATE OF ADMISSION: 07/29/2017 DATE OF DISCHARGE: 08/07/2017 ATTENDING PHYSICIAN: Lulu Kevin MD, Juan Jenkins MD DICTATED BY: Lulu Kevin MD PRIMARY CARE PHYSICIAN: Dr. Muñoz REFERRING PHYSICIAN: None. CONSULTING PHYSICIAN: Dr. Hugo Perez CONDITION ON DISCHARGE: Stable. FINAL DIAGNOSIS: Alcohol withdrawal. PROCEDURES: None. HISTORY OF PRESENT ILLNESS: The patient is a 46-year-old male with a past medical history of hypertension, alcohol abuse, history of withdrawal seizures, alcoholic hepatitis, and gastroesophageal reflux disease (GERD), who presented to the emergency room with alcohol withdrawal symptoms. He has had several admissions in the past for alcohol withdrawal. He is admitted under the hospitalist service for alcohol withdrawal. HOSPITAL COURSE: 1. Alcohol withdrawal. Physical revealed mild tachycardia, however, has improved throughout the hospital course. The patient has been reportedly consuming excessive caffeine throughout the hospital course in upwards of 10 glasses per day. He has been advised to cut back on his caffeine intake. Currently, over the last 2 days, he has only been consuming about 1 to 1-1/2 cups of caffeine a day. The patient was initially put on Ativan as needed, as well as Serax, which have been both discontinued. He has been put on Librium protocol and has been approaching the end of the protocol. The patient is four doses away from completing his schedule and will be completing this as an outpatient. Psychiatry has been consulted. We appreciate their input. The patient will be following up with his own psychiatrist as an outpatient, who is Dr. Ramey. I have explained to the patient that he should followup with his primary care provider, Dr. Muñoz, as well as his psychiatrist for detoxication, who is Dr. Ramey, within the next 7 days. He has been advised to remain compliant with treatment plan and medications and to return to the emergency room if he experiences any problems. 2. Insomnia. Likely secondary to excessive caffeine intake. Continue with trazodone at night as needed. 3. Alcohol abuse. Continue with thiamine, folate and multivitamin. 4. Hypertension. Blood pressure is better controlled. Continue amlodipine and Lisinopril. 5. Elevated AST and ALT, likely secondary to alcohol. It has been trending down over the last three days in the hospital course. His discriminate function is only 5.7. He has not been started on any other medications. This is unlikely alcoholic hepatitis. 6. Gastroesophageal reflux disease (GERD). Continue with Protonix. 7. Deep vein thrombosis (DVT) prophylaxis. Continue with Lovenox. DISCHARGE MEDICATIONS: The patient is being discharged home with the following medication list: - albuterol one puff inhaled every 4 hours as needed for shortness of breath - chlordiazepoxide 25 mg by mouth every 6 hours as needed for agitation for only 4 pills - folic acid 1 mg by mouth daily - Lisinopril 10 mg by mouth daily - multivitamin one tablet by mouth daily - thiamine 100 mg by mouth daily Continued medications include amlodipine 5 mg by mouth twice a day, fluoxetine 20 mg by mouth daily, omeprazole 20 mg by mouth twice a day, Advair one puff inhaled twice a day. Stopped medications include lorazepam, mirtazapine, naltrexone, risperidone. DISCHARGE INSTRUCTIONS: The patient has been advised to followup with his primary care provider, who is Dr. Muñoz, as well as his psychiatrist, Dr. Ramey, within the next 7 days. He has been advised to remain compliant with treatment plan and medications and return to the emergency room if he experiences any problems. Time spent on discharge: Greater than 35 minutes.
[2017-08-07] MEDS ORDERED: chlordiazePOXIDE 25 MG CAP PO SCH (18:00)
== END 2017-08-07 13:08 | disposition home or self-care (01) | DRG 775 ==
LOC: M ED 15:34 → OBSVTOIN 15:35 → M ED INP 15:35 → M PCU 07-30 12:54 → M MSPAV 08-01 14:10 → OBSVTOIN 08-03 13:24 → INTOOBSV 08-03 13:24
PROVIDERS: ADMIT Hospitalist; ATTEND Internal Medicine
DX: F10.239 Alcohol dependence with withdrawal, unspecified (principal); F39 Unspecified mood [affective] disorder; K70.10 Alcoholic hepatitis without ascites; I10 Essential (primary) hypertension; K21.9 Gastro-esophageal reflux disease without esophagitis; R79.89 Other specified abnormal findings of blood chemistry; Z79.899 Other long term (current) drug therapy; Z87.891 Personal history of nicotine dependence; G47.00 Insomnia, unspecified

== ENCOUNTER 2017-08-25 16:15 | Inpatient (IN) | payer OTHER ==
[2017-08-25 18:04] LABS: BASO # 0.1 10^3/uL (0.0-0.2); BASO % 0.9 % (0.0-1.0); EOS % 0.1 % (0.0-3.0); HEMATOCRIT 38.5 % (42.0-52.0); HEMOGLOBIN 12.8 g/dl (14.0-18.0); IMMATURE GRANULOCYTE # 0.1 10^3/uL (0-0); IMMATURE GRANULOCYTE % 0.9 % (0-0); LYMPH # 0.7 10^3/uL (1.5-4.5); LYMPH % 10.6 % (24.0-44.0); MEAN CORPUSCULAR HEMOGLOBIN 30.3 pg (27.0-33.0); MEAN CORPUSCULAR HGB CONC 33.2 g/dl (32.0-36.5); MEAN CORPUSCULAR VOLUME 91.2 fl (80.0-96.0); MONO # 0.4 10^3/uL (0.0-0.8); MONO % 6.1 % (0.0-5.0); NEUTROPHILS # 5.4 10^3/uL (1.8-7.7); NEUTROPHILS % 81.4 % (36.0-66.0); PLATELET COUNT, AUTOMATED 214 10^3/uL (150-450); RED BLOOD COUNT 4.22 10^6/uL (4.30-6.10); RED CELL DISTRIBUTION WIDTH 15.6 % (11.5-14.5); WHITE BLOOD COUNT 6.7 10^3/uL (4.0-10.0)
[2017-08-25] MEDS: ONDANSETRON 4MG/2ML VIAL (J2405) IV (18:10)
[2017-08-25] MEDS: LORazepam 2 MG/ML VIAL (J2060) IV ×3 (18:10→20:53)
[2017-08-25] MEDS: MULTIVITAMIN -ADULT INJECTION 10 ML, THIAMINE INJection 100 MG, FOLIC ACID 1 MG in NS 1... IV (18:10)
[2017-08-25 18:27] LABS: ACETAMINOPHEN LEVEL < 2.0 UG/ML (10.0-30.0); ALBUMIN 3.3 GM/DL (3.2-5.2); ALBUMIN/GLOBULIN RATIO 0.89 (1.00-1.93); ALKALINE PHOSPHATASE 159 U/L (45-117); ALT/SGPT 48 U/L (12-78); ANION GAP 9 MEQ/L (8-16); AST/SGOT 51 U/L (7-37); BILIRUBIN,DIRECT 0.1 MG/DL (0.0-0.2); BILIRUBIN,TOTAL 0.4 MG/DL (0.2-1.0); BLOOD UREA NITROGEN 2 MG/DL (7-18); CALCIUM LEVEL 8.1 MG/DL (8.5-10.1); CARBON DIOXIDE LEVEL 28 MEQ/L (21-32); CHLORIDE LEVEL 104 MEQ/L (98-107); CPK CREATINE PHOSPHOKINASE 239 U/L (39-308); CREATININE FOR GFR 0.69 MG/DL (0.70-1.30); ETHYL ALCOHOL (ETHANOL) 0.209 % (0.000-0.010); GLOMERULAR FILTRATION RATE > 60.0 (>60); GLUCOSE, FASTING 99 MG/DL (70-105); MAGNESIUM LEVEL 1.6 MG/DL (1.8-2.4); POTASSIUM SERUM 3.4 MEQ/L (3.5-5.1); SALICYLATE LEVEL < 1.7 MG/DL (5.0-30.0); SODIUM LEVEL 141 MEQ/L (136-145); THYROID STIMULATING HORMONE 0.875 uIU/ML (0.358-3.740)
[2017-08-25] MEDS: OXAZEPAM 15 MG CAP PO (18:45)
[2017-08-25 20:37] LABS: AMPHETAMINES LEVEL URINE NEGATIVE (NEGATIVE); BARBITURATES URINE NEGATIVE (NEGATIVE); BENZODIAZEPINES URINE POSITIVE (NEGATIVE); CANNABINOIDS URINE NEGATIVE (NEGATIVE); COCAINE METABOLITE URINE NEGATIVE (NEGATIVE); METHADONE URINE NEGATIVE (NEGATIVE); OPIATES URINE NEGATIVE (NEGATIVE); PHENCYCLIDINE URINE NEGATIVE (NEGATIVE)
[2017-08-25] MEDS: MAG SULF 1GM/100ML (MAG RUN) 1 GM in APPROPRIATE DILUENT 1 EA IV (21:00)
[2017-08-25] MEDS: amLODIPine 5 MG TAB PO (21:00)
[2017-08-25] MEDS ORDERED: MAG SULF 1GM/100ML (MAG RUN) 1 GM in APPROPRIATE DILUENT 1 EA IV (21:00)
[2017-08-25] MEDS: OMEPRAZOLE 20 MG CAP PO (21:00)
[2017-08-26] MEDS: OXAZEPAM 10 MG CAP PO ×2 (00:29→05:01)
[2017-08-26] MEDS: LORazepam 2 MG TAB PO ×6 (00:46→20:41)
[2017-08-26] MEDS: HEPARIN SOD (PORCINE) 5000 UNITS/ML VIAL SC ×3 (05:01→21:41)
[2017-08-26 05:32] LABS: BASO % 0.3 % (0.0-1.0); EOS # 0.1 10^3/uL (0.0-0.50); EOS % 1.6 % (0.0-3.0); HEMATOCRIT 37.1 % (42.0-52.0); HEMOGLOBIN 12.2 g/dl (14.0-18.0); IMMATURE GRANULOCYTE % 0.5 % (0-0); LYMPH % 16.3 % (24.0-44.0); MEAN CORPUSCULAR HEMOGLOBIN 30.3 pg (27.0-33.0); MEAN CORPUSCULAR HGB CONC 32.9 g/dl (32.0-36.5); MEAN CORPUSCULAR VOLUME 92.1 fl (80.0-96.0); MONO # 0.7 10^3/uL (0.0-0.8); MONO % 11.5 % (0.0-5.0); NEUTROPHILS # 4.4 10^3/uL (1.8-7.7); NEUTROPHILS % 69.8 % (36.0-66.0); PLATELET COUNT, AUTOMATED 171 10^3/uL (150-450); RED BLOOD COUNT 4.03 10^6/uL (4.30-6.10); RED CELL DISTRIBUTION WIDTH 15.3 % (11.5-14.5); WHITE BLOOD COUNT 6.3 10^3/uL (4.0-10.0)
[2017-08-26 05:42] LABS: ANION GAP 7 MEQ/L (8-16); BLOOD UREA NITROGEN 4 MG/DL (7-18); CALCIUM LEVEL 8.5 MG/DL (8.5-10.1); CARBON DIOXIDE LEVEL 30 MEQ/L (21-32); CHLORIDE LEVEL 99 MEQ/L (98-107); CREATININE FOR GFR 0.69 MG/DL (0.70-1.30); GLOMERULAR FILTRATION RATE > 60.0 (>60); GLUCOSE, FASTING 95 MG/DL (70-105); POTASSIUM SERUM 3.5 MEQ/L (3.5-5.1); SODIUM LEVEL 136 MEQ/L (136-145)
[2017-08-26 07:19] LABS: MAGNESIUM LEVEL 1.8 MG/DL (1.8-2.4)
[2017-08-26] MEDS: ADVAIR HFA 115/21MCG INHALER INH ×2 (08:49→20:33)
[2017-08-26] MEDS: FOLIC ACID 1 MG TAB PO (08:54)
[2017-08-26] MEDS: FLUoxetine 20 MG CAP PO (08:55)
[2017-08-26] MEDS: OMEPRAZOLE 20 MG CAP PO ×2 (08:55→20:41)
[2017-08-26] MEDS: MAGNESIUM OXIDE 400 MG TAB (MAG-OX) PO (08:55)
[2017-08-26] MEDS: MULTIVITAMINS/MINERALS THERAP 1 TAB PO (08:55)
[2017-08-26] MEDS: THIAMINE 100 MG TAB PO (08:55)
[2017-08-26] MEDS: amLODIPine 5 MG TAB PO ×2 (08:55→20:40)
[2017-08-26] MEDS: LISINOPRIL 10 MG TAB PO (08:56)
[2017-08-26] MEDS: OXAZEPAM 15 MG CAP PO ×2 (12:19→17:06)
[2017-08-26 17:43] LABS: KETONE, URINE AUTO RFX NEGATIVE (NEGATIVE); LEUKOCYTE ESTERASE UR AUTO RFX NEGATIVE (NEGATIVE); NITRITE, URINE AUTO RFX NEGATIVE (NEGATIVE); RBC, URINE AUTO RFX 0 /HPF (0-3); SPECIFIC GRAVITY UR AUTO RFX 1.002 (1.002-1.035); SQUAM EPITHELIAL CELL UR AURFX 0 /HPF (0-6); WBC, URINE AUTO RFX 0 /HPF (0-3)
[2017-08-27] MEDS ORDERED: SLF 3 ML SYR IV
[2017-08-27] MEDS: OXAZEPAM 15 MG CAP PO ×4 (00:06→17:48)
[2017-08-27] MEDS: chlordiazePOXIDE 25 MG CAP PO (02:18)
[2017-08-27] MEDS: LORazepam 2 MG TAB PO ×2 (04:11→20:46)
[2017-08-27] MEDS: HEPARIN SOD (PORCINE) 5000 UNITS/ML VIAL SC ×3 (05:47→20:38)
[2017-08-27] MEDS: SLF 3 ML SYR IV ×3 (05:47→20:38)
[2017-08-27 06:08] LABS: BASO % 0.6 % (0.0-1.0); EOS # 0.2 10^3/uL (0.0-0.50); EOS % 2.8 % (0.0-3.0); HEMATOCRIT 38.9 % (42.0-52.0); HEMOGLOBIN 12.8 g/dl (14.0-18.0); IMMATURE GRANULOCYTE % 0.3 % (0-0); LYMPH # 1.4 10^3/uL (1.5-4.5); MEAN CORPUSCULAR HEMOGLOBIN 30.2 pg (27.0-33.0); MEAN CORPUSCULAR HGB CONC 32.9 g/dl (32.0-36.5); MEAN CORPUSCULAR VOLUME 91.7 fl (80.0-96.0); MONO # 0.7 10^3/uL (0.0-0.8); MONO % 10.4 % (0.0-5.0); NEUTROPHILS # 4.5 10^3/uL (1.8-7.7); NEUTROPHILS % 65.9 % (36.0-66.0); PLATELET COUNT, AUTOMATED 172 10^3/uL (150-450); RED BLOOD COUNT 4.24 10^6/uL (4.30-6.10); RED CELL DISTRIBUTION WIDTH 15.1 % (11.5-14.5); WHITE BLOOD COUNT 6.8 10^3/uL (4.0-10.0)
[2017-08-27 06:36] LABS: ALBUMIN 3.2 GM/DL (3.2-5.2); ALBUMIN/GLOBULIN RATIO 0.78 (1.00-1.93); ALKALINE PHOSPHATASE 154 U/L (45-117); ALT/SGPT 41 U/L (12-78); ANION GAP 7 MEQ/L (8-16); AST/SGOT 43 U/L (7-37); BILIRUBIN,TOTAL 0.6 MG/DL (0.2-1.0); BLOOD UREA NITROGEN 6 MG/DL (7-18); CARBON DIOXIDE LEVEL 31 MEQ/L (21-32); CHLORIDE LEVEL 99 MEQ/L (98-107); CREATININE FOR GFR 0.83 MG/DL (0.70-1.30); GLOMERULAR FILTRATION RATE > 60.0 (>60); GLUCOSE, FASTING 134 MG/DL (70-105); POTASSIUM SERUM 3.3 MEQ/L (3.5-5.1); SODIUM LEVEL 137 MEQ/L (136-145); TOTAL PROTEIN 7.3 GM/DL (6.4-8.2)
[2017-08-27] MEDS: POTASSIUM CHLORIDE 10 MEQ SR TABLET PO (06:46)
[2017-08-27] MEDS: ADVAIR HFA 115/21MCG INHALER INH ×2 (07:39→21:31)
[2017-08-27] MEDS: OMEPRAZOLE 20 MG CAP PO ×2 (08:37→20:38)
[2017-08-27] MEDS: CEPACOL LOZENGE PO ×2 (08:37→18:02)
[2017-08-27] MEDS: THIAMINE 100 MG TAB PO (08:37)
[2017-08-27] MEDS: MULTIVITAMINS/MINERALS THERAP 1 TAB PO (08:37)
[2017-08-27] MEDS: amLODIPine 5 MG TAB PO ×2 (08:41→20:38)
[2017-08-27] MEDS: LISINOPRIL 10 MG TAB PO (08:42)
[2017-08-27] MEDS: MAGNESIUM OXIDE 400 MG TAB (MAG-OX) PO (08:42)
[2017-08-27] MEDS: FOLIC ACID 1 MG TAB PO (08:42)
[2017-08-27] MEDS: ACETAMINOPHEN TAB 650MG DOSE (2X325MG) PO (08:42)
[2017-08-27] MEDS: FLUoxetine 20 MG CAP PO (08:43)
[2017-08-27] MEDS: IPRATROPIUM 0.5MG/ALBUTEROL 2.5MG INH SOL UD 3ML (DUONEB)(J7620) NEB (21:06)
[2017-08-28] MEDS: LORazepam 2 MG TAB PO (02:45)
[2017-08-28] MEDS: HEPARIN SOD (PORCINE) 5000 UNITS/ML VIAL SC ×4 (02:48→21:21)
[2017-08-28] MEDS: OXAZEPAM 15 MG CAP PO ×5 (05:01→23:56)
[2017-08-28] MEDS: SLF 3 ML SYR IV ×3 (05:02→21:17)
[2017-08-28 05:39] LABS: BASO # 0.1 10^3/uL (0.0-0.2); BASO % 0.7 % (0.0-1.0); EOS # 0.2 10^3/uL (0.0-0.50); EOS % 2.5 % (0.0-3.0); HEMOGLOBIN 13.7 g/dl (14.0-18.0); IMMATURE GRANULOCYTE # 0.1 10^3/uL (0-0); IMMATURE GRANULOCYTE % 0.8 % (0-0); LYMPH # 1.9 10^3/uL (1.5-4.5); LYMPH % 21.4 % (24.0-44.0); MEAN CORPUSCULAR HEMOGLOBIN 30.2 pg (27.0-33.0); MEAN CORPUSCULAR HGB CONC 32.6 g/dl (32.0-36.5); MEAN CORPUSCULAR VOLUME 92.5 fl (80.0-96.0); MONO # 0.8 10^3/uL (0.0-0.8); NEUTROPHILS # 5.9 10^3/uL (1.8-7.7); NEUTROPHILS % 65.6 % (36.0-66.0); PLATELET COUNT, AUTOMATED 172 10^3/uL (150-450); RED BLOOD COUNT 4.54 10^6/uL (4.30-6.10); RED CELL DISTRIBUTION WIDTH 15.5 % (11.5-14.5)
[2017-08-28 06:01] LABS: ANION GAP 7 MEQ/L (8-16); BLOOD UREA NITROGEN 6 MG/DL (7-18); CALCIUM LEVEL 9.4 MG/DL (8.5-10.1); CARBON DIOXIDE LEVEL 29 MEQ/L (21-32); CHLORIDE LEVEL 103 MEQ/L (98-107); CREATININE FOR GFR 0.79 MG/DL (0.70-1.30); GLOMERULAR FILTRATION RATE > 60.0 (>60); GLUCOSE, FASTING 107 MG/DL (70-105); POTASSIUM SERUM 3.5 MEQ/L (3.5-5.1); SODIUM LEVEL 139 MEQ/L (136-145)
[2017-08-28] MEDS: IPRATROPIUM 0.5MG/ALBUTEROL 2.5MG INH SOL UD 3ML (DUONEB)(J7620) NEB (07:54)
[2017-08-28] MEDS: ADVAIR HFA 115/21MCG INHALER INH ×2 (08:46→20:42)
[2017-08-28] MEDS: FLUoxetine 20 MG CAP PO (09:15)
[2017-08-28] MEDS: MAGNESIUM OXIDE 400 MG TAB (MAG-OX) PO (09:15)
[2017-08-28] MEDS: THIAMINE 100 MG TAB PO (09:15)
[2017-08-28] MEDS: MULTIVITAMINS/MINERALS THERAP 1 TAB PO (09:15)
[2017-08-28] MEDS: OMEPRAZOLE 20 MG CAP PO ×2 (09:16→21:16)
[2017-08-28] MEDS: amLODIPine 5 MG TAB PO ×2 (09:16→21:17)
[2017-08-28] MEDS: LISINOPRIL 10 MG TAB PO (09:16)
[2017-08-28] MEDS: FOLIC ACID 1 MG TAB PO (09:16)
[2017-08-28] MEDS: ONDANSETRON 4MG/2ML VIAL (J2405) IV (12:10)
[2017-08-28] MEDS: ACETAMINOPHEN TAB 650MG DOSE (2X325MG) PO ×2 (23:56)
[2017-08-28] MEDS: CEPACOL LOZENGE PO (23:59)
[2017-08-29] MEDS: LORazepam 2 MG TAB PO (05:00)
[2017-08-29] MEDS: CEPACOL LOZENGE PO ×2 (05:00→21:28)
[2017-08-29 05:42] LABS: BASO # 0.1 10^3/uL (0.0-0.2); BASO % 0.8 % (0.0-1.0); EOS # 0.2 10^3/uL (0.0-0.50); EOS % 2.4 % (0.0-3.0); HEMATOCRIT 38.7 % (42.0-52.0); HEMOGLOBIN 12.6 g/dl (14.0-18.0); IMMATURE GRANULOCYTE # 0.1 10^3/uL (0-0); IMMATURE GRANULOCYTE % 1.2 % (0-0); LYMPH % 20.9 % (24.0-44.0); MEAN CORPUSCULAR HGB CONC 32.6 g/dl (32.0-36.5); MEAN CORPUSCULAR VOLUME 92.1 fl (80.0-96.0); MONO # 0.9 10^3/uL (0.0-0.8); MONO % 9.4 % (0.0-5.0); NEUTROPHILS # 6.1 10^3/uL (1.8-7.7); NEUTROPHILS % 65.3 % (36.0-66.0); PLATELET COUNT, AUTOMATED 169 10^3/uL (150-450); RED CELL DISTRIBUTION WIDTH 15.7 % (11.5-14.5); WHITE BLOOD COUNT 9.3 10^3/uL (4.0-10.0)
[2017-08-29 05:50] LABS: ANION GAP 7 MEQ/L (8-16); BLOOD UREA NITROGEN 5 MG/DL (7-18); CALCIUM LEVEL 9.2 MG/DL (8.5-10.1); CARBON DIOXIDE LEVEL 26 MEQ/L (21-32); CHLORIDE LEVEL 105 MEQ/L (98-107); CREATININE FOR GFR 0.71 MG/DL (0.70-1.30); GLOMERULAR FILTRATION RATE > 60.0 (>60); GLUCOSE, FASTING 110 MG/DL (70-105); POTASSIUM SERUM 3.7 MEQ/L (3.5-5.1); SODIUM LEVEL 138 MEQ/L (136-145)
[2017-08-29] MEDS: SLF 3 ML SYR IV ×3 (06:00→21:27)
[2017-08-29] MEDS: HEPARIN SOD (PORCINE) 5000 UNITS/ML VIAL SC ×3 (06:00→21:27)
[2017-08-29] MEDS: OXAZEPAM 15 MG CAP PO ×3 (06:26→21:26)
[2017-08-29] MEDS: ADVAIR HFA 115/21MCG INHALER INH ×2 (08:24→19:45)
[2017-08-29] MEDS: OMEPRAZOLE 20 MG CAP PO ×2 (08:41→21:26)
[2017-08-29] MEDS: MAGNESIUM OXIDE 400 MG TAB (MAG-OX) PO (08:41)
[2017-08-29] MEDS: MULTIVITAMINS/MINERALS THERAP 1 TAB PO (08:41)
[2017-08-29] MEDS: THIAMINE 100 MG TAB PO (08:41)
[2017-08-29] MEDS: FLUoxetine 20 MG CAP PO (08:41)
[2017-08-29] MEDS: FOLIC ACID 1 MG TAB PO (08:41)
[2017-08-29] MEDS: amLODIPine 5 MG TAB PO ×2 (08:42→21:27)
[2017-08-29] MEDS: LISINOPRIL 10 MG TAB PO (08:42)
[2017-08-29] MEDS: IPRATROPIUM 0.5MG/ALBUTEROL 2.5MG INH SOL UD 3ML (DUONEB)(J7620) NEB (19:44)
[2017-08-30] MEDS: HEPARIN SOD (PORCINE) 5000 UNITS/ML VIAL SC ×3 (05:45→21:43)
[2017-08-30] MEDS: OXAZEPAM 15 MG CAP PO ×2 (05:52→17:27)
[2017-08-30] MEDS: CEPACOL LOZENGE PO ×2 (05:52→20:53)
[2017-08-30] MEDS: SLF 3 ML SYR IV ×3 (05:53→21:44)
[2017-08-30 06:10] LABS: BASO # 0.1 10^3/uL (0.0-0.2); BASO % 0.8 % (0.0-1.0); EOS # 0.2 10^3/uL (0.0-0.50); EOS % 2.3 % (0.0-3.0); HEMATOCRIT 40.9 % (42.0-52.0); HEMOGLOBIN 13.4 g/dl (14.0-18.0); IMMATURE GRANULOCYTE # 0.1 10^3/uL (0-0); IMMATURE GRANULOCYTE % 1.4 % (0-0); LYMPH % 19.6 % (24.0-44.0); MEAN CORPUSCULAR HEMOGLOBIN 30.3 pg (27.0-33.0); MEAN CORPUSCULAR HGB CONC 32.8 g/dl (32.0-36.5); MEAN CORPUSCULAR VOLUME 92.5 fl (80.0-96.0); MONO # 1.2 10^3/uL (0.0-0.8); MONO % 11.9 % (0.0-5.0); NEUTROPHILS # 6.4 10^3/uL (1.8-7.7); PLATELET COUNT, AUTOMATED 183 10^3/uL (150-450); RED BLOOD COUNT 4.42 10^6/uL (4.30-6.10); RED CELL DISTRIBUTION WIDTH 15.9 % (11.5-14.5); WHITE BLOOD COUNT 10.1 10^3/uL (4.0-10.0)
[2017-08-30 06:29] LABS: ANION GAP 9 MEQ/L (8-16); BLOOD UREA NITROGEN 7 MG/DL (7-18); CALCIUM LEVEL 9.3 MG/DL (8.5-10.1); CARBON DIOXIDE LEVEL 25 MEQ/L (21-32); CHLORIDE LEVEL 105 MEQ/L (98-107); CREATININE FOR GFR 0.76 MG/DL (0.70-1.30); GLOMERULAR FILTRATION RATE > 60.0 (>60); GLUCOSE, FASTING 106 MG/DL (70-105); POTASSIUM SERUM 3.7 MEQ/L (3.5-5.1); SODIUM LEVEL 139 MEQ/L (136-145)
[2017-08-30] MEDS: ADVAIR HFA 115/21MCG INHALER INH ×2 (07:49→22:01)
[2017-08-30] MEDS: IPRATROPIUM 0.5MG/ALBUTEROL 2.5MG INH SOL UD 3ML (DUONEB)(J7620) NEB ×2 (07:54→11:35)
[2017-08-30] MEDS: LISINOPRIL 10 MG TAB PO (09:13)
[2017-08-30] MEDS: OMEPRAZOLE 20 MG CAP PO ×2 (09:14→20:54)
[2017-08-30] MEDS: FOLIC ACID 1 MG TAB PO (09:14)
[2017-08-30] MEDS: FLUoxetine 20 MG CAP PO (09:14)
[2017-08-30] MEDS: THIAMINE 100 MG TAB PO (09:14)
[2017-08-30] MEDS: MULTIVITAMINS/MINERALS THERAP 1 TAB PO (09:14)
[2017-08-30] MEDS: MAGNESIUM OXIDE 400 MG TAB (MAG-OX) PO (09:14)
[2017-08-30] MEDS: amLODIPine 5 MG TAB PO ×2 (09:14→20:54)
[2017-08-30] MEDS ORDERED: guaiFENesin 200 MG TAB PO (11:00)
[2017-08-30] MEDS: LORazepam 1 MG TAB PO (20:53)
[2017-08-31] MEDS: CEPACOL LOZENGE PO (03:35)
[2017-08-31] MEDS: HEPARIN SOD (PORCINE) 5000 UNITS/ML VIAL SC ×4 (05:41→22:00)
[2017-08-31] MEDS: OXAZEPAM 15 MG CAP PO ×4 (05:41→21:15)
[2017-08-31] MEDS: SLF 3 ML SYR IV ×3 (05:41→21:16)
[2017-08-31 06:33] LABS: BASO # 0.1 10^3/uL (0.0-0.2); BASO % 0.9 % (0.0-1.0); EOS # 0.3 10^3/uL (0.0-0.50); EOS % 2.7 % (0.0-3.0); HEMATOCRIT 41.3 % (42.0-52.0); HEMOGLOBIN 13.2 g/dl (14.0-18.0); IMMATURE GRANULOCYTE # 0.1 10^3/uL (0-0); IMMATURE GRANULOCYTE % 1.4 % (0-0); LYMPH % 19.4 % (24.0-44.0); MEAN CORPUSCULAR HEMOGLOBIN 29.9 pg (27.0-33.0); MEAN CORPUSCULAR VOLUME 93.4 fl (80.0-96.0); MONO # 1.4 10^3/uL (0.0-0.8); MONO % 13.8 % (0.0-5.0); NEUTROPHILS # 6.3 10^3/uL (1.8-7.7); NEUTROPHILS % 61.8 % (36.0-66.0); PLATELET COUNT, AUTOMATED 200 10^3/uL (150-450); RED BLOOD COUNT 4.42 10^6/uL (4.30-6.10); WHITE BLOOD COUNT 10.3 10^3/uL (4.0-10.0)
[2017-08-31 06:48] LABS: ANION GAP 7 MEQ/L (8-16); BLOOD UREA NITROGEN 9 MG/DL (7-18); CALCIUM LEVEL 9.2 MG/DL (8.5-10.1); CARBON DIOXIDE LEVEL 27 MEQ/L (21-32); CHLORIDE LEVEL 104 MEQ/L (98-107); CREATININE FOR GFR 0.82 MG/DL (0.70-1.30); GLOMERULAR FILTRATION RATE > 60.0 (>60); GLUCOSE, FASTING 99 MG/DL (70-105); POTASSIUM SERUM 4.3 MEQ/L (3.5-5.1); SODIUM LEVEL 138 MEQ/L (136-145)
[2017-08-31] MEDS: IPRATROPIUM 0.5MG/ALBUTEROL 2.5MG INH SOL UD 3ML (DUONEB)(J7620) NEB (08:26)
[2017-08-31] MEDS: FOLIC ACID 1 MG TAB PO (08:52)
[2017-08-31] MEDS: THIAMINE 100 MG TAB PO (08:52)
[2017-08-31] MEDS: LISINOPRIL 10 MG TAB PO (08:53)
[2017-08-31] MEDS: amLODIPine 5 MG TAB PO ×2 (08:53→21:15)
[2017-08-31] MEDS: OMEPRAZOLE 20 MG CAP PO ×2 (08:53→21:14)
[2017-08-31] MEDS: FLUoxetine 20 MG CAP PO (08:53)
[2017-08-31] MEDS: MULTIVITAMINS/MINERALS THERAP 1 TAB PO (08:53)
[2017-08-31] MEDS: MAGNESIUM OXIDE 400 MG TAB (MAG-OX) PO (08:53)
[2017-08-31] MEDS: ADVAIR HFA 115/21MCG INHALER INH ×2 (11:19→21:29)
[2017-09-01] MEDS: HEPARIN SOD (PORCINE) 5000 UNITS/ML VIAL SC ×3 (05:08→21:03)
[2017-09-01] MEDS: SLF 3 ML SYR IV ×3 (05:36→21:03)
[2017-09-01] MEDS: OXAZEPAM 15 MG CAP PO ×3 (05:36→21:03)
[2017-09-01 06:23] LABS: HEMOGLOBIN 13.9 g/dl (14.0-18.0); MEAN CORPUSCULAR HEMOGLOBIN 30.1 pg (27.0-33.0); MEAN CORPUSCULAR HGB CONC 32.3 g/dl (32.0-36.5); MEAN CORPUSCULAR VOLUME 93.1 fl (80.0-96.0); PLATELET COUNT, AUTOMATED 246 10^3/uL (150-450); RED BLOOD COUNT 4.62 10^6/uL (4.30-6.10); RED CELL DISTRIBUTION WIDTH 15.9 % (11.5-14.5); WHITE BLOOD COUNT 10.6 10^3/uL (4.0-10.0)
[2017-09-01 06:24] LABS: BASO # 0.1 10^3/uL (0.0-0.2); BASO % 0.6 % (0.0-1.0); EOS # 0.3 10^3/uL (0.0-0.50); EOS % 2.4 % (0.0-3.0); IMMATURE GRANULOCYTE # 0.1 10^3/uL (0-0); IMMATURE GRANULOCYTE % 1.3 % (0-0); LYMPH # 2.1 10^3/uL (1.5-4.5); LYMPH % 19.5 % (24.0-44.0); MONO # 1.3 10^3/uL (0.0-0.8); MONO % 12.4 % (0.0-5.0); NEUTROPHILS # 6.8 10^3/uL (1.8-7.7); NEUTROPHILS % 63.8 % (36.0-66.0)
[2017-09-01 06:42] LABS: ANION GAP 6 MEQ/L (8-16); BLOOD UREA NITROGEN 11 MG/DL (7-18); CALCIUM LEVEL 9.5 MG/DL (8.5-10.1); CARBON DIOXIDE LEVEL 27 MEQ/L (21-32); CHLORIDE LEVEL 103 MEQ/L (98-107); CREATININE FOR GFR 0.79 MG/DL (0.70-1.30); GLOMERULAR FILTRATION RATE > 60.0 (>60); GLUCOSE, FASTING 103 MG/DL (70-105); POTASSIUM SERUM 3.8 MEQ/L (3.5-5.1); SODIUM LEVEL 136 MEQ/L (136-145)
[2017-09-01] MEDS: ADVAIR HFA 115/21MCG INHALER INH ×2 (09:21→19:52)
[2017-09-01] MEDS: MULTIVITAMINS/MINERALS THERAP 1 TAB PO (09:25)
[2017-09-01] MEDS: FOLIC ACID 1 MG TAB PO (09:25)
[2017-09-01] MEDS: FLUoxetine 20 MG CAP PO (09:25)
[2017-09-01] MEDS: LISINOPRIL 10 MG TAB PO (09:26)
[2017-09-01] MEDS: THIAMINE 100 MG TAB PO (09:26)
[2017-09-01] MEDS: amLODIPine 5 MG TAB PO ×2 (09:26→21:02)
[2017-09-01] MEDS: MAGNESIUM OXIDE 400 MG TAB (MAG-OX) PO (09:26)
[2017-09-01] MEDS: OMEPRAZOLE 20 MG CAP PO ×2 (09:26→21:03)
[2017-09-01] MEDS: IPRATROPIUM 0.5MG/ALBUTEROL 2.5MG INH SOL UD 3ML (DUONEB)(J7620) NEB (09:29)
[2017-09-01] MEDS ORDERED: OXAZEPAM 15 MG CAP PO (14:15)
[2017-09-01] MEDS ORDERED: LORazepam 2 MG/ML VIAL (J2060) IV (14:15)
[2017-09-02] MEDS: HEPARIN SOD (PORCINE) 5000 UNITS/ML VIAL SC ×3 (05:39→22:00)
[2017-09-02] MEDS: SLF 3 ML SYR IV ×3 (05:49→22:00)
[2017-09-02] MEDS: OXAZEPAM 15 MG CAP PO ×3 (05:49→22:36)
[2017-09-02 06:21] LABS: BASO # 0.1 10^3/uL (0.0-0.2); BASO % 0.8 % (0.0-1.0); EOS # 0.2 10^3/uL (0.0-0.50); HEMATOCRIT 40.3 % (42.0-52.0); IMMATURE GRANULOCYTE # 0.2 10^3/uL (0-0); IMMATURE GRANULOCYTE % 1.3 % (0-0); LYMPH # 1.8 10^3/uL (1.5-4.5); LYMPH % 15.1 % (24.0-44.0); MEAN CORPUSCULAR HEMOGLOBIN 29.5 pg (27.0-33.0); MEAN CORPUSCULAR HGB CONC 32.3 g/dl (32.0-36.5); MEAN CORPUSCULAR VOLUME 91.6 fl (80.0-96.0); MONO # 1.5 10^3/uL (0.0-0.8); MONO % 12.5 % (0.0-5.0); NEUTROPHILS # 8.1 10^3/uL (1.8-7.7); NEUTROPHILS % 68.3 % (36.0-66.0); PLATELET COUNT, AUTOMATED 282 10^3/uL (150-450); RED CELL DISTRIBUTION WIDTH 15.7 % (11.5-14.5); WHITE BLOOD COUNT 11.9 10^3/uL (4.0-10.0)
[2017-09-02 06:39] LABS: ANION GAP 7 MEQ/L (8-16); BLOOD UREA NITROGEN 10 MG/DL (7-18); CALCIUM LEVEL 9.1 MG/DL (8.5-10.1); CARBON DIOXIDE LEVEL 25 MEQ/L (21-32); CHLORIDE LEVEL 105 MEQ/L (98-107); CREATININE FOR GFR 0.69 MG/DL (0.70-1.30); GLOMERULAR FILTRATION RATE > 60.0 (>60); GLUCOSE, FASTING 109 MG/DL (70-105); POTASSIUM SERUM 3.7 MEQ/L (3.5-5.1); SODIUM LEVEL 137 MEQ/L (136-145)
[2017-09-02] MEDS: ADVAIR HFA 115/21MCG INHALER INH ×2 (08:25→21:00)
[2017-09-02] MEDS: MULTIVITAMINS/MINERALS THERAP 1 TAB PO (09:23)
[2017-09-02] MEDS: OMEPRAZOLE 20 MG CAP PO ×2 (09:23→22:35)
[2017-09-02] MEDS: LISINOPRIL 10 MG TAB PO (09:23)
[2017-09-02] MEDS: FOLIC ACID 1 MG TAB PO (09:23)
[2017-09-02] MEDS: FLUoxetine 20 MG CAP PO (09:23)
[2017-09-02] MEDS: MAGNESIUM OXIDE 400 MG TAB (MAG-OX) PO (09:23)
[2017-09-02] MEDS: THIAMINE 100 MG TAB PO (09:23)
[2017-09-02] MEDS: amLODIPine 5 MG TAB PO ×2 (09:24→22:35)
[2017-09-03] MEDS: IPRATROPIUM 0.5MG/ALBUTEROL 2.5MG INH SOL UD 3ML (DUONEB)(J7620) NEB (00:39)
[2017-09-03] MEDS: SLF 3 ML SYR IV ×3 (05:32→21:53)
[2017-09-03] MEDS: OXAZEPAM 15 MG CAP PO ×2 (05:32→18:21)
[2017-09-03] MEDS: HEPARIN SOD (PORCINE) 5000 UNITS/ML VIAL SC ×3 (05:32→21:53)
[2017-09-03] MEDS: ADVAIR HFA 115/21MCG INHALER INH ×2 (07:42→20:50)
[2017-09-03] MEDS: FLUoxetine 20 MG CAP PO (09:05)
[2017-09-03] MEDS: MAGNESIUM OXIDE 400 MG TAB (MAG-OX) PO (09:05)
[2017-09-03] MEDS: THIAMINE 100 MG TAB PO (09:06)
[2017-09-03] MEDS: LISINOPRIL 10 MG TAB PO (09:06)
[2017-09-03] MEDS: FOLIC ACID 1 MG TAB PO (09:06)
[2017-09-03] MEDS: amLODIPine 5 MG TAB PO ×2 (09:06→20:43)
[2017-09-03] MEDS: MULTIVITAMINS/MINERALS THERAP 1 TAB PO (09:06)
[2017-09-03] MEDS: OMEPRAZOLE 20 MG CAP PO ×2 (09:06→20:43)
[2017-09-03] MEDS ORDERED: OXAZEPAM 15 MG CAP PO (13:00)
[2017-09-04] MEDS: OXAZEPAM 15 MG CAP PO (05:46)
[2017-09-04] MEDS: SLF 3 ML SYR IV (05:46)
[2017-09-04] MEDS: ADVAIR HFA 115/21MCG INHALER INH (07:27)
[2017-09-04] MEDS: MULTIVITAMINS/MINERALS THERAP 1 TAB PO (08:20)
[2017-09-04] MEDS: LISINOPRIL 10 MG TAB PO (08:20)
[2017-09-04] MEDS: MAGNESIUM OXIDE 400 MG TAB (MAG-OX) PO (08:20)
[2017-09-04] MEDS: FLUoxetine 20 MG CAP PO (08:20)
[2017-09-04] MEDS: THIAMINE 100 MG TAB PO (08:21)
[2017-09-04] MEDS: amLODIPine 5 MG TAB PO (08:21)
[2017-09-04] MEDS: FOLIC ACID 1 MG TAB PO (08:21)
[2017-09-04] MEDS: OMEPRAZOLE 20 MG CAP PO (08:21)
[2017-09-04] MEDS: IPRATROPIUM 0.5MG/ALBUTEROL 2.5MG INH SOL UD 3ML (DUONEB)(J7620) NEB (09:06)
== END 2017-09-04 11:55 | disposition home or self-care (01) | DRG 775 ==
LOC: M MSPAV 08-28 14:45 → M PCU 08-26 21:06 → M ED 16:15 → M ED INP 23:05 → M ICU 23:56
DX: F10.239 Alcohol dependence with withdrawal, unspecified (principal); J44.9 Chronic obstructive pulmonary disease, unspecified; K70.10 Alcoholic hepatitis without ascites; J40 Bronchitis, not specified as acute or chronic; B97.29 Other coronavirus as the cause of diseases classified elsewhere; I10 Essential (primary) hypertension; K21.9 Gastro-esophageal reflux disease without esophagitis; Z87.891 Personal history of nicotine dependence; Z79.899 Other long term (current) drug therapy

== ENCOUNTER 2017-09-21 10:54 | Inpatient (IN) | payer OTHER ==
[2017-09-21 11:16] LABS: BASO # 0.1 10^3/uL (0.0-0.2); BASO % 0.9 % (0.0-1.0); EOS # 0.2 10^3/uL (0.0-0.50); EOS % 2.8 % (0.0-3.0); HEMATOCRIT 41.7 % (42.0-52.0); HEMOGLOBIN 13.9 g/dl (14.0-18.0); IMMATURE GRANULOCYTE % 0.2 % (0-0); LYMPH # 2.1 10^3/uL (1.5-4.5); LYMPH % 35.5 % (24.0-44.0); MEAN CORPUSCULAR HEMOGLOBIN 29.4 pg (27.0-33.0); MEAN CORPUSCULAR HGB CONC 33.3 g/dl (32.0-36.5); MEAN CORPUSCULAR VOLUME 88.3 fl (80.0-96.0); MONO # 0.8 10^3/uL (0.0-0.8); MONO % 13.3 % (0.0-5.0); NEUTROPHILS # 2.8 10^3/uL (1.8-7.7); NEUTROPHILS % 47.3 % (36.0-66.0); PLATELET COUNT, AUTOMATED 149 10^3/uL (150-450); RED BLOOD COUNT 4.72 10^6/uL (4.30-6.10); RED CELL DISTRIBUTION WIDTH 15.2 % (11.5-14.5); WHITE BLOOD COUNT 5.8 10^3/uL (4.0-10.0)
[2017-09-21 11:44] LABS: ALBUMIN 4.1 GM/DL (3.2-5.2); ALKALINE PHOSPHATASE 177 U/L (45-117); ALT/SGPT 149 U/L (12-78); ANION GAP 15 MEQ/L (8-16); AST/SGOT 229 U/L (7-37); BILIRUBIN,DIRECT 0.3 MG/DL (0.0-0.2); BILIRUBIN,TOTAL 0.7 MG/DL (0.2-1.0); BLOOD UREA NITROGEN 5 MG/DL (7-18); CALCIUM LEVEL 9.3 MG/DL (8.5-10.1); CARBON DIOXIDE LEVEL 22 MEQ/L (21-32); CHLORIDE LEVEL 100 MEQ/L (98-107); CREATININE FOR GFR 0.91 MG/DL (0.70-1.30); GLOMERULAR FILTRATION RATE > 60.0 (>60); GLUCOSE, FASTING 106 MG/DL (70-100); LIPASE 275 U/L (73-393); POTASSIUM SERUM 3.5 MEQ/L (3.5-5.1); SODIUM LEVEL 137 MEQ/L (136-145); TOTAL PROTEIN 8.2 GM/DL (6.4-8.2)
[2017-09-21] MEDS: ONDANSETRON 4MG/2ML VIAL (J2405) IV (11:48)
[2017-09-21] MEDS: NS 1,000 ML IV ×3 (11:48→15:25)
[2017-09-21 12:13] LABS: LACTIC ACID SEPSIS PROTOCOL 4.2 MMOL/L (0.4-2.0)
[2017-09-21] MEDS: LORazepam 2 MG/ML VIAL (J2060) IV ×2 (12:39→19:44)
[2017-09-21] MEDS: OXAZEPAM 15 MG CAP PO ×4 (13:15→21:51)
[2017-09-21] MEDS: LORazepam 2 MG/ML VIAL (J2060) IM (13:15)
[2017-09-21 13:18] LABS: MAGNESIUM LEVEL 1.8 MG/DL (1.8-2.4); PHOSPHORUS LEVEL 3.4 MG/DL (2.5-4.9)
[2017-09-21 13:36] LABS: ETHYL ALCOHOL (ETHANOL) 0.116 % (0.000-0.010)
[2017-09-21] MEDS ORDERED: ALBUTEROL SULFATE 2.5 MG/0.5 ML INH NEB SOLN INH (15:00)
[2017-09-21] MEDS ORDERED: ONDANSETRON 4MG/2ML VIAL (J2405) IV (15:00)
[2017-09-21 15:51] LABS: MAGNESIUM LEVEL 1.8 MG/DL (1.8-2.4)
[2017-09-21] MEDS: MULTIVITAMIN -ADULT INJECTION 10 ML, THIAMINE INJection 100 MG, FOLIC ACID 1 MG in NS 1... IV (17:05)
[2017-09-21] MEDS: FLUoxetine 20 MG CAP PO (17:06)
[2017-09-21] MEDS: HEPARIN SOD (PORCINE) 5000 UNITS/ML VIAL SC (20:05)
[2017-09-21] MEDS: ADVAIR HFA 115/21MCG INHALER INH (22:03)
[2017-09-22] MEDS: OXAZEPAM 15 MG CAP PO ×4 (00:13→17:04)
[2017-09-22 06:14] LABS: HEMATOCRIT 38.9 % (42.0-52.0); HEMOGLOBIN 12.5 g/dl (14.0-18.0); MEAN CORPUSCULAR HEMOGLOBIN 29.1 pg (27.0-33.0); MEAN CORPUSCULAR HGB CONC 32.1 g/dl (32.0-36.5); MEAN CORPUSCULAR VOLUME 90.5 fl (80.0-96.0); RED CELL DISTRIBUTION WIDTH 15.7 % (11.5-14.5); WHITE BLOOD COUNT 3.2 10^3/uL (4.0-10.0)
[2017-09-22 06:34] LABS: ALBUMIN 3.1 GM/DL (3.2-5.2); ALBUMIN/GLOBULIN RATIO 0.91 (1.00-1.93); ALKALINE PHOSPHATASE 144 U/L (45-117); ALT/SGPT 107 U/L (12-78); ANION GAP 7 MEQ/L (8-16); AST/SGOT 139 U/L (7-37); BILIRUBIN,TOTAL 0.8 MG/DL (0.2-1.0); BLOOD UREA NITROGEN 4 MG/DL (7-18); CALCIUM LEVEL 8.3 MG/DL (8.5-10.1); CARBON DIOXIDE LEVEL 26 MEQ/L (21-32); CHLORIDE LEVEL 106 MEQ/L (98-107); CREATININE FOR GFR 0.77 MG/DL (0.70-1.30); GLOMERULAR FILTRATION RATE > 60.0 (>60); GLUCOSE, FASTING 97 MG/DL (70-100); MAGNESIUM LEVEL 1.7 MG/DL (1.8-2.4); POTASSIUM SERUM 3.5 MEQ/L (3.5-5.1); SODIUM LEVEL 139 MEQ/L (136-145); TOTAL PROTEIN 6.5 GM/DL (6.4-8.2)
[2017-09-22 06:38] LABS: PLATELET COUNT, AUTOMATED 97 10^3/uL (150-450)
[2017-09-22 06:39] LABS: IMMATURE PLATELET FRACTION % 6.3 % (0.0-10.9); PLATELET F 94
[2017-09-22] MEDS: HEPARIN SOD (PORCINE) 5000 UNITS/ML VIAL SC ×2 (09:00→21:00)
[2017-09-22] MEDS: ADVAIR HFA 115/21MCG INHALER INH ×2 (09:00→20:58)
[2017-09-22] MEDS: MAG SULF 1GM/100ML (MAG RUN) 1 GM in APPROPRIATE DILUENT 1 EA IV (09:30)
[2017-09-22] MEDS: THIAMINE 100 MG TAB PO (09:31)
[2017-09-22] MEDS: FOLIC ACID 1 MG TAB PO (09:31)
[2017-09-22] MEDS: FLUoxetine 20 MG CAP PO (09:31)
[2017-09-22] MEDS: OMEPRAZOLE 20 MG CAP PO (09:32)
[2017-09-22] MEDS: MULTIVITAMINS/MINERALS THERAP 1 TAB PO (09:32)
[2017-09-22] MEDS: LISINOPRIL 10 MG TAB PO (09:33)
[2017-09-22] MEDS: LORazepam 2 MG/ML VIAL (J2060) IV (10:00)
[2017-09-23] MEDS: OXAZEPAM 15 MG CAP PO ×5 (00:35→21:11)
[2017-09-23 06:36] LABS: ALBUMIN 3.4 GM/DL (3.2-5.2); ALBUMIN/GLOBULIN RATIO 0.87 (1.00-1.93); ALKALINE PHOSPHATASE 183 U/L (45-117); ALT/SGPT 152 U/L (12-78); ANION GAP 9 MEQ/L (8-16); AST/SGOT 184 U/L (7-37); BILIRUBIN,TOTAL 0.8 MG/DL (0.2-1.0); BLOOD UREA NITROGEN 2 MG/DL (7-18); CALCIUM LEVEL 9.1 MG/DL (8.5-10.1); CARBON DIOXIDE LEVEL 26 MEQ/L (21-32); CHLORIDE LEVEL 105 MEQ/L (98-107); CREATININE FOR GFR 0.76 MG/DL (0.70-1.30); GLOMERULAR FILTRATION RATE > 60.0 (>60); GLUCOSE, FASTING 110 MG/DL (70-100); MAGNESIUM LEVEL 1.9 MG/DL (1.8-2.4); POTASSIUM SERUM 3.3 MEQ/L (3.5-5.1); SODIUM LEVEL 140 MEQ/L (136-145); TOTAL PROTEIN 7.3 GM/DL (6.4-8.2)
[2017-09-23 08:37] LABS: HEMATOCRIT 40.2 % (42.0-52.0); HEMOGLOBIN 13.1 g/dl (14.0-18.0); MEAN CORPUSCULAR HEMOGLOBIN 29.6 pg (27.0-33.0); MEAN CORPUSCULAR HGB CONC 32.6 g/dl (32.0-36.5); RED BLOOD COUNT 4.42 10^6/uL (4.30-6.10); RED CELL DISTRIBUTION WIDTH 15.3 % (11.5-14.5); WHITE BLOOD COUNT 5.5 10^3/uL (4.0-10.0)
[2017-09-23 08:40] LABS: PLATELET COUNT, AUTOMATED 99 10^3/uL (150-450)
[2017-09-23 08:41] LABS: IMMATURE PLATELET FRACTION % 7.9 % (0.0-10.9)
[2017-09-23] MEDS: OMEPRAZOLE 20 MG CAP PO (08:44)
[2017-09-23] MEDS: HEPARIN SOD (PORCINE) 5000 UNITS/ML VIAL SC ×2 (08:44→21:00)
[2017-09-23] MEDS: MULTIVITAMINS/MINERALS THERAP 1 TAB PO (08:44)
[2017-09-23] MEDS: LISINOPRIL 10 MG TAB PO (08:44)
[2017-09-23] MEDS: POTASSIUM CHLORIDE 10 MEQ SR TABLET PO (08:44)
[2017-09-23] MEDS: THIAMINE 100 MG TAB PO (08:44)
[2017-09-23] MEDS: FOLIC ACID 1 MG TAB PO (08:44)
[2017-09-23] MEDS: FLUoxetine 20 MG CAP PO (08:44)
[2017-09-23] MEDS: ADVAIR HFA 115/21MCG INHALER INH ×2 (10:53→19:48)
[2017-09-24] MEDS: OXAZEPAM 15 MG CAP PO ×4 (00:12→20:21)
[2017-09-24 06:22] LABS: HEMATOCRIT 43.6 % (42.0-52.0); MEAN CORPUSCULAR HEMOGLOBIN 29.4 pg (27.0-33.0); MEAN CORPUSCULAR HGB CONC 32.1 g/dl (32.0-36.5); MEAN CORPUSCULAR VOLUME 91.4 fl (80.0-96.0); PLATELET COUNT, AUTOMATED 104 10^3/uL (150-450); RED BLOOD COUNT 4.77 10^6/uL (4.30-6.10); RED CELL DISTRIBUTION WIDTH 15.7 % (11.5-14.5); WHITE BLOOD COUNT 6.6 10^3/uL (4.0-10.0)
[2017-09-24 06:30] LABS: POS COUNT POS FLAG
[2017-09-24 06:41] LABS: ALBUMIN 3.5 GM/DL (3.2-5.2); ALBUMIN/GLOBULIN RATIO 0.88 (1.00-1.93); ALKALINE PHOSPHATASE 176 U/L (45-117); ALT/SGPT 138 U/L (12-78); ANION GAP 7 MEQ/L (8-16); AST/SGOT 126 U/L (7-37); BILIRUBIN,TOTAL 0.5 MG/DL (0.2-1.0); BLOOD UREA NITROGEN 5 MG/DL (7-18); CALCIUM LEVEL 9.5 MG/DL (8.5-10.1); CARBON DIOXIDE LEVEL 27 MEQ/L (21-32); CHLORIDE LEVEL 104 MEQ/L (98-107); CREATININE FOR GFR 0.74 MG/DL (0.70-1.30); GLOMERULAR FILTRATION RATE > 60.0 (>60); GLUCOSE, FASTING 113 MG/DL (70-100); MAGNESIUM LEVEL 1.6 MG/DL (1.8-2.4); POTASSIUM SERUM 3.4 MEQ/L (3.5-5.1); SODIUM LEVEL 138 MEQ/L (136-145); TOTAL PROTEIN 7.5 GM/DL (6.4-8.2)
[2017-09-24] MEDS: OMEPRAZOLE 20 MG CAP PO (07:49)
[2017-09-24] MEDS: LISINOPRIL 10 MG TAB PO (07:49)
[2017-09-24] MEDS: THIAMINE 100 MG TAB PO (07:49)
[2017-09-24] MEDS: FOLIC ACID 1 MG TAB PO (07:50)
[2017-09-24] MEDS: HEPARIN SOD (PORCINE) 5000 UNITS/ML VIAL SC ×2 (07:50→20:19)
[2017-09-24] MEDS: MULTIVITAMINS/MINERALS THERAP 1 TAB PO (07:50)
[2017-09-24] MEDS: FLUoxetine 20 MG CAP PO (07:50)
[2017-09-24] MEDS: ADVAIR HFA 115/21MCG INHALER INH ×2 (08:02→21:49)
[2017-09-24] MEDS: MAG SULF 1GM/100ML (MAG RUN) 1 GM in APPROPRIATE DILUENT 1 EA IV ×2 (11:40→11:41)
[2017-09-24] MEDS: POTASSIUM CHLORIDE 10 MEQ SR TABLET PO (11:41)
[2017-09-25] MEDS: OXAZEPAM 15 MG CAP PO ×2 (00:21→09:32)
[2017-09-25 05:54] LABS: HEMATOCRIT 43.2 % (42.0-52.0); HEMOGLOBIN 13.7 g/dl (14.0-18.0); MEAN CORPUSCULAR HGB CONC 31.7 g/dl (32.0-36.5); MEAN CORPUSCULAR VOLUME 91.5 fl (80.0-96.0); PLATELET COUNT, AUTOMATED 111 10^3/uL (150-450); RED BLOOD COUNT 4.72 10^6/uL (4.30-6.10); RED CELL DISTRIBUTION WIDTH 15.7 % (11.5-14.5); WHITE BLOOD COUNT 6.5 10^3/uL (4.0-10.0)
[2017-09-25 06:13] LABS: ALBUMIN 3.5 GM/DL (3.2-5.2); ALBUMIN/GLOBULIN RATIO 0.88 (1.00-1.93); ALKALINE PHOSPHATASE 162 U/L (45-117); ALT/SGPT 166 U/L (12-78); ANION GAP 7 MEQ/L (8-16); AST/SGOT 145 U/L (7-37); BILIRUBIN,TOTAL 0.5 MG/DL (0.2-1.0); BLOOD UREA NITROGEN 8 MG/DL (7-18); CALCIUM LEVEL 9.2 MG/DL (8.5-10.1); CARBON DIOXIDE LEVEL 27 MEQ/L (21-32); CHLORIDE LEVEL 105 MEQ/L (98-107); CREATININE FOR GFR 0.74 MG/DL (0.70-1.30); GLOMERULAR FILTRATION RATE > 60.0 (>60); GLUCOSE, FASTING 118 MG/DL (70-100); POTASSIUM SERUM 3.9 MEQ/L (3.5-5.1); SODIUM LEVEL 139 MEQ/L (136-145); TOTAL PROTEIN 7.5 GM/DL (6.4-8.2)
[2017-09-25] MEDS: ADVAIR HFA 115/21MCG INHALER INH (07:34)
[2017-09-25] MEDS: HEPARIN SOD (PORCINE) 5000 UNITS/ML VIAL SC (09:00)
[2017-09-25] MEDS: MULTIVITAMINS/MINERALS THERAP 1 TAB PO (09:32)
[2017-09-25] MEDS: OMEPRAZOLE 20 MG CAP PO (09:32)
[2017-09-25] MEDS: FLUoxetine 20 MG CAP PO (09:32)
[2017-09-25] MEDS: THIAMINE 100 MG TAB PO (09:32)
[2017-09-25] MEDS: FOLIC ACID 1 MG TAB PO (09:32)
[2017-09-25] MEDS: LISINOPRIL 10 MG TAB PO (09:34)
== END 2017-09-25 12:05 | disposition home or self-care (01) | DRG 775 ==
LOC: M ED 10:54 → M ED INP 14:50 → M MSPAV 16:00
DX: F10.239 Alcohol dependence with withdrawal, unspecified (principal); E87.2 Acidosis; K70.10 Alcoholic hepatitis without ascites; I10 Essential (primary) hypertension; K21.9 Gastro-esophageal reflux disease without esophagitis; Z91.018 Allergy to other foods; Z79.899 Other long term (current) drug therapy

== ENCOUNTER 2017-10-05 14:03 | Emergency (ER) | payer OTHER ==
[2017-10-05 14:49] LABS: INR 1.07
[2017-10-05 14:55] LABS: AMMONIA 40 uMOL/L (<32)
[2017-10-05 14:59] LABS: ALBUMIN 3.9 GM/DL (3.2-5.2); ALBUMIN/GLOBULIN RATIO 1.22 (1.00-1.93); ALKALINE PHOSPHATASE 121 U/L (45-117); ALT/SGPT 99 U/L (12-78); ANION GAP 13 MEQ/L (8-16); AST/SGOT 94 U/L (7-37); BILIRUBIN,DIRECT 0.2 MG/DL (0.0-0.2); BILIRUBIN,TOTAL 0.5 MG/DL (0.2-1.0); BLOOD UREA NITROGEN 5 MG/DL (7-18); CALCIUM LEVEL 8.6 MG/DL (8.5-10.1); CARBON DIOXIDE LEVEL 21 MEQ/L (21-32); CHLORIDE LEVEL 114 MEQ/L (98-107); CREATININE FOR GFR 0.85 MG/DL (0.70-1.30); GLOMERULAR FILTRATION RATE > 60.0 (>60); GLUCOSE, FASTING 125 MG/DL (70-100); LIPASE 253 U/L (73-393); POTASSIUM SERUM 3.9 MEQ/L (3.5-5.1); SODIUM LEVEL 148 MEQ/L (136-145); TOTAL PROTEIN 7.1 GM/DL (6.4-8.2)
[2017-10-05 15:00] LABS: ETHYL ALCOHOL (ETHANOL) 0.521 % (0.000-0.010)
[2017-10-05 15:01] LABS: LACTIC ACID SEPSIS PROTOCOL 3.8 MMOL/L (0.4-2.0)
[2017-10-05 15:11] LABS: BASO # 0.1 10^3/uL (0.0-0.2); BASO % 1.7 % (0.0-1.0); EOS # 0.1 10^3/uL (0.0-0.50); HEMATOCRIT 40.1 % (42.0-52.0); HEMOGLOBIN 13.2 g/dl (14.0-18.0); IMMATURE GRANULOCYTE % 0.4 % (0-3.0); LYMPH # 1.7 10^3/uL (1.5-4.5); LYMPH % 25.2 % (24.0-44.0); MEAN CORPUSCULAR HEMOGLOBIN 29.5 pg (27.0-33.0); MEAN CORPUSCULAR HGB CONC 32.9 g/dl (32.0-36.5); MEAN CORPUSCULAR VOLUME 89.7 fl (80.0-96.0); MONO # 0.5 10^3/uL (0.0-0.8); MONO % 7.1 % (0.0-5.0); NEUTROPHILS # 4.4 10^3/uL (1.8-7.7); NEUTROPHILS % 63.6 % (36.0-66.0); PLATELET COUNT, AUTOMATED 323 10^3/uL (150-450); RED BLOOD COUNT 4.47 10^6/uL (4.30-6.10); RED CELL DISTRIBUTION WIDTH 15.6 % (11.5-14.5); WHITE BLOOD COUNT 6.9 10^3/uL (4.0-10.0)
[2017-10-05] MEDS: HALOPERIDOL 5 MG/ML VIAL (J1630) IM (15:15)
[2017-10-05] MEDS: LORazepam 2 MG/ML VIAL (J2060) IM (15:15)
[2017-10-05] MEDS: diphenhydrAMINE INJ 50MG/ML VIAL (J1200) IM (15:15)
== END 2017-10-06 01:27 | disposition home or self-care (01) ==
LOC: M ED 10-06 01:27
DX: F10.929 Alcohol use, unspecified with intoxication, unspecified (principal); I10 Essential (primary) hypertension
CPT/HCPCS: J1200

== ENCOUNTER 2017-10-07 00:02 | Emergency (ER) | payer OTHER ==
[2017-10-07] MEDS: PHENobarbital 30 MG TAB PO ×3 (00:30→02:45)
[2017-10-07] MEDS: MULTIVITAMIN -ADULT INJECTION 10 ML, THIAMINE INJection 100 MG, FOLIC ACID 1 MG in NS 1... IV (00:45)
[2017-10-07 00:47] LABS: BASO # 0.1 10^3/uL (0.0-0.2); BASO % 0.7 % (0.0-1.0); EOS % 0.3 % (0.0-3.0); HEMATOCRIT 39.7 % (42.0-52.0); HEMOGLOBIN 13.6 g/dl (14.0-18.0); IMMATURE GRANULOCYTE % 0.4 % (0-3.0); LYMPH # 1.2 10^3/uL (1.5-4.5); LYMPH % 13.6 % (24.0-44.0); MEAN CORPUSCULAR HEMOGLOBIN 29.4 pg (27.0-33.0); MEAN CORPUSCULAR HGB CONC 34.3 g/dl (32.0-36.5); MEAN CORPUSCULAR VOLUME 85.9 fl (80.0-96.0); MONO # 0.5 10^3/uL (0.0-0.8); MONO % 5.5 % (0.0-5.0); NEUTROPHILS # 7.3 10^3/uL (1.8-7.7); NEUTROPHILS % 79.5 % (36.0-66.0); PLATELET COUNT, AUTOMATED 297 10^3/uL (150-450); RED BLOOD COUNT 4.62 10^6/uL (4.30-6.10); RED CELL DISTRIBUTION WIDTH 15.2 % (11.5-14.5); WHITE BLOOD COUNT 9.2 10^3/uL (4.0-10.0)
[2017-10-07 01:09] LABS: ALBUMIN 4.2 GM/DL (3.2-5.2); ALBUMIN/GLOBULIN RATIO 1.27 (1.00-1.93); ALKALINE PHOSPHATASE 146 U/L (45-117); ALT/SGPT 90 U/L (12-78); ANION GAP 16 MEQ/L (8-16); AST/SGOT 103 U/L (7-37); BILIRUBIN,DIRECT 0.4 MG/DL (0.0-0.2); BILIRUBIN,TOTAL 1.2 MG/DL (0.2-1.0); BLOOD UREA NITROGEN 7 MG/DL (7-18); CALCIUM LEVEL 10.1 MG/DL (8.5-10.1); CARBON DIOXIDE LEVEL 24 MEQ/L (21-32); CHLORIDE LEVEL 96 MEQ/L (98-107); CREATININE FOR GFR 1.15 MG/DL (0.70-1.30); ETHYL ALCOHOL (ETHANOL) 0.003 % (0.000-0.010); GLOMERULAR FILTRATION RATE > 60.0 (>60); GLUCOSE, FASTING 214 MG/DL (70-100); LIPASE 204 U/L (73-393); POTASSIUM SERUM 3.7 MEQ/L (3.5-5.1); SODIUM LEVEL 136 MEQ/L (136-145); TOTAL PROTEIN 7.5 GM/DL (6.4-8.2)
[2017-10-07] MEDS ORDERED: PHENobarbital 30 MG TAB PO (01:30)
[2017-10-07] MEDS: PHENobarbital INJ 65 MG/ML VIAL (J2560) IV (01:45)
[2017-10-07] MEDS ORDERED: PHENobarbital INJ 65 MG/ML VIAL (J2560) IV (02:30)
[2017-10-07] MEDS: LISINOPRIL 10 MG TAB PO (03:28)
[2017-10-07] MEDS: cloNIDine 0.2 MG TAB PO (04:30)
== END 2017-10-07 04:35 | disposition home or self-care (01) ==
LOC: M ED 00:02
DX: F10.239 Alcohol dependence with withdrawal, unspecified (principal); I10 Essential (primary) hypertension; J44.9 Chronic obstructive pulmonary disease, unspecified; K21.9 Gastro-esophageal reflux disease without esophagitis; Z79.899 Other long term (current) drug therapy; Z98.890 Other specified postprocedural states; Z91.018 Allergy to other foods
CPT/HCPCS: J2560

== ENCOUNTER 2017-12-08 09:58 | Emergency (ER) | payer OTHER ==
[2017-12-08] MEDS ORDERED: LORazepam 2 MG/ML VIAL (J2060) IM ×2 (10:15)
[2017-12-08] MEDS ORDERED: diphenhydrAMINE INJ 50MG/ML VIAL (J1200) IM ×2 (10:15)
[2017-12-08] MEDS ORDERED: HALOPERIDOL 5 MG/ML VIAL (J1630) IM ×2 (10:15)
[2017-12-08 13:18] LABS: ETHYL ALCOHOL (ETHANOL) 0.466 % (0.000-0.010)
== END 2017-12-08 18:43 | disposition home or self-care (01) ==
LOC: M ED 09:58
DX: F10.229 Alcohol dependence with intoxication, unspecified (principal); J44.9 Chronic obstructive pulmonary disease, unspecified; I10 Essential (primary) hypertension; Z86.69 Personal history of other diseases of the nervous system and sense organs; Z79.899 Other long term (current) drug therapy; Z91.018 Allergy to other foods
CPT/HCPCS: 80320

== ENCOUNTER → 2018-02-24 | Outpatient (CLI) | payer OTHER | LOC: M OUTALCOH 07:47 | DX: Z13.9 Encounter for screening, unspecified (principal) ==

== ENCOUNTER 2018-02-25 08:50 | Emergency (ER) | payer OTHER | END 2018-02-25 10:10 | disposition home or self-care (01) | LOC: M ED 08:50 | DX: F10.120 Alcohol abuse with intoxication, uncomplicated (principal); Z79.899 Other long term (current) drug therapy; Z91.018 Allergy to other foods | CPT/HCPCS: 99284 ==

== ENCOUNTER 2018-02-28 21:40 | Emergency (ER) | payer OTHER ==
[2018-02-28 22:54] LABS: BASO # 0.1 10^3/uL (0.0-0.2); BASO % 1.4 % (0.0-1.0); EOS # 0.3 10^3/uL (0.0-0.50); EOS % 6.2 % (0.0-3.0); HEMATOCRIT 37.6 % (42.0-52.0); HEMOGLOBIN 12.5 g/dl (13.5-17.5); IMMATURE GRANULOCYTE % 2.9 % (0-3.0); LYMPH # 1.5 10^3/uL (1.5-4.5); MEAN CORPUSCULAR HEMOGLOBIN 27.4 pg (27.0-33.0); MEAN CORPUSCULAR HGB CONC 33.2 g/dl (32.0-36.5); MEAN CORPUSCULAR VOLUME 82.3 fl (80.0-96.0); MONO # 0.6 10^3/uL (0.0-0.8); MONO % 11.5 % (0.0-5.0); NEUTROPHILS # 2.5 10^3/uL (1.8-7.7); PLATELET COUNT, AUTOMATED 167 10^3/uL (150-450); RED BLOOD COUNT 4.57 10^6/uL (4.30-6.10); RED CELL DISTRIBUTION WIDTH 16.5 % (11.5-14.5); WHITE BLOOD COUNT 5.1 10^3/uL (4.0-10.0)
[2018-02-28 23:17] LABS: OSMOLALITY SERUM 385 MOSM/KG (275-295)
[2018-02-28] MEDS: MULTIVITAMIN -ADULT INJECTION 10 ML, THIAMINE INJection 100 MG, FOLIC ACID 1 MG in NS 1... IV (23:21)
[2018-02-28 23:37] LABS: ALBUMIN 3.6 GM/DL (3.2-5.2); ALKALINE PHOSPHATASE 150 U/L (45-117); ALT/SGPT 50 U/L (12-78); ANION GAP 12 MEQ/L (8-16); AST/SGOT 78 U/L (7-37); BILIRUBIN,DIRECT 0.1 MG/DL (0.0-0.2); BILIRUBIN,TOTAL 0.3 MG/DL (0.2-1.0); BLOOD UREA NITROGEN 5 MG/DL (7-18); CARBON DIOXIDE LEVEL 25 MEQ/L (21-32); CHLORIDE LEVEL 107 MEQ/L (98-107); CPK CREATINE PHOSPHOKINASE 176 U/L (39-308); CREATININE FOR GFR 0.98 MG/DL (0.70-1.30); ETHYL ALCOHOL (ETHANOL) 0.361 % (0.000-0.010); GLOMERULAR FILTRATION RATE > 60.0 (>60); GLUCOSE, FASTING 125 MG/DL (70-100); POTASSIUM SERUM 3.2 MEQ/L (3.5-5.1); SALICYLATE LEVEL 2.3 MG/DL (5.0-30.0); SODIUM LEVEL 144 MEQ/L (136-145); TOTAL PROTEIN 7.2 GM/DL (6.4-8.2)
[2018-02-28 23:38] LABS: ACETAMINOPHEN LEVEL < 2.0 UG/ML (10.0-30.0)
[2018-02-28 23:58] LABS: MAGNESIUM LEVEL 1.6 MG/DL (1.8-2.4)
[2018-03-01] MEDS: POTASSIUM CHLORIDE 10 MEQ SR TABLET PO (00:49)
[2018-03-01] MEDS: MAG SULF 1GM/100ML (MAG RUN) 1 GM in APPROPRIATE DILUENT 1 EA IV (00:49)
[2018-03-01 02:29] LABS: AMPHETAMINES LEVEL URINE NEGATIVE (NEGATIVE); BARBITURATES URINE NEGATIVE (NEGATIVE); BENZODIAZEPINES URINE POSITIVE (NEGATIVE); CANNABINOIDS URINE NEGATIVE (NEGATIVE); COCAINE METABOLITE URINE NEGATIVE (NEGATIVE); METHADONE URINE NEGATIVE (NEGATIVE); OPIATES URINE NEGATIVE (NEGATIVE); PHENCYCLIDINE URINE NEGATIVE (NEGATIVE)
== END 2018-03-01 03:00 | disposition home or self-care (01) ==
LOC: M ED 21:40
DX: F10.129 Alcohol abuse with intoxication, unspecified (principal); R00.0 Tachycardia, unspecified; F14.10 Cocaine abuse, uncomplicated; F11.10 Opioid abuse, uncomplicated; I10 Essential (primary) hypertension; E78.00 Pure hypercholesterolemia, unspecified; K57.92 Diverticulitis of intestine, part unspecified, without perforation or abscess without bleeding; F41.9 Anxiety disorder, unspecified; Z87.891 Personal history of nicotine dependence; Z63.72 Alcoholism and drug addiction in family; Z79.899 Other long term (current) drug therapy; Z91.018 Allergy to other foods
CPT/HCPCS: J3475

== ENCOUNTER 2018-04-15 10:27 | Emergency (ER) | payer OTHER ==
[2018-04-15] MEDS: NS 1,000 ML IV (11:16)
[2018-04-15 11:19] LABS: BASO # 0.1 10^3/uL (0.0-0.2); BASO % 0.4 % (0.0-1.0); EOS # 0.1 10^3/uL (0.0-0.50); EOS % 0.6 % (0.0-3.0); HEMATOCRIT 38.3 % (42.0-52.0); HEMOGLOBIN 12.4 g/dl (13.5-17.5); LYMPH # 1.1 10^3/uL (1.5-4.5); LYMPH % 9.6 % (24.0-44.0); MEAN CORPUSCULAR HEMOGLOBIN 25.8 pg (27.0-33.0); MEAN CORPUSCULAR HGB CONC 32.4 g/dl (32.0-36.5); MEAN CORPUSCULAR VOLUME 79.8 fl (80.0-96.0); MONO % 8.2 % (0.0-5.0); NEUTROPHILS # 9.3 10^3/uL (1.8-7.7); NEUTROPHILS % 80.2 % (36.0-66.0); PLATELET COUNT, AUTOMATED 275 10^3/uL (150-450); WHITE BLOOD COUNT 11.6 10^3/uL (4.0-10.0)
[2018-04-15 11:45] LABS: ALBUMIN 3.4 GM/DL (3.2-5.2); ALBUMIN/GLOBULIN RATIO 0.89 (1.00-1.93); ALKALINE PHOSPHATASE 86 U/L (45-117); ALT/SGPT 29 U/L (12-78); ANION GAP 12 MEQ/L (8-16); AST/SGOT 26 U/L (7-37); BILIRUBIN,DIRECT 0.2 MG/DL (0.0-0.2); BILIRUBIN,TOTAL 0.8 MG/DL (0.2-1.0); BLOOD UREA NITROGEN 8 MG/DL (7-18); CALCIUM LEVEL 9.1 MG/DL (8.5-10.1); CARBON DIOXIDE LEVEL 21 MEQ/L (21-32); CHLORIDE LEVEL 110 MEQ/L (98-107); CREATININE FOR GFR 0.92 MG/DL (0.70-1.30); GLOMERULAR FILTRATION RATE > 60.0 (>60); GLUCOSE, FASTING 125 MG/DL (70-100); LIPASE 105 U/L (73-393); POTASSIUM SERUM 3.8 MEQ/L (3.5-5.1); SODIUM LEVEL 143 MEQ/L (136-145); TOTAL PROTEIN 7.2 GM/DL (6.4-8.2)
[2018-04-15 12:07] LABS: CK-MB VALUE MASS 1.2 NG/ML (<3.6); CPK CREATINE PHOSPHOKINASE 115 U/L (39-308); MB/CK RELATIVE INDEX 1.04 (< OR =4); TROPONIN I < 0.02 NG/ML (< 0.10)
[2018-04-15 12:44] LABS: AMPHETAMINES LEVEL URINE NEGATIVE (NEGATIVE); BARBITURATES URINE NEGATIVE (NEGATIVE); BENZODIAZEPINES URINE POSITIVE (NEGATIVE); CANNABINOIDS URINE NEGATIVE (NEGATIVE); COCAINE METABOLITE URINE NEGATIVE (NEGATIVE); METHADONE URINE NEGATIVE (NEGATIVE); OPIATES URINE NEGATIVE (NEGATIVE); PHENCYCLIDINE URINE NEGATIVE (NEGATIVE)
[2018-04-15] MEDS: OXAZEPAM 15 MG CAP PO (13:23)
== END 2018-04-15 14:30 | disposition home or self-care (01) ==
LOC: M ED 10:27
DX: F10.239 Alcohol dependence with withdrawal, unspecified (principal); J45.909 Unspecified asthma, uncomplicated; I10 Essential (primary) hypertension; F41.9 Anxiety disorder, unspecified; K21.9 Gastro-esophageal reflux disease without esophagitis; E78.9 Disorder of lipoprotein metabolism, unspecified; Z79.899 Other long term (current) drug therapy; Z91.018 Allergy to other foods; Z87.891 Personal history of nicotine dependence
CPT/HCPCS: 71046

== ENCOUNTER → 2018-05-04 | Outpatient (CLI) | payer OTHER, SELFPAY | LOC: M OUTALCOH 08:20 | DX: Z13.89 Encounter for screening for other disorder (principal); F10.20 Alcohol dependence, uncomplicated ==

== ENCOUNTER 2018-05-12 10:35 | Outpatient (RCR) | payer OTHER | END 2018-05-16 | LOC: M OUTALCOH 10:35 | DX: F10.20 Alcohol dependence, uncomplicated (principal) ==

== ENCOUNTER 2018-05-20 14:02 | Inpatient (IN) | payer MEDICAID, OTHER, SELFPAY ==
[2018-05-20] MEDS ORDERED: LORazepam 2 MG/ML VIAL (J2060) As Ordered (14:30)
[2018-05-20] MEDS: LORazepam 2 MG/ML VIAL (J2060) IV (14:34)
[2018-05-20 14:39] LABS: BASO # 0.1 10^3/uL (0.0-0.2); EOS # 0.1 10^3/uL (0.0-0.50); EOS % 0.7 % (0.0-3.0); HEMATOCRIT 40.3 % (42.0-52.0); HEMOGLOBIN 13.3 g/dl (13.5-17.5); IMMATURE GRANULOCYTE % 0.3 % (0-3.0); LYMPH # 1.1 10^3/uL (1.5-4.5); LYMPH % 15.3 % (24.0-44.0); MEAN CORPUSCULAR VOLUME 78.7 fl (80.0-96.0); MONO # 0.7 10^3/uL (0.0-0.8); MONO % 10.6 % (0.0-5.0); NEUTROPHILS % 72.1 % (36.0-66.0); PLATELET COUNT, AUTOMATED 299 10^3/uL (150-450); RED BLOOD COUNT 5.12 10^6/uL (4.30-6.10); RED CELL DISTRIBUTION WIDTH 17.2 % (11.5-14.5); WHITE BLOOD COUNT 6.9 10^3/uL (4.0-10.0)
[2018-05-20 14:49] LABS: INR 1.02; PROTHROMBIN TIME 13.5 SECONDS (12.1-14.4)
[2018-05-20 15:09] LABS: ALBUMIN 3.8 GM/DL (3.2-5.2); ALBUMIN/GLOBULIN RATIO 1.06 (1.00-1.93); ALKALINE PHOSPHATASE 89 U/L (45-117); ALT/SGPT 31 U/L (12-78); ANION GAP 12 MEQ/L (8-16); AST/SGOT 28 U/L (7-37); BILIRUBIN,DIRECT 0.3 MG/DL (0.0-0.2); BILIRUBIN,TOTAL 0.9 MG/DL (0.2-1.0); BLOOD UREA NITROGEN 7 MG/DL (7-18); CALCIUM LEVEL 8.9 MG/DL (8.5-10.1); CARBON DIOXIDE LEVEL 23 MEQ/L (21-32); CHLORIDE LEVEL 104 MEQ/L (98-107); CPK CREATINE PHOSPHOKINASE 94 U/L (39-308); CREATININE FOR GFR 0.75 MG/DL (0.70-1.30); GLOMERULAR FILTRATION RATE > 60.0 (>60); GLUCOSE, FASTING 131 MG/DL (70-100); LIPASE 115 U/L (73-393); MB/CK RELATIVE INDEX 1.38 (< OR =4); NT-PRO BNP 19 PG/ML (<125); POTASSIUM SERUM 4.4 MEQ/L (3.5-5.1); SODIUM LEVEL 139 MEQ/L (136-145); THYROID STIMULATING HORMONE 0.862 uIU/ML (0.358-3.740); TOTAL PROTEIN 7.4 GM/DL (6.4-8.2); TROPONIN I < 0.02 NG/ML (< 0.10)
[2018-05-20 15:11] LABS: ETHYL ALCOHOL (ETHANOL) 0.039 % (0.000-0.010)
[2018-05-20] MEDS: OXAZEPAM 15 MG CAP PO ×3 (15:16→23:45)
[2018-05-20] MEDS: MULTIVITAMIN -ADULT INJECTION 10 ML, THIAMINE INJection 100 MG, FOLIC ACID 1 MG in NS 1... IV ×2 (16:13→22:46)
[2018-05-20] MEDS ORDERED: ONDANSETRON 4MG/2ML VIAL (J2405) IV (16:45)
[2018-05-20] MEDS: cloNIDine 0.1 MG TAB PO ×2 (18:03→21:35)
[2018-05-20] MEDS ORDERED: NITROGLYCERIN 0.4 MG SUBL TABLET SL (18:15)
[2018-05-20] MEDS ORDERED: GI COCKTAIL 50ML BTL(HYOSCYAMINE/MAALOX/LIDOCAINE VISCOUS)(1:3:1) PO (18:15)
[2018-05-20] MEDS: LISINOPRIL 5 MG TAB PO (18:47)
[2018-05-20] MEDS: PANTOPRAZOLE 40MG TAB (PROTONIX) PO (18:47)
[2018-05-20] MEDS: SUCRALFATE SUSP 1GM/10ML UD PO ×2 (18:47→21:35)
[2018-05-20 19:25] LABS: CK-MB VALUE MASS < 1.0 NG/ML (<3.6); CPK CREATINE PHOSPHOKINASE 132 U/L (39-308); MB/CK RELATIVE INDEX 0.76 (< OR =4); TROPONIN I < 0.02 NG/ML (< 0.10)
[2018-05-20] MEDS: GI COCKTAIL 50ML BTL(HYOSCYAMINE/MAALOX/LIDOCAINE VISCOUS)(1:3:1) PO (19:58)
[2018-05-20 20:31] LABS: CHOLESTEROL LEVEL 272 MG/DL (<200); CHOLESTEROL RISK RATIO 3.358 (<5); HDL CHOLESTEROL 81 MG/DL (>40); LDL CHOLESTEROL 168 MG/DL (<100); NON-HDL-C 191 MG/DL; TRIGLYCERIDES LEVEL 113 MG/DL (<150)
[2018-05-20] MEDS: HEPARIN SOD (PORCINE) 5000 UNITS/ML VIAL SC (21:35)
[2018-05-21 00:43] LABS: CK-MB VALUE MASS < 1.0 NG/ML (<3.6); CPK CREATINE PHOSPHOKINASE 70 U/L (39-308); MB/CK RELATIVE INDEX 1.43 (< OR =4); TROPONIN I < 0.02 NG/ML (< 0.10)
[2018-05-21] MEDS: cloNIDine 0.1 MG TAB PO ×6 (01:03→20:43)
[2018-05-21 01:46] LABS: AMPHETAMINES LEVEL URINE NEGATIVE (NEGATIVE); BARBITURATES URINE NEGATIVE (NEGATIVE); BENZODIAZEPINES URINE POSITIVE (NEGATIVE); CANNABINOIDS URINE NEGATIVE (NEGATIVE); COCAINE METABOLITE URINE NEGATIVE (NEGATIVE); METHADONE URINE NEGATIVE (NEGATIVE); OPIATES URINE NEGATIVE (NEGATIVE); PHENCYCLIDINE URINE NEGATIVE (NEGATIVE)
[2018-05-21] MEDS: HEPARIN SOD (PORCINE) 5000 UNITS/ML VIAL SC ×3 (05:46→22:07)
[2018-05-21] MEDS: OXAZEPAM 15 MG CAP PO ×3 (05:46→18:02)
[2018-05-21 05:52] LABS: HEMATOCRIT 39.2 % (42.0-52.0); HEMOGLOBIN 12.1 g/dl (13.5-17.5); MEAN CORPUSCULAR HEMOGLOBIN 25.4 pg (27.0-33.0); MEAN CORPUSCULAR HGB CONC 30.9 g/dl (32.0-36.5); MEAN CORPUSCULAR VOLUME 82.2 fl (80.0-96.0); RED BLOOD COUNT 4.77 10^6/uL (4.30-6.10); RED CELL DISTRIBUTION WIDTH 17.2 % (11.5-14.5)
[2018-05-21 05:55] LABS: PLATELET COUNT, AUTOMATED 174 10^3/uL (150-450)
[2018-05-21 06:25] LABS: ANION GAP 7 MEQ/L (8-16); BLOOD UREA NITROGEN 8 MG/DL (7-18); CALCIUM LEVEL 8.5 MG/DL (8.5-10.1); CARBON DIOXIDE LEVEL 26 MEQ/L (21-32); CHLORIDE LEVEL 105 MEQ/L (98-107); CK-MB VALUE MASS < 1.0 NG/ML (<3.6); CPK CREATINE PHOSPHOKINASE 61 U/L (39-308); CREATININE FOR GFR 0.76 MG/DL (0.70-1.30); GLOMERULAR FILTRATION RATE > 60.0 (>60); GLUCOSE, FASTING 90 MG/DL (70-100); MAGNESIUM LEVEL 1.8 MG/DL (1.8-2.4); MB/CK RELATIVE INDEX 1.64 (< OR =4); POTASSIUM SERUM 3.7 MEQ/L (3.5-5.1); SODIUM LEVEL 138 MEQ/L (136-145); TROPONIN I < 0.02 NG/ML (< 0.10)
[2018-05-21] MEDS: SUCRALFATE SUSP 1GM/10ML UD PO ×4 (07:30→20:40)
[2018-05-21] MEDS: LISINOPRIL 5 MG TAB PO ×2 (09:14→20:41)
[2018-05-21] MEDS: PANTOPRAZOLE 40MG TAB (PROTONIX) PO ×2 (09:14→20:41)
[2018-05-21] MEDS ORDERED: E-Z-HD 98% w/w 340GM SUSP BTL As Ordered (11:15)
[2018-05-21] MEDS ORDERED: E-Z-GAS II EFFERVESCENT PACKET (SODIUM BICARB./CITRIC ACID/SIMETHICONE) As Ordered (11:15)
[2018-05-21] MEDS ORDERED: E-Z-PAQUE 96% w/w SUSP 176GM BTL As Ordered (11:15)
[2018-05-21] MEDS: ACETAMINOPHEN TAB 650MG DOSE (2X325MG) PO (20:40)
[2018-05-21] MEDS: LORazepam 2 MG/ML VIAL (J2060) IV (20:42)
[2018-05-22] MEDS: cloNIDine 0.1 MG TAB PO ×6 (00:57→20:20)
[2018-05-22] MEDS: OXAZEPAM 15 MG CAP PO ×4 (00:58→17:52)
[2018-05-22] MEDS: HEPARIN SOD (PORCINE) 5000 UNITS/ML VIAL SC ×3 (05:16→21:52)
[2018-05-22] MEDS: LORazepam 2 MG/ML VIAL (J2060) IV ×4 (05:16→20:21)
[2018-05-22 05:23] LABS: HEMATOCRIT 40.4 % (42.0-52.0); HEMOGLOBIN 12.7 g/dl (13.5-17.5); MEAN CORPUSCULAR HEMOGLOBIN 25.8 pg (27.0-33.0); MEAN CORPUSCULAR HGB CONC 31.4 g/dl (32.0-36.5); MEAN CORPUSCULAR VOLUME 81.9 fl (80.0-96.0); PLATELET COUNT, AUTOMATED 169 10^3/uL (150-450); RED BLOOD COUNT 4.93 10^6/uL (4.30-6.10); RED CELL DISTRIBUTION WIDTH 17.2 % (11.5-14.5); WHITE BLOOD COUNT 4.2 10^3/uL (4.0-10.0)
[2018-05-22 05:53] LABS: ANION GAP 7 MEQ/L (8-16); BLOOD UREA NITROGEN 6 MG/DL (7-18); CALCIUM LEVEL 8.8 MG/DL (8.5-10.1); CARBON DIOXIDE LEVEL 29 MEQ/L (21-32); CHLORIDE LEVEL 107 MEQ/L (98-107); CREATININE FOR GFR 0.79 MG/DL (0.70-1.30); GLOMERULAR FILTRATION RATE > 60.0 (>60); GLUCOSE, FASTING 111 MG/DL (70-100); MAGNESIUM LEVEL 1.9 MG/DL (1.8-2.4); POTASSIUM SERUM 3.7 MEQ/L (3.5-5.1); SODIUM LEVEL 143 MEQ/L (136-145)
[2018-05-22] MEDS: SUCRALFATE SUSP 1GM/10ML UD PO ×4 (09:00→20:16)
[2018-05-22] MEDS: LISINOPRIL 5 MG TAB PO ×2 (09:00→20:20)
[2018-05-22] MEDS: PANTOPRAZOLE 40MG TAB (PROTONIX) PO ×2 (09:00→20:20)
[2018-05-22] MEDS: ACETAMINOPHEN 650MG ER TAB (TYLENOL ARTHRITIS) PO ×2 (11:03→20:20)
[2018-05-23] MEDS: cloNIDine 0.1 MG TAB PO ×6 (00:14→20:18)
[2018-05-23] MEDS: LORazepam 2 MG/ML VIAL (J2060) IV ×5 (01:10→21:34)
[2018-05-23] MEDS ORDERED: ALBUTEROL SULFATE 2.5 MG/0.5 ML INH NEB SOLN NEB ×2 (04:45→08:00)
[2018-05-23] MEDS ORDERED: ALBUTEROL 90 MCG/ACT 8GM HFA INHALER INH ×2 (04:45)
[2018-05-23] MEDS: OXAZEPAM 15 MG CAP PO ×2 (05:14)
[2018-05-23] MEDS: HEPARIN SOD (PORCINE) 5000 UNITS/ML VIAL SC ×3 (05:16→21:34)
[2018-05-23 05:38] LABS: HEMATOCRIT 38.7 % (42.0-52.0); MEAN CORPUSCULAR HEMOGLOBIN 25.5 pg (27.0-33.0); MEAN CORPUSCULAR VOLUME 82.2 fl (80.0-96.0); PLATELET COUNT, AUTOMATED 198 10^3/uL (150-450); RED BLOOD COUNT 4.71 10^6/uL (4.30-6.10); RED CELL DISTRIBUTION WIDTH 17.3 % (11.5-14.5); WHITE BLOOD COUNT 5.7 10^3/uL (4.0-10.0)
[2018-05-23 06:04] LABS: ANION GAP 8 MEQ/L (8-16); BLOOD UREA NITROGEN 5 MG/DL (7-18); CALCIUM LEVEL 8.8 MG/DL (8.5-10.1); CARBON DIOXIDE LEVEL 25 MEQ/L (21-32); CHLORIDE LEVEL 106 MEQ/L (98-107); CREATININE FOR GFR 0.76 MG/DL (0.70-1.30); GLOMERULAR FILTRATION RATE > 60.0 (>60); GLUCOSE, FASTING 122 MG/DL (70-100); MAGNESIUM LEVEL 1.7 MG/DL (1.8-2.4); POTASSIUM SERUM 3.6 MEQ/L (3.5-5.1); SODIUM LEVEL 139 MEQ/L (136-145)
[2018-05-23] MEDS: MAG SULF 1GM/100ML (MAG RUN) 1 GM in APPROPRIATE DILUENT 1 EA IV (06:30)
[2018-05-23] MEDS: ACETAMINOPHEN 650MG ER TAB (TYLENOL ARTHRITIS) PO ×2 (06:51→20:17)
[2018-05-23] MEDS: ADVAIR HFA 230/21MCG INHALER INH ×2 (09:28→20:29)
[2018-05-23] MEDS: SUCRALFATE SUSP 1GM/10ML UD PO ×4 (09:59→20:16)
[2018-05-23] MEDS: LISINOPRIL 5 MG TAB PO ×2 (10:00→20:17)
[2018-05-23] MEDS: GABAPENTIN 400 MG CAP PO ×4 (10:01→20:18)
[2018-05-23] MEDS: SERTRALINE 100 MG TAB PO (10:01)
[2018-05-23] MEDS: PANTOPRAZOLE 40MG TAB (PROTONIX) PO ×2 (10:01→20:17)
[2018-05-23] MEDS: FOLIC ACID 1 MG TAB PO (10:02)
[2018-05-23] MEDS: THIAMINE 100 MG TAB PO (10:03)
[2018-05-23] MEDS: hydrOXYzine 25 MG TAB PO (10:03)
[2018-05-23] MEDS: OXAZEPAM 10 MG CAP PO ×2 (11:58→18:07)
[2018-05-24] MEDS: cloNIDine 0.1 MG TAB PO ×6 (00:09→20:30)
[2018-05-24] MEDS: LORazepam 2 MG/ML VIAL (J2060) IV ×4 (04:00→20:30)
[2018-05-24] MEDS: IPRATROPIUM 0.5MG/ALBUTEROL 2.5MG INH SOL UD 3ML (DUONEB)(J7620) NEB (04:05)
[2018-05-24] MEDS: HEPARIN SOD (PORCINE) 5000 UNITS/ML VIAL SC ×3 (05:28→22:00)
[2018-05-24] MEDS: OXAZEPAM 10 MG CAP PO ×5 (05:28→23:53)
[2018-05-24] MEDS: SLF 3 ML SYR IV ×5 (05:30→22:00)
[2018-05-24 05:42] LABS: HEMATOCRIT 38.3 % (42.0-52.0); HEMOGLOBIN 11.8 g/dl (13.5-17.5); MEAN CORPUSCULAR HEMOGLOBIN 25.8 pg (27.0-33.0); MEAN CORPUSCULAR HGB CONC 30.8 g/dl (32.0-36.5); MEAN CORPUSCULAR VOLUME 83.8 fl (80.0-96.0); PLATELET COUNT, AUTOMATED 197 10^3/uL (150-450); RED BLOOD COUNT 4.57 10^6/uL (4.30-6.10); RED CELL DISTRIBUTION WIDTH 17.8 % (11.5-14.5); WHITE BLOOD COUNT 7.2 10^3/uL (4.0-10.0)
[2018-05-24 06:04] LABS: ANION GAP 8 MEQ/L (8-16); BLOOD UREA NITROGEN 5 MG/DL (7-18); CALCIUM LEVEL 8.8 MG/DL (8.5-10.1); CARBON DIOXIDE LEVEL 26 MEQ/L (21-32); CHLORIDE LEVEL 106 MEQ/L (98-107); CREATININE FOR GFR 0.81 MG/DL (0.70-1.30); GLOMERULAR FILTRATION RATE > 60.0 (>60); GLUCOSE, FASTING 112 MG/DL (70-100); MAGNESIUM LEVEL 1.8 MG/DL (1.8-2.4); POTASSIUM SERUM 3.9 MEQ/L (3.5-5.1); SODIUM LEVEL 140 MEQ/L (136-145)
[2018-05-24] MEDS: ADVAIR HFA 230/21MCG INHALER INH ×2 (07:23→21:06)
[2018-05-24] MEDS: SUCRALFATE SUSP 1GM/10ML UD PO ×4 (08:03→20:29)
[2018-05-24] MEDS: SERTRALINE 100 MG TAB PO (08:42)
[2018-05-24] MEDS: LISINOPRIL 5 MG TAB PO ×2 (08:42→20:37)
[2018-05-24] MEDS: GABAPENTIN 400 MG CAP PO ×4 (08:43→20:29)
[2018-05-24] MEDS: PANTOPRAZOLE 40MG TAB (PROTONIX) PO ×2 (08:43→20:31)
[2018-05-24] MEDS: FOLIC ACID 1 MG TAB PO (08:43)
[2018-05-24] MEDS: THIAMINE 100 MG TAB PO (08:44)
[2018-05-25] MEDS: cloNIDine 0.1 MG TAB PO ×2 (01:00→05:00)
[2018-05-25] MEDS: LORazepam 2 MG/ML VIAL (J2060) IV (03:42)
[2018-05-25] MEDS: HEPARIN SOD (PORCINE) 5000 UNITS/ML VIAL SC ×3 (06:00→21:19)
[2018-05-25] MEDS: SLF 3 ML SYR IV ×3 (06:00→21:19)
[2018-05-25 06:07] LABS: MEAN CORPUSCULAR HEMOGLOBIN 25.8 pg (27.0-33.0); MEAN CORPUSCULAR HGB CONC 30.8 g/dl (32.0-36.5); MEAN CORPUSCULAR VOLUME 83.9 fl (80.0-96.0); PLATELET COUNT, AUTOMATED 213 10^3/uL (150-450); RED BLOOD COUNT 4.65 10^6/uL (4.30-6.10); RED CELL DISTRIBUTION WIDTH 17.7 % (11.5-14.5); WHITE BLOOD COUNT 8.4 10^3/uL (4.0-10.0)
[2018-05-25] MEDS: SUCRALFATE SUSP 1GM/10ML UD PO ×4 (06:32→20:57)
[2018-05-25] MEDS: OXAZEPAM 10 MG CAP PO ×3 (06:32→21:00)
[2018-05-25 06:35] LABS: ANION GAP 8 MEQ/L (8-16); BLOOD UREA NITROGEN 8 MG/DL (7-18); CALCIUM LEVEL 9.5 MG/DL (8.5-10.1); CARBON DIOXIDE LEVEL 27 MEQ/L (21-32); CHLORIDE LEVEL 103 MEQ/L (98-107); CREATININE FOR GFR 0.87 MG/DL (0.70-1.30); GLOMERULAR FILTRATION RATE > 60.0 (>60); GLUCOSE, FASTING 98 MG/DL (70-100); MAGNESIUM LEVEL 1.6 MG/DL (1.8-2.4); SODIUM LEVEL 138 MEQ/L (136-145)
[2018-05-25] MEDS: ADVAIR HFA 230/21MCG INHALER INH ×2 (07:50→20:53)
[2018-05-25] MEDS: MAGNESIUM OXIDE 400 MG TAB (MAG-OX) PO ×2 (10:05→20:57)
[2018-05-25] MEDS: LISINOPRIL 5 MG TAB PO ×2 (10:05→20:58)
[2018-05-25] MEDS: FOLIC ACID 1 MG TAB PO (10:06)
[2018-05-25] MEDS: SERTRALINE 100 MG TAB PO (10:06)
[2018-05-25] MEDS: PANTOPRAZOLE 40MG TAB (PROTONIX) PO ×2 (10:06→20:57)
[2018-05-25] MEDS: THIAMINE 100 MG TAB PO (10:06)
[2018-05-25] MEDS: GABAPENTIN 400 MG CAP PO ×4 (10:07→20:58)
[2018-05-25] MEDS: ACETAMINOPHEN 650MG ER TAB (TYLENOL ARTHRITIS) PO ×2 (12:15→21:45)
[2018-05-26] MEDS: hydrOXYzine 25 MG TAB PO (01:15)
[2018-05-26] MEDS: HEPARIN SOD (PORCINE) 5000 UNITS/ML VIAL SC (05:15)
[2018-05-26] MEDS: OXAZEPAM 10 MG CAP PO (05:15)
[2018-05-26 06:17] LABS: HEMATOCRIT 42.3 % (42.0-52.0); HEMOGLOBIN 13.3 g/dl (13.5-17.5); MEAN CORPUSCULAR HEMOGLOBIN 25.7 pg (27.0-33.0); MEAN CORPUSCULAR HGB CONC 31.4 g/dl (32.0-36.5); MEAN CORPUSCULAR VOLUME 81.8 fl (80.0-96.0); PLATELET COUNT, AUTOMATED 238 10^3/uL (150-450); RED BLOOD COUNT 5.17 10^6/uL (4.30-6.10); RED CELL DISTRIBUTION WIDTH 17.6 % (11.5-14.5); WHITE BLOOD COUNT 9.3 10^3/uL (4.0-10.0)
[2018-05-26] MEDS: SUCRALFATE SUSP 1GM/10ML UD PO (06:45)
[2018-05-26] MEDS: ACETAMINOPHEN 650MG ER TAB (TYLENOL ARTHRITIS) PO (06:45)
[2018-05-26 06:46] LABS: ANION GAP 9 MEQ/L (8-16); BLOOD UREA NITROGEN 9 MG/DL (7-18); CALCIUM LEVEL 9.4 MG/DL (8.5-10.1); CARBON DIOXIDE LEVEL 24 MEQ/L (21-32); CHLORIDE LEVEL 105 MEQ/L (98-107); CREATININE FOR GFR 0.86 MG/DL (0.70-1.30); GLOMERULAR FILTRATION RATE > 60.0 (>60); GLUCOSE, FASTING 113 MG/DL (70-100); POTASSIUM SERUM 4.2 MEQ/L (3.5-5.1); SODIUM LEVEL 138 MEQ/L (136-145)
[2018-05-26] MEDS: METOPROLOL TART 50 MG TAB PO (08:12)
[2018-05-26] MEDS: PANTOPRAZOLE 40MG TAB (PROTONIX) PO (08:12)
[2018-05-26] MEDS: THIAMINE 100 MG TAB PO (08:13)
[2018-05-26] MEDS: MAGNESIUM OXIDE 400 MG TAB (MAG-OX) PO (08:13)
[2018-05-26] MEDS: GABAPENTIN 400 MG CAP PO (08:13)
[2018-05-26] MEDS: FOLIC ACID 1 MG TAB PO (08:14)
[2018-05-26] MEDS: LISINOPRIL 5 MG TAB PO (08:14)
[2018-05-26] MEDS: SERTRALINE 100 MG TAB PO (08:14)
[2018-05-26] MEDS: ADVAIR HFA 230/21MCG INHALER INH (08:30)
== END 2018-05-26 10:15 | disposition home or self-care (01) | DRG 775 ==
LOC: M ED 14:02 → M ED INP 16:39 → M PCU 17:33
DX: F10.239 Alcohol dependence with withdrawal, unspecified (principal); I10 Essential (primary) hypertension; J45.909 Unspecified asthma, uncomplicated; K21.9 Gastro-esophageal reflux disease without esophagitis; F41.9 Anxiety disorder, unspecified; Z79.899 Other long term (current) drug therapy; Z91.19 Patient's noncompliance with other medical treatment and regimen; K57.30 Diverticulosis of large intestine without perforation or abscess without bleeding; Z87.891 Personal history of nicotine dependence

== ENCOUNTER 2018-06-04 15:06 | Outpatient (RCR) | payer OTHER | END 2018-06-16 | LOC: M OUTALCOH 06-11 10:00 | DX: F10.20 Alcohol dependence, uncomplicated (principal) ==

== ENCOUNTER 2018-06-14 18:22 | Emergency (ER) | payer MEDICAID, OTHER ==
[2018-06-14] MEDS: LORazepam 2 MG/ML VIAL (J2060) IV (18:58)
[2018-06-14] MEDS: NS 1,000 ML IV (19:00)
[2018-06-14] MEDS: OXAZEPAM 15 MG CAP PO (20:00)
[2018-06-14] MEDS: METOCLOPRAMIDE INJ 10MG/2ML VIAL (J2765) IV (20:00)
[2018-06-14 20:52] LABS: HEMATOCRIT 40.8 % (42.0-52.0); HEMOGLOBIN 13.4 g/dl (13.5-17.5); MEAN CORPUSCULAR HEMOGLOBIN 25.7 pg (27.0-33.0); MEAN CORPUSCULAR HGB CONC 32.8 g/dl (32.0-36.5); MEAN CORPUSCULAR VOLUME 78.2 fl (80.0-96.0); PLATELET COUNT, AUTOMATED 307 10^3/uL (150-450); RED BLOOD COUNT 5.22 10^6/uL (4.30-6.10); WHITE BLOOD COUNT 9.1 10^3/uL (4.0-10.0)
[2018-06-14 21:14] LABS: AMPHETAMINES LEVEL URINE NEGATIVE (NEGATIVE); BARBITURATES URINE NEGATIVE (NEGATIVE); BENZODIAZEPINES URINE NEGATIVE (NEGATIVE); CANNABINOIDS URINE NEGATIVE (NEGATIVE); COCAINE METABOLITE URINE NEGATIVE (NEGATIVE); METHADONE URINE NEGATIVE (NEGATIVE); OPIATES URINE NEGATIVE (NEGATIVE); PHENCYCLIDINE URINE NEGATIVE (NEGATIVE)
[2018-06-14 21:24] LABS: ACETAMINOPHEN LEVEL < 2.0 UG/ML (10.0-30.0); ALBUMIN 4.3 GM/DL (3.2-5.2); ALKALINE PHOSPHATASE 97 U/L (45-117); ALT/SGPT 33 U/L (12-78); ANION GAP 12 MEQ/L (8-16); AST/SGOT 32 U/L (7-37); BILIRUBIN,DIRECT 0.1 MG/DL (0.0-0.2); BILIRUBIN,TOTAL 0.5 MG/DL (0.2-1.0); BLOOD UREA NITROGEN 7 MG/DL (7-18); CALCIUM LEVEL 9.5 MG/DL (8.5-10.1); CARBON DIOXIDE LEVEL 23 MEQ/L (21-32); CHLORIDE LEVEL 100 MEQ/L (98-107); CREATININE FOR GFR 0.72 MG/DL (0.70-1.30); ETHYL ALCOHOL (ETHANOL) 0.019 % (0.000-0.010); GLOMERULAR FILTRATION RATE > 60.0 (>60); GLUCOSE, FASTING 89 MG/DL (70-100); MAGNESIUM LEVEL 1.5 MG/DL (1.8-2.4); POTASSIUM SERUM 3.8 MEQ/L (3.5-5.1); SALICYLATE LEVEL < 1.7 MG/DL (5.0-30.0); SODIUM LEVEL 135 MEQ/L (136-145); TOTAL PROTEIN 7.6 GM/DL (6.4-8.2)
== END 2018-06-14 23:00 | disposition home or self-care (01) ==
LOC: M ED 18:22
DX: F10.239 Alcohol dependence with withdrawal, unspecified (principal); Z72.0 Tobacco use; Z79.899 Other long term (current) drug therapy; Z91.018 Allergy to other foods
CPT/HCPCS: J2765

== ENCOUNTER 2018-06-18 10:21 | Outpatient (RCR) | payer OTHER | END 2018-07-16 | LOC: M OUTALCOH 10:21 | DX: F10.20 Alcohol dependence, uncomplicated (principal) ==

== ENCOUNTER 2018-10-22 02:26 | Emergency (ER) | payer OTHER ==
[~2018-10-22] VITALS: Ht 177.8 cm; Wt 96.4 kg
[~2018-10-22 02:26] MED LIST changes: -AMLO5TAB2 PO; +AMLO5TAB6 PO; +BREO1INH INH; +CHLO25CA PO; +CLON-412 PO; +FLUO1TAB3 PO; +FLUO20CA8 PO; +FOLI1TAB11 PO; -FOLI1TAB4 PO; +GABA-845; +GABA-845 PO; +HYDR-3363; +HYDR-3363 PO; +LISI-538 PO; +LISI-542 PO; +LISI10TA4 PO; +LOPR1TAB6 PO; +LORA-243; +LORA10TA3 PO; +MAG400TA PO; +METO50TA7; +MIRT15TA3 PO; +MULT1TAB10 PO; +NALT50TA4; +OMEP20CA3; +RISP2TAB32 PO; +SERT-155; +SERT50TA PO; +THIA100T7 PO; +VENTAER; +VENTAER INH; +VIVI380I IM; +ZOFR4TAB14 PO; -ZOFR4TAB3 PO
[2018-10-22] MEDS ORDERED: MULTIVITAMIN -ADULT INJECTION 10 ML, THIAMINE INJection 100 MG, FOLIC ACID 1 MG in NS 1... IV ONE (02:45)
[2018-10-22 04:47] LABS: BLOOD UREA NITROGEN 6 MG/DL (7-18); CALCIUM LEVEL 7.7 MG/DL (8.5-10.1); CARBON DIOXIDE LEVEL 21 MEQ/L (21-32); CHLORIDE LEVEL 113 MEQ/L (98-107); ETHYL ALCOHOL (ETHANOL) 0.273 % (0.000-0.010); GLOMERULAR FILTRATION RATE > 60.0 (>60); GLUCOSE, FASTING 103 MG/DL (70-100); POTASSIUM SERUM 3.6 MEQ/L (3.5-5.1); SODIUM LEVEL 145 MEQ/L (136-145)
[2018-10-22 05:29] VITALS: BP 136/86
[2018-10-22] MEDS ORDERED: PHENobarbital 30 MG TAB PO ONE (05:30)
== END 2018-10-22 05:31 | disposition home or self-care (01) ==
LOC: M ED 02:26
DX: F10.20 Alcohol dependence, uncomplicated (principal); I10 Essential (primary) hypertension; J44.9 Chronic obstructive pulmonary disease, unspecified; F33.9 Major depressive disorder, recurrent, unspecified; F17.200 Nicotine dependence, unspecified, uncomplicated; Z79.899 Other long term (current) drug therapy; Z91.018 Allergy to other foods
CPT/HCPCS: 80048; 96374; 99284; G0480; J3411

== ENCOUNTER 2018-11-04 01:04 | Emergency (ER) | payer OTHER ==
[~2018-11-04] VITALS: Ht 177.8 cm; Wt 68.2 kg
[2018-11-04 01:04] VITALS: BP 136/89
== END 2018-11-04 02:52 | disposition home or self-care (01) ==
LOC: M ED 01:04
DX: F10.120 Alcohol abuse with intoxication, uncomplicated (principal); Z91.018 Allergy to other foods; Z79.899 Other long term (current) drug therapy

== ENCOUNTER 2018-11-09 18:58 | Emergency (ER) | payer OTHER ==
[~2018-11-09] VITALS: Ht 177.8 cm; Wt 98.2 kg
[~2018-11-09 18:58] MED LIST changes: +LACT10SO7 PO; -LACT20EL PO; +SERT-141 PO; -SERT25TA PO; +SERT25TA85 PO; -SERT50TA PO
[2018-11-09 19:27] LABS: HEMATOCRIT 42.5 % (42.0-52.0); HEMOGLOBIN 14.2 g/dl (13.5-17.5); MEAN CORPUSCULAR HGB CONC 33.4 g/dl (32.0-36.5); MEAN CORPUSCULAR VOLUME 83.8 fl (80.0-96.0); PLATELET COUNT, AUTOMATED 228 10^3/uL (150-450); RED BLOOD COUNT 5.07 10^6/uL (4.30-6.10); WHITE BLOOD COUNT 8.9 10^3/uL (4.0-10.0)
[2018-11-09 19:57] LABS: ACETAMINOPHEN LEVEL < 2.0 UG/ML (10.0-30.0); ALBUMIN 4.5 GM/DL (3.2-5.2); ALT/SGPT 82 U/L (12-78); BILIRUBIN,DIRECT 0.1 MG/DL (0.0-0.2); BILIRUBIN,TOTAL 0.4 MG/DL (0.2-1.0); BLOOD UREA NITROGEN 12 MG/DL (7-18); CALCIUM LEVEL 8.9 MG/DL (8.5-10.1); CARBON DIOXIDE LEVEL 19 MEQ/L (21-32); CHLORIDE LEVEL 101 MEQ/L (98-107); CPK CREATINE PHOSPHOKINASE 333 U/L (39-308); CREATININE FOR GFR 1.29 MG/DL (0.70-1.30); ETHYL ALCOHOL (ETHANOL) 0.366 % (0.000-0.010); GLOMERULAR FILTRATION RATE > 60.0 (>60); GLUCOSE, FASTING 111 MG/DL (70-100); POTASSIUM SERUM 3.9 MEQ/L (3.5-5.1); SALICYLATE LEVEL < 1.7 MG/DL (5.0-30.0); SODIUM LEVEL 134 MEQ/L (136-145); TOTAL PROTEIN 7.8 GM/DL (6.4-8.2)
[2018-11-09] MEDS ORDERED: NS 1,000 ML IV ONE ×2 (20:45)
[2018-11-09 20:59] LABS: AMPHETAMINES LEVEL URINE NEGATIVE (NEGATIVE); BARBITURATES URINE NEGATIVE (NEGATIVE); BENZODIAZEPINES URINE NEGATIVE (NEGATIVE); CANNABINOIDS URINE NEGATIVE (NEGATIVE); COCAINE METABOLITE URINE NEGATIVE (NEGATIVE); METHADONE URINE NEGATIVE (NEGATIVE); OPIATES URINE NEGATIVE (NEGATIVE); PHENCYCLIDINE URINE NEGATIVE (NEGATIVE)
[2018-11-09 23:15] VITALS: BP 130/91
--- NOTE | 2018-11-10 08:05 | ECGEPIP ---
Stationary ECG Study [facility] - ED Test Date: 2018-11-09 Pat Name: TERESA NUNEZ Department: Room: - Gender: M Mmi Teacher: [facility] : 1970 Requested By: JULITA Wallace Order Number: [id number] Reading MD: Uche Hernandez Measurements Intervals [place] Rate: 90 P: 51 NE: 135 QRS: 57 QRSD: 89 T: 56 QT: 349 QTc: 427 Interpretive Statements SINUS RHYTHM WITH SINUS ARRHYTHMIA BENIGN EARLY REPOLARIZATION POSSIBLE PRIOR INFERIOR INFARCT SIMILAR TO 06/14/18 Electronically Signed On 11-10-2018 8:05:18 EDT by Uche Hernandez
== END 2018-11-09 23:35 | disposition home or self-care (01) ==
LOC: M ED 18:58 → EDBD 18:58 → M ED 23:35
DX: F10.129 Alcohol abuse with intoxication, unspecified (principal); F41.9 Anxiety disorder, unspecified; I10 Essential (primary) hypertension; K21.9 Gastro-esophageal reflux disease without esophagitis; J45.909 Unspecified asthma, uncomplicated; F10.10 Alcohol abuse, uncomplicated; Z79.899 Other long term (current) drug therapy; Z91.018 Allergy to other foods
CPT/HCPCS: 80048; 80076; 80307; 82550; 84443; 85027; 93005; 96360; 96361; 99285; G0480

== ENCOUNTER 2019-01-05 08:20 | Emergency (ER) | payer OTHER ==
[~2019-01-05] VITALS: Ht 177.8 cm; Wt 93.4 kg
[2019-01-05 09:11] LABS: BASO # 0.1 10^3/uL (0.0-0.2); BASO % 1.1 % (0.0-1.0); EOS % 0.7 % (0.0-3.0); LYMPH # 2.2 10^3/uL (1.5-4.5); LYMPH % 39.9 % (24.0-44.0); MEAN CORPUSCULAR HEMOGLOBIN 29.5 pg (27.0-33.0); MEAN CORPUSCULAR HGB CONC 32.5 g/dl (32.0-36.5); MEAN CORPUSCULAR VOLUME 90.9 fl (80.0-96.0); MONO # 0.6 10^3/uL (0.0-0.8); MONO % 10.2 % (0.0-5.0); NEUTROPHILS # 2.7 10^3/uL (1.8-7.7); NEUTROPHILS % 47.7 % (36.0-66.0); WHITE BLOOD COUNT 5.6 10^3/uL (4.0-10.0)
[2019-01-05 09:17] LABS: ABG BASE EXCESS -4.7 (-2.0-2.0); ABG HCO3 19.7 MEQ/L (22.0-26.0); ABG O2 SATURATION 96.7 % (95.0-99.0); ABG PARTIAL PRESSURE CO2 34.2 mmHg (35.0-45.0); ABG PARTIAL PRESSURE O2 97.5 mmHg (75.0-100.0); ABG STANDARD HCO3 20.6 MEQ/L (22.0-26.0); ABG TOTAL CO2 20.7 MEQ/L (22.0-29.0); ABG pH (ARTERIAL) 7.378 UNITS (7.350-7.450)
[2019-01-05 09:21] LABS: PLATELET COUNT, AUTOMATED 98 10^3/uL (150-450)
[2019-01-05 10:01] LABS: BLOOD UREA NITROGEN 4 MG/DL (7-18); CALCIUM LEVEL 8.3 MG/DL (8.5-10.1); CARBON DIOXIDE LEVEL 24 MEQ/L (21-32); CHLORIDE LEVEL 114 MEQ/L (98-107); CPK CREATINE PHOSPHOKINASE 579 U/L (39-308); CREATININE FOR GFR 0.73 MG/DL (0.70-1.30); GLOMERULAR FILTRATION RATE > 60.0 (>60); GLUCOSE, FASTING 93 MG/DL (70-100); MB/CK RELATIVE INDEX 0.67 (< OR =4); POTASSIUM SERUM 4.8 MEQ/L (3.5-5.1); SODIUM LEVEL 148 MEQ/L (136-145); TROPONIN I < 0.02 NG/ML (< 0.10)
[2019-01-05] MEDS ORDERED: ISOVUE-370 76% 100ML VIAL (Q9967) As Ordered ONE (10:37)
--- NOTE | 2019-01-05 13:22 | REP ---
CT ANGIOGRAM OF THE CHEST: TECHNIQUE: Axial contrast enhanced images from the thoracic inlet to the upper abdomen using 100 mL Isovue 370 intravenous contrast material with multiplanar reformations. There is no CT evidence of pulmonary embolism. There is no thoracic aortic aneurysm or dissection. There is no evidence of mediastinal, hilar, or chest wall lymphadenopathy. The heart is normal in size. There is no pleural or pericardial effusion. There is diffuse fatty infiltration of the liver. Tiny calcific granuloma is seen in the right apex. Small subcentimeter nodule in the lateral right middle lobe is stable compared to prior CT of 02/28/2017. No infiltrate is seen in either lung. IMPRESSION: No CT evidence of pulmonary embolism or aortic dissection. No acute infiltrate in either lung. Electronically Signed by Tavon Lombardi MD 01/06/2019 11:13 A
[2019-01-05] MEDS ORDERED: predniSONE 20 MG TAB PO ONE (13:30)
[2019-01-05] MEDS ORDERED: ALBUTEROL 90 MCG/ACT 8GM HFA INHALER INH ONE (13:30)
[2019-01-05] MEDS ORDERED: VENTAER INH (13:33)
[2019-01-05] MEDS ORDERED: PRED20TA PO (13:34)
[2019-01-05 13:49] VITALS: BP 130/89
--- NOTE | 2019-01-06 07:16 | ECGEPIP ---
[facility] - ED Test Date: 2019-01-05 Pat Name: TERESA UNNEZ Department: Room: - Gender: Male Facilities Specialist: BELKIS : 1970 Requested By: JUANA Dooley Order Number: [id number] Reading MD: Uche Hernandez Measurements Intervals [place] Rate: 91 P: 64 AR: 138 QRS: 58 QRSD: 90 T: 49 QT: 376 QTc: 463 Interpretive Statements SINUS RHYTHM BENIGN EARLY REPOLARIZATION PRIOR INFERIOR INFARCT SIMILAR TO 11/09/18 Electronically Signed on 01-06-2019 7:16:40 EDT by Uche Hernandez
== END 2019-01-05 13:54 | disposition home or self-care (01) ==
LOC: M ED 08:20
DX: J45.901 Unspecified asthma with (acute) exacerbation (principal); I10 Essential (primary) hypertension; J44.9 Chronic obstructive pulmonary disease, unspecified; E78.5 Hyperlipidemia, unspecified; F41.9 Anxiety disorder, unspecified; F10.10 Alcohol abuse, uncomplicated; Z79.899 Other long term (current) drug therapy; Z91.018 Allergy to other foods; F17.210 Nicotine dependence, cigarettes, uncomplicated
CPT/HCPCS: 36415; 36600; 71275; 80048; 82550; 82553; 82803; 84443; 85025; 85049; 85055; 93005; 93041; 99285; Q9967